=== PATIENT | female | born 1960 | race Caucasian/White ===

== ENCOUNTER → 2016-03-22 | Day surgery (SDC) | payer OTHER ==
[2016-03-05 12:50] VITALS: Ht 175.3 cm; Wt 94.5 kg
[~2016-03-22] VITALS: Ht 175.3 cm; Wt 94.5 kg
[~2016-03-22] MED LIST: ACET-1256 PO; ACET-749 PO; ACET325T96 PO; ALBU0.5N2 NEB; ATOR-24 PO; CHN/1 PO; CHOL1CAP57 PO; CIPR-255 PO; CITA20TA9 PO; CPR500 PO; CYCL10TA6 PO; DICL75TA2 PO; DIPH-437 PO; DONE1TAB11 PO; FLVHFA110 INH; FLVHFA220 PO; HYDR-4079 PO; HYDR-5688 PO; LIDOCAINE HCL 2% 2 ML VIAL (20MG/ML) ONE; LISI-787 PO; LORA-741 PO; LORA10CA2 PO; MULT-188 PO; NICO14DI9 TOP; NMN10 PO; NMN5 PO; OXYB5TAB74 PO; OXYC1TAB3 PO; PHEN-775 PO; PRLSR20 PO; PROPOFOL IV EMULSION 10 MG/ML 20 ML VIAL IV ONE; PRVIN525 INH; RANI150C4 PO; SERT-234 PO; SPRIN/30 INH; SULF800T23 PO; TIOT1AER2 INH; TIOTCAP INH; VALA1TAB2 PO; VNTHFA/IN INH; ZOLP5TAB6 PO
--- NOTE | 2016-03-22 13:27 | Endo History and Physical ---
History & Physical Date of Service: Mar 22, 2016. Chief Complaint: Screening Referring Physician: Angel History of Present Illness For colonoscopy Past Medical History Arthritis, Fractures, Asthma, Anxiety, Reflux, Gynecological Problems, High Cholesterol, Hypertension, COPD, Kidney Disease Past Surgical History Hx Cardiac Surgery: No Hx Internal Defibrillator: No Hx Pacemaker: No Hx Abdominal Surgery: Yes (APPY, HYSTER, TUBAL LIGATION, BSO, MT, HERNIA REPAIR) Hx of Implantable Prosthesis: No Hx Post-Op Nausea and Vomiting: No Hx Cancer Surgery: No Hx Thoracic Surgery: No Hx Orthopedic: Yes (LT CTR, LT ELBOW SURGERY) Hx Urinary Tract Surgery: No Family History None Social History Smoking Status: Current Every Day Smoker Hx Substance Use: No Hx Alcohol Use: No Allergies Coded Allergies: Penicillins (Verified Allergy, Intermediate, HIVES, 03/05/16) Tetracyclines (Verified Allergy, Intermediate, HIVES, 03/05/16) Current Medications Reported Home Medications Medications Dose Route/Sig Max Daily Dose Days Date Category Nicotine 14 Mg/24 Hr Dis 1 Patch TOP UD 03/05/16 Reported Tylenol W/Codeine #3 (Acetaminophen/Codeine Phosphate) 300 Mg/30 Mg Tab 1 Tab PO BID PRN 03/05/16 Reported Namenda (Memantine) 5 Mg Tab 5 Mg PO HS 08/30/15 Reported Spiriva Handihaler (Tiotropium [place]) 18 Mcg/ Aerp 1 Cap INH QAM 08/30/15 Reported Flovent Hfa (Fluticasone Propionate) 120 Puffs/71518 Mcg Aero 2 Puffs INH BID 30 08/30/15 Reported Zestoretic 20MG/12.5MG (HCTZ/Lisinopril) Tab 1 Tab PO QAM 08/30/15 Reported Ventolin 0.5% Soln (Albuterol Sulfate) Nebu 1 Vial NEB Q4 PRN 08/30/15 Reported Lipitor (Atorvastatin Calcium) 40 Mg Tab 40 Mg PO HS 07/19/15 Reported Ativan (Lorazepam) 0.5 Mg Tab 0.5 Mg PO Q6H PRN 07/19/15 Reported Celexa (Citalopram Hydrobromide) 20 Mg Tab 20 Mg PO QAM 07/19/15 Reported Donepezil Hcl (Donepezil Hydrochloride) 5 Mg Tab 5 Mg PO QAM 07/19/15 Reported Ocuvite (Multiple Vitamins W/ Minerals) 1 Tab Tab 1 Tab PO HS 08/02/14 Reported Ranitidine Hcl 150 Mg Cap 150 Mg PO QAM 12/04/12 Reported Vitamin D3 (Cholecalciferol) 1,000 Unit Cap 1,000 Inter.unit PO QAM 12/04/12 Reported Prilosec (Omeprazole) 20 Mg Capcr 20 Mg PO QAM 12/04/12 Reported Claritin (Loratadine) 10 Mg Cap 10 Mg PO QAM PRN 08/05/11 Reported Vital Signs Weight (Kilograms): 94.55 Height (Feet): 5 Height (Inches): 9 Date Time Temp Pulse Resp B/P Pulse Ox O2 Delivery O2 Flow Rate FiO2 03/22/16 13:06 37.2 80 18 126/72 95 Room Air Physical Exam General Appearance: WD/WN Respiratory/Chest: Respiratory effort: no dyspnea Cardiovascular: Heart Auscultation: RRR Abdomen: Inspection & Palpation: soft (for screening colonoscopy)
--- NOTE | 2016-03-22 13:56 | Discharge Instructions ---
Endoscopy Patient Instructions Date / Procedure(s) Performed Mar 22, 2016. Colonoscopy Allergy Information Coded Allergies: Penicillins (Verified Allergy, Intermediate, HIVES, 03/05/16) Tetracyclines (Verified Allergy, Intermediate, HIVES, 03/05/16) Discharge Date / Findings Mar 22, 2016. Polyps Medication Instructions Restart Stopped Medication(s): resume meds Reported Home Medications Medications Dose Route/Sig Max Daily Dose Days Date Category Nicotine 14 Mg/24 Hr Dis 1 Patch TOP UD 03/05/16 Reported Tylenol W/Codeine #3 (Acetaminophen/Codeine Phosphate) 300 Mg/30 Mg Tab 1 Tab PO BID PRN 03/05/16 Reported Namenda (Memantine) 5 Mg Tab 5 Mg PO HS 08/30/15 Reported Spiriva Handihaler (Tiotropium [place]) 18 Mcg/ Aerp 1 Cap INH QAM 08/30/15 Reported Flovent Hfa (Fluticasone Propionate) 120 Puffs/[id number] Mcg Aero 2 Puffs INH BID 30 08/30/15 Reported Zestoretic 20MG/12.5MG (HCTZ/Lisinopril) Tab 1 Tab PO QAM 08/30/15 Reported Ventolin 0.5% Soln (Albuterol Sulfate) Nebu 1 Vial NEB Q4 PRN 08/30/15 Reported Lipitor (Atorvastatin Calcium) 40 Mg Tab 40 Mg PO HS 07/19/15 Reported Ativan (Lorazepam) 0.5 Mg Tab 0.5 Mg PO Q6H PRN 07/19/15 Reported Celexa (Citalopram Hydrobromide) 20 Mg Tab 20 Mg PO QAM 07/19/15 Reported Donepezil Hcl (Donepezil Hydrochloride) 5 Mg Tab 5 Mg PO QAM 07/19/15 Reported Ocuvite (Multiple Vitamins W/ Minerals) 1 Tab Tab 1 Tab PO HS 08/02/14 Reported Ranitidine Hcl 150 Mg Cap 150 Mg PO QAM 12/04/12 Reported Vitamin D3 (Cholecalciferol) 1,000 Unit Cap 1,000 Inter.unit PO QAM 12/04/12 Reported Prilosec (Omeprazole) 20 Mg Capcr 20 Mg PO QAM 12/04/12 Reported Claritin (Loratadine) 10 Mg Cap 10 Mg PO QAM PRN 08/05/11 Reported Provider Instructions Activity Restrictions - No exercising or heavy lifting for 24 hours. - Do not drink alcohol the day of the procedure. - Do not drive a car or operate machinery until the day after the procedure. - Do not make any important decisions or sign important papers in 24 hours after the procedure. Following Day: - Return to full activity which may include returning to work/school. Diet Start your diet with liquids and light foods (jello, soup, juice, toast). Then eat your usual diet if not nauseated. Treatment For Common After Affects For mild abdominal pain, bloating, or excessive gas: - Rest - Eat lightly - Lie on right side Follow-Up Information Follow-up with Angel as scheduled Anesthesia Information What You Should Know You have had a procedure that required some medicine to reduce anxiety and discomfort. This treatment is called moderate sedation. After receiving the treatment, you may be sleepy, but you will be able to breathe on your own. The effects of the treatment may last for several hours. Follow these instructions along with Activity/Diet recommendations noted above: * Do NOT do anything where dizziness or clumsiness would be dangerous. * Rest quietly at home today, then you can be up and about tomorrow. * Have a responsible person stay with you the rest of today. * You may have had an I.V. today. If so, you may take the dressing off later today. Recommendations Call your doctor if: * Trouble breathing * Continuous vomiting for more than 24 hours * Temperature above 101 degrees * Severe abdominal pain or bloating * Pain not relieved by pain medicine ordered * There is increased drainage or redness from any incision * A large amount of rectal bleeding greater than 2-3 tablespoons. (If you had a polyp/s removed or have hemorrhoids, a small amount of blood - from the rectum is to be expected.) * You have any unanswered questions or concerns. IN THE EVENT OF A SERIOUS EMERGENCY, GO TO THE NEAREST EMERGENCY ROOM Your discharge instructions were prepared by provider Yash Ramírez. Patient Instructions Signature Page Marjorie Graham Patient (or Guardian) Signature/Date: I have read and understand the instructions given to me by my caregivers. Caregiver/RN/Doctor Signature/Date: The above-named patient and/or guardian has received patient instructions on this date. + Original Patient Signature Page (only) stays with chart. Please make copy for patient.
--- NOTE | 2016-03-22 13:58 | GI REPORT ---
Procedure Date: 03/22/2016 1:29 PM Procedure: Colonoscopy Indications: Screening for colorectal malignant neoplasm Medicines: Propofol total dose 280 mg IV, Lidocaine 40 mg IV Complications: No immediate complications. Estimated Blood Loss: Estimated blood loss was minimal. Procedure: Pre-Anesthesia Assessment: - Prior to the procedure, a History and Physical was performed, and patient medications, allergies and sensitivities were reviewed. The patient's tolerance of previous anesthesia was reviewed. - The risks and benefits of the procedure and the sedation options and risks were discussed with the patient. All questions were answered and informed consent was obtained. After I obtained informed consent, the scope was passed under direct vision. Throughout the procedure, the patient's blood pressure, pulse, and oxygen saturations were monitored continuously. The Scope was introduced through the anus and advanced to the cecum, identified by appendiceal orifice and ileocecal valve. The colonoscopy was performed without difficulty. The patient tolerated the procedure well. The quality of the bowel preparation was excellent. Findings: A 3 mm polyp was found in the cecum. The polyp was sessile. The polyp was removed with a cold snare. Resection and retrieval were complete. Estimated blood loss was minimal. A 3 mm polyp was found in the sigmoid colon. The polyp was sessile. The polyp was removed with a cold snare. Resection and retrieval were complete. Estimated blood loss was minimal. Impression: - One 3 mm polyp in the cecum, removed with a cold snare. Resected and retrieved. - One 3 mm polyp in the sigmoid colon, removed with a cold snare. Resected and retrieved. Recommendation: - Discharge patient to home (ambulatory). - Continue present medications. - Await pathology results. - Return to primary care physician PRN. Yash Ramírez M.D. Yash Ramírez MD 03/22/2016 1:58:13 PM This report has been signed electronically. Note Initiated On: 03/22/2016 1:29 PM
[2016-03-22 14:27] VITALS: BP 117/68; PULSE 73; O2SAT 95
--- NOTE | 2016-03-22 14:27 | Anesthesiology Progress Note ---
Anesthesia Post Op Note Date & Time Mar 22, 2016 at 14:26 Vital Signs Pain Intensity: 0 Vital Signs Past 12 Hours Date Time Temp Pulse Resp B/P Pulse Ox O2 Delivery O2 Flow Rate FiO2 03/22/16 14:12 73 18 116/49 96 Room Air 03/22/16 13:57 67 18 102/49 96 Room Air 03/22/16 13:06 37.2 80 18 126/72 95 Room Air Notes Mental Status: alert / awake / arousable, participated in evaluation Pt Amnestic to Procedure: Yes Nausea / Vomiting: adequately controlled Pain: adequately controlled Airway Patency, RR, SpO2: stable & adequate BP & HR: stable & adequate Hydration State: stable & adequate Anesthetic Complications: no major complications apparent
== END | disposition home or self-care (01) ==
LOC: C.GI 12:47
PROVIDERS: ATTEND Internal Medicine Gastroenterology
DX: Z12.11 Encounter for screening for malignant neoplasm of colon (principal); D12.0 Benign neoplasm of cecum; D12.5 Benign neoplasm of sigmoid colon; I10 Essential (primary) hypertension; F17.200 Nicotine dependence, unspecified, uncomplicated; J44.9 Chronic obstructive pulmonary disease, unspecified; E11.9 Type 2 diabetes mellitus without complications; J45.909 Unspecified asthma, uncomplicated; E78.00 Pure hypercholesterolemia, unspecified; F41.9 Anxiety disorder, unspecified; E66.9 Obesity, unspecified; Z68.31 Body mass index [BMI] 31.0-31.9, adult; Z90.89 Acquired absence of other organs; Z90.710 Acquired absence of both cervix and uterus; Z88.1 Allergy status to other antibiotic agents; Z88.0 Allergy status to penicillin; Z98.51 Tubal ligation status; Z90.49 Acquired absence of other specified parts of digestive tract; Z98.890 Other specified postprocedural states

== ENCOUNTER → 2016-04-08 | Outpatient (CLI) | payer OTHER ==
[~2016-04-08] MED LIST changes: -LIDOCAINE HCL 2% 2 ML VIAL (20MG/ML) ONE; -PROPOFOL IV EMULSION 10 MG/ML 20 ML VIAL IV ONE
--- NOTE | 2016-04-08 12:34 | DIAGNOSTIC IMAGING REPORT ---
CHEST 2 VIEWS ROUTINE CLINICAL HISTORY: COPD,COUGH COMPARISON STUDY: 08/30/2015 FINDINGS: The cardiac and mediastinal contours are normal. There is no evidence of focal pulmonary consolidation. There is no evidence of failure. No pleural effusions are visualized.[ There is minimal left basilar atelectasis/scarring. IMPRESSION: No active disease in the chest. Electronically signed by: Jagdish Pedroza M.D. 04/08/2016 12:32 PM Dictated Date/Time: 04/08/2016 12:31 PM
== END | disposition home or self-care (01) ==
LOC: C.RAD1850 12:20
PROVIDERS: ATTEND Family Medicine
DX: J44.1 Chronic obstructive pulmonary disease with (acute) exacerbation (principal)

== ENCOUNTER → 2016-04-23 | Outpatient (CLI) | payer OTHER ==
--- NOTE | 2016-04-23 12:03 | DIAGNOSTIC IMAGING REPORT ---
CT SCAN OF THE TEMPORAL BONES CLINICAL HISTORY: Bilateral otitis media. COMPARISON STUDY: CT of the brain dated 08/29/2014. TECHNIQUE: High-resolution CT scan of the temporal bones is performed. Images reviewed in the axial, sagittal, and coronal planes. IV contrast was not administered for this examination. CT DOSE: 403.53 mGycm FINDINGS: The skeletal structures are osteopenic. There are moderate to large bilateral mastoid effusions. There is fluid identified within the right middle ear cavity. The scutum is sharp bilaterally. There is no evidence of dehiscence of the tegmen tympany. There is no definite soft tissue lesion to suggest cholesteatoma. The ossicles are normal in configuration without evidence of erosion. There is no evidence of otosclerosis. The visualized calvarium appears intact. Frothy secretions are present within the sphenoid sinuses and the left posterior ethmoid sinuses. Air-fluid levels and secretions are present within the maxillary antra. Fluid and secretions are also present within the frontal sinuses. The bony orbits are intact, and orbital contents are within normal limits. The partially imaged brain parenchyma is normal in appearance. IMPRESSION: 1. There are large bilateral mastoid effusions. 2. There is fluid within the right middle ear canal. This would be consistent with the reported clinical history of otitis media. 3. The middle ear structures otherwise normal in appearance. 4. Pansinusitis as above. Dictated: 04/23/2016 11:35 AM Transcribed: 04/23/2016 12:02 PM Fritz Electronically signed by: Britton Lynn M.D. 04/23/2016 1:08 PM Dictated Date/Time: 04/23/2016 11:35 AM
== END | disposition home or self-care (01) ==
LOC: C.CTS 11:13
PROVIDERS: ATTEND Family Medicine
DX: H66.90 Otitis media, unspecified, unspecified ear (principal)

== ENCOUNTER → 2016-05-10 | Outpatient (CLI) | payer OTHER ==
--- NOTE | 2016-05-10 09:55 | DIAGNOSTIC IMAGING REPORT ---
FUSION CT SINUSES W/O HISTORY: Chronic sinusitis. TECHNIQUE: Multiaxial CT images of the sinuses were performed without the use of intravenous contrast reformatted in the coronal plane. Fusion CT protocol was also obtained. COMPARISON STUDY: Temporal bone CT 04/23/2016. FINDINGS: Small amount of bubbly secretions seen within the left frontal sinus and mild mucosal thickening seen within the right frontal sinus. Opacification of the right frontoethmoidal recess due to the mucosal thickening. There is partial opacification of the bilateral ethmoid air cells which is slightly progressed. Small fluid levels within the sphenoid sinuses with bubbly secretions. This has also progressed. Small fluid levels within the bilateral maxillary sinuses persist. Small retention cyst within the right maxillary sinus anteriorly measuring 1 cm. Mild right nasal septal deviation with a small right-sided nasal spur. Near complete opacification of the bilateral mastoid air cells is again noted. No evidence for carotid canal dehiscence. The anterior clinoids are not pneumatized. The cribriform plates and ethmoid roofs are symmetric. The lamina papyracea and orbital floors are intact. Partial opacification of the bilateral ostiomeatal units. Focal soft tissue thickening at the right ostiomeatal unit may represent a polyp. This measures 7 mm. Rounded appearance to the uncinate processes which may be congenital or due to partial erosion. The visualized brain parenchyma and orbits are unremarkable. The pterygopalatine fossa are well-maintained. IMPRESSION: 1. Acute on chronic paranasal sinusitis as described above which has progressed. 2. Similar bilateral mastoid effusions. 3. Opacification of the bilateral ostiomeatal units, right greater than left. There may be a 7 mm polyp at the right ostiomeatal unit. 4. Mild right nasal septal deviation with a small right-sided nasal spur. Electronically signed by: Amado López M.D. 05/10/2016 9:54 AM Dictated Date/Time: 05/10/2016 9:45 AM
== END | disposition home or self-care (01) ==
LOC: C.CTS 09:20
PROVIDERS: ATTEND Surgery
DX: J01.80 Other acute sinusitis (principal); J32.8 Other chronic sinusitis; H74.93 Unspecified disorder of middle ear and mastoid, bilateral

== ENCOUNTER → 2016-06-07 | Day surgery (SDC) | payer OTHER ==
--- NOTE | 2016-05-21 12:04 | DIAGNOSTIC IMAGING REPORT ---
CHEST 2 VIEWS ROUTINE HISTORY: Z01.818 Pre-operative [id number] COMPARISON: Chest 04/08/2016. FINDINGS: The lungs are clear. Cardiac silhouette is normal in size. No pleural effusions. No pneumothorax. IMPRESSION: No acute process. Electronically signed by: Amado López M.D. 05/21/2016 12:02 PM Dictated Date/Time: 05/21/2016 11:59 AM
[2016-05-21 12:11] LABS: HEMATOCRIT 44.7 % (37-47); MEAN CELL VOLUME 90.7 fL (80-100); MEAN CORPUSCULAR HEMOGLOBIN 30.2 pg (25-34); MEAN CORPUSCULAR HGB CONC 33.3 g/dl (32-36); MEAN PLATELET VOLUME 10.1 fL (7.4-10.4); PLATELET COUNT 371 K/uL (130-400); RED BLOOD COUNT 4.93 M/uL (4.2-5.4); WHITE BLOOD COUNT 15.35 K/uL (4.8-10.8)
[2016-05-21 12:20] LABS: INR 0.9 (0.9-1.1); PROTHROMBIN TIME (PATIENT) 9.6 SECONDS (9.0-12.0)
[2016-05-21 12:34] LABS: COMPLETE YES; EOSINOPHIL % 0.9 %; LYMPH ABS # 3.73 K/uL (1.2-3.4); LYMPHOCYTE % 24.3 %; MYELOCYTE % 0.9 %; NEUTROPHILS % 69.6 %
[2016-05-23 09:16] VITALS: Ht 175.3 cm; Wt 93.6 kg
--- NOTE | 2016-06-06 12:22 | PAT Medication Instructions ---
Service Date Jun 06, 2016. Current Home Medication List Albuterol 0.5% Soln (Ventolin 0.5% Soln), 1 VIAL NEB Q4 PRN for SOB/Wheezing Albuterol Hfa (Ventolin Hfa), 2-4 PUFFS INH Q6H PRN for SOB/Wheezing Atorvastatin (Lipitor), 40 MG PO HS Cholecalciferol (Vitamin D3), 1,000 INTER.UNIT PO QAM Citalopram Hydrobromide (Celexa), 20 MG PO QAM Donepezil Hydrochloride (Donepezil Hcl), 5 MG PO QAM Fluticasone Propionate (Flovent Hfa), 2 PUFFS INH BID Lisinopril/Hctz (Zestoretic 20MG/12.5MG), 1 TAB PO QAM Loratadine (Claritin), 10 MG PO QAM PRN for SEASONAL Lorazepam (Ativan), 0.5 MG PO Q6H PRN for Anxiety Memantine (Namenda), 5 MG PO HS Multiple Vitamins W/ Minerals (Ocuvite), 1 TAB PO HS Nicotine (Nicotine), 1 PATCH TOP UD Omeprazole (Prilosec), 20 MG PO QAM Ranitidine Hcl (Ranitidine Hcl), 150 MG PO QAM Tiotropium [place] (Spiriva Handihaler), 2 PUFFS INH QAM Medication Instructions For Your Scheduled Surgery - Hold the following medications the morning of surgery: Nicotine (Nicotine), 1 PATCH TOP UD Loratadine (Claritin), 10 MG PO QAM PRN for SEASONAL Lisinopril/Hctz (Zestoretic 20MG/12.5MG), 1 TAB PO QAM Cholecalciferol (Vitamin D3), 1,000 INTER.UNIT PO QAM - Take the following medications the morning of surgery with a sip of water: Omeprazole (Prilosec), 20 MG PO QAM Ranitidine Hcl (Ranitidine Hcl), 150 MG PO QAM Tiotropium [place] (Spiriva Handihaler), 2 PUFFS INH QAM Lorazepam (Ativan), 0.5 MG PO Q6H PRN for Anxiety Fluticasone Propionate (Flovent Hfa), 2 PUFFS INH BID Citalopram Hydrobromide (Celexa), 20 MG PO QAM Donepezil Hydrochloride (Donepezil Hcl), 5 MG PO QAM Albuterol 0.5% Soln (Ventolin 0.5% Soln), 1 VIAL NEB Q4 PRN for SOB/Wheezing Albuterol Hfa (Ventolin Hfa), 2-4 PUFFS INH Q6H PRN for SOB/Wheezing (bring with you to surgery center on day of surgery) - Take the following medications as scheduled the night before surgery: Memantine (Namenda), 5 MG PO HS Multiple Vitamins W/ Minerals (Ocuvite), 1 TAB PO HS Lorazepam (Ativan), 0.5 MG PO Q6H PRN for Anxiety Fluticasone Propionate (Flovent Hfa), 2 PUFFS INH BID Atorvastatin (Lipitor), 40 MG PO HS Albuterol 0.5% Soln (Ventolin 0.5% Soln), 1 VIAL NEB Q4 PRN for SOB/Wheezing Albuterol Hfa (Ventolin Hfa), 2-4 PUFFS INH Q6H PRN for SOB/Wheezing If you have any questions please call us at [phone] or [phone] ( Adrienne) or [phone]
[2016-06-06 12:37] LABS: HEMATOCRIT 43.4 % (37-47); MEAN CELL VOLUME 89.1 fL (80-100); MEAN CORPUSCULAR HEMOGLOBIN 30.2 pg (25-34); MEAN CORPUSCULAR HGB CONC 33.9 g/dl (32-36); PLATELET COUNT 293 K/uL (130-400); RED BLOOD COUNT 4.87 M/uL (4.2-5.4); WHITE BLOOD COUNT 11.56 K/uL (4.8-10.8)
[2016-06-06 13:05] LABS: BUN/CREATININE RATIO 16.3 (10-20); CALCIUM 9.5 mg/dl (8.5-10.1); CREATININE 0.86 mg/dl (0.60-1.20); POTASSIUM 3.8 mmol/L (3.5-5.1)
[~2016-06-07] VITALS: Ht 175.3 cm; Wt 93.6 kg
[~2016-06-07] MED LIST changes: -ACET-749 PO; +ALBUT/IPRATROP 3MG/0.5MG NEB 3 ML VIAL INH ONE; +ALBUT/IPRATROP 3MG/0.5MG NEB 3 ML VIAL ONE; +ALBUTEROL HFA INHALER 8.5 GM INH ONE; +ATROPINE SULFATE 0.1 MG/ML 5ML SYR IV PRN; +CLINDAMYCIN PHOS 150 MG/ML 2 ML VIAL IV SCH; +DEXAMETHASONE SOD INJ 4 MG/ML VIAL ONE; +DTR/5 PO; +EpHEDrine SULFATE INJ 50 MG/ML AMP IV PRN; +EpHEDrine SULFATE INJ 50 MG/ML AMP ONE; +EpINEphrine INJ 1MG/ML AMP 1 MG/ML AMP ONE; +FENTANYL CITRATE INJ 50 MCG/1 ML 2 ML VIAL IV PRN; +FENTANYL CITRATE INJ 50 MCG/1 ML 2 ML VIAL ONE; +FLUMAZENIL 0.1 MG/1 ML 10 ML VIAL IV PRN; +HYDROCODONE/ACETAMOPHEN 5/325MG TAB PO PRN; +HYDROmorphone INJ 2 MG/ML SYR/VIAL IV PRN; +LABETALOL HCL IV 5 MG/ML 20ML IV PRN; +LACTATED RINGER'S 1000ML 1,000 ML IV SCH; +LIDOCAINE HCL 2% 2 ML VIAL (20MG/ML) ONE; +LIDOCAINE/EPINEPHRINE 1% INJ 50 ML VIAL ONE; +MEPERIDINE HCL 25 MG/ML CARP IV PRN; +MIDAZOLAM HCL 1 MG/ML 2ML VIAL ONE; +NALOXONE HCL 0.4 MG/1 ML VIAL/CARP IV PRN; +OFLOXACIN 0.3% OP SOLN 5 ML BTL ONE; +ONDA4TAB10 SL; +ONDANSETRON INJ 2 MG/ML 2 ML VIAL IV PRN; +ONDANSETRON INJ 2 MG/ML 2 ML VIAL ONE; -OXYB5TAB74 PO; +OXYMETAZOLINE HCL 0.05% NA SPR 15 ML BTL PRN; +OXYMETAZOLINE HCL 0.05% NA SPR 15 ML BTL SCH; +PHEN95TA14 PO; +PHENYLEPHRINE 100MCG/ML 5ML SYR IV PRN; +PROPOFOL IV EMULSION 10 MG/ML 20 ML VIAL IV ONE; -PRVIN525 INH; +PRVIN525 NEB; +SODIUM CHLORIDE 0.9% INJ 10 ML VIAL ONE; +SUCCINYLCHOLINE CHLORIDE 20 MG/ML 10 ML VIAL IV ONE; +ZOLP10TA6 PO
--- NOTE | 2016-06-07 09:14 | History & Physical Bridge - [place] ---
H&P Re-Evaluation Bridge Note: I have examined the patient, reviewed the History & Physical and in the interval since the performance of the History & Physical I have noted the following changes of clinical significance: No changes noted
[2016-06-07] MEDS: LIDOCAINE 4% MPF SOAK 5 ML = 1 DOSE TOP ONE ×2 (10:05→10:30)
--- NOTE | 2016-06-07 10:43 | [facility] Operative Report ---
Operative Report Operative Date Jun 07, 2016. Pre-Operative Diagnosis Chronic Sinusitis, Septal Deviation, Turbinate Hypertrophy, Chronic Otitis Media, Bilateral Mixed Hearing Loss Post-Operative Diagnosis Same Procedure(s) Performed Image Guided Bilateral Sinus Surgery With Septoplasty, Inferior Turbinate Reduction And Herminia Bullosa Resection, Bilateral Myringotomy With Pressure Equalizing Tubes Surgeon Dr [employer] Surgeon(s) None Estimated Blood Loss 100ML Findings 1. BILATERAL SEROUS MIDDLE EAR EFFUSIONS 2. R DNS 3. L>R ITH 4. B CB 5. POLYPOID MUCOSA THICKENING AND POLYPS IN B FRONTAL/MAXILLARY/ETHMOID/ SPHENOID SINUSES 6. PUS IN L MAXILLARY SINUS Specimens None I attest to the content of the Intraoperative Record and any orders documented therein. Any exceptions are noted below.
--- NOTE | 2016-06-07 10:45 | Discharge Instructions ---
Discharge Instructions Date of Service Jun 07, 2016. Admission Reason for Admission: Chronic Sinusitis, Nasal Septal Deviation, C.o.m.e Discharge Discharge Diagnosis / Problem: SAME Discharge Goals Goal(s): Improve function Activity Recommendations Activity Limitations: as noted below 1. DRY EAR PRECAUTIONS WHILE TUBES IN PLACE 2. NO DRIVING WHILE ON [place] 3. NO NOSE BLOWING FOR 2WEEKS . Current Hospital Diet Patient's current hospital diet: Discharge Diet Recommended Diet: Regular Diet Procedures Procedures Performed: Image Guided Bilateral Sinus Surgery With Septoplasty, Inferior Turbinate Reduction And Herminia Bullosa Resection, Bilateral Myringotomy With Pressure Equalizing Tubes Pending Studies Studies pending at discharge: no Medical Emergencies . Who to Call and When: Medical Emergencies: If at any time you feel your situation is an emergency, please call 911 immediately. . Non-Emergent Contact Non-Emergency issues call your: Surgeon . . "Provider Documentation" section prepared by Subhash West. VTE Core Measure Inpt VTE Proph given/why not?: SCD's
[2016-06-07 11:45] VITALS: TEMP 36.9
--- NOTE | 2016-06-07 11:51 | Anesthesia Progress Nt - [facility] ---
Anesthesia Post Op Note Date & Time Jun 07, 2016 at 11:51 Vital Signs Pain Intensity: 3 Vital Signs Past 12 Hours Date Time Temp Pulse Resp B/P Pulse Ox O2 Delivery O2 Flow Rate FiO2 06/07/16 11:45 36.9 100 18 100/63 94 Room Air 06/07/16 11:32 36.9 95 12 06/07/16 11:32 94 12 95 06/07/16 11:30 103/57 06/07/16 11:27 97 12 06/07/16 11:27 96 12 100 06/07/16 11:25 92/46 06/07/16 11:22 95 7 06/07/16 11:22 93 7 100 06/07/16 11:21 91/60 06/07/16 11:17 89 10 94 06/07/16 11:17 91 10 06/07/16 11:15 112/58 06/07/16 11:12 93 11 06/07/16 11:12 89 11 94 06/07/16 11:10 104/62 06/07/16 11:07 102 14 93 06/07/16 11:07 104 14 06/07/16 11:05 117/66 06/07/16 11:02 100 8 06/07/16 11:02 98 8 93 06/07/16 11:00 118/65 06/07/16 10:57 97 17 06/07/16 10:57 95 17 96 06/07/16 10:55 105/62 06/07/16 10:52 94 15 96 06/07/16 10:52 94 15 06/07/16 10:50 119/63 06/07/16 10:48 37.2 104 20 113/65 95 Humidified Oxygen 6 Mask 06/07/16 10:47 101 19 113/65 96 06/07/16 10:47 101 19 06/07/16 09:11 36.8 92 16 126/72 93 Room Air Notes Mental Status: alert / awake / arousable, participated in evaluation Pt Amnestic to Procedure: Yes Nausea / Vomiting: adequately controlled Pain: adequately controlled Airway Patency, RR, SpO2: stable & adequate, see Notes BP & HR: stable & adequate Hydration State: stable & adequate Anesthetic Complications: no major complications apparent The patient did well. She was given a Duoneb in the PACU which improved her breathing.
[2016-06-07 12:10] VITALS: BP 99/63; PULSE 101; O2SAT 94
--- NOTE | 2016-06-07 13:24 | OPERATIVE REPORT ---
DATE OF OPERATION: 06/07/2016 PREOPERATIVE DIAGNOSES: 1. Bilateral chronic otitis media with effusion. 2. Bilateral Eustachian tube dysfunction. 3. Bilateral mixed hearing loss. 4. Chronic rhinosinusitis. 5. Right septal deviation. 6. Left greater than right inferior turbinate hypertrophy. 7. Bilateral hannah bullosa. POSTOPERATIVE DIAGNOSES: 1. Bilateral chronic otitis media with effusion. 2. Bilateral Eustachian tube dysfunction. 3. Bilateral mixed hearing loss. 4. Chronic rhinosinusitis. 5. Right septal deviation. 6. Left greater than right inferior turbinate hypertrophy. 7. Bilateral hannah bullosa. PROCEDURES: 1. Bilateral myringotomy and tube placement. 2. Image-guided bilateral endoscopic sinus surgery consisting of: a. Bilateral endoscopic hannah bullosa resections. b. Bilateral maxillary antrostomies. c. Bilateral complete ethmoidectomies. d. Bilateral balloon sinuplasty assisted frontal sinusotomies. e. Bilateral sphenoidotomies. f. Septoplasty. g. Bilateral inferior turbinate outfracture and turbinoplasty. SURGEON: Dr. West. ANESTHESIA: General endotracheal. ESTIMATED BLOOD LOSS: 100 mL FINDINGS: 1. Bilateral serous middle ear effusions. 2. Bilateral thickened retracted tympanic membranes, especially on the left hand side. 3. Right septal deviation posteriorly. 4. Polypoid mucosal thickening involving all of the bilateral paranasal sinuses. 5. Mucopurulence within the left maxillary sinus. 6. Left greater than right inferior turbinate hypertrophy. SPECIMENS: None. COMPLICATIONS: None. INDICATIONS FOR THE PROCEDURE: The patient is a 56-year-old female with the above-mentioned history, who presents for the above-mentioned procedure on an outpatient elective basis. DETAILS OF PROCEDURE: After informed consent had been obtained from the patient, the patient was wheeled to the operating room and placed on the operating room table in supine position. Monitors were placed after induction of general endotracheal anesthesia, the patient's head was gently turned to the left and a speculum was inserted into the right external auditory canal. The operating microscope was wheeled in and used to perform the procedure. A myringotomy knife was used to make a radial incision in the anterior inferior quadrant of the tympanic membrane and the middle ear space was suctioned free of a serous middle ear effusion. Of note, the tympanic membrane was thickened and retracted. A silicone Freeman tympanostomy tube was then placed. Floxin drops were instilled into the middle ear space and a cotton ball was placed into the conchal bowl. The left side was then addressed in a similar fashion with similar intraoperative findings except on this side there was more significant attic retraction. Then, the image-guided sinus surgery portion of the procedure was performed. The Ioxus headset was placed, calibrated, verified and registered and used to perform the procedure, especially the frontal and sphenoid sinus portions of the procedure. Lidocaine and epinephrine pledgets were placed in bilateral nasal cavities and pressure applied. The left-sided pledgets were first removed. A Gorham elevator was used to medialize the left middle turbinate. The left middle turbinate and lateral nasal wall were injected with 1% lidocaine with 1:100,000 epinephrine. A lidocaine and epinephrine pledget was then placed in the left middle meatus. The right side was addressed in a similar fashion. The left-sided pledget was removed and a sickle knife was used to incise the left middle turbinate and the lateral half of the middle turbinate was removed using straight Eb-Cut forceps and powered instrumentation to perform an endoscopic hannah bullosa resection. The uncinate process was then removed using a Gorham elevator, straight Eb-Cut forceps, and powered instrumentation. The natural ostium of the left maxillary sinus was identified. This was enlarged anteriorly, inferiorly, and posteriorly using backbiting forceps and powered instrumentation. A complete ethmoidectomy was then performed using powered instrumentation. The left sphenoid sinus was then entered and the natural ostium was enlarged medially and inferiorly using powered instrumentation. Using a #7 frontal sinus balloon and image guidance, the left frontal sinus was cannulated and inflated to 12 atmospheres of pressure in 2 different locations to perform a balloon assisted frontal sinusotomy. Polypoid tissue was then removed using powered instrumentation. Of note, there was polypoid mucosal thickening involving all of the paranasal sinuses and purulence within the left maxillary sinus which was completely evacuated using curved maxillary sinus suction. Most significant polyposis was within the left ethmoid sinus. The right side was then addressed in a similar fashion with similar intraoperative findings except on this side there was more significant polypoid mucosal thickening involving the right frontal ethmoid recess and there was no mucopurulence within any of the sinuses. The patient's septum was inspected. There was a posterior septal spur inferiorly and posteriorly which was the only obstruction. The septum was then injected with 1% lidocaine with 1:100,000 epinephrine. A caudal elevator was used to elevate a mucoperiosteal flap off the septal bone. Osteotome, mallet, and Gail forceps were used to remove the bony septal spur which was impinging on the airway posteriorly to the right hand side. The mucoperiosteal flap was then redraped. The incision was not sutured. A Ahn elevator was then used to infracture and subsequently outfracture the inferior turbinates bilaterally. Inferior turbinates were injected with 1% lidocaine with 1:100,000 epinephrine. A 2.0 mm turbinate blade using powered instrumentation was then used to perform bilateral inferior turbinoplasties in a submucosal fashion. The sinonasal cavities and nasopharynx were then suctioned. MeroGel was then placed in bilateral ethmoid sinuses and along the right endoscopic septoplasty incision site. An orogastric tube was placed and the stomach was suctioned free of air and stomach contents. This marked the end of the case. The patient tolerated the procedure well. There were no apparent complications. The patient was extubated and transferred to the recovery room in stable condition. I attest to the content of the Intraoperative Record and any orders documented therein. Any exceptio ns are noted below.
== END | disposition home or self-care (01) ==
LOC: X.SURG 08:54
DX: H65.493 Other chronic nonsuppurative otitis media, bilateral (principal); H69.83 Other specified disorders of Eustachian tube, bilateral; H90.6 Mixed conductive and sensorineural hearing loss, bilateral; J32.9 Chronic sinusitis, unspecified; J34.2 Deviated nasal septum; J34.3 Hypertrophy of nasal turbinates; F17.200 Nicotine dependence, unspecified, uncomplicated; J45.909 Unspecified asthma, uncomplicated; J44.9 Chronic obstructive pulmonary disease, unspecified; I10 Essential (primary) hypertension; E78.00 Pure hypercholesterolemia, unspecified; F41.9 Anxiety disorder, unspecified; Z68.30 Body mass index [BMI] 30.0-30.9, adult; Z88.0 Allergy status to penicillin; Z88.1 Allergy status to other antibiotic agents; Z98.890 Other specified postprocedural states; Z90.710 Acquired absence of both cervix and uterus; Z79.899 Other long term (current) drug therapy; Z83.3 Family history of diabetes mellitus; Z82.49 Family history of ischemic heart disease and other diseases of the circulatory system; Z84.89 Family history of other specified conditions; Z80.6 Family history of leukemia

== ENCOUNTER 2016-08-19 10:52 | Emergency (ER) | payer OTHER ==
[~2016-08-19] VITALS: Ht 175.3 cm; Wt 96.8 kg
[~2016-08-19 10:52] MED LIST changes: -ACET-1256 PO; -ACET325T96 PO; -ALBUT/IPRATROP 3MG/0.5MG NEB 3 ML VIAL INH ONE; -ALBUT/IPRATROP 3MG/0.5MG NEB 3 ML VIAL ONE; -ALBUTEROL HFA INHALER 8.5 GM INH ONE; -ATOR-24 PO; -ATROPINE SULFATE 0.1 MG/ML 5ML SYR IV PRN; -CHN/1 PO; -CHOL1CAP57 PO; -CIPR-255 PO; -CITA20TA9 PO; -CLINDAMYCIN PHOS 150 MG/ML 2 ML VIAL IV SCH; -CPR500 PO; -CYCL10TA6 PO; -DEXAMETHASONE SOD INJ 4 MG/ML VIAL ONE; -DICL75TA2 PO; -DIPH-437 PO; -DONE1TAB11 PO; -DTR/5 PO; -EpHEDrine SULFATE INJ 50 MG/ML AMP IV PRN; -EpHEDrine SULFATE INJ 50 MG/ML AMP ONE; -EpINEphrine INJ 1MG/ML AMP 1 MG/ML AMP ONE; -FENTANYL CITRATE INJ 50 MCG/1 ML 2 ML VIAL IV PRN; -FENTANYL CITRATE INJ 50 MCG/1 ML 2 ML VIAL ONE; -FLUMAZENIL 0.1 MG/1 ML 10 ML VIAL IV PRN; -FLVHFA110 INH; -FLVHFA220 PO; -HYDR-4079 PO; -HYDR-5688 PO; -HYDROCODONE/ACETAMOPHEN 5/325MG TAB PO PRN; -HYDROmorphone INJ 2 MG/ML SYR/VIAL IV PRN; -LABETALOL HCL IV 5 MG/ML 20ML IV PRN; -LACTATED RINGER'S 1000ML 1,000 ML IV SCH; -LIDOCAINE HCL 2% 2 ML VIAL (20MG/ML) ONE; -LIDOCAINE/EPINEPHRINE 1% INJ 50 ML VIAL ONE; -LISI-787 PO; -LORA-741 PO; -LORA10CA2 PO; -MEPERIDINE HCL 25 MG/ML CARP IV PRN; -MIDAZOLAM HCL 1 MG/ML 2ML VIAL ONE; -MULT-188 PO; -NALOXONE HCL 0.4 MG/1 ML VIAL/CARP IV PRN; -NMN10 PO; -OFLOXACIN 0.3% OP SOLN 5 ML BTL ONE; -ONDA4TAB10 SL; -ONDANSETRON INJ 2 MG/ML 2 ML VIAL IV PRN; -ONDANSETRON INJ 2 MG/ML 2 ML VIAL ONE; -OXYC1TAB3 PO; -OXYMETAZOLINE HCL 0.05% NA SPR 15 ML BTL PRN; -OXYMETAZOLINE HCL 0.05% NA SPR 15 ML BTL SCH; -PHEN-775 PO; -PHEN95TA14 PO; -PHENYLEPHRINE 100MCG/ML 5ML SYR IV PRN; -PRLSR20 PO; -PROPOFOL IV EMULSION 10 MG/ML 20 ML VIAL IV ONE; -PRVIN525 NEB; -RANI150C4 PO; -SERT-234 PO; -SODIUM CHLORIDE 0.9% INJ 10 ML VIAL ONE; -SPRIN/30 INH; -SUCCINYLCHOLINE CHLORIDE 20 MG/ML 10 ML VIAL IV ONE; -SULF800T23 PO; -TIOT1AER2 INH; -VALA1TAB2 PO; -VNTHFA/IN INH; -ZOLP10TA6 PO; -ZOLP5TAB6 PO
[2016-08-19 11:01] VITALS: TEMP 37.3; Ht 175.3 cm; Wt 96.8 kg
[2016-08-19] MEDS ORDERED: SPRIN/30 INH (11:29)
[2016-08-19] MEDS ORDERED: FLVHFA220 PO (11:29)
[2016-08-19] MEDS ORDERED: CEFTRIAXONE SOD INJ 1 GM ADDVIAL IV STA (11:44)
[2016-08-19] MEDS ORDERED: SODIUM CHLORIDE 0.9% 1000ML 1,000 ML IV STA (11:44)
--- NOTE | 2016-08-19 12:11 | EMERGENCY ROOM VISIT NOTE ---
History Report prepared by Agnes: Scarlett Dickens Under the Supervision of: Dr. Prakash Calle M.D. First contact with patient: 11:32 Chief Complaint: HEMATURIA Stated Complaint: BLOODY LOOKING URINE History of Present Illness The patient is a 56 year old female who presents to the Emergency Room with complaints of intermittent hematuria since yesterday. The patient noticed bright red blood in her urine yesterday. She is having some left sided back pain that she rates as a 6/10 in severity. She also notes nausea. The patient denies any other urinary symptoms. She denies any burning or itching with urination. She does not take any blood thinners. Source of History: patient Onset: yesterday Position: other (bladder) Symptom Intensity: 6/10 Quality: other (hematuria) Timing: intermittent Modifying Factors (Worsening): urination Associated Symptoms: + nausea, + back pain, No urinary symptoms (denies burning or itching) Review of Systems See HPI for pertinent positives & negatives. A total of 10 systems reviewed and were otherwise negative. Past Medical & Surgical Medical Problems: (1) COPD (chronic obstructive pulmonary disease) (2) Incisional hernia (3) Kidney stones Surgical Problems: (1) S/P appendectomy (2) S/P hysterectomy (3) S/P oophorectomy Family History Cancer Diabetes mellitus FH: gallbladder disease FH: lung disease Hypertension Kidney disease Kidney stones Social History Smoking Status: Current Every Day Smoker Alcohol Use: occasionally, other Marital Status: Housing Status: lives with significant other Occupation Status: unemployed Current/Historical Medications Scheduled Atorvastatin (Lipitor), 40 MG PO HS Cholecalciferol (Vitamin D3), 1,000 INTER.UNIT PO QAM Citalopram Hydrobromide (Celexa), 20 MG PO QAM Donepezil Hydrochloride (Donepezil Hcl), 5 MG PO QAM Lisinopril/Hctz (Zestoretic 20MG/12.5MG), 1 TAB PO QAM Memantine (Namenda), 5 MG PO HS Multiple Vitamins W/ Minerals (Ocuvite), 1 TAB PO HS Omeprazole (Prilosec), 20 MG PO QAM Ranitidine Hcl (Ranitidine Hcl), 150 MG PO QAM Sulfa/Trimethoprim (Bactrim Ds 800MG/160MG), 1 TAB PO BID Tiotropium Simms (Spiriva Handihaler), 1 CAP INH DAILY Scheduled PRN Albuterol Hfa (Ventolin Hfa), 2-4 PUFFS INH Q6H PRN for SOB/Wheezing Loratadine (Claritin), 10 MG PO QAM PRN for SEASONAL Lorazepam (Ativan), 0.5 MG PO Q6H PRN for Anxiety Miscellaneous Medications Albuterol Sulf (Albuterol Sulfate) Fluticasone Propionate (Flovent Hfa) Allergies Coded Allergies: Penicillins (Verified Allergy, Intermediate, HIVES, 08/19/16) Tetracyclines (Verified Allergy, Intermediate, HIVES, 08/19/16) Physical Exam Vital Signs Date Time Temp Pulse Resp B/P (MAP) Pulse Ox O2 Delivery O2 Flow Rate FiO2 08/19/16 15:41 88 18 124/69 97 Room Air 08/19/16 13:46 80 18 121/76 92 Room Air 08/19/16 12:27 88 08/19/16 11:01 37.3 93 20 125/86 93 Room Air Physical Exam GENERAL: Patient is a healthy-appearing well-nourished 56 year old female. HEAD: Normocephalic atraumatic EYES: Ocular movements intact pupils equal and react to light OROPHARYNX mucous membranes are moist no exudates present no erythema or edema present NECK: Supple no nuchal rigidity CHEST: Good equal expansion LUNGS: Clear and equal to auscultation CARDIAC: Normal S1 and S2 ABDOMEN: Soft nontender no guarding BACK: No CVA tenderness EXTREMITIES: No pain upon palpation normal muscle strength in all groups no clubbing cyanosis or edema NEURO: Patient is following commands is answering questions appropriately. Alert and oriented x3 Cranial Nerves 2-12 grossly intact Medical Decision & Procedures ER Provider Diagnostic Interpretation: Radiology results as stated below per my review and radiologist interpretation: RENAL ULTRASOUND CLINICAL HISTORY: Hematuria. COMPARISON STUDY: CT of the abdomen and pelvis July 19, 2015. TECHNIQUE: Sonography of the kidneys and the urinary bladder was performed. FINDINGS: There is no hydronephrosis. The right kidney measures 10.7 x 4.5 x 6 cm and the left measures 12.4 x 6.5 x 5.7 cm. A 1.1 cm calculus within the midpole of the right kidney is noted with several left renal calculi that measure up to 7 mm. Both ureteral jets were identified. There is mild renal cortical thinning as well as scarring within the upper pole of the left kidney. The ureteral jets were visualized. IMPRESSION: Bilateral nephrolithiasis. No hydronephrosis. Electronically signed by: Chauncey Petersen M.D. 08/19/2016 3:31 PM Dictated Date/Time: 08/19/2016 3:29 PM Laboratory Results 08/19/16 12:10 Red Blood Count 4.64, Mean Corpuscular Volume 92.5, Mean Corpuscular Hemoglobin 30.8, Mean Corpuscular Hemoglobin Concent 33.3, Mean Platelet Volume 11.0, Neutrophils (%) (Auto) 75.9, Lymphocytes (%) (Auto) 17.4, Monocytes (%) (Auto) 4.6, Eosinophils (%) (Auto) 1.5, Basophils (%) (Auto) 0.3, Neutrophils # (Auto) 12.05, Lymphocytes # (Auto) 2.76, Monocytes # (Auto) 0.73, Eosinophils # (Auto) 0.23, Basophils # (Auto) 0.05 08/19/16 12:10 Test 08/19/16 11:35 08/19/16 12:10 Urine Color ORANGE Urine Appearance CLEAR (CLEAR) Urine pH 7.0 (4.5-7.5) Urine Specific [place] 1.007 (1.000-1.030) Urine Protein NEG (NEG) Urine Glucose (UA) NEG (NEG) Urine Ketones NEG (NEG) Urine Occult Blood 3+ (NEG) Urine Nitrite NEG (NEG) Urine Bilirubin NEG (NEG) Urine Urobilinogen NEG (NEG) Urine Leukocyte Esterase SMALL (NEG) Urine WBC (Auto) 1-5 /hpf (0-5) Urine RBC (Auto) >30 /hpf (0-4) Urine Hyaline Casts (Auto) 1-5 /lpf (0-5) Urine Epithelial Cells (Auto) 20-30 /lpf (0-5) Urine Bacteria (Auto) NEG (NEG) White Blood Count 15.86 K/uL (4.8-10.8) Red Blood Count 4.64 M/uL (4.2-5.4) Hemoglobin 14.3 g/dL (12.0-16.0) Hematocrit 42.9 % (37-47) Mean Corpuscular Volume 92.5 fL (80-100) Mean Corpuscular Hemoglobin 30.8 pg (25-34) Mean Corpuscular Hemoglobin Concent 33.3 g/dl (32-36) Platelet Count 345 K/uL (130-400) Mean Platelet Volume 11.0 fL (7.4-10.4) Neutrophils (%) (Auto) 75.9 % Lymphocytes (%) (Auto) 17.4 % Monocytes (%) (Auto) 4.6 % Eosinophils (%) (Auto) 1.5 % Basophils (%) (Auto) 0.3 % Neutrophils # (Auto) 12.05 K/uL (1.4-6.5) Lymphocytes # (Auto) 2.76 K/uL (1.2-3.4) Monocytes # (Auto) 0.73 K/uL (0.11-0.59) Eosinophils # (Auto) 0.23 K/uL (0-0.5) Basophils # (Auto) 0.05 K/uL (0-0.2) RDW Standard Deviation 45.8 fL (36.4-46.3) RDW Coefficient of Variation 13.6 % (11.5-14.5) Immature Granulocyte % (Auto) 0.3 % Immature Granulocyte # (Auto) 0.04 K/uL (0.00-0.02) Anion Gap 8.0 mmol/L (3-11) Est Creatinine Clear Calc Drug Dose 94.9 ml/min Estimated GFR () 94.2 Estimated GFR (Non- 81.3 BUN/Creatinine Ratio 15.4 (10-20) Calcium Level 9.4 mg/dl (8.5-10.1) Total Bilirubin 0.3 mg/dl (0.2-1) Direct Bilirubin < 0.1 mg/dl (0-0.2) Aspartate Amino Transf (AST/SGOT) 14 U/L (15-37) Alanine Aminotransferase (ALT/SGPT) 24 U/L (12-78) Alkaline Phosphatase 125 U/L (45-117) Total Protein 7.3 gm/dl (6.4-8.2) Albumin 3.7 gm/dl (3.4-5.0) Lipase 140 U/L (73-393) Labs reviewed by ED physician. Medications Administered Medications (Trade) Dose Ordered Sig/Eda Route Start Time Stop Time Status Last Admin Dose Admin Sodium Chloride 1,000 ml @ 999 mls/hr Q1H1M STAT IV 08/19/16 11:44 08/19/16 12:44 DC 08/19/16 12:24 999 MLS/HR Ceftriaxone Sodium (Rocephin Inj) 1 gm NOW STAT IV 08/19/16 11:44 08/19/16 11:45 DC 08/19/16 12:24 1 GM ED Course 1132: Past medical records reviewed. The patient was evaluated in room C6. A complete history and physical examination was performed. 1144: Rocephin 1 gm IV, NSS 1000 ml @ 999 mls/hr IV 1541: I reassessed the patient at this time. She is feeling better and resting comfortably. I discussed the results and treatment plan with the patient. I answered all pertaining questions that she had. She expressed understanding and verbalized agreement. The patient will be discharged home. Medical Decision Etiologies such as appendicitis, diverticulitis, PUD, biliary pathology, UTI, pancreatitis, obstruction, mesenteric ischemia, aortic pathology, infections, inflammatory bowel disease, renal colic, as well as others were entertained. Medication Reconciliation: I attest that I have personally reviewed the patient' s current medication list. Blood Pressure Screening: Patient was found to have an elevated blood pressure and was referred to their primary care doctor for recheck and further treatment. This is a 56-year-old female who presents emergency department complaining of hematuria. Based on the patient's complaints an IV was established, the patient has a normal CBC normal renal profile normal liver profile normal lipase. In addition the patient's ultrasound does not show any evidence of mass or cyst. I believe based on these findings at the patient can be treated conservatively with antibiotic's however stressed the need for follow-up with urology if the patient is continuing to have bleeding. Patient was in agreement with the treatment plan. Impression Primary Impression: Hematuria Scribe Attestation The scribe's documentation has been prepared under my direction and personally reviewed by me in its entirety. I confirm that the note above accurately reflects all work, treatment, procedures, and medical decision making performed by me. Departure Information Dispostion Home / Self-Care Prescriptions Sulfa/Trimethoprim (Bactrim Ds 800MG/160MG) Tab 1 TAB PO BID for 10 Days, #20 TAB Prov: Prakash Calle MD 08/19/16 Referrals No Doctor, Assigned (PCP) Bladimir Ortiz MD Forms HOME CARE DOCUMENTATION FORM, IMPORTANT VISIT INFORMATION, WORK / SCHOOL INSTRUCTIONS Patient Instructions ED Hematuria, Hematuria Poss Causes, My [facility] Additional Instructions You were found to have an elevated blood pressure today (>120 sytolic or >90 diastolic). Per medicare guidelines, you need to follow up with this blood pressure screening with your Primary Care Physician (PCP). For a new PCP call [phone]. Follow up with DR Stearns's office Culture results are usually available in approx 48 hours You have been examined and treated today on an emergency basis only. This is not a substitute for, or an effort to provide, complete comprehensive medical care. It is impossible to recognize and treat all injuries or illnesses in a single emergency department visit. It is therefore important that you follow up closely with Dr Ortiz. Call as soon as possible for an appointment. Thank you for your time and consideration. I look forward to speaking with you again soon. Please don't hesitate to call us if you have any questions.
[2016-08-19 12:23] LABS: URINE APPEARANCE CLEAR (CLEAR); URINE BILIRUBIN NEG (NEG); URINE COLOR ORANGE; URINE EPITHELIAL CELL AUTO 20-30 /lpf (0-5); URINE NITRITE NEG (NEG); URINE SPECIFIC GRAVITY 1.007 (1.000-1.030); UROBILINOGEN NEG (NEG)
[2016-08-19 12:41] LABS: MANUAL MICROSCOPIC REQUIRED? NO; REVIEW REQ? NO
[2016-08-19 12:44] LABS: ALT/SGPT 24 U/L (12-78); AST/SGOT 14 U/L (15-37); BLOOD UREA NITROGEN 12 mg/dl (7-18); BUN/CREATININE RATIO 15.4 (10-20); CALCIUM 9.4 mg/dl (8.5-10.1); CARBON DIOXIDE 27 mmol/L (21-32); CHLORIDE 107 mmol/L (98-107); GLUCOSE 99 mg/dl (70-99); POTASSIUM 3.9 mmol/L (3.5-5.1); SODIUM 142 mmol/L (136-145)
[2016-08-19 12:47] LABS: ALKALINE PHOSPHATASE 125 U/L (45-117)
[2016-08-19 13:51] LABS: BASO % 0.3 %; BASO ABS # 0.05 K/uL (0-0.2); COMPLETE YES; EOS % 1.5 %; HEMATOCRIT 42.9 % (37-47); IG% 0.3 %; LYMPH % 17.4 %; LYMPH ABS # 2.76 K/uL (1.2-3.4); MEAN CELL VOLUME 92.5 fL (80-100); MEAN CORPUSCULAR HEMOGLOBIN 30.8 pg (25-34); MEAN CORPUSCULAR HGB CONC 33.3 g/dl (32-36); MONO % 4.6 %; NEUT % 75.9 %; PLATELET COUNT 345 K/uL (130-400); RED BLOOD COUNT 4.64 M/uL (4.2-5.4); WHITE BLOOD COUNT 15.86 K/uL (4.8-10.8)
--- NOTE | 2016-08-19 15:32 | DIAGNOSTIC IMAGING REPORT ---
RENAL ULTRASOUND CLINICAL HISTORY: Hematuria. COMPARISON STUDY: CT of the abdomen and pelvis July 19, 2015. TECHNIQUE: Sonography of the kidneys and the urinary bladder was performed. FINDINGS: There is no hydronephrosis. The right kidney measures 10.7 x 4.5 x 6 cm and the left measures 12.4 x 6.5 x 5.7 cm. A 1.1 cm calculus within the midpole of the right kidney is noted with several left renal calculi that measure up to 7 mm. Both ureteral jets were identified. There is mild renal cortical thinning as well as scarring within the upper pole of the left kidney. The ureteral jets were visualized. IMPRESSION: Bilateral nephrolithiasis. No hydronephrosis. Electronically signed by: Chauncey Petersen M.D. 08/19/2016 3:31 PM Dictated Date/Time: 08/19/2016 3:29 PM
[2016-08-19 15:41] VITALS: BP 124/69; PULSE 88; O2SAT 97
[2016-08-19] MEDS ORDERED: SULF800T23 PO (15:45)
[2016-08-23] MEDS ORDERED: ACET325T96 PO (14:36)
[2016-08-28] MEDS ORDERED: ACET-1256 PO (10:14)
[2016-08-28] MEDS ORDERED: CIPR-255 PO (10:17)
[2016-08-28] MEDS ORDERED: DICL75TA2 PO (10:22)
[2016-08-29] MEDS ORDERED: CIPR-255 PO (11:40)
[2016-08-29] MEDS ORDERED: HYDR-5688 PO (11:40)
[2016-11-12] MEDS ORDERED: HYDR-4079 PO (11:20)
[2016-12-24] MEDS ORDERED: PHEN95TA14 PO (12:54)
[2016-12-24] MEDS ORDERED: CIPR-255 PO (12:54)
[2016-12-24] MEDS ORDERED: HYDR-5688 PO (12:54)
[2016-12-27] MEDS ORDERED: LORA10CA2 PO (03:19)
[2016-12-27] MEDS ORDERED: SERT-234 PO (03:40)
[2016-12-27] MEDS ORDERED: VNTHFA/IN INH (09:16)
[2016-12-27] MEDS ORDERED: CHN/1 PO (09:25)
[2016-12-27] MEDS ORDERED: PRVIN525 NEB (11:29)
[2016-12-27] MEDS ORDERED: LISI-787 PO (13:27)
[2016-12-27] MEDS ORDERED: CITA20TA9 PO (16:35)
[2016-12-27] MEDS ORDERED: DONE1TAB11 PO (16:35)
[2016-12-27] MEDS ORDERED: ATOR-24 PO (16:35)
[2016-12-27] MEDS ORDERED: LORA-741 PO (16:35)
== END 2016-08-19 16:01 | disposition home or self-care (01) ==
LOC: C.EDB 10:53 → C.EDC 16:01
DX: R31.9 Hematuria, unspecified (principal); J44.9 Chronic obstructive pulmonary disease, unspecified; F17.200 Nicotine dependence, unspecified, uncomplicated; Z87.442 Personal history of urinary calculi; Z90.710 Acquired absence of both cervix and uterus; Z98.890 Other specified postprocedural states; Z79.899 Other long term (current) drug therapy; Z88.0 Allergy status to penicillin; Z88.8 Allergy status to other drugs, medicaments and biological substances; Z80.9 Family history of malignant neoplasm, unspecified; Z83.3 Family history of diabetes mellitus; Z83.79 Family history of other diseases of the digestive system; Z82.49 Family history of ischemic heart disease and other diseases of the circulatory system; Z84.1 Family history of disorders of kidney and ureter

== ENCOUNTER 2016-08-23 00:23 | Inpatient (IN) | payer OTHER ==
[2016-08-23] VITALS (7 sets, daily range): BP systolic 120–145; BP diastolic 68–87; PULSE 59–69; TEMP 36.5–37; O2SAT 92–96; Ht 175.3 cm; Wt 96.3 kg
[~2016-08-23] VITALS: Ht 175.3 cm; Wt 96.3 kg
[~2016-08-23 00:23] MED LIST changes: -ALBU0.5N2 NEB; +FLVHFA220 PO; -NICO14DI9 TOP; +SPRIN/30 INH; +SULF800T23 PO; -TIOTCAP INH
[2016-08-23] MEDS ORDERED: SODIUM CHLORIDE 0.9% 1000ML 1,000 ML IV STA (00:57)
[2016-08-23] MEDS ORDERED: MoRPHine SULFATE 4 MG/ML 1 ML CARP\\VIAL IV STA ×2 (00:57→03:12)
[2016-08-23] MEDS ORDERED: METOCLOPRAMIDE HCL INJ 5 MG/ML 2 ML VIAL IV STA (00:57)
[2016-08-23] MEDS ORDERED: SODIUM CHLORIDE 0.9% 500ML 500 ML IV STA (00:57)
[2016-08-23] MEDS ORDERED: DiphenhydrAMINE HCL 50 MG/ML VIAL IV STA (00:57)
[2016-08-23 01:30] LABS: BASO % 0.6 %; BASO ABS # 0.08 K/uL (0-0.2); COMPLETE YES; HEMATOCRIT 41.2 % (37-47); IG% 0.2 %; LYMPH % 23.3 %; LYMPH ABS # 3.14 K/uL (1.2-3.4); MEAN CELL VOLUME 90.5 fL (80-100); MEAN CORPUSCULAR HEMOGLOBIN 30.8 pg (25-34); MEAN PLATELET VOLUME 9.8 fL (7.4-10.4); NEUT % 68.9 %; PLATELET COUNT 318 K/uL (130-400); RED BLOOD COUNT 4.55 M/uL (4.2-5.4); WHITE BLOOD COUNT 13.49 K/uL (4.8-10.8)
[2016-08-23 01:48] LABS: ALT/SGPT 24 U/L (12-78); AST/SGOT 11 U/L (15-37); BLOOD UREA NITROGEN 11 mg/dl (7-18); BUN/CREATININE RATIO 9.9 (10-20); CALCIUM 9.2 mg/dl (8.5-10.1); CARBON DIOXIDE 25 mmol/L (21-32); CHLORIDE 107 mmol/L (98-107); GLUCOSE 108 mg/dl (70-99); POTASSIUM 3.2 mmol/L (3.5-5.1); SODIUM 140 mmol/L (136-145)
[2016-08-23 01:52] LABS: URINE APPEARANCE CLEAR (CLEAR); URINE BILIRUBIN NEG (NEG); URINE COLOR RED; URINE EPITHELIAL CELL AUTO >30 /lpf (0-5); URINE NITRITE NEG (NEG); URINE SPECIFIC GRAVITY 1.015 (1.000-1.030); UROBILINOGEN NEG (NEG); ZZUR CULT IF INDIC CLEAN CATCH YES
[2016-08-23 01:54] LABS: ALKALINE PHOSPHATASE 121 U/L (45-117)
[2016-08-23 01:54] LABS: MANUAL MICROSCOPIC REQUIRED? NO; REVIEW REQ? YES
[2016-08-23 01:59] LABS: URINE PATH CASTS 0-3 GRANULAR CASTS /lpf (0)
[2016-08-23] MEDS ORDERED: KETOROLAC TROMETHAMINE 30 MG/ML VIAL IV STA (02:16)
[2016-08-23] MEDS ORDERED: CEFTRIAXONE SOD INJ 1 GM ADDVIAL IV STA (03:14)
[2016-08-23] MEDS ORDERED: POLYETHYLENE (MIRALAX) 17 GM PACK PO PRN (03:30)
[2016-08-23] MEDS ORDERED: ALBUTEROL HFA 8 GM INHALER INH PRN (03:30)
[2016-08-23] MEDS ORDERED: ALUMINUM/MAGNESIUM/SIMETH (MAALOX MAX) 30 ML UDC PO PRN (03:30)
[2016-08-23] MEDS ORDERED: ACETAMINOPHEN 325 MG TAB PO PRN (03:30)
[2016-08-23] MEDS ORDERED: HYDROmorphone INJ 1 MG/ML SYR IV PRN (03:30)
[2016-08-23] MEDS ORDERED: MAGNESIUM HYDROXIDE SUSP 30 ML UDC PO PRN (03:30)
[2016-08-23] MEDS ORDERED: LORAZEPAM 0.5 MG TAB PO PRN (03:30)
[2016-08-23] MEDS ORDERED: LORATADINE 10 MG TAB PO PRN (03:30)
[2016-08-23] MEDS ORDERED: ONDANSETRON INJ 2 MG/ML 2 ML VIAL IV PRN ×2 (03:30→12:15)
--- NOTE | 2016-08-23 03:35 | History and Physical ---
History & Physical Date & Time of Service: Aug 23, 2016 at 03:28 Chief Complaint: Blood In Urine And Very Sick To Stomach Primary Care Physician: Bladimir Ortiz MD History of Present Illness Source: patient, other 56 y/o F Hx HTN, HPL, COPD, early dementia, renal calculi. Pt presents with progressive L flanks pain and hematuria. She denies fevers/rigors, N/V. A CT was obtained in the ER revealing a 13 x 6 obstructiing stone at the L UPJ. Past Medical/Surgical History Medical Problems: (1) COPD (chronic obstructive pulmonary disease) Status: Chronic (2) Kidney stones Pt has had several renal calculi but has passed them spontaneously 3) HTN 4) HPL 5) Early dementia 6) GERD Surgical Problems: (1) S/P appendectomy Status: Resolved (2) S/P hysterectomy Status: Resolved (3) S/P oophorectomy Status: Resolved 4) Cholecystectomy Family History Cancer Diabetes mellitus FH: gallbladder disease FH: lung disease Hypertension Kidney disease Kidney stones Father owing to COPD Mother is alive - HTN, DM Social History Smokes 1 pack Qdaily Smoking Status: Current Every Day Smoker Marital Status: Housing status: lives with family Occupational Status: unemployed Allergies Coded Allergies: Penicillins (Verified Allergy, Intermediate, HIVES, 08/19/16) Tetracyclines (Verified Allergy, Intermediate, HIVES, 08/19/16) Home Medications Scheduled Atorvastatin (Lipitor), 40 MG PO HS Cholecalciferol (Vitamin D3), 1,000 INTER.UNIT PO QAM Citalopram Hydrobromide (Celexa), 20 MG PO QAM Donepezil Hydrochloride (Donepezil Hcl), 5 MG PO QAM Fluticasone Propionate (Flovent Hfa), 2 PUFFS PO AMPM Lisinopril/Hctz (Zestoretic 20MG/12.5MG), 1 TAB PO QAM Loratadine (Claritin), 10 MG PO QAM Memantine (Namenda), 5 MG PO HS Multiple Vitamins W/ Minerals (Ocuvite), 1 TAB PO HS Omeprazole (Prilosec), 20 MG PO QAM Ranitidine Hcl (Ranitidine Hcl), 150 MG PO BID Sertraline (Zoloft), 100 MG PO DAILY Sulfa/Trimethoprim (Bactrim Ds 800MG/160MG), 1 TAB PO BID Tiotropium [place] (Spiriva Handihaler), 1 CAP INH DAILY Zolpidem Tartrate (Zolpidem Tartrate), 1 TAB PO HS Scheduled PRN Acetaminophen/Diphenhydramine (Tylenol Pm), 2 TAB PO HS PRN for Insomnia Albuterol Hfa (Ventolin Hfa), 2-4 PUFFS INH Q6H PRN for SOB/Wheezing Lorazepam (Ativan), 0.5 MG PO Q6H PRN for Anxiety Miscellaneous Medications Albuterol Sulf (Albuterol Sulfate) Review of Systems Constitutional: No fever, No chills, No sweats Eyes: No worsening of vision ENT: No hearing loss, No unusual epistaxis, No nasal symptoms Respiratory: No cough, No sputum, No wheezing Cardiovascular: No chest pain, No orthopnea, No PND Abdomen: No pain, No nausea, No vomiting Musculoskeletal: + problem reported (L flank pain), No joint pain Genitourinary - Female: + hematuria, + problem reported (L flank pain), No dysuria, No urinary frequency, No urinary urgency, No urinary incontinence, No urinary retention Neurologic: No memory loss, No paralysis, No weakness Psychiatric: No depression symptoms Endocrine: No fatigue Hematologic / Lymphatic: No abnormal bleeding/bruising Integumentary: No rash Allergic / Immunologic: No environmental allergies Physical Exam Vital Signs Date Time Temp Pulse Resp B/P (MAP) Pulse Ox O2 Delivery O2 Flow Rate FiO2 08/23/16 02:43 89 18 130/76 95 Room Air 08/23/16 01:20 Room Air 08/23/16 00:37 37.1 95 20 122/82 92 Room Air General Appearance: WD/WN, no apparent distress Head: normocephalic Eyes: normal inspection, PERRL, EOMI ENT: normal ENT inspection, hearing grossly normal, TMs normal, pharynx normal Neck: supple, no adenopathy, thyroid normal, no JVD Respiratory/Chest: chest non-tender, lungs clear, normal breath sounds, no respiratory distress, no accessory muscle use Cardiovascular: regular rate, rhythm, no edema, no gallop, no JVD, no murmur, normal peripheral pulses Abdomen/GI: normal bowel sounds, soft, + tenderness (L lat abdomen) Back: + left CVA tenderness Extremities/Musculoskelatal: normal inspection, no calf tenderness, normal capillary refill, no pedal edema, normal range of motion Neurologic/Psych: 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 II-XII nml as tested, no motor/sensory deficits, alert, normal mood/affect, normal reflexes, oriented x 3 Skin: normal color, warm/dry, no rash Diagnostics Laboratory Results Results Past 24 Hours Test 08/23/16 00:46 08/23/16 01:22 Range/Units Urine Color RED Urine Appearance CLEAR CLEAR Urine pH 7.0 4.5-7.5 Urine Specific [place] 1.015 1.000-1.030 Urine Protein 2+ NEG Urine Glucose (UA) NEG NEG Urine Ketones NEG NEG Urine Occult Blood 3+ NEG Urine Nitrite NEG NEG Urine Bilirubin NEG NEG Urine Urobilinogen NEG NEG Urine Leukocyte Esterase SMALL NEG Urine WBC (Auto) 10-30 0-5 /hpf Urine RBC (Auto) >30 0-4 /hpf Urine Hyaline Casts (Auto) 1-5 0-5 /lpf Urine Epithelial Cells (Auto) >30 0-5 /lpf Urine Bacteria (Auto) NEG NEG Urine Pathogenic Casts 0-3 GRANULAR CASTS 0 /lpf Urine Yeast (Auto) NONE PRSENT White Blood Count 13.49 4.8-10.8 K/uL Red Blood Count 4.55 4.2-5.4 M/uL Hemoglobin 14.0 12.0-16.0 g/dL Hematocrit 41.2 37-47 % Mean Corpuscular Volume 90.5 80-100 fL Mean Corpuscular Hemoglobin 30.8 25-34 pg Mean Corpuscular Hemoglobin Concent 34.0 32-36 g/dl Platelet Count 318 130-400 K/uL Mean Platelet Volume 9.8 7.4-10.4 fL Neutrophils (%) (Auto) 68.9 % Lymphocytes (%) (Auto) 23.3 % Monocytes (%) (Auto) 5.0 % Eosinophils (%) (Auto) 2.0 % Basophils (%) (Auto) 0.6 % Neutrophils # (Auto) 9.30 1.4-6.5 K/uL Lymphocytes # (Auto) 3.14 1.2-3.4 K/uL Monocytes # (Auto) 0.67 0.11-0.59 K/uL Eosinophils # (Auto) 0.27 0-0.5 K/uL Basophils # (Auto) 0.08 0-0.2 K/uL RDW Standard Deviation 44.5 36.4-46.3 fL RDW Coefficient of Variation 13.6 11.5-14.5 % Immature Granulocyte % (Auto) 0.2 % Immature Granulocyte # (Auto) 0.03 0.00-0.02 K/uL Sodium Level 140 136-145 mmol/L Potassium Level 3.2 3.5-5.1 mmol/L Chloride Level 107 98-107 mmol/L Carbon Dioxide Level 25 21-32 mmol/L Anion Gap 8.0 3-11 mmol/L Blood Urea Nitrogen 11 7-18 mg/dl Creatinine 1.10 0.60-1.20 mg/dl Est Creatinine Clear Calc Drug Dose 68.9 ml/min Estimated GFR () 64.1 Estimated GFR (Non- 55.3 BUN/Creatinine Ratio 9.9 10-20 Random Glucose 108 70-99 mg/dl Calcium Level 9.2 8.5-10.1 mg/dl Total Bilirubin 0.4 0.2-1 mg/dl Direct Bilirubin < 0.1 0-0.2 mg/dl Aspartate Amino Transf (AST/SGOT) 11 15-37 U/L Alanine Aminotransferase (ALT/SGPT) 24 12-78 U/L Alkaline Phosphatase 121 45-117 U/L Troponin I < 0.015 0-0.045 ng/ml Total Protein 7.5 6.4-8.2 gm/dl Albumin 3.6 3.4-5.0 gm/dl Lipase 154 73-393 U/L Microbiology Results 08/23/16 Urine Culture, Received Pending Diagnostic Radiology 13 x 6 obstructiing stone and adjacent 5mm stone at L UPJ. Mild hydro. B/L nephrolithiasis. Impression Assessment and Plan 56 y/o F Hx HTN, HPL, COPD, early dementia, renal calculi. Pt presents with progressive L flanks pain and hematuria. She denies fevers/rigors, N/V. A CT was obtained in the ER revealing a 13 x 6 obstructing stone at the L UPJ. 1) Renal calculus with obstruction - Urology consulted as she is likely to require intervention. Pt will be NPO - narcotics provided for pain control 2) UA is marginally positive - will provide antibiotics considering obstruction 3) COPD - no active exacerbation 4) HypoK - replaced 5) HTN - Lisinopril/HCTZ held pending urology eval 6) HPL - Cont Atorvastatin 7) Early dementia - Cont Aricept, Namenda 8) Provided advice regarding smoking cessation Full code - SCDs Total time for this admit including review of labs, meds, EKG - discussion with pt and ER attending - 36 min Level of Care Med/Surg Resuscitation Status FULL RESUSCITATION VTE Prophylaxis VTE Risk Assessment Done? Y/N: Yes Risk Level: Moderate Given or contraindicated: SCD's
[2016-08-23] MEDS ORDERED: ZOLP5TAB6 PO (03:40)
[2016-08-23] MEDS ORDERED: DIPH-437 PO (03:40)
--- NOTE | 2016-08-23 03:58 | EMERGENCY ROOM VISIT NOTE ---
History First contact with patient: 00:32 Chief Complaint: HEMATURIA Stated Complaint: BLOOD IN URINE AND VERY SICK TO STOMACH Nursing Triage Summary: hematuria and lower back pain. History of Present Illness The patient is a 56 year old female who presents to the Emergency Room with complaints of left flank pain with hematuria for the past few days. Patient was seen here the other day and started on antibiotics for possible UTI. Patient states the symptoms are worse. She has a history kidney stones. Pain currently 8 out of 10. Nothing makes it better or worse. Patient does smoke. Patient denies chest pain, dyspnea, fever, chills, vomiting, diarrhea, vaginal itching or discharge. No family history of bladder carcinoma. Review of Systems See HPI for pertinent positives & negatives. A total of 10 systems reviewed and were otherwise negative. Past Medical/Surgical History Medical Problems: (1) COPD (chronic obstructive pulmonary disease) (2) Hydronephrosis with obstructing calculus (3) Incisional hernia (4) Kidney stones Surgical Problems: (1) S/P appendectomy (2) S/P hysterectomy (3) S/P oophorectomy Family History Cancer Diabetes mellitus FH: gallbladder disease FH: lung disease Hypertension Kidney disease Kidney stones Social History Smoking Status: Current Every Day Smoker Alcohol Use: occasionally, other Drug Use: none Marital Status: Housing Status: lives with significant other Occupation Status: unemployed Current/Historical Medications Scheduled Atorvastatin (Lipitor), 40 MG PO HS Cholecalciferol (Vitamin D3), 1,000 INTER.UNIT PO QAM Citalopram Hydrobromide (Celexa), 20 MG PO QAM Donepezil Hydrochloride (Donepezil Hcl), 5 MG PO QAM Fluticasone Propionate (Flovent Hfa), 2 PUFFS PO AMPM Lisinopril/Hctz (Zestoretic 20MG/12.5MG), 1 TAB PO QAM Loratadine (Claritin), 10 MG PO QAM Memantine (Namenda), 5 MG PO HS Multiple Vitamins W/ Minerals (Ocuvite), 1 TAB PO HS Omeprazole (Prilosec), 20 MG PO QAM Ranitidine Hcl (Ranitidine Hcl), 150 MG PO BID Sertraline (Zoloft), 100 MG PO DAILY Sulfa/Trimethoprim (Bactrim Ds 800MG/160MG), 1 TAB PO BID Tiotropium [place] (Spiriva Handihaler), 1 CAP INH DAILY Zolpidem Tartrate (Zolpidem Tartrate), 1 TAB PO HS Scheduled PRN Acetaminophen/Diphenhydramine (Tylenol Pm), 2 TAB PO HS PRN for Insomnia Albuterol Hfa (Ventolin Hfa), 2-4 PUFFS INH Q6H PRN for SOB/Wheezing Lorazepam (Ativan), 0.5 MG PO Q6H PRN for Anxiety Miscellaneous Medications Albuterol Sulf (Albuterol Sulfate) Allergies Coded Allergies: Penicillins (Verified Allergy, Intermediate, HIVES, 08/23/16) Tetracyclines (Verified Allergy, Intermediate, HIVES, 08/23/16) Physical Exam Vital Signs Date Time Temp Pulse Resp B/P (MAP) Pulse Ox O2 Delivery O2 Flow Rate FiO2 08/23/16 02:43 89 18 130/76 95 Room Air 08/23/16 01:20 Room Air 08/23/16 00:37 37.1 95 20 122/82 92 Room Air Physical Exam VITALS: Vitals are noted on the nurse's note and reviewed by myself. Vital signs stable. GENERAL: Pleasant female tobacco odor, in no acute distress, nondiaphoretic, well-developed well-nourished. SKIN: The skin was without rashes, erythema, edema, or bruising. There is no tenting of the skin. Capillary reflex less than 2 seconds. HEAD: Normocephalic atraumatic. EARS: External auditory canals clear, tympanic membranes pearly neely without erythema or effusion bilaterally. EYES: Pupils equal round and reactive to light and accommodation. Conjunctivae without injection, sclerae without icterus. Extraocular movements intact. NOSE: Patent, turbinates without inflammation or discharge. MOUTH: Mucous membranes moist. Pharynx without erythema or exudate. Uvula midline. Airway patent. Tongue does not deviate. NECK: Supple without nuchal rigidity. No lymphadenopathy. No thyromegaly. Cervical spine is nontender. No JVD. HEART: Regular rate and rhythm without murmurs gallops or rubs. LUNGS: Clear to auscultation bilaterally without wheezes, rales or rhonchi. No dullness to percussion. No retractions or accessory muscle use. ABDOMEN: Positive bowel sounds x 4. Normal tympanic percussion. Soft, nontender, without masses or organomegaly. Iverson sign negative. No guarding or rebound tenderness. Left CVA tenderness MUSCULOSKELETAL: No muscle atrophy, erythema, or edema noted. NEURO: Patient was alert and oriented to person place and time. Normal sensation to light and sharp touch. No focal neurological deficits. Medical Decision & Procedures Laboratory Results 08/23/16 01:22 Red Blood Count 4.55, Mean Corpuscular Volume 90.5, Mean Corpuscular Hemoglobin 30.8, Mean Corpuscular Hemoglobin Concent 34.0, Mean Platelet Volume 9.8, Neutrophils (%) (Auto) 68.9, Lymphocytes (%) (Auto) 23.3, Monocytes (%) (Auto) 5.0, Eosinophils (%) (Auto) 2.0, Basophils (%) (Auto) 0.6, Neutrophils # (Auto) 9.30, Lymphocytes # (Auto) 3.14, Monocytes # (Auto) 0.67, Eosinophils # (Auto) 0.27, Basophils # (Auto) 0.08 08/23/16 01:22 Test 08/23/16 00:46 08/23/16 01:22 Urine Color RED Urine Appearance CLEAR (CLEAR) Urine pH 7.0 (4.5-7.5) Urine Specific [place] 1.015 (1.000-1.030) Urine Protein 2+ (NEG) Urine Glucose (UA) NEG (NEG) Urine Ketones NEG (NEG) Urine Occult Blood 3+ (NEG) Urine Nitrite NEG (NEG) Urine Bilirubin NEG (NEG) Urine Urobilinogen NEG (NEG) Urine Leukocyte Esterase SMALL (NEG) Urine WBC (Auto) 10-30 /hpf (0-5) Urine RBC (Auto) >30 /hpf (0-4) Urine Hyaline Casts (Auto) 1-5 /lpf (0-5) Urine Epithelial Cells (Auto) >30 /lpf (0-5) Urine Bacteria (Auto) NEG (NEG) Urine Pathogenic Casts 0-3 GRANULAR CASTS /lpf (0) Urine Yeast (Auto) (NONE PRSENT) White Blood Count 13.49 K/uL (4.8-10.8) Red Blood Count 4.55 M/uL (4.2-5.4) Hemoglobin 14.0 g/dL (12.0-16.0) Hematocrit 41.2 % (37-47) Mean Corpuscular Volume 90.5 fL (80-100) Mean Corpuscular Hemoglobin 30.8 pg (25-34) Mean Corpuscular Hemoglobin Concent 34.0 g/dl (32-36) Platelet Count 318 K/uL (130-400) Mean Platelet Volume 9.8 fL (7.4-10.4) Neutrophils (%) (Auto) 68.9 % Lymphocytes (%) (Auto) 23.3 % Monocytes (%) (Auto) 5.0 % Eosinophils (%) (Auto) 2.0 % Basophils (%) (Auto) 0.6 % Neutrophils # (Auto) 9.30 K/uL (1.4-6.5) Lymphocytes # (Auto) 3.14 K/uL (1.2-3.4) Monocytes # (Auto) 0.67 K/uL (0.11-0.59) Eosinophils # (Auto) 0.27 K/uL (0-0.5) Basophils # (Auto) 0.08 K/uL (0-0.2) RDW Standard Deviation 44.5 fL (36.4-46.3) RDW Coefficient of Variation 13.6 % (11.5-14.5) Immature Granulocyte % (Auto) 0.2 % Immature Granulocyte # (Auto) 0.03 K/uL (0.00-0.02) Anion Gap 8.0 mmol/L (3-11) Est Creatinine Clear Calc Drug Dose 68.9 ml/min Estimated GFR () 64.1 Estimated GFR (Non- 55.3 BUN/Creatinine Ratio 9.9 (10-20) Calcium Level 9.2 mg/dl (8.5-10.1) Total Bilirubin 0.4 mg/dl (0.2-1) Direct Bilirubin < 0.1 mg/dl (0-0.2) Aspartate Amino Transf (AST/SGOT) 11 U/L (15-37) Alanine Aminotransferase (ALT/SGPT) 24 U/L (12-78) Alkaline Phosphatase 121 U/L (45-117) Troponin I < 0.015 ng/ml (0-0.045) Total Protein 7.5 gm/dl (6.4-8.2) Albumin 3.6 gm/dl (3.4-5.0) Lipase 154 U/L (73-393) Medications Administered Medications (Trade) Dose Ordered Sig/Eda Route Start Time Stop Time Status Last Admin Dose Admin Sodium Chloride 500 ml @ 999 mls/hr Q31M STAT IV 08/23/16 00:57 08/23/16 01:27 DC 08/23/16 01:27 999 MLS/HR Sodium Chloride 1,000 ml @ 125 mls/hr Q8H STAT IV 08/23/16 00:57 08/23/16 03:37 DC 08/23/16 01:27 125 MLS/HR Metoclopramide HCl (Reglan Inj) 10 mg NOW STAT IV 08/23/16 00:57 08/23/16 01:00 DC 08/23/16 01:27 10 MG Diphenhydramine HCl (Benadryl Inj) 25 mg NOW STAT IV 08/23/16 00:57 08/23/16 01:00 DC 08/23/16 01:26 25 MG Morphine Sulfate (MoRPHine SULFATE INJ) 4 mg NOW STAT IV 08/23/16 00:57 08/23/16 01:00 DC 08/23/16 01:27 4 MG Ketorolac Tromethamine (Toradol Inj) 30 mg NOW STAT IV 08/23/16 02:16 08/23/16 02:17 DC 08/23/16 02:42 30 MG Ceftriaxone Sodium (Rocephin Inj) 1 gm NOW STAT IV 08/23/16 03:14 08/23/16 03:15 DC 08/23/16 03:31 1 GM ED Course Prior records/ancillary studies reviewed. Triage Nursing notes reviewed. Additional history obtained from the family. The patient's history was concerning for left flank pain and hematuria. Differential diagnosis: Etiologies such as renal colic, appendicitis, diverticulitis, mesenteric ischemia, aortic pathology, infections, inflammatory bowel disease, PUD, biliary pathology, UTI, as well as others were entertained. Physical examination findings: As above. ER treatment provided: Morphine, Toradol, IV fluids On reassessment the patient felt better. Diagnostic interpretation by me: The labs revealed cytosis, hypokalemia. Urinalysis revealed hematuria. Imaging studies: CT of the abdomen and pelvis was reviewed and read by radiology Consultation: A consultation was placed with Dr Mata, hospitalist. The case was discussed and diagnostics were reviewed. The patient was evaluated in the ER for further treatment. It appears that the patient has isolated renal colic from a left sided stone. Patient is still severe abdominal pain. This stone was quite large. This probably will not pass. She will be evaluated by medicine for possible admission. She is given antibiotics for possible UTI. By the evaluation outlined above emergent etiologies such as appendicitis, diverticulitis, mesenteric ischemia, aortic pathology, inflammatory bowel disease, PUD, biliary pathology, as well as others were deemed relatively unlikely. The pt informed about the findings as listed above. All questions were answered and pleased with the treatment. Case reviewed with my attending. Medical Decision As above Impression Primary Impression: Renal colic on left side Additional Impression: Intractable back pain Departure Information Dispostion Being Evaluated By Hospitalist Condition FAIR Referrals Bladimir Ortiz MD (PCP) Patient Instructions My [facility] Problem Qualifiers
[2016-08-23] MEDS ORDERED: MAGNESIUM SULFATE 1GM / D5W 1 GM in PREMIXED IN D5W 100 ML IV SCH (04:30)
[2016-08-23] MEDS: POTASSIUM CHLR 10 MEQ / WTR 10 MEQ in PREMIXED WATER 100 ML IV SCH ×2 (04:44→05:54)
[2016-08-23] MEDS: D5NSS + 20MEQ KCL 1,000 ML IV SCH ×2 (04:45→14:30)
--- NOTE | 2016-08-23 07:29 | DIAGNOSTIC IMAGING REPORT ---
CT OF THE ABDOMEN AND PELVIS WITHOUT CONTRAST, STONE PROTOCOL CLINICAL HISTORY: Left flank pain. Hematuria. COMPARISON STUDY: CT of the abdomen and pelvis July 19, 2015 and renal ultrasound August 19, 2016. TECHNIQUE: Helical axial images of the abdomen and pelvis were obtained without IV or oral contrast according to renal stone protocol. FINDINGS: A 1.6 x 0.9 cm left ureteropelvic junction calculus results in mild dilatation of the left renal pelvis. There is mild urothelial thickening and minimal adjacent infiltration. There is a smaller adjacent left ureteropelvic junction calculus. There are numerous bilateral renal calculi, including a 1.2 cm calculus within the midpole of the right kidney. No additional ureteral calculi are identified. A suspected 7 mm left hepatic lobe cyst is unchanged. Unenhanced images of the spleen, adrenal glands and pancreas are normal. The gallbladder surgically absent. There are findings consistent with a ventral hernia repair with mesh. There is no pneumatosis, free air or portal venous gas. No suspicious skeletal lesions are identified. Mild loss of height of several lumbar vertebral bodies is chronic. Scarring within the upper pole of the left kidney is noted. IMPRESSION: 1. 1.6 x 0.9 cm left ureteropelvic junction calculus with adjacent smaller calculus that results in mild dilatation of the left renal pelvis. Mild urothelial thickening and minimal adjacent infiltration. 2. Extensive bilateral nephrolithiasis. Electronically signed by: Chauncey Petersen M.D. 08/23/2016 7:27 AM Dictated Date/Time: 08/23/2016 7:19 AM
[2016-08-23] MEDS ORDERED: RANITIDINE HCL 150 MG TAB PO SCH (09:00)
[2016-08-23] MEDS ORDERED: CITALOPRAM 20 MG TAB PO SCH (09:00)
[2016-08-23] MEDS ORDERED: FLUTICASONE HFA 220 MCG INHALER INH SCH (09:00)
[2016-08-23] MEDS ORDERED: PANTOprazole SOD 40 MG TAB PO SCH (09:00)
[2016-08-23] MEDS ORDERED: TIOTROPIUM BROMIDE 5 PUFF/90 MCG INH INH SCH (09:00)
[2016-08-23] MEDS ORDERED: DONEPEZIL HCL 5 MG TAB PO SCH (09:00)
--- NOTE | 2016-08-23 10:20 | Urology Consultation ---
History General Date of Service: Aug 23, 2016. Primary Care Physician: Bladimir Ortiz MD Pt seen a urologist before?: No History of Present Illness 56 year old female admitted with left sided flank pain. She has passed stones in the past but has never seen urology. Reports has been able to pass on her own. She has been having left sided flank pain and hematuria for a few days but progressively worsened bringing her to the ER. CT scan shows a large 16x9mm left UPJ stone causing hydronephrosis. Also note other larger bilateral nonobstructing stones. White count 13.49 Creatinine normal .87 Urine culture pending. Afebrile vitals stable. Currently she is pain free. Slight nausea. Remains NPO. Imaging Imaging: CT Laboratory Last 24 Hours Test 08/23/16 00:46 08/23/16 01:22 Urine Color RED Urine Appearance CLEAR Urine pH 7.0 Urine Specific [place] 1.015 Urine Protein 2+ Urine Glucose (UA) NEG Urine Ketones NEG Urine Occult Blood 3+ Urine Nitrite NEG Urine Bilirubin NEG Urine Urobilinogen NEG Urine Leukocyte Esterase SMALL Urine WBC (Auto) 10-30 /hpf Urine RBC (Auto) >30 /hpf Urine Hyaline Casts (Auto) 1-5 /lpf Urine Epithelial Cells (Auto) >30 /lpf Urine Bacteria (Auto) NEG Urine Pathogenic Casts 0-3 GRANULAR CASTS /lpf Urine Yeast (Auto) White Blood Count 13.49 K/uL Red Blood Count 4.55 M/uL Hemoglobin 14.0 g/dL Hematocrit 41.2 % Mean Corpuscular Volume 90.5 fL Mean Corpuscular Hemoglobin 30.8 pg Mean Corpuscular Hemoglobin Concent 34.0 g/dl Platelet Count 318 K/uL Mean Platelet Volume 9.8 fL Neutrophils (%) (Auto) 68.9 % Lymphocytes (%) (Auto) 23.3 % Monocytes (%) (Auto) 5.0 % Eosinophils (%) (Auto) 2.0 % Basophils (%) (Auto) 0.6 % Neutrophils # (Auto) 9.30 K/uL Lymphocytes # (Auto) 3.14 K/uL Monocytes # (Auto) 0.67 K/uL Eosinophils # (Auto) 0.27 K/uL Basophils # (Auto) 0.08 K/uL RDW Standard Deviation 44.5 fL RDW Coefficient of Variation 13.6 % Immature Granulocyte % (Auto) 0.2 % Immature Granulocyte # (Auto) 0.03 K/uL Sodium Level 140 mmol/L Potassium Level 3.2 mmol/L Chloride Level 107 mmol/L Carbon Dioxide Level 25 mmol/L Anion Gap 8.0 mmol/L Blood Urea Nitrogen 11 mg/dl Creatinine 1.10 mg/dl Est Creatinine Clear Calc Drug Dose 68.9 ml/min Estimated GFR () 64.1 Estimated GFR (Non- 55.3 BUN/Creatinine Ratio 9.9 Random Glucose 108 mg/dl Calcium Level 9.2 mg/dl Total Bilirubin 0.4 mg/dl Direct Bilirubin < 0.1 mg/dl Aspartate Amino Transf (AST/SGOT) 11 U/L Alanine Aminotransferase (ALT/SGPT) 24 U/L Alkaline Phosphatase 121 U/L Troponin I < 0.015 ng/ml Total Protein 7.5 gm/dl Albumin 3.6 gm/dl Lipase 154 U/L Current Inpatient Medications Medications (Trade) Dose Ordered Sig/Eda Route Start Time Stop Time Status Last Admin Dose Admin Albuterol (Ventolin Hfa Inhaler) 2 puffs Q6H PRN INH 08/23/16 03:30 09/22/16 03:29 Atorvastatin Calcium (Lipitor Tab) 40 mg HS PO 08/23/16 21:00 09/22/16 20:59 Citalopram Hydrobromide (celeXA TAB) 20 mg QAM PO 08/23/16 09:00 09/22/16 08:59 08/23/16 08:28 20 MG Donepezil HCl (Aricept Tab) 5 mg QAM PO 08/23/16 09:00 09/22/16 08:59 08/23/16 08:28 5 MG Fluticasone Propionate (Flovent Hfa 220MCG Inhaler) 1 puffs BID INH 08/23/16 09:00 09/22/16 08:59 08/23/16 08:27 1 PUFFS Loratadine (Claritin Tab) 10 mg QAM PRN PO 08/23/16 03:30 09/22/16 03:29 Lorazepam (Ativan Tab) 0.5 mg Q6H PRN PO 08/23/16 03:30 09/22/16 03:29 Memantine (Namenda Tab) 5 mg HS PO 08/23/16 21:00 09/22/16 20:59 Tiotropium [place] (Spiriva Handihaler Inhaler) 1 puff DAILY INH 08/23/16 09:00 09/22/16 08:59 08/23/16 08:27 1 PUFF Pantoprazole Sodium (Protonix Tab) 40 mg QAM PO 08/23/16 09:00 09/22/16 08:59 08/23/16 08:27 40 MG Ranitidine HCl (zANTac TAB) 150 mg DAILY PO 08/23/16 09:00 09/22/16 08:59 08/23/16 08:28 150 MG Acetaminophen (Tylenol Tab) 650 mg Q4H PRN PO 08/23/16 03:30 09/22/16 03:29 Al Hydrox/Mg Hydrox/Simethicone (Maalox Max Susp) 15 ml Q4H PRN PO 08/23/16 03:30 09/22/16 03:29 Magnesium Hydroxide (Milk Of Magnesia Susp) 30 ml Q6H PRN PO 08/23/16 03:30 09/22/16 03:29 Polyethylene (Miralax Powder Packet) 17 gm DAILY PRN PO 08/23/16 03:30 09/22/16 03:29 Ondansetron HCl (Zofran Inj) 4 mg Q6H PRN IV 08/23/16 03:30 09/22/16 03:29 Potassium Chloride/Dextrose/ Sod Cl 1,000 ml @ 100 mls/hr Q10H IV 08/23/16 04:30 09/22/16 04:29 08/23/16 04:45 100 MLS/HR Hydromorphone HCl (Dilaudid Inj) 1 mg Q3H PRN IV 08/23/16 03:30 09/06/16 03:29 Ceftriaxone Sodium 1 gm/ Dextrose 50 ml @ 100 mls/hr Q24H IV 08/24/16 06:00 09/03/16 05:59 Labs were reviewed and are within normal limits unless listed below. Labs are available in the chart and at [facility] Problem List Medical Problems: (1) Hematuria Status: Acute (2) Intractable back pain Status: Acute (3) Renal colic on left side Status: Acute (4) Ventral hernia Status: Acute Past History COPD, high cholesterol, hypertension, kidney stones Past Surgical History: appendectomy, cholecystectomy, hysterectomy, oophorectomy Family History Cancer Diabetes mellitus FH: gallbladder disease FH: lung disease Hypertension Kidney disease Kidney stones Social History Hx Tobacco Use In Past Year?: Yes Marital status: Housing status: lives with family Occupation status: unemployed Allergies Coded Allergies: Penicillins (Verified Allergy, Intermediate, HIVES, 08/23/16) Tetracyclines (Verified Allergy, Intermediate, HIVES, 08/23/16) Medications Home Medications: Home Meds and Scripts Medications Dose Route/Sig Max Daily Dose Days Date Category Tylenol Pm (Acetaminophen/Diphenhydramine HCl) 500 Mg/25 Mg Tab 2 Tab PO HS PRN 08/23/16 Reported Zoloft (Sertraline HCl) 100 Mg Tab 100 Mg PO DAILY 08/23/16 Reported Zolpidem Tartrate 5 Mg Tab 1 Tab PO HS 30 08/23/16 Reported Bactrim Ds 800MG/160MG (Trimethoprim/Sulfamethoxazole) Tab 1 Tab PO BID 10 08/19/16 Rx Flovent Hfa (Fluticasone Propionate) 120 Puffs/56622 Mcg Aero 2 Puffs PO AMPM 08/19/16 Reported Spiriva Handihaler (Tiotropium [place]) 30 Puff/540 Mcg Aerp 1 Cap INH DAILY 08/19/16 Reported Albuterol Sulfate (Albuterol Sulf) 2.5 Mg/0.5 Ml Nebu 08/19/16 Reported Ventolin Hfa (Albuterol) 200 Puffs/44304 Mcg Aers 2-4 Puffs INH Q6H PRN 05/23/16 Reported Namenda (Memantine) 5 Mg Tab 5 Mg PO HS 08/30/15 Reported Zestoretic 20MG/12.5MG (HCTZ/Lisinopril) Tab 1 Tab PO QAM 08/30/15 Reported Lipitor (Atorvastatin Calcium) 40 Mg Tab 40 Mg PO HS 07/19/15 Reported Ativan (Lorazepam) 0.5 Mg Tab 0.5 Mg PO Q6H PRN 07/19/15 Reported Celexa (Citalopram Hydrobromide) 20 Mg Tab 20 Mg PO QAM 07/19/15 Reported Donepezil Hcl (Donepezil Hydrochloride) 5 Mg Tab 5 Mg PO QAM 07/19/15 Reported Ocuvite (Multiple Vitamins W/ Minerals) 1 Tab Tab 1 Tab PO HS 08/02/14 Reported Ranitidine Hcl 150 Mg Cap 150 Mg PO BID 12/04/12 Reported Vitamin D3 (Cholecalciferol) 1,000 Unit Cap 1,000 Inter.unit PO QAM 12/04/12 Reported Prilosec (Omeprazole) 20 Mg Capcr 20 Mg PO QAM 12/04/12 Reported Claritin (Loratadine) 10 Mg Cap 10 Mg PO QAM 08/05/11 Reported Inpatient Medications: Current Inpatient Medications Medications (Trade) Dose Ordered Sig/Eda Route Start Time Stop Time Status Last Admin Dose Admin Albuterol (Ventolin Hfa Inhaler) 2 puffs Q6H PRN INH 08/23/16 03:30 09/22/16 03:29 Atorvastatin Calcium (Lipitor Tab) 40 mg HS PO 08/23/16 21:00 09/22/16 20:59 Citalopram Hydrobromide (celeXA TAB) 20 mg QAM PO 08/23/16 09:00 09/22/16 08:59 08/23/16 08:28 20 MG Donepezil HCl (Aricept Tab) 5 mg QAM PO 08/23/16 09:00 09/22/16 08:59 08/23/16 08:28 5 MG Fluticasone Propionate (Flovent Hfa 220MCG Inhaler) 1 puffs BID INH 08/23/16 09:00 09/22/16 08:59 08/23/16 08:27 1 PUFFS Loratadine (Claritin Tab) 10 mg QAM PRN PO 08/23/16 03:30 09/22/16 03:29 Lorazepam (Ativan Tab) 0.5 mg Q6H PRN PO 08/23/16 03:30 09/22/16 03:29 Memantine (Namenda Tab) 5 mg HS PO 08/23/16 21:00 09/22/16 20:59 Tiotropium [place] (Spiriva Handihaler Inhaler) 1 puff DAILY INH 08/23/16 09:00 09/22/16 08:59 08/23/16 08:27 1 PUFF Pantoprazole Sodium (Protonix Tab) 40 mg QAM PO 08/23/16 09:00 09/22/16 08:59 08/23/16 08:27 40 MG Ranitidine HCl (zANTac TAB) 150 mg DAILY PO 08/23/16 09:00 09/22/16 08:59 08/23/16 08:28 150 MG Acetaminophen (Tylenol Tab) 650 mg Q4H PRN PO 08/23/16 03:30 09/22/16 03:29 Al Hydrox/Mg Hydrox/Simethicone (Maalox Max Susp) 15 ml Q4H PRN PO 08/23/16 03:30 09/22/16 03:29 Magnesium Hydroxide (Milk Of Magnesia Susp) 30 ml Q6H PRN PO 08/23/16 03:30 09/22/16 03:29 Polyethylene (Miralax Powder Packet) 17 gm DAILY PRN PO 08/23/16 03:30 09/22/16 03:29 Ondansetron HCl (Zofran Inj) 4 mg Q6H PRN IV 08/23/16 03:30 09/22/16 03:29 Potassium Chloride/Dextrose/ Sod Cl 1,000 ml @ 100 mls/hr Q10H IV 08/23/16 04:30 09/22/16 04:29 08/23/16 04:45 100 MLS/HR Hydromorphone HCl (Dilaudid Inj) 1 mg Q3H PRN IV 08/23/16 03:30 09/06/16 03:29 Ceftriaxone Sodium 1 gm/ Dextrose 50 ml @ 100 mls/hr Q24H IV 08/24/16 06:00 09/03/16 05:59 Review of Systems Review of Systems Constitutional: No fever, No chills Eyes: No blurred vision Neurological: No dizzy Endocrine: No excessive thirst Gastrointestinal: + see HPI, + abdominal pain Cardiovascular: No chest pain Respiratory: + wheezing (at times-hx of COPD), No shortness of breath Skin: No rash Blood / Lymphatic: No bleed easily Ears / Nose / Throat: No hearing loss Psychologic / Mental: No nervous Female : + blood in urine, + kidney stones Physical Exam Vital Signs: Vital Signs Past 12 Hours Date Time Temp Pulse Resp B/P (MAP) Pulse Ox O2 Delivery O2 Flow Rate FiO2 08/23/16 07:48 36.8 68 18 120/76 (91) 96 Nasal Cannula 2.0 08/23/16 04:20 36.8 69 16 143/87 (105) 93 Room Air 08/23/16 04:20 36.8 69 16 143/87 Nasal Cannula 2.0 08/23/16 04:01 81 20 127/81 94 08/23/16 02:43 89 18 130/76 95 Room Air 08/23/16 01:20 Room Air 08/23/16 00:37 37.1 95 20 122/82 92 Room Air Physical Exam: General Appearance: WD/WN, no apparent distress ENT: hearing grossly normal Neck: no JVD Respiratory/Chest: no respiratory distress, no accessory muscle use, + wheezing (expiratory wheezing in bilateral lower lobes otherwise clear) Cardiovascular: regular rate, rhythm, no edema, no gallop, no JVD, no murmur Extremities: normal range of motion, normal inspection, no pedal edema, no calf tenderness Neurologic/Psychiatric: alert, normal mood/affect, oriented x 3 Skin: normal color, warm/dry Assessment & Plan Assessment & Plan Imaging: CT Large left ureteral stone Given the size of her stone she is unlikely to pass and pain will most likely return. Discussed observation vs inserting left ureteral stent. She would like to proceed with cystoscopy left ureteral stent placement. Discussed case with Dr. Weaver and added case on. OR aware and consents on chart. EKG-completed in ER. CXR done in May 2016 - no acute process. Received IV ceftriaxone. We will follow up in office to discuss treatment options. Our office will contact her. Thank you for allowing us to participate in the care of this patient. Case and xray reviewed and given pyuria size and location of stone appears stent is conservative play at this time
--- NOTE | 2016-08-23 10:39 | DIAGNOSTIC IMAGING REPORT ---
KUB CLINICAL HISTORY: Left ureteral stone. COMPARISON STUDY: CT of the abdomen and pelvis August 23, 2016. FINDINGS: A 1.9 x 0.7 cm proximal left ureteral calculus is unchanged in position since prior CT. This is either at the ureteropelvic junction or within the proximal left ureter. Multiple bilateral renal calculi are again noted. No additional ureteral calculi are identified. IMPRESSION: 1. No change in position of the 1.9 x 0.9 cm left ureteropelvic junction/proximal left ureteral calculus. 2. Bilateral nephrolithiasis. Electronically signed by: Chauncey Petersen M.D. 08/23/2016 10:37 AM Dictated Date/Time: 08/23/2016 10:34 AM
--- NOTE | 2016-08-23 11:24 | Hospitalist Progress Note ---
Hospitalist Progress Note Date of Service Aug 23, 2016. (Shena Monge ., SHEILAC) Subjective Pt evaluation today including: conversation w/ patient, physical exam, chart review, lab review, review of studies, review of inpatient medication list Patient states she is currently feeling well. Her L flank pain is minimal at this time. She has been experiencing hematuria since 08/18. She was at [facility] ED on 08/19- patient was discharged from ER w/ Bactrim x10 days and instructed to follow -up with PCP. She did not follow-up with PCP. She presented to ED on 08/23 because of continued hematuria w/ associated L flank pain. Patient admits to an extensive history of kidney stones. +family history of kidney stones. She has never been evaluated for the stones. She normally is able to pass them on her own. Stone type has never been evaluated. Patient denies any fever, chills, sweats, lightheadedness, dizziness, vision changes, CP, palpitations, edema, SOB , wheezing, cough, abdominal pain, nausea, vomiting, diarrhea, urinary symptoms , melena, numbness/tingling, weakness, muscle/joint pain, anxiety/depression, active bleeding, or new skin discoloration/changes. (Shena Monge ., SHEILAC) Medications Current Inpatient Medications Medications (Trade) Dose Ordered Sig/Eda Route Start Time Stop Time Status Last Admin Dose Admin Albuterol (Ventolin Hfa Inhaler) 2 puffs Q6H PRN INH 08/23/16 03:30 09/22/16 03:29 Atorvastatin Calcium (Lipitor Tab) 40 mg HS PO 08/23/16 21:00 09/22/16 20:59 Citalopram Hydrobromide (celeXA TAB) 20 mg QAM PO 08/23/16 09:00 09/22/16 08:59 08/23/16 08:28 20 MG Donepezil HCl (Aricept Tab) 5 mg QAM PO 08/23/16 09:00 09/22/16 08:59 08/23/16 08:28 5 MG Fluticasone Propionate (Flovent Hfa 220MCG Inhaler) 1 puffs BID INH 08/23/16 09:00 09/22/16 08:59 08/23/16 08:27 1 PUFFS Loratadine (Claritin Tab) 10 mg QAM PRN PO 08/23/16 03:30 09/22/16 03:29 Lorazepam (Ativan Tab) 0.5 mg Q6H PRN PO 08/23/16 03:30 09/22/16 03:29 Memantine (Namenda Tab) 5 mg HS PO 08/23/16 21:00 09/22/16 20:59 Tiotropium [place] (Spiriva Handihaler Inhaler) 1 puff DAILY INH 08/23/16 09:00 09/22/16 08:59 08/23/16 08:27 1 PUFF Pantoprazole Sodium (Protonix Tab) 40 mg QAM PO 08/23/16 09:00 09/22/16 08:59 08/23/16 08:27 40 MG Ranitidine HCl (zANTac TAB) 150 mg DAILY PO 08/23/16 09:00 09/22/16 08:59 08/23/16 08:28 150 MG Acetaminophen (Tylenol Tab) 650 mg Q4H PRN PO 08/23/16 03:30 09/22/16 03:29 Al Hydrox/Mg Hydrox/Simethicone (Maalox Max Susp) 15 ml Q4H PRN PO 08/23/16 03:30 09/22/16 03:29 Magnesium Hydroxide (Milk Of Magnesia Susp) 30 ml Q6H PRN PO 08/23/16 03:30 09/22/16 03:29 Polyethylene (Miralax Powder Packet) 17 gm DAILY PRN PO 08/23/16 03:30 09/22/16 03:29 Ondansetron HCl (Zofran Inj) 4 mg Q6H PRN IV 08/23/16 03:30 09/22/16 03:29 Potassium Chloride/Dextrose/ Sod Cl 1,000 ml @ 100 mls/hr Q10H IV 08/23/16 04:30 09/22/16 04:29 08/23/16 04:45 100 MLS/HR Hydromorphone HCl (Dilaudid Inj) 1 mg Q3H PRN IV 08/23/16 03:30 09/06/16 03:29 Ceftriaxone Sodium 1 gm/ Dextrose 50 ml @ 100 mls/hr Q24H IV 08/24/16 06:00 09/03/16 05:59 (Shena Monge, PA-C) Objective Vital Signs Date Time Temp Pulse Resp B/P (MAP) Pulse Ox O2 Delivery O2 Flow Rate FiO2 08/23/16 08:00 Room Air 08/23/16 07:48 36.8 68 18 120/76 (91) 96 Nasal Cannula 2.0 08/23/16 04:20 36.8 69 16 143/87 (105) 93 Room Air 08/23/16 04:20 36.8 69 16 143/87 Nasal Cannula 2.0 08/23/16 04:01 81 20 127/81 94 08/23/16 02:43 89 18 130/76 95 Room Air 08/23/16 01:20 Room Air 08/23/16 00:37 37.1 95 20 122/82 92 Room Air (Shena Monge, PA-C) Physical Exam General Appearance: no apparent distress, + obese, + pertinent finding (smells of cigarette smoke ) Eyes: normal inspection, PERRL ENT: hearing grossly normal Neck: supple Respiratory/Chest: lungs clear, no respiratory distress, no accessory muscle use Cardiovascular: regular rate, rhythm, + systolic murmur Abdomen: normal bowel sounds, non tender, soft Extremities: no pedal edema, no calf tenderness Neurologic/Psychiatric: alert, normal mood/affect, oriented x 3 Skin: normal color, warm/dry, no rash (Shena Monge ., PA-C) Laboratory Results Last 24 Hours Test 08/23/16 00:46 08/23/16 01:22 Urine Color RED Urine Appearance CLEAR Urine pH 7.0 Urine Specific [place] 1.015 Urine Protein 2+ Urine Glucose (UA) NEG Urine Ketones NEG Urine Occult Blood 3+ Urine Nitrite NEG Urine Bilirubin NEG Urine Urobilinogen NEG Urine Leukocyte Esterase SMALL Urine WBC (Auto) 10-30 /hpf Urine RBC (Auto) >30 /hpf Urine Hyaline Casts (Auto) 1-5 /lpf Urine Epithelial Cells (Auto) >30 /lpf Urine Bacteria (Auto) NEG Urine Pathogenic Casts 0-3 GRANULAR CASTS /lpf Urine Yeast (Auto) White Blood Count 13.49 K/uL Red Blood Count 4.55 M/uL Hemoglobin 14.0 g/dL Hematocrit 41.2 % Mean Corpuscular Volume 90.5 fL Mean Corpuscular Hemoglobin 30.8 pg Mean Corpuscular Hemoglobin Concent 34.0 g/dl Platelet Count 318 K/uL Mean Platelet Volume 9.8 fL Neutrophils (%) (Auto) 68.9 % Lymphocytes (%) (Auto) 23.3 % Monocytes (%) (Auto) 5.0 % Eosinophils (%) (Auto) 2.0 % Basophils (%) (Auto) 0.6 % Neutrophils # (Auto) 9.30 K/uL Lymphocytes # (Auto) 3.14 K/uL Monocytes # (Auto) 0.67 K/uL Eosinophils # (Auto) 0.27 K/uL Basophils # (Auto) 0.08 K/uL RDW Standard Deviation 44.5 fL RDW Coefficient of Variation 13.6 % Immature Granulocyte % (Auto) 0.2 % Immature Granulocyte # (Auto) 0.03 K/uL Sodium Level 140 mmol/L Potassium Level 3.2 mmol/L Chloride Level 107 mmol/L Carbon Dioxide Level 25 mmol/L Anion Gap 8.0 mmol/L Blood Urea Nitrogen 11 mg/dl Creatinine 1.10 mg/dl Est Creatinine Clear Calc Drug Dose 68.9 ml/min Estimated GFR () 64.1 Estimated GFR (Non- 55.3 BUN/Creatinine Ratio 9.9 Random Glucose 108 mg/dl Calcium Level 9.2 mg/dl Total Bilirubin 0.4 mg/dl Direct Bilirubin < 0.1 mg/dl Aspartate Amino Transf (AST/SGOT) 11 U/L Alanine Aminotransferase (ALT/SGPT) 24 U/L Alkaline Phosphatase 121 U/L Troponin I < 0.015 ng/ml Total Protein 7.5 gm/dl Albumin 3.6 gm/dl Lipase 154 U/L (Shena Monge, PA-C) Assessment and Plan 56 y/o female, PMHx of HTN, HPL, COPD, early dementia, renal calculi, anxiety/ depression, and GERD who presented to the ED on 08/23 with progressive L flanks pain and hematuria. Renal calculus with obstruction- large 16x9mm left UPJ stone: - Admit to med/surg - IVF + 20 mEq KCL @ 100 ml/hr - IV Dilaudid 1 mg q3hrs and Tylenol 650 mg q4hrs PRN for pain management - UA dirty, UCx pending- started on IV Rocephin at admission (started 08/23) -- Patient was seen in ED on 08/19 for hematuria- she was discharged from ER on Bactrim x10 days (course was to be completed 08/29) - Abdominal CT 08/23: 1.6 x 0.9 cm left ureteropelvic junction calculus with adjacent smaller calculus that results in mild dilatation of the left renal pelvis. Mild urothelial thickening and minimal adjacent infiltration. Extensive bilateral nephrolithiasis. - KUB 08/23- No change in position of the 1.9 x 0.9 cm left ureteropelvic junction /proximal left ureteral calculus. Bilateral nephrolithiasis. - Urology consulted, appreciate recommendations -- Planning for cystoscopy left ureteral stent placement w/ Dr. Weaver on 08/23 Mild hypokalemia of 3.2 at admission: - Treated w/ IV KCL 10 mEq x2 bags and IVF + 20 mEq KCL - Follow PRP and replace PRN Mild Leukocytosis on 13.49 at admission: - IV antibiotics as above - Follow CBC HTN- STABLE: - Lisinopril/HCTZ 20/12.5 mg 1 tab QAM held at admission pending urology consultation -- Will continue to hold preop- resume postop pending PRP and BPs COPD w/ NO exacerbation/nocturnal hypoemia: - Continue home inhalers - Wears 2L O2 supplement HS- denies JUNG diagnosis- follows w/ Dr. Singh Hyperlipidemia: Atorvastatin 40 mg HS Early dementia: Aricept 5 mg QAM, Namenda 5 mg HS Anxiety/depression: - Zoloft 100 mg daily, Celexa 20 mg QAM, Ativan 0.5 mg q6 hrs PRN - Follows w/ Dr. Majano Tobacco Abuse- smokes 1 pack per day: - Smoking cessation counselling- completed at bedside - Declines nicotine patch GERD: Continue Zantac, Prilosec changed for Protonix- intra-formulary change GI Prophylaxis: Protonix, Maalox PRN, IV Zofran PRN, Colace and/or Milk of Mag PRN DVT Prophylaxis: TEDs/SCDs, chemical means contraindicated due to upcoming urologic procedure/hematuria Code Status: LEVEL I, FULL Dispo: Discharge uncertain at this time; from home- no discharge needs anticipated (Shena Monge, SHEILAC) See discharge summary same day (Mireya Cesar MD)
[2016-08-23] MEDS ORDERED: PROPOFOL IV EMULSION 10 MG/ML 20 ML VIAL IV ONE (11:57)
[2016-08-23] MEDS ORDERED: LIDOCAINE HCL 2% 2 ML VIAL (20MG/ML) ONE (11:57)
[2016-08-23] MEDS ORDERED: FENTANYL CITRATE INJ 50 MCG/1 ML 2 ML VIAL ONE (11:57)
[2016-08-23] MEDS ORDERED: MIDAZOLAM HCL 1 MG/ML 2ML VIAL ONE (11:57)
[2016-08-23] MEDS ORDERED: LACTATED RINGER'S 1000ML 1,000 ML IV PRN (12:12)
[2016-08-23] MEDS ORDERED: NURSING VERBAL MED ORDER ONE (12:15)
[2016-08-23] MEDS ORDERED: FENTANYL CITRATE INJ 50 MCG/1 ML 2 ML VIAL IV PRN (12:15)
[2016-08-23] MEDS ORDERED: CIPROFLOXACIN 400MG / 200ML D5W ONE (12:17)
--- NOTE | 2016-08-23 13:08 | [facility] Post Operative Brief Note ---
Immediate Operative Summary Operative Date Aug 23, 2016. Pre-Operative Diagnosis Hydronephrosis with Left Obstructive Calculus Post-Operative Diagnosis Hydronephrosis with Left Obstructive Calculus Procedure(s) Performed Cystoscopy, Left Retrograde Ureteral Stent Insertion Surgeon Dr. Weaver Stock Order Lister Surgeon(s) none Estimated Blood Loss 0 cc Findings proximal obstruction Specimens none per surgeon Disposition Recovery Room / PACU
--- NOTE | 2016-08-23 13:08 | DIAGNOSTIC IMAGING REPORT ---
FLUOROSCOPIC IMAGES FROM LEFT RETROGRADE EXAM CLINICAL HISTORY: Left cystoscopy with stent placement. COMPARISON STUDY: KUB and CT of the abdomen and pelvis from earlier today. Fluoroscopy time: 21 seconds. FINDINGS: 5 fluoroscopic images demonstrate cannulation of the left ureter with left retrograde exam. These images demonstrate a filling defect which may reflect the left ureteropelvic junction calculus shown on CT. Subsequent images demonstrate placement of a left ureteral stent with proximal aspect within the left renal pelvis. A right renal calculus is incidentally noted. IMPRESSION: Fluoroscopic images from left retrograde exam demonstrating left ureteral stent insertion. Electronically signed by: Chauncey Petersen M.D. 08/23/2016 1:06 PM Dictated Date/Time: 08/23/2016 1:05 PM
--- NOTE | 2016-08-23 13:10 | Anesthesiology Progress Note ---
Anesthesia Post Op Note Date & Time Aug 23, 2016 at 13:10 Vital Signs Pain Intensity: 0 Vital Signs Past 12 Hours Date Time Temp Pulse Resp B/P (MAP) Pulse Ox O2 Delivery O2 Flow Rate FiO2 08/23/16 13:00 67 16 109/62 94 Room Air 08/23/16 12:52 36.3 70 16 94/61 95 Room Air 08/23/16 12:04 37.0 65 18 119/69 (86) 93 Room Air 08/23/16 08:00 Room Air 08/23/16 07:48 36.8 68 18 120/76 (91) 96 Nasal Cannula 2.0 08/23/16 04:20 36.8 69 16 143/87 (105) 93 Room Air 08/23/16 04:20 36.8 69 16 143/87 Nasal Cannula 2.0 08/23/16 04:01 81 20 127/81 94 08/23/16 02:43 89 18 130/76 95 Room Air 08/23/16 01:20 Room Air Notes Mental Status: alert / awake / arousable, participated in evaluation Pt Amnestic to Procedure: Yes Nausea / Vomiting: adequately controlled Pain: adequately controlled Airway Patency, RR, SpO2: stable & adequate BP & HR: stable & adequate Hydration State: stable & adequate Anesthetic Complications: no major complications apparent Pt doing well.
--- NOTE | 2016-08-23 13:22 | OPERATIVE REPORT ---
DATE OF OPERATION: 08/23/2016 PREOPERATIVE DIAGNOSIS: Right proximal ureteral stone with pyuria. POSTOPERATIVE DIAGNOSIS: Same. PROCEDURE PERFORMED: Cystoscopy and stent placement. SURGEON: Dr. Weaver. ANESTHESIA: Sedation. INDICATIONS: The patient is a 56-year-old female that presented with left flank pain, proximal 1 cm ureteral obstructing calculus and another renal calculus. She had pyuria. We discussed options and elected to place a stent. Given the size of the stone it seemed unlikely that it would pass spontaneously and given the pyuria, it was perhaps somewhat risky to not pace the stent. DESCRIPTION OF THE PROCEDURE: The patient was taken to the cysto suite. She was given Cipro preoperatively. She had Venodyne stockings placed. The patient was prepped and draped in usual sterile fashion with Venodyne stockings. The scope was placed, left retrograde was done. Appeared that there was some proximal obstruction. A wire was placed. There was some increased flow after this with some slight discolored urine. Next a 5 x 26 stent was passed over the wire and the position of the curl was left in the renal pelvis, was confirmed and there was a good curl in the bladder after the wire was removed. The patient was transferred to recovery room in stable condition with an empty bladder. I attest to the content of the Intraoperative Record and any orders documented therein. Any exception s are noted below.
[2016-08-23] MEDS ORDERED: CPR500 PO (13:56)
--- NOTE | 2016-08-23 13:59 | Discharge Instructions ---
Discharge Instructions Date of Service Aug 23, 2016. Admission Reason for Admission: Hydronephrosis W/ Obstructing Calculus Discharge Discharge Diagnosis / Problem: Hydronephrosis w/ obstructing calculus Discharge Goals Goal(s): Decrease discomfort, Diagnostic testing, Therapeutic intervention, Prevent Disease Progression Activity Recommendations Activity Limitations: resume your previous activity . Instructions / Follow-Up Instructions / Follow-Up Please take Ciprofloxacin 500 mg by mouth twice per day until prescription is complete- this medication is an antibiotic You may take Tylenol 650 mg by mouth every 4 hours as needed for pain- do NOT exceed more than 4g (4000mg) of Tylenol in a 24 hour period Oxybutynin 5 mg by mouth every 8 hours as needed for bladder pain/spasms Pyridium 200 mg by mouth every 8 hours as needed for dysuria (pain with urination) Resume all other regular home medications as prescribed Please follow-up with your PCP within 5-7 days Please follow-up with Urology as instructed by Dr. Weaver Please follow-up/keep all of your subspecialty appointments Current Hospital Diet Patient's current hospital diet: Regular Diet Discharge Diet Recommended Diet: Regular Diet Procedures Procedures Performed: Cystoscopy, Left Retrograde Ureteral Stent Insertion Abdominal CT KUB x-ray Pending Studies Studies pending at discharge: yes List of pending studies: Urine culture Laboratory Results Last 24 Hours Test 08/23/16 00:46 08/23/16 01:22 Urine Color RED Urine Appearance CLEAR Urine pH 7.0 Urine Specific [place] 1.015 Urine Protein 2+ Urine Glucose (UA) NEG Urine Ketones NEG Urine Occult Blood 3+ Urine Nitrite NEG Urine Bilirubin NEG Urine Urobilinogen NEG Urine Leukocyte Esterase SMALL Urine WBC (Auto) 10-30 /hpf Urine RBC (Auto) >30 /hpf Urine Hyaline Casts (Auto) 1-5 /lpf Urine Epithelial Cells (Auto) >30 /lpf Urine Bacteria (Auto) NEG Urine Pathogenic Casts 0-3 GRANULAR CASTS /lpf Urine Yeast (Auto) White Blood Count 13.49 K/uL Red Blood Count 4.55 M/uL Hemoglobin 14.0 g/dL Hematocrit 41.2 % Mean Corpuscular Volume 90.5 fL Mean Corpuscular Hemoglobin 30.8 pg Mean Corpuscular Hemoglobin Concent 34.0 g/dl Platelet Count 318 K/uL Mean Platelet Volume 9.8 fL Neutrophils (%) (Auto) 68.9 % Lymphocytes (%) (Auto) 23.3 % Monocytes (%) (Auto) 5.0 % Eosinophils (%) (Auto) 2.0 % Basophils (%) (Auto) 0.6 % Neutrophils # (Auto) 9.30 K/uL Lymphocytes # (Auto) 3.14 K/uL Monocytes # (Auto) 0.67 K/uL Eosinophils # (Auto) 0.27 K/uL Basophils # (Auto) 0.08 K/uL RDW Standard Deviation 44.5 fL RDW Coefficient of Variation 13.6 % Immature Granulocyte % (Auto) 0.2 % Immature Granulocyte # (Auto) 0.03 K/uL Sodium Level 140 mmol/L Potassium Level 3.2 mmol/L Chloride Level 107 mmol/L Carbon Dioxide Level 25 mmol/L Anion Gap 8.0 mmol/L Blood Urea Nitrogen 11 mg/dl Creatinine 1.10 mg/dl Est Creatinine Clear Calc Drug Dose 68.9 ml/min Estimated GFR () 64.1 Estimated GFR (Non- 55.3 BUN/Creatinine Ratio 9.9 Random Glucose 108 mg/dl Calcium Level 9.2 mg/dl Total Bilirubin 0.4 mg/dl Direct Bilirubin < 0.1 mg/dl Aspartate Amino Transf (AST/SGOT) 11 U/L Alanine Aminotransferase (ALT/SGPT) 24 U/L Alkaline Phosphatase 121 U/L Troponin I < 0.015 ng/ml Total Protein 7.5 gm/dl Albumin 3.6 gm/dl Lipase 154 U/L Medical Emergencies . Who to Call and When: Medical Emergencies: If at any time you feel your situation is an emergency, please call 911 immediately. . Non-Emergent Contact Non-Emergency issues call your: Primary Care Provider . . "Provider Documentation" section prepared by Shena Monge. . VTE Core Measure Inpt VTE Proph given/why not?: SCD's
--- NOTE | 2016-08-23 14:09 | Discharge Summary ---
Discharge Summary Date of Service Aug 23, 2016. (Shena Monge PA-C) Discharge Summary Admission Date: Aug 23, 2016 at 03:24 Discharge Date: Aug 23, 2016 Discharge Disposition: Home Principal Diagnosis: Renal calculus with obstruction Problems/Secondary Diagnoses: Renal calculus with obstruction- large 16x9mm left UPJ stone Mild hypokalemia Mild Leukocytosis HTN COPD Nocturnal hypoemia Hyperlipidemia Early dementia Anxiety/depression Tobacco Abuse GERD Procedures: CT OF THE ABDOMEN AND PELVIS WITHOUT CONTRAST, STONE PROTOCOL CLINICAL HISTORY: Left flank pain. Hematuria. COMPARISON STUDY: CT of the abdomen and pelvis July 19, 2015 and renal ultrasound August 19, 2016. TECHNIQUE: Helical axial images of the abdomen and pelvis were obtained without IV or oral contrast according to renal stone protocol. FINDINGS: A 1.6 x 0.9 cm left ureteropelvic junction calculus results in mild dilatation of the left renal pelvis. There is mild urothelial thickening and minimal adjacent infiltration. There is a smaller adjacent left ureteropelvic junction calculus. There are numerous bilateral renal calculi, including a 1.2 cm calculus within the midpole of the right kidney. No additional ureteral calculi are identified. A suspected 7 mm left hepatic lobe cyst is unchanged. Unenhanced images of the spleen, adrenal glands and pancreas are normal. The gallbladder surgically absent. There are findings consistent with a ventral hernia repair with mesh. There is no pneumatosis, free air or portal venous gas. No suspicious skeletal lesions are identified. Mild loss of height of several lumbar vertebral bodies is chronic. Scarring within the upper pole of the left kidney is noted. IMPRESSION: 1. 1.6 x 0.9 cm left ureteropelvic junction calculus with adjacent smaller calculus that results in mild dilatation of the left renal pelvis. Mild urothelial thickening and minimal adjacent infiltration. 2. Extensive bilateral nephrolithiasis. Electronically signed by: Chauncey Petersen M.D. 08/23/2016 7:27 AM Dictated Date/Time: 08/23/2016 7:19 AM The status of this report is Signed. Draft = Not yet reviewed or approved by Radiologist. Signed = Reviewed and approved by Radiologist. FLUOROSCOPIC IMAGES FROM LEFT RETROGRADE EXAM CLINICAL HISTORY: Left cystoscopy with stent placement. COMPARISON STUDY: KUB and CT of the abdomen and pelvis from earlier today. Fluoroscopy time: 21 seconds. FINDINGS: 5 fluoroscopic images demonstrate cannulation of the left ureter with left retrograde exam. These images demonstrate a filling defect which may reflect the left ureteropelvic junction calculus shown on CT. Subsequent images demonstrate placement of a left ureteral stent with proximal aspect within the left renal pelvis. A right renal calculus is incidentally noted. IMPRESSION: Fluoroscopic images from left retrograde exam demonstrating left ureteral stent insertion. Electronically signed by: Chauncey Petersen M.D. 08/23/2016 1:06 PM Dictated Date/Time: 08/23/2016 1:05 PM The status of this report is Signed. Draft = Not yet reviewed or approved by Radiologist. Signed = Reviewed and approved by Radiologist. DICTATED BY: Jose Luis Weaver M.D. DATE OF OPERATION: 08/23/2016 PREOPERATIVE DIAGNOSIS: Right proximal ureteral stone with pyuria. POSTOPERATIVE DIAGNOSIS: Same. PROCEDURE PERFORMED: Cystoscopy and stent placement. SURGEON: Dr. Weaver. ANESTHESIA: Sedation. INDICATIONS: The patient is a 56-year-old female that presented with left flank pain, proximal 1 cm ureteral obstructing calculus and another renal calculus. She had pyuria. We discussed options and elected to place a stent. Given the size of the stone it seemed unlikely that it would pass spontaneously and given the pyuria, it was perhaps somewhat risky to not pace the stent. DESCRIPTION OF THE PROCEDURE: The patient was taken to the cysto suite. She was given Cipro preoperatively. She had Venodyne stockings placed. The patient was prepped and draped in usual sterile fashion with Venodyne stockings. The scope was placed, left retrograde was done. Appeared that there was some proximal obstruction. A wire was placed. There was some increased flow after this with some slight discolored urine. Next a 5 x 26 stent was passed over the wire and the position of the curl was left in the renal pelvis, was confirmed and there was a good curl in the bladder after the wire was removed. The patient was transferred to recovery room in stable condition with an empty bladder. I attest to the content of the Intraoperative Record and any orders documented therein. Any exceptions are noted below. Dictated: 08/23/16 1312 Transcribed: 08/23/16 1322 Signed: ES Jose Luis Weavre M.D. The status of this report is Draft. Draft = Not yet reviewed or approved by Medical Physician. Signed = Reviewed and approved by Medical Physician. KUB CLINICAL HISTORY: Left ureteral stone. COMPARISON STUDY: CT of the abdomen and pelvis August 23, 2016. FINDINGS: A 1.9 x 0.7 cm proximal left ureteral calculus is unchanged in position since prior CT. This is either at the ureteropelvic junction or within the proximal left ureter. Multiple bilateral renal calculi are again noted. No additional ureteral calculi are identified. IMPRESSION: 1. No change in position of the 1.9 x 0.9 cm left ureteropelvic junction/proximal left ureteral calculus. 2. Bilateral nephrolithiasis. Electronically signed by: Chauncey Petersen M.D. 08/23/2016 10:37 AM Dictated Date/Time: 08/23/2016 10:34 AM The status of this report is Signed. Draft = Not yet reviewed or approved by Radiologist. Signed = Reviewed and approved by Radiologist. Consultations: Urology- Dr. Weaver (Shena Monge, PA-C) Medication Reconciliation New Medications: Ciprofloxacin (Ciprofloxacin HCl) 500 Mg Tab 500 MG PO BID for 7 Days, #14 TAB Oxybutynin Chloride (Ditropan) 5 Mg Tab 5 MG PO TID PRN for Bladder pain for 3 Days, #9 TAB Phenazopyridine Hcl (Pyridium) 200 Mg Tab 1 TAB PO TID PRN for Bladder pain for 3 Days, #9 TAB Acetaminophen Tab (Tylenol) 325 Mg Tab 650 MG PO Q4H PRN for Pain or Fever for 30 Days, TAB Continued Medications: Acetaminophen/Diphenhydramine (Tylenol Pm) 500 Mg/25 Mg Tab 2 TAB PO HS PRN for Insomnia, TAB Albuterol Hfa (Ventolin Hfa) 200 Puffs/36085 Mcg Aers 2-4 PUFFS INH Q6H PRN for SOB/Wheezing Albuterol Sulf (Albuterol Sulfate) 2.5 Mg/0.5 Ml Nebu Atorvastatin (Lipitor) 40 Mg Tab 40 MG PO HS, TAB Cholecalciferol (Vitamin D3) 1,000 Unit Cap 1000 INTER.UNIT PO QAM Citalopram Hydrobromide (Celexa) 20 Mg Tab 20 MG PO QAM, TAB Donepezil Hydrochloride (Donepezil Hcl) 5 Mg Tab 5 MG PO QAM, TAB Fluticasone Propionate (Flovent Hfa) 120 Puffs/44125 Mcg Aero 2 PUFFS PO AMPM Lisinopril/Hctz (Zestoretic 20MG/12.5MG) Tab 1 TAB PO QAM, TAB Loratadine (Claritin) 10 Mg Cap 10 MG PO QAM Lorazepam (Ativan) 0.5 Mg Tab 0.5 MG PO Q6H PRN for Anxiety, TAB Memantine (Namenda) 5 Mg Tab 5 MG PO HS Multiple Vitamins W/ Minerals (Ocuvite) 1 Tab Tab 1 TAB PO HS Omeprazole (Prilosec) 20 Mg Capcr 20 MG PO QAM Ranitidine Hcl (Ranitidine Hcl) 150 Mg Cap 150 MG PO BID Sertraline (Zoloft) 100 Mg Tab 100 MG PO DAILY, TAB Tiotropium [place] (Spiriva Handihaler) 30 Puff/540 Mcg Aerp 1 CAP INH DAILY, INHALER Zolpidem Tartrate (Zolpidem Tartrate) 5 Mg Tab 1 TAB PO HS for 30 Days, #30 TAB Discontinued Medications: Sulfa/Trimethoprim (Bactrim Ds 800MG/160MG) Tab 1 TAB PO BID for 10 Days, #20 TAB Discharge Exam Review of Systems: Constitutional: No fever, No chills, No sweats, No weakness, No fatigue Respiratory: No cough, No shortness of breath, No hemoptysis Cardiovascular: No chest pain, No edema, No palpitations Abdomen: + problem reported (Mild L flank pain ), No pain, No nausea, No vomiting, No diarrhea, No constipation, No GI bleeding Musculoskeletal: No joint pain, No muscle pain, No swelling, No calf pain Genitourinary - Female: + hematuria, No dysuria Neurologic: No weakness, No numbness/tingling Psychiatric: No depression symptoms, No anxiety Hematologic / Lymphatic: No abnormal bleeding/bruising Integumentary: No rash, No itch, No new/changing skin lesions Physical Exam: General Appearance: no apparent distress, + obese ENT: hearing grossly normal Neck: supple Respiratory/Chest: lungs clear, no respiratory distress, no accessory muscle use Cardiovascular: regular rate, rhythm, + systolic murmur Abdomen / GI: normal bowel sounds, non tender, soft Extremities: no calf tenderness, no pedal edema Neurologic/Psychiatric: alert, normal mood/affect, oriented x 3 Skin: normal color, warm/dry, no rash (Shena Monge, PARodneyC) Hospital Course 56 y/o female, PMHx of HTN, HPL, COPD, early dementia, renal calculi, anxiety/ depression, and GERD who presented to the ED on 08/23 with progressive L flanks pain and hematuria. Renal calculus with obstruction- large 16x9mm left UPJ stone: - Admit to med/surg - IVF + 20 mEq KCL @ 100 ml/hr - IV Dilaudid 1 mg q3hrs and Tylenol 650 mg q4hrs PRN for pain management - UA dirty, UCx pending- started on IV Rocephin at admission (started 08/23) -- Patient was seen in ED on 08/19 for hematuria- she was discharged from ER on Bactrim x10 days (course was to be completed 08/29) -- Discharge w/ Ciprofloxacin 500 mg BID x7 days - Abdominal CT 08/23: 1.6 x 0.9 cm left ureteropelvic junction calculus with adjacent smaller calculus that results in mild dilatation of the left renal pelvis. Mild urothelial thickening and minimal adjacent infiltration. Extensive bilateral nephrolithiasis. - KUB 08/23- No change in position of the 1.9 x 0.9 cm left ureteropelvic junction /proximal left ureteral calculus. Bilateral nephrolithiasis. - Urology consulted, appreciate recommendations -- Cystoscopy left ureteral stent placement w/ Dr. Weaver on 08/23 Mild hypokalemia of 3.2 at admission: Treated w/ IV KCL 10 mEq x2 bags and IVF + 20 mEq KCL Mild Leukocytosis on 13.49 at admission- improved from 08/19 CBC: Antibiotics as above HTN- STABLE: Lisinopril/HCTZ 20/12.5 mg 1 tab QAM held at admission pending urology consultation- resume at discharge COPD w/ NO exacerbation/nocturnal hypoemia: - Continue home inhalers - Wears 2L O2 supplement HS- denies JUNG diagnosis- follows w/ Dr. Singh Hyperlipidemia: Atorvastatin 40 mg HS Early dementia: Aricept 5 mg QAM, Namenda 5 mg HS Anxiety/depression: - Zoloft 100 mg daily, Celexa 20 mg QAM, Ativan 0.5 mg q6 hrs PRN - Follows w/ Dr. Majano Tobacco Abuse- smokes 1 pack per day: - Smoking cessation counselling- completed at bedside - Declines nicotine patch GERD: Continue Zantac, Prilosec changed for Protonix- intra-formulary change GI Prophylaxis: Protonix, Maalox PRN, IV Zofran PRN, Colace and/or Milk of Mag PRN DVT Prophylaxis: TEDs/SCDs and Ambulation, chemical means contraindicated due to urologic procedure/hematuria Code Status: LEVEL I, FULL Dispo: Discharge to home - Nurse navigator to setup follow-up appointment w/ PCP in 1 week - Follow-up with Urology per their recommendations Total Time Spent: Greater than 30 minutes This includes examination of the patient, discharge planning, medication reconciliation, and communication with other providers. (Shena Monge, JACQUELINE) Discharge Instructions Please refer to the electronic Patient Visit Report (Discharge Instructions) for additional information. (Shena Monge PA-C) Follow-Up Please follow-up with your PCP within 5-7 days Please follow-up with Urology, as instructed by Dr. Weaver Please follow-up/keep all of your subspecialty appointments (Shena Monge PA-C) Additional Copies To Bladimir Ortiz MD Reviewed: Pt Seen/Exam by Me (Mireya Cesar MD) History Physician Supervisor [employer] Supervision Note: I interviewed and examined the patient. Discussed with LILIANA Monge and agree with findings and plan as documented in the note. Any exceptions or clarifications are listed here: Pt had stent placed and feeling well except some spasms in left lower back. Afebrile. Vitals reviewed NAD, AAOx3 RRR no mgr Lungs with occasional wheeze, no crackles or rhonchi Abd +BS soft NT ND obese Ext no edema or calf tenderness 56 yo female with left ureterolithiasis and multiple other medical issues S/p stent placement, doing well, questionable UTI but no sepsis or BRUNILDA. -Stable for dc to home with Urol and PCP follow up Stay on Cipro, PCP can follow Urine culture after discharge -Counseled extensively on smoking cessation Documented By: Mireya Cesar (Mireya Cesar MD) Assessment/Plan See discharge summary same day (Mireya Cesar MD)
[2016-08-23] MEDS ORDERED: ACET325T96 PO (14:36)
[2016-08-23] MEDS ORDERED: PHEN-775 PO (14:42)
[2016-08-23] MEDS ORDERED: DTR/5 PO (14:42)
[2016-08-23] MEDS ORDERED: MEMANTINE 5 MG TAB PO SCH (21:00)
[2016-08-23] MEDS ORDERED: ATORVASTATIN 40 MG TAB PO SCH (21:00)
[2016-08-24] MEDS ORDERED: CEFTRIAXONE SOD INJ 1 GM in DEXTROSE 5% ADD-VANTAGE 50ML 50 ML IV SCH (06:00)
[2016-08-24] MEDS ORDERED: SERTRALINE HCL 100 MG TAB PO SCH (09:00)
[2016-08-28] MEDS ORDERED: ACET-1256 PO (10:14)
[2016-08-28] MEDS ORDERED: CIPR-255 PO (10:17)
[2016-08-28] MEDS ORDERED: DICL75TA2 PO (10:22)
[2016-08-29] MEDS ORDERED: HYDR-5688 PO (11:40)
[2016-08-29] MEDS ORDERED: CIPR-255 PO (11:40)
[2016-11-12] MEDS ORDERED: HYDR-4079 PO (11:20)
[2016-12-24] MEDS ORDERED: PHEN95TA14 PO (12:54)
[2016-12-24] MEDS ORDERED: CIPR-255 PO (12:54)
[2016-12-24] MEDS ORDERED: HYDR-5688 PO (12:54)
[2016-12-27] MEDS ORDERED: LORA10CA2 PO (03:19)
[2016-12-27] MEDS ORDERED: SERT-234 PO (03:40)
[2016-12-27] MEDS ORDERED: VNTHFA/IN INH (09:16)
[2016-12-27] MEDS ORDERED: CHN/1 PO (09:25)
[2016-12-27] MEDS ORDERED: PRVIN525 NEB (11:29)
[2016-12-27] MEDS ORDERED: LISI-787 PO (13:27)
[2016-12-27] MEDS ORDERED: ATOR-24 PO (16:35)
[2016-12-27] MEDS ORDERED: DONE1TAB11 PO (16:35)
[2016-12-27] MEDS ORDERED: LORA-741 PO (16:35)
[2016-12-27] MEDS ORDERED: CITA20TA9 PO (16:35)
== END 2016-08-23 16:18 | disposition home or self-care (01) | DRG 690 ==
LOC: C.EDB 00:25 → C.MSW 03:24 → ENRESERV 03:47
PROVIDERS: ADMIT Internal Medicine; ATTEND Family Medicine
PROC: 0T778DZ Dilation of Left Ureter with Intraluminal Device, Via Natural or Artificial Opening Endoscopic (ICD-10-PCS; principal; 2016-08-23 12:30)
PROC: BT14ZZZ Fluoroscopy of Kidneys, Ureters and Bladder (ICD-10-PCS; 2016-08-23 12:30)
DX: N13.6 Pyonephrosis (principal); N39.0 Urinary tract infection, site not specified; E87.6 Hypokalemia; F03.90 Unspecified dementia, unspecified severity, without behavioral disturbance, psychotic disturbance, mood disturbance, and anxiety; J44.9 Chronic obstructive pulmonary disease, unspecified; I10 Essential (primary) hypertension; F41.9 Anxiety disorder, unspecified; F32.9 Major depressive disorder, single episode, unspecified; K21.9 Gastro-esophageal reflux disease without esophagitis; E78.5 Hyperlipidemia, unspecified; E66.9 Obesity, unspecified; F17.200 Nicotine dependence, unspecified, uncomplicated; Z79.899 Other long term (current) drug therapy; Z87.442 Personal history of urinary calculi; Z68.31 Body mass index [BMI] 31.0-31.9, adult; Z83.3 Family history of diabetes mellitus; Z82.49 Family history of ischemic heart disease and other diseases of the circulatory system; Z84.1 Family history of disorders of kidney and ureter; Z82.5 Family history of asthma and other chronic lower respiratory diseases

== ENCOUNTER 2016-08-29 08:32 | Day surgery (SDC) | payer OTHER ==
[2016-08-28 10:22] VITALS: BMI 31.0
[~2016-08-29] VITALS: Ht 175.3 cm; Wt 95.5 kg
[~2016-08-29 08:32] MED LIST changes: +CIPR-255 PO; +CIPROFLOXACIN / D5W 400 MG IV SCH; +DICL75TA2 PO; +DIPH-437 PO; +LACTATED RINGER'S 1000ML 1,000 ML IV SCH; -SULF800T23 PO; +ZOLP5TAB6 PO
[2016-08-29 08:55] VITALS: BP 122/77; PULSE 97; TEMP 37.2; O2SAT 91; Ht 175.3 cm; Wt 95.5 kg
[2016-08-29] MEDS ORDERED: DEXAMETHASONE SOD INJ 4 MG/ML VIAL ONE (09:20)
[2016-08-29] MEDS ORDERED: LIDOCAINE HCL 2% 2 ML VIAL (20MG/ML) ONE (09:20)
[2016-08-29] MEDS ORDERED: MIDAZOLAM HCL 1 MG/ML 2ML VIAL ONE (09:20)
[2016-08-29] MEDS ORDERED: ONDANSETRON INJ 2 MG/ML 2 ML VIAL ONE (09:20)
[2016-08-29] MEDS ORDERED: PROPOFOL IV EMULSION 10 MG/ML 20 ML VIAL IV ONE (09:20)
[2016-08-29] MEDS ORDERED: FENTANYL CITRATE INJ 50 MCG/1 ML 2 ML VIAL ONE ×3 (09:20→11:52)
[2016-08-29 09:40] LABS: BUN/CREATININE RATIO 10.8 (10-20); CALCIUM 9.3 mg/dl (8.5-10.1); CREATININE 0.93 mg/dl (0.60-1.20); POTASSIUM 3.5 mmol/L (3.5-5.1)
[2016-08-29] MEDS ORDERED: CONRAY 30% 150ML BOTTLE ONE (10:00)
--- NOTE | 2016-08-29 11:39 | [facility] Post Operative Brief Note ---
Immediate Operative Summary Operative Date Aug 29, 2016. Pre-Operative Diagnosis Nephrolithiasis Post-Operative Diagnosis Nephrolithiasis Procedure(s) Performed Cystoscopy, Left Ureteroscopy, Laser Lithotripsy, Stent Exchange ([id number]) Surgeon Dr. Jay Guerrero Rail [employer] Supervisor Surgeon(s) none Estimated Blood Loss 3 cc Findings Several large L renal stones. All fragmented to dust. No large fragments identified on final renoscopy and exit ureteroscopy. Specimens none per surgeon Drains [id number] Anesthesia Gen Complication(s) None Disposition Recovery Room / PACU (stable)
[2016-08-29] MEDS ORDERED: CIPR-255 PO (11:40)
[2016-08-29] MEDS ORDERED: HYDR-5688 PO (11:40)
[2016-08-29] MEDS ORDERED: SODIUM CHLORIDE 0.9% 1000ML 1,000 ML IV SCH (11:41)
--- NOTE | 2016-08-29 11:41 | Discharge Instructions ---
Discharge Instructions Date of Service Aug 29, 2016. Admission Reason for Admission: Kidney Stones Discharge Discharge Diagnosis / Problem: Kidney stones Discharge Goals Goal(s): Decrease discomfort, Improve function, Increase independence, Improve disease control, Prevent Disease Progression Activity Recommendations Activity Limitations: resume your previous activity Lifting Limitations: none Exercise/Sports Limitations: none May Resume Sexual Activity: when tolerated Shower/Bathe: no limitations Driving or Machine Use: resume 1 day after discharge . Instructions / Follow-Up Instructions / Follow-Up Please keep your previously scheduled follow up appointment with Dr. Guerrero for stent removal. Discharge Diet Recommended Diet: Regular Diet Procedures Procedures Performed: Cystoscopy, Left Ureteroscopy, Laser Lithotripsy, Stent Exchange ([id number]) Pending Studies Studies pending at discharge: no Medical Emergencies . Who to Call and When: Medical Emergencies: If at any time you feel your situation is an emergency, please call 911 immediately. . Non-Emergent Contact Non-Emergency issues call your: Urologist Call Non-Emergent contact if: you have a fever, temperature is above 101.5, your pain is not controlled, your pain is worsening . . "Provider Documentation" section prepared by Teddy Montero. . VTE Core Measure Inpt VTE Proph given/why not?: Treatment not indicated
[2016-08-29] MEDS ORDERED: HYDROCODONE/ACETAMOPHEN 5/325MG TAB PO PRN ×2 (11:45)
[2016-08-29] MEDS ORDERED: ATROPINE SULFATE 0.1 MG/ML 5ML SYR IV PRN (11:45)
[2016-08-29] MEDS ORDERED: FLUMAZENIL 0.1 MG/1 ML 10 ML VIAL IV PRN (11:45)
[2016-08-29] MEDS ORDERED: NALOXONE HCL 0.4 MG/1 ML VIAL/CARP IV PRN (11:45)
[2016-08-29] MEDS ORDERED: PROMETHAZINE HCL INJ 12.5 MG in SODIUM CHLORIDE 0.9% 50ML 50 ML IV PRN (11:45)
[2016-08-29] MEDS ORDERED: EpHEDrine SULFATE INJ 50 MG/ML AMP IV PRN (11:45)
[2016-08-29] MEDS ORDERED: ONDANSETRON INJ 2 MG/ML 2 ML VIAL IV PRN (11:45)
[2016-08-29] MEDS ORDERED: FENTANYL CITRATE INJ 50 MCG/1 ML 2 ML VIAL IV PRN (11:45)
[2016-08-29] MEDS ORDERED: LABETALOL HCL IV 5 MG/ML 20ML IV PRN (11:45)
[2016-08-29] MEDS ORDERED: ACETAMINOPHEN 325 MG TAB PO PRN (11:45)
--- NOTE | 2016-08-29 12:19 | Anesthesiology Progress Note ---
Anesthesia Post Op Note Date & Time Aug 29, 2016 at 12:19 Vital Signs Pain Intensity: 6.0 Vital Signs Past 12 Hours Date Time Temp Pulse Resp B/P (MAP) Pulse Ox O2 Delivery O2 Flow Rate FiO2 08/29/16 12:11 121/73 08/29/16 12:10 85 24 92 08/29/16 12:10 83 24 08/29/16 12:06 112/76 08/29/16 12:05 74 12 08/29/16 12:05 73 12 93 08/29/16 12:01 129/71 08/29/16 12:00 85 21 96 08/29/16 12:00 85 21 08/29/16 11:56 125/82 08/29/16 11:55 90 21 08/29/16 11:55 90 21 92 08/29/16 11:51 117/89 08/29/16 11:50 86 12 96 08/29/16 11:50 86 12 08/29/16 11:46 120/74 08/29/16 11:45 80 12 08/29/16 11:45 79 12 99 08/29/16 11:41 119/76 08/29/16 11:40 81 12 99 08/29/16 11:40 81 12 08/29/16 11:36 123/77 08/29/16 11:35 82 16 08/29/16 11:35 81 16 99 08/29/16 11:31 129/80 08/29/16 11:30 89 13 08/29/16 11:30 89 13 99 08/29/16 11:30 37.2 88 12 129/80 99 Mask 10 08/29/16 08:55 37.2 97 20 122/77 (92) 91 Room Air Notes Mental Status: alert / awake / arousable, participated in evaluation Pt Amnestic to Procedure: Yes Nausea / Vomiting: adequately controlled Pain: adequately controlled Airway Patency, RR, SpO2: stable & adequate BP & HR: stable & adequate Hydration State: stable & adequate Anesthetic Complications: no major complications apparent
[2016-08-29 12:35] VITALS: BP 119/61; PULSE 66; TEMP 36.9; O2SAT 92
--- NOTE | 2016-08-29 12:47 | OPERATIVE REPORT ---
DATE OF OPERATION: 08/29/2016 PREOPERATIVE DIAGNOSIS: Left renal calculi. POSTOPERATIVE DIAGNOSIS: Left renal calculi. PROCEDURES PERFORMED: Cystoscopy, left ureteroscopy, left laser lithotripsy, left ureteral stent exchange 6 [place] x 24 cm. SURGEON: Dr. Guerrero. ANESTHESIA: General. ESTIMATED BLOOD LOSS: 3 mL. URINE OUTPUT: Not recorded. SPECIMENS: None. COMPLICATIONS: None. OPERATION AND FINDINGS: DESCRIPTION OF THE PROCEDURE: Marjorie Graham was identified in the preoperative holding area. Appropriate informed consents were reviewed and completed and the patient was transported to the operating suite. Upon arrival, she received appropriate preoperative antibiotics in the form of ciprofloxacin. Adequate general anesthesia was achieved and the patient was placed in dorsal lithotomy position where she was sterilely prepped and draped in standard fashion. I began the case by passing a cystoscope per urethra. Inspection of the bladder revealed significant hematuria likely from her prior left ureteral stent placement. I was able to drain the bladder and irrigate it and confirm that there were no tumors or other abnormalities within the bladder. The left ureteral stent was easily seen. Distal aspect of the stent was grasped and withdrawn to the urethral meatus under fluoroscopic guidance. I intubated the stent and guided the wire into the kidney. Stent was removed entirely without incrustation. I then used a 10-[place] double lumen catheter inserted over the existing wire and advanced to the mid ureter. I performed a retrograde pyelogram. There was an opacity seen at the UPJ as well as a nondilated left collecting system. I placed a second wire through the second element of the double 10 [place] double lumen and withdrew it. I used 1 safety wire and excluded it and used the other as a working wire to advance the flexible ureteroscope to the kidney. Full renoscopy was carried out at that time. There was a stone at the UPJ as well as a stone in the upper pole. These were both relatively large stones. There was a Fracisco's plaque in the subcalix off the upper pole and a small stone in the mid to lower pole. I was able to manipulate the stone from the renal pelvis into the upper pole and pass a 400 micron laser fiber. I began in the lower pole by fragmenting this stone. I then treated the Fracisco's plaque in the subcalix off the upper pole before treating this stone that had previously been in the right renal pelvis and moved up to the upper pole. I then finished my laser lithotripsy by fragmenting the stone that was in the true upper pole. I performed a very careful exit repeat renoscopy and saw no large retained fragments on my renoscopy. I performed a careful exit ureteroscopy and did not appreciate any stones along the ureter. I reopacified the collecting system and placed a 6-[place] x 24 cm double-J stent seeing a good curl in the renal pelvis as well as in the bladder. I concluded the case by emptying the bladder and reversing the patient from anesthesia. There were no complications. I attest to the content of the Intraoperative Record and any orders documented therein. Any exception s are noted below.
[2016-08-29 13:00] VITALS: BP 117/76; PULSE 72; TEMP 36.8; O2SAT 96
[2016-08-29] MEDS ORDERED: HYDROCODONE/ACETAMOPHEN 5/325MG TAB ONE (13:27)
[2016-08-29 13:30] VITALS: BP 135/76; PULSE 89; TEMP 37.1; O2SAT 92
[2016-08-29 14:00] VITALS: BP 140/65; PULSE 65; TEMP 37; O2SAT 95
[2016-08-29] MEDS ORDERED: TAMSULOSIN HCL 0.4 MG CAP PO SCH (21:00)
[2016-11-12] MEDS ORDERED: HYDR-4079 PO (11:20)
[2016-12-24] MEDS ORDERED: HYDR-5688 PO (12:54)
[2016-12-24] MEDS ORDERED: CIPR-255 PO (12:54)
[2016-12-24] MEDS ORDERED: PHEN95TA14 PO (12:54)
[2016-12-27] MEDS ORDERED: LORA10CA2 PO (03:19)
[2016-12-27] MEDS ORDERED: SERT-234 PO (03:40)
[2016-12-27] MEDS ORDERED: VNTHFA/IN INH (09:16)
[2016-12-27] MEDS ORDERED: CHN/1 PO (09:25)
[2016-12-27] MEDS ORDERED: PRVIN525 NEB (11:29)
[2016-12-27] MEDS ORDERED: LISI-787 PO (13:27)
[2016-12-27] MEDS ORDERED: ATOR-24 PO (16:35)
[2016-12-27] MEDS ORDERED: DONE1TAB11 PO (16:35)
[2016-12-27] MEDS ORDERED: LORA-741 PO (16:35)
[2016-12-27] MEDS ORDERED: CITA20TA9 PO (16:35)
== END 2016-08-29 14:17 | disposition home or self-care (01) ==
LOC: C.ACU 08:32
PROVIDERS: ATTEND Urology
DX: N20.0 Calculus of kidney (principal); I10 Essential (primary) hypertension; J45.909 Unspecified asthma, uncomplicated; E78.00 Pure hypercholesterolemia, unspecified; F32.9 Major depressive disorder, single episode, unspecified; F41.9 Anxiety disorder, unspecified; Z98.890 Other specified postprocedural states; Z79.899 Other long term (current) drug therapy; F17.200 Nicotine dependence, unspecified, uncomplicated; E66.9 Obesity, unspecified; Z68.31 Body mass index [BMI] 31.0-31.9, adult; Z90.710 Acquired absence of both cervix and uterus; Z88.1 Allergy status to other antibiotic agents; Z88.0 Allergy status to penicillin; Z83.3 Family history of diabetes mellitus; Z82.49 Family history of ischemic heart disease and other diseases of the circulatory system; Z80.6 Family history of leukemia

== ENCOUNTER → 2016-09-12 | Outpatient (CLI) | payer OTHER ==
[~2016-09-12] MED LIST changes: +ATOR-24 PO; +CHN/1 PO; +CHOL1CAP57 PO; -CIPROFLOXACIN / D5W 400 MG IV SCH; +CITA20TA9 PO; +CYCL10TA6 PO; +DONE1TAB11 PO; +HYDR-4079 PO; +HYDR-5688 PO; -LACTATED RINGER'S 1000ML 1,000 ML IV SCH; +LISI-787 PO; +LORA-741 PO; +LORA10CA2 PO; +MULT-188 PO; +NMN10 PO; +OXYC1TAB3 PO; +PHEN95TA14 PO; +PRLSR20 PO; +PRVIN525 INH; +RANI150C4 PO; +SERT-234 PO; +TIOT1AER2 INH; +VALA1TAB2 PO; +VNTHFA/IN INH
--- NOTE | 2016-09-12 11:43 | DIAGNOSTIC IMAGING REPORT ---
KUB CLINICAL HISTORY: Nephrolithiasis. FINDINGS: 2 AP supine abdominal radiographs are compared to study dated 08/23/2016 and correlated with abdominal CT dated 08/23/2016. There is a nonobstructed abdominal bowel gas pattern. Cholecystectomy clips are noted. There are at least 4 nonobstructing calculi projecting over the right kidney. The largest measures up to 1.4 cm. A left ureteral stent is new from previous. There are no calcifications seen along the course of the stent. There are least 2 tiny calcifications projecting over the left kidney measuring up to 3 mm. The large proximal ureteral stone seen on 08/23/2016 has resolved. Surgical clips and phleboliths are identified in the pelvis. The bony structures appear intact. IMPRESSION: 1. A left ureteral stent is new from previous. No calcifications are seen along the course of the stent. 2. The large proximal left ureteral calculus seen on 08/23/2016 is no longer present. 3. There are least 2 tiny nonobstructing calculi project over the left kidney measuring up to 3 mm. 4. Nonobstructing right renal calculi are unchanged. Electronically signed by: Britton Lynn M.D. 09/12/2016 11:42 AM Dictated Date/Time: 09/12/2016 11:39 AM
== END | disposition home or self-care (01) ==
LOC: C.RAD 10:00
PROVIDERS: ATTEND Nurse Practitioner Family
DX: J32.8 Other chronic sinusitis (principal); N20.2 Calculus of kidney with calculus of ureter

== ENCOUNTER 2016-09-15 19:34 | Emergency (ER) | payer OTHER ==
[~2016-09-15] VITALS: Ht 175.3 cm; Wt 94.6 kg
[~2016-09-15 19:34] MED LIST changes: -CHN/1 PO; -CYCL10TA6 PO; -HYDR-4079 PO; -NMN10 PO; -OXYC1TAB3 PO; -PHEN95TA14 PO; -TIOT1AER2 INH; -VALA1TAB2 PO
[2016-09-15 19:43] VITALS: Ht 175.3 cm; Wt 94.6 kg
[2016-09-15] MEDS ORDERED: CYCLOBENZAPRINE HCL 10 MG TAB PO STA (20:01)
[2016-09-15] MEDS ORDERED: OXYCODONE HCL IR 5 MG TAB (IMMEDIATE RELEASE) PO STA ×2 (20:01→21:16)
[2016-09-15] MEDS ORDERED: NMN10 PO (20:47)
[2016-09-15] MEDS ORDERED: TIOT1AER2 INH (20:50)
--- NOTE | 2016-09-15 20:58 | DIAGNOSTIC IMAGING REPORT ---
LUMBAR SPINE 5 VIEWS CLINICAL HISTORY: Low back pain. FINDINGS: 5 views of the lumbar spine are compared to study dated 02/20/2014 and correlated with abdominal CT dated 08/23/2016. The skeletal structures are osteopenic. There is a mild superior endplate and ration deformity of T12. This is new from 08/23/2016 and likely acute. Compression deformity of L1 and L4 are unchanged. Vertebral body height is otherwise maintained throughout the lumbar spine. Minimal retrolisthesis is noted at L2-L3. Alignment is otherwise preserved. The transverse and spinous processes are intact. There is no evidence of spondylolysis. There is mild degenerative disc space narrowing is noted in the lumbar spine. Small anterior osteophytes are seen in the upper lumbar region. Mild facet arthropathy is noted in the lower lumbar spine.. The visualized bony pelvis appears intact. Sclerotic change is noted in the sacral iliac joints. There is a nonobstructed abdominal bowel gas pattern. Cholecystectomy clips are noted in the right upper quadrant. A 12 mm nonobstructing right renal calculus is observed. Surgical clips are also present in the pelvis. Hepatomegaly is observed. Mild atherosclerotic calcification is seen in the abdominal aorta. IMPRESSION: 1. There is a mild acute compression fracture of T12, new from 08/23/2016. 2. No acute bony abnormality is seen involving the lumbosacral spine. Chronic compression deformities of L1 and L4 are unchanged. 2. Osteopenia and mild spondylotic change as above. 3. Nonobstructing right renal calculus. Electronically signed by: Britton Lynn M.D. 09/15/2016 8:57 PM Dictated Date/Time: 09/15/2016 8:52 PM
[2016-09-15] MEDS ORDERED: CYCL10TA6 PO (21:15)
[2016-09-15] MEDS ORDERED: FLEXERIL HOME PACK 10 MG VIAL PO ONE (21:15)
[2016-09-15] MEDS ORDERED: OXYC1TAB3 PO (21:15)
[2016-09-15] MEDS ORDERED: OXYCODONE IR HOME PACK PO ONE (21:15)
[2016-09-15 21:41] VITALS: BP 118/73; PULSE 92; TEMP 37.5; O2SAT 93
--- NOTE | 2016-09-15 22:40 | EMERGENCY ROOM VISIT NOTE ---
History First contact with patient: 19:53 Chief Complaint: BACK PAIN Stated Complaint: PULLED SOMETHING IN BACK History of Present Illness The patient is a 56 year old female who presents to the Emergency Room with complaints of lower back pain. The patient reports that she was lifting a picnic table this morning around 11:30 AM when she felt something pop in her back. She reports a history of lumbar vertebrae fractures in history of osteoporosis. She is currently under the management of the [facility], and was scheduled for SI joint injections later this month. The patient currently denies any pain extending into the buttocks or down the legs. She denies bladder or bowel incontinence, saddle anesthesias or abdominal pain. Deep breathing worsens her discomfort. She rates her discomfort a 9 out of 10 on my exam. Review of Systems 10 system review was performed and was negative except for pertinent positives and negatives as indicated in history of present illness Past Medical/Surgical History Medical Problems: (1) COPD (chronic obstructive pulmonary disease) (2) Hydronephrosis with obstructing calculus (3) Incisional hernia (4) Kidney stones Surgical Problems: (1) S/P appendectomy (2) S/P hysterectomy (3) S/P oophorectomy Family History Cancer Diabetes mellitus FH: gallbladder disease FH: lung disease Hypertension Kidney disease Kidney stones Social History Smoking Status: Current Every Day Smoker Alcohol Use: occasionally, other Drug Use: none Marital Status: Housing Status: lives with significant other Occupation Status: unemployed Current/Historical Medications Scheduled Albuterol Hfa (Ventolin Hfa), 2-4 PUFFS INH QID Albuterol Sulf (Albuterol Sulfate), 1 DOSE INH PRN Atorvastatin (Lipitor), 40 MG PO HS Cholecalciferol (Vitamin D3), 1,000 INTER.UNIT PO QAM Citalopram Hydrobromide (Celexa), 20 MG PO QAM Cyclobenzaprine Hcl (Flexeril), 10 MG PO TID Donepezil Hydrochloride (Donepezil Hcl), 5 MG PO QAM Fluticasone Propionate (Flovent Hfa), 2 PUFFS PO AMPM Lisinopril/Hctz (Zestoretic 20MG/12.5MG), 1 TAB PO QAM Loratadine (Claritin), 10 MG PO QAM Memantine (Namenda), 10 MG PO HS Multiple Vitamins W/ Minerals (Ocuvite), 1 TAB PO HS Omeprazole (Prilosec), 20 MG PO QAM Ranitidine Hcl (Ranitidine Hcl), 150 MG PO BID Sertraline (Zoloft), 100 MG PO QAM Tiotropium [place] (Spiriva Respimat), 2 PUFF INH QAM Zolpidem Tartrate (Zolpidem Tartrate), 1 TAB PO HS Scheduled PRN Lorazepam (Ativan), 0.5 MG PO Q6H PRN for Anxiety Oxycodone Ir (Roxicodone Ir), 1-2 TAB PO Q4H PRN for Pain Allergies Coded Allergies: Penicillins (Verified Allergy, Intermediate, HIVES, 09/15/16) Tetracyclines (Verified Allergy, Intermediate, HIVES, 09/15/16) Physical Exam Vital Signs Date Time Temp Pulse Resp B/P (MAP) Pulse Ox O2 Delivery O2 Flow Rate FiO2 09/15/16 21:41 37.5 92 18 118/73 93 09/15/16 19:43 37.5 115 18 118/73 94 Room Air Physical Exam CONSTITUTIONAL: Healthy and well nourished. Alert and oriented X 3 with positive affect. Patient appears in moderate discomfort from pain. HEENT: Normocephalic, atraumatic. Pupils equal, round and reactive. NECK: Full active range of motion without discomfort. RESPIRATORY: Clear to auscultation bilaterally with no wheezing, crackles, rhonchi or stridor. CARDIOVASCULAR: Regular rate and rhythm with no murmurs, rubs or gallops. GASTROINTESTINAL: Bowel sounds present in all quadrants. Abdomen is soft and nontender to palpation. MUSCULOSKELETAL: Examination shows diffuse tenderness to palpation through the lumbar spine, including the central spine, paraspinous muscles and SI joints bilaterally. No palpable muscle spasms noted. Negative logroll. Negative sitting straight leg raise. Ankle plantar/dorsiflexion strength is 4 out of 5 and symmetric bilaterally. Pedal pulses are intact. INTEGUMENTARY: No rash or other significant dermatologic conditions noted. NEUROLOGIC: No focal neurologic deficits noted. Lower extremity deep tendon reflexes are 2+ and symmetric bilaterally. Medical Decision & Procedures ER Provider Diagnostic Interpretation: My interpretation of lumbar spine x-ray shows what appears to be a no compression fracture of T12, and chronic changes of L1 and L4. Radiologist report is as follows: LUMBAR SPINE 5 VIEWS CLINICAL HISTORY: Low back pain. FINDINGS: 5 views of the lumbar spine are compared to study dated 02/20/2014 and correlated with abdominal CT dated 08/23/2016. The skeletal structures are osteopenic. There is a mild superior endplate and ration deformity of T12. This is new from 08/23/2016 and likely acute. Compression deformity of L1 and L4 are unchanged. Vertebral body height is otherwise maintained throughout the lumbar spine. Minimal retrolisthesis is noted at L2-L3. Alignment is otherwise preserved. The transverse and spinous processes are intact. There is no evidence of spondylolysis. There is mild degenerative disc space narrowing is noted in the lumbar spine. Small anterior osteophytes are seen in the upper lumbar region. Mild facet arthropathy is noted in the lower lumbar spine.. The visualized bony pelvis appears intact. Sclerotic change is noted in the sacral iliac joints. There is a nonobstructed abdominal bowel gas pattern. Cholecystectomy clips are noted in the right upper quadrant. A 12 mm nonobstructing right renal calculus is observed. Surgical clips are also present in the pelvis. Hepatomegaly is observed. Mild atherosclerotic calcification is seen in the abdominal aorta. IMPRESSION: 1. There is a mild acute compression fracture of T12, new from 08/23/2016. 2. No acute bony abnormality is seen involving the lumbosacral spine. Chronic compression deformities of L1 and L4 are unchanged. 2. Osteopenia and mild spondylotic change as above. 3. Nonobstructing right renal calculus. Medications Administered Medications (Trade) Dose Ordered Sig/Eda Route Start Time Stop Time Status Last Admin Dose Admin Oxycodone HCl (Roxicodone Immediate Rel Tab) 5 mg NOW STAT PO 09/15/16 20:01 09/15/16 20:03 DC 09/15/16 20:01 5 MG Cyclobenzaprine HCl (Flexeril Tab) 10 mg NOW STAT PO 09/15/16 20:01 09/15/16 20:03 DC 09/15/16 20:01 10 MG Oxycodone HCl (Roxicodone Immediate Rel 5MG Home Pack) 1 homepack UD ONCE PO 09/15/16 21:15 09/15/16 21:16 DC 09/15/16 21:15 1 HOMEPACK Cyclobenzaprine HCl (FLEXERIL 10MG Home Pack) 1 homepack UD ONCE PO 09/15/16 21:15 09/15/16 21:16 DC 09/15/16 21:15 1 HOMEPACK Oxycodone HCl (Roxicodone Immediate Rel Tab) 5 mg NOW STAT PO 09/15/16 21:16 09/15/16 21:17 DC 09/15/16 21:16 5 MG ED Course Patient history and physical exam were performed. Nurse's notes were reviewed. Vital signs were reviewed and normal. I did review a portion of prior medical records, including her office notes from the pain clinic. I also reviewed the [place] Prescription Drug Monitoring Program, showing no concerning patterns. The patient was administered OxyIR 5 mg and Flexeril 10 mg orally. X-rays of the lumbar spine shows a new superior endplate T12 compression fracture. The patient was advised of her x-ray finding, and instructed to follow-up with Dr. Oliva for further management. She was given additional instructions for back pain care and management. She was provided a home pack and prescription for OxyIR 5 mg and Flexeril. She was instructed to return to the emergency department for any emergent neurologic findings such as incontinence, saddle anesthesias, pronounced lower extremity weakness or foot drop. The patient was happy with plan of care, voiced understanding of all discharge instructions, and rated her pain a 7 out of 10 at the conclusion of my exam. She was given an additional OxyIR 5 mg prior to discharge. Medical Decision Impression Primary Impression: T12 compression fracture Departure Information Prescriptions Oxycodone Ir (Roxicodone Ir) 5 Mg Tab 1-2 TAB PO Q4H Y for Pain, #24 TAB For Initial Treatment Prov: Keshav Vega PA 09/15/16 Cyclobenzaprine Hcl (FLEXERIL) 10 Mg Tab 10 MG PO TID for spasm, #15 TAB Prov: Keshav Vega PA 09/15/16 Referrals Bladimir Ortiz MD (PCP) Patient Instructions My [facility] Problem Qualifiers Primary Impression: T12 compression fracture Encounter type: initial encounter Fracture type: closed Qualified Codes: S22.080A - Wedge compression fracture of t11-T12 vertebra, initial encounter for closed fracture
[2016-10-24] MEDS ORDERED: CHN/1 PO (09:25)
[2016-11-12] MEDS ORDERED: HYDR-4079 PO (11:20)
[2016-12-24] MEDS ORDERED: HYDR-5688 PO (12:54)
[2016-12-24] MEDS ORDERED: CIPR-255 PO (12:54)
[2016-12-24] MEDS ORDERED: PHEN95TA14 PO (12:54)
== END 2016-09-15 21:42 | disposition home or self-care (01) ==
LOC: C.EDB 19:35 → C.EDD 21:42
DX: S22.080A Wedge compression fracture of T11-T12 vertebra, initial encounter for closed fracture (principal); X50.0XXA Overexertion from strenuous movement or load, initial encounter; J44.9 Chronic obstructive pulmonary disease, unspecified; N13.2 Hydronephrosis with renal and ureteral calculous obstruction; Z83.3 Family history of diabetes mellitus; Z82.49 Family history of ischemic heart disease and other diseases of the circulatory system; F17.200 Nicotine dependence, unspecified, uncomplicated

== ENCOUNTER → 2016-09-26 | Outpatient (CLI) | payer OTHER ==
[~2016-09-26] MED LIST changes: -CIPR-255 PO; +CYCL10TA6 PO; -DICL75TA2 PO; -DIPH-437 PO; -HYDR-5688 PO; +NMN10 PO; -NMN5 PO; +OXYC1TAB3 PO; -SPRIN/30 INH; +TIOT1AER2 INH
--- NOTE | 2016-09-26 15:21 | MAMMOGRAPHY REPORT ---
BILATERAL DIGITAL SCREENING MAMMOGRAM TOMOSYNTHESIS WITH CAD: 09/26/2016 CLINICAL HISTORY: Routine screening. Patient has no complaints. TECHNIQUE: Breast tomosynthesis in addition to standard 2D mammography was performed. Current study was also evaluated with a Computer Aided Detection (CAD) system. COMPARISON: Comparison is made to exams dated: 07/21/2015 mammogram, 11/19/2011 ultrasound, 11/19/2011 smiley mogram, 05/15/2011 mammogram, 05/15/2011 ultrasound, and 05/07/2011 mammogram - [facility] nter. BREAST COMPOSITION: There are scattered areas of fibroglandular density in both breasts. FINDINGS: No suspicious masses, calcifications, or areas of architectural distortion are noted in ei ther breast. There has been no significant interval change compared to prior exams. IMPRESSION: ACR BI-RADS CATEGORY 1: NEGATIVE There is no mammographic evidence of malignancy. A 1 year screening mammogram is recommended. The pa tient will receive written notification of the results. Approximately 10% of breast cancers are not detected with mammography. A negative mammographic report should not delay biopsy if a clinically suggestive mass is present. Rani Alex M.D. /:09/26/2016 15:12:26 Turnaround Engineer: Bassem Busch M, [facility] letter sent: Normal 1/2 BI-RADS Code: ACR BI-RADS Category 1: Negative
== END | disposition home or self-care (01) ==
LOC: C.MAMM 11:53
PROVIDERS: ATTEND Nurse Practitioner Family
DX: Z12.31 Encounter for screening mammogram for malignant neoplasm of breast (principal)

== ENCOUNTER → 2016-11-06 | Outpatient (CLI) | payer OTHER ==
[~2016-11-06] MED LIST changes: +CHN/1 PO; +CIPR-255 PO; -CYCL10TA6 PO; +FLVHFA110 INH; +HYDR-4079 PO; +HYDR-5688 PO; +ONDA4TAB10 SL; -OXYC1TAB3 PO; +PHEN95TA14 PO; -PRVIN525 INH; +PRVIN525 NEB; +VALA1TAB2 PO; +ZOLP10TA6 PO
--- NOTE | 2016-11-06 16:35 | DIAGNOSTIC IMAGING REPORT ---
MRI OF THE LUMBAR SPINE WITHOUT CONTRAST CLINICAL HISTORY: Lumbar radiculitis. Chronic low back pain radiating into both lower extremities. COMPARISON STUDY: Lumbar spine MRI February 26, 2014 and lumbar spine radiographs September 15, 2016. TECHNIQUE: Utilizing a 1.5 Gauri magnet and dedicated coil, multiplanar, multiecho imaging of the lumbar spine was performed without IV contrast. FINDINGS: For purposes of numbering on this exam, the L5-S1 disc space is assigned to axial image 23 of 25. Alignment of the lumbar spine is anatomic. Note is made of a moderate compression fracture of the superior endplate of T12 with 40% loss of vertebral body height centrally. There is no retropulsion. There is mild marrow edema on the STIR sequence. This was shown on lumbar spine radiographs of September 15, 2016 but is new since MRI of February 26, 2014. Vertebral body height loss has slightly increased since prior radiographs. L1 and L4 compression fractures are present. T1 and T2 hyperintense lesions within the L1-2 and L3 vertebral bodies are consistent with hemangiomas. There is no intracanalicular mass or fluid collection. Conus terminates at the L1 level. L1-2: The central canal and neural foramen are patent. There is a small central annular tear. L2-3: There is minimal disc bulge. The central canal and neural foramen are patent. L3-4: The central canal and neural foramen are patent. L4-5: There is mild facet arthrosis. The central canal and neural foramen are patent. L5-S1: There is a central annular tear with tiny central disc protrusion. There is facet arthrosis. Central canal and neural foramen are patent. IMPRESSION: 1. Moderate T12 compression fracture which is likely subacute. No retropulsion. 40% loss of vertebral body height centrally. 2. Old L1 and L4 compression fractures. 3. Mild multilevel degenerative disc disease and facet arthrosis. No central canal and neural foraminal stenosis. Electronically signed by: Chauncey Petersen M.D. 11/06/2016 4:33 PM Dictated Date/Time: 11/06/2016 4:27 PM
== END | disposition home or self-care (01) ==
LOC: C.MRIBC 15:26
PROVIDERS: ATTEND Physician Assistant Medical
DX: M54.16 Radiculopathy, lumbar region (principal)

== ENCOUNTER 2016-11-30 22:25 | Emergency (ER) | payer OTHER ==
[~2016-11-30] VITALS: Ht 175.3 cm; Wt 89.1 kg
[~2016-11-30 22:25] MED LIST changes: -ATOR-24 PO; -CHN/1 PO; -CHOL1CAP57 PO; -CIPR-255 PO; -CITA20TA9 PO; -DONE1TAB11 PO; -FLVHFA110 INH; -HYDR-5688 PO; -LISI-787 PO; -LORA-741 PO; -LORA10CA2 PO; -MULT-188 PO; -NMN10 PO; -ONDA4TAB10 SL; -PHEN95TA14 PO; -PRLSR20 PO; -PRVIN525 NEB; -RANI150C4 PO; -SERT-234 PO; -TIOT1AER2 INH; -VALA1TAB2 PO; -VNTHFA/IN INH; -ZOLP10TA6 PO
[2016-11-30 22:32] VITALS: BP 128/79; TEMP 37.2; Ht 175.3 cm; Wt 89.1 kg
[2016-11-30] MEDS ORDERED: OXYCODONE IR HOME PACK PO ONE (23:15)
[2016-11-30] MEDS ORDERED: VALA1TAB2 PO (23:17)
[2016-11-30 23:19] VITALS: PULSE 94; O2SAT 99
--- NOTE | 2016-12-01 06:04 | EMERGENCY ROOM VISIT NOTE ---
History First contact with patient: 23:05 Chief Complaint: RASH Stated Complaint: RT LEG RASH W/BUBBLES ON,POSSIBLE SHINGLES History of Present Illness The patient is a 56 year old female who presents to the Emergency Room with complaints of painful rash to right posterior thigh for the past day who had pain prior to the rash. Patient states the rash is red and vesicular. Patient denies fevers, chest pain, dyspnea, back pain, urinary symptoms, injury to the area. No new foods soaps or detergents. Review of Systems See HPI for pertinent positives & negatives. A total of 10 systems reviewed and were otherwise negative. Past Medical/Surgical History Medical Problems: (1) Asthma (2) COPD (chronic obstructive pulmonary disease) (3) Hydronephrosis with obstructing calculus (4) Hypertension (5) Incisional hernia (6) Kidney stones Surgical Problems: (1) History of cholecystectomy (2) S/P appendectomy (3) S/P hysterectomy (4) S/P oophorectomy Family History Cancer Diabetes mellitus FH: gallbladder disease FH: lung disease Hypertension Kidney disease Kidney stones Social History Smoking Status: Current Every Day Smoker Alcohol Use: occasionally, other Drug Use: none Marital Status: Housing Status: lives with significant other Occupation Status: unemployed Current/Historical Medications Scheduled Albuterol Hfa (Ventolin Hfa), 2-4 PUFFS INH QID Albuterol Sulf (Albuterol Sulfate), 1 DOSE INH PRN Atorvastatin (Lipitor), 40 MG PO HS Cholecalciferol (Vitamin D3), 1,000 INTER.UNIT PO QAM Citalopram Hydrobromide (Celexa), 20 MG PO QAM Donepezil Hydrochloride (Donepezil Hcl), 5 MG PO QAM Fluticasone Propionate (Flovent Hfa), 2 PUFFS PO AMPM Lisinopril/Hctz (Zestoretic 20MG/12.5MG), 1 TAB PO QAM Loratadine (Claritin), 10 MG PO QAM Memantine (Namenda), 10 MG PO HS Multiple Vitamins W/ Minerals (Ocuvite), 1 TAB PO HS Omeprazole (Prilosec), 20 MG PO QAM Ranitidine Hcl (Ranitidine Hcl), 150 MG PO BID Sertraline (Zoloft), 100 MG PO QAM Tiotropium [place] (Spiriva Respimat), 2 PUFF INH QAM Valacyclovir Hcl (Valtrex), 1,000 MG PO TID Varenicline (Chantix), 1 MG PO DIRECTED Zolpidem Tartrate (Zolpidem Tartrate), 1 TAB PO HS Scheduled PRN Hydrocodone/Acetaminophen 10MG/325MG ([place] 10MG/325MG), 1 TAB PO TID PRN for Pain Lorazepam (Ativan), 0.5 MG PO Q6H PRN for Anxiety Physical Exam Vital Signs Date Time Temp Pulse Resp B/P (MAP) Pulse Ox O2 Delivery O2 Flow Rate FiO2 11/30/16 23:19 94 20 99 Room Air 11/30/16 22:32 37.2 109 18 128/79 93 Room Air Pain Rating (0-10): 5.0 Physical Exam VITALS: Vitals are noted on the nurse's note and reviewed by myself. Vital signs stable. GENERAL: Pleasant female, in no acute distress, nondiaphoretic, well-developed well-nourished. SKIN: Capillary reflex less than 2 seconds. Right posterior thigh with erythematous base vesicular dermatitis most consistent with shingles that is exquisitely tender to palpation, no palpable abscess, no lymphangitis HEENT: Normocephalic. PERRLA. EOMI. Nares patent. Mucous membranes moist. Neck is supple without nuchal rigidity. HEART: Regular rate and rhythm without murmurs gallops or rubs. LUNGS: Clear to auscultation bilaterally without wheezes, rales or rhonchi. No retractions or accessory muscle use. ABDOMEN: Positive bowel sounds x 4. Normal tympanic percussion. Soft, nontender, without masses or organomegaly. Iverson sign negative. No guarding or rebound tenderness. MUSCULOSKELETAL: No gross musculoskeletal defects. NEURO: Patient was alert and oriented to person place and time. Normal sensation to light and sharp touch. No focal neurological deficits. Medical Decision & Procedures Medications Administered Medications (Trade) Dose Ordered Sig/Eda Route Start Time Stop Time Status Last Admin Dose Admin Valacyclovir HCl (Valtrex Tab) 1,000 mg NOW ONCE PO 11/30/16 23:15 11/30/16 23:16 DC 11/30/16 23:16 1,000 MG Oxycodone HCl (Roxicodone Immediate Rel 5MG Home Pack) 1 homepack UD ONCE PO 11/30/16 23:15 11/30/16 23:16 DC 11/30/16 23:16 1 HOMEPACK ED Course Prior records/ancillary studies reviewed. Triage Nursing notes reviewed. The patient's history was concerning for a rash. Differential diagnosis: Etiologies such as contact dermatitis, viral exanthem, urticaria, allergic reaction, Morocho-Ck syndrome, toxic epidermal necrolysis, erythema multiforme, cellulitis, scabies, HSV, varicella, zoster, eczema, staph scalded skin syndrome, fungal infection, as well as others were entertained. Physical examination: As above ER treatment provided: Valtrex On reassessment the patient felt better. Diagnostic interpretation by me: Deferred The etiology for the patient's rash appears to be consistent with shingles. Patient no signs of abscess or lymphangitis or secondary bacterial infection. She was well-appearing. She was counseled on diagnosis and verbalized understanding this. She is advised follow-up family care in a few days or here in the ER sooner for severe pain, fevers, worsening signs or symptoms or as needed. By the evaluation outlined above emergent etiologies such as [place]o-Ck syndrome, toxic epidermal necrolysis, erythema multiforme, cellulitis, scabies, HSV, varicella, staph scalded skin syndrome, urticaria, allergic reaction, as well as others were deemed relatively unlikely. The pt informed about the findings as listed above. All questions were answered and pleased with the treatment. Return instructions were outlined and the patient was discharged in stable condition. Outpatient prescription management: Valtrex Referral: The patient was referred back to their primary care physician for follow-up in 2 -3 days for a recheck of the current condition. Medical Decision As above Medication Reconcilliation Current Medication List: was personally reviewed by me Blood Pressure Screening Patient's blood pressure: Normal blood pressure Impression Primary Impression: Shingles Departure Information Dispostion Home / Self-Care Condition GOOD Prescriptions Valacyclovir Hcl (VALTREX) 1 Gm Tab 1000 MG PO TID for 7 Days, #21 TAB Prov: Karrie Stover PA-C 11/30/16 Forms WORK / SCHOOL INSTRUCTIONS, HOME CARE DOCUMENTATION FORM, IMPORTANT VISIT INFORMATION Patient Instructions Shingles Herpes Zoster, My [facility] Additional Instructions Valtrex 1 g 3 times a day for one week.. Any medication can cause an allergic reaction, stop the pills immediately and return to the ER for rash, hives, breathing difficulties, or swelling. Acetaminophen(Tylenol) may be used for fever or pain. Use 1000mg every six hours as needed. Avoid using more than 4000mg in a 24 hour period. (AND/OR) Ibuprofen(Motrin, Advil) may be used for fever or pain. Use 600mg every six hours as needed. Take with food. Avoid using more than 2400mg in a 24 hour period. Do not use 2400mg per day for more than three consecutive days without physician direction. Prolonged inappropriate use can lead to stomach upset or ulcers. Oxycodone (OxyIR) 5mg: Take 1-2 pills every four hours for breakthrough pain. Avoid alcohol, operating machinery or dangerous equipment, working on ladders or roofs, DRIVING, or situations where being under the influence may be dangerous. It is recommended to use an [id number] stool softener such as Colace, 100mg twice daily while taking this medication to avoid constipation. Rest and drink plenty of fluids. Continue current medications. Do not scratch rash. It might spread more before it gets better. It may last a few weeks. Follow-up family care in 2-3 days. Return to ER sooner for fevers, severe pain, abdominal pain, chest pain, worsening signs or symptoms or as needed. Problem Qualifiers Primary Impression: Shingles Herpes zoster complications: without complications Qualified Codes: B02.9 - Zoster without complications
[2016-12-24] MEDS ORDERED: CIPR-255 PO (12:54)
[2016-12-24] MEDS ORDERED: HYDR-5688 PO (12:54)
[2016-12-24] MEDS ORDERED: PHEN95TA14 PO (12:54)
[2016-12-27] MEDS ORDERED: LORA10CA2 PO (03:19)
[2016-12-27] MEDS ORDERED: SERT-234 PO (03:40)
[2016-12-27] MEDS ORDERED: VNTHFA/IN INH (09:16)
[2016-12-27] MEDS ORDERED: CHN/1 PO (09:25)
[2016-12-27] MEDS ORDERED: PRVIN525 NEB (11:29)
[2016-12-27] MEDS ORDERED: LISI-787 PO (13:27)
[2016-12-27] MEDS ORDERED: LORA-741 PO (16:35)
[2016-12-27] MEDS ORDERED: DONE1TAB11 PO (16:35)
[2016-12-27] MEDS ORDERED: CITA20TA9 PO (16:35)
[2016-12-27] MEDS ORDERED: ATOR-24 PO (16:35)
== END 2016-11-30 23:31 | disposition home or self-care (01) ==
LOC: C.EDB 22:26 → C.EDD 23:31
DX: B02.9 Zoster without complications (principal); J45.909 Unspecified asthma, uncomplicated; J44.9 Chronic obstructive pulmonary disease, unspecified; I10 Essential (primary) hypertension; Z83.3 Family history of diabetes mellitus; Z82.49 Family history of ischemic heart disease and other diseases of the circulatory system; F17.200 Nicotine dependence, unspecified, uncomplicated

== ENCOUNTER → 2016-12-11 | Outpatient (CLI) | payer OTHER ==
[~2016-12-11] MED LIST changes: +ATOR-24 PO; +CHN/1 PO; +CHOL1CAP57 PO; +CIPR-255 PO; +CITA20TA9 PO; +DONE1TAB11 PO; +FLVHFA110 INH; +HYDR-5688 PO; +LISI-787 PO; +LORA-741 PO; +LORA10CA2 PO; +MULT-188 PO; +NMN10 PO; +ONDA4TAB10 SL; +PHEN95TA14 PO; +PRLSR20 PO; +PRVIN525 NEB; +RANI150C4 PO; +SERT-234 PO; +TIOT1AER2 INH; +VNTHFA/IN INH; +ZOLP10TA6 PO
[2016-12-11 12:34] LABS: BASO % 0.3 %; BASO ABS # 0.04 K/uL (0-0.2); COMPLETE YES; EOS % 1.7 %; HEMATOCRIT 43.7 % (37-47); IG% 0.4 %; LYMPH % 18.3 %; LYMPH ABS # 2.74 K/uL (1.2-3.4); MEAN CELL VOLUME 88.8 fL (80-100); MEAN CORPUSCULAR HEMOGLOBIN 29.9 pg (25-34); MEAN CORPUSCULAR HGB CONC 33.6 g/dl (32-36); MEAN PLATELET VOLUME 10.5 fL (7.4-10.4); MONO % 4.7 %; NEUT % 74.6 %; PLATELET COUNT 367 K/uL (130-400); RED BLOOD COUNT 4.92 M/uL (4.2-5.4)
[2016-12-11 12:50] LABS: BLOOD UREA NITROGEN 17 mg/dl (7-18); CREATININE 0.97 mg/dl (0.60-1.20); GLUCOSE 98 mg/dl (70-99)
[2016-12-11 12:51] LABS: BUN/CREATININE RATIO 17.1 (10-20); CALCIUM 9.8 mg/dl (8.5-10.1); CARBON DIOXIDE 30 mmol/L (21-32); CHLORIDE 106 mmol/L (98-107); POTASSIUM 3.8 mmol/L (3.5-5.1); SODIUM 141 mmol/L (136-145)
== END | disposition home or self-care (01) ==
LOC: C.LAB 10:48
PROVIDERS: ATTEND Urology
DX: N20.0 Calculus of kidney (principal)

== ENCOUNTER → 2016-12-11 | Outpatient (CLI) | payer OTHER | END | disposition home or self-care (01) | LOC: C.LABSPEC 17:39 | PROVIDERS: ATTEND Urology | DX: N20.0 Calculus of kidney (principal) ==

== ENCOUNTER → 2016-12-24 | Day surgery (SDC) | payer OTHER ==
[2016-12-19 15:00] VITALS: BMI 31.0
[~2016-12-24] VITALS: Ht 175.3 cm; Wt 84.8 kg
[~2016-12-24] MED LIST changes: +ACETAMINOPHEN 325 MG TAB PO PRN; +ATROPINE SULFATE 0.1 MG/ML 5ML SYR IV PRN; +CIPROFLOXACIN / D5W 400 MG IV SCH; +CONRAY 30% 150ML BOTTLE ONE; +DEXAMETHASONE SOD INJ 4 MG/ML VIAL ONE; +EpHEDrine SULFATE INJ 50 MG/ML AMP IV PRN; +FENTANYL CITRATE INJ 50 MCG/1 ML 2 ML VIAL IV PRN; +FENTANYL CITRATE INJ 50 MCG/1 ML 2 ML VIAL ONE; -FLVHFA110 INH; -HYDR-4079 PO; +KETOROLAC TROMETHAMINE 30 MG/ML VIAL IV. ONE; +LACTATED RINGER'S 1000ML 1,000 ML IV SCH; +LIDOCAINE HCL 2% 2 ML VIAL (20MG/ML) ONE; +MIDAZOLAM HCL 1 MG/ML 2ML VIAL ONE; -ONDA4TAB10 SL; +ONDANSETRON INJ 2 MG/ML 2 ML VIAL IV PRN; +ONDANSETRON INJ 2 MG/ML 2 ML VIAL ONE; +OXYCODONE/ACETAMINOPHEN 5-325 TAB PO PRN; +PHENYLEPHRINE 100MCG/ML 5ML SYR ONE; +PROPOFOL IV EMULSION 10 MG/ML 20 ML VIAL IV ONE; +PRVIN525 INH; -PRVIN525 NEB; +SODIUM CHLORIDE 0.9% 1000ML 1,000 ML IV SCH; -ZOLP10TA6 PO
[2016-12-24 10:09] VITALS: BP 120/68; PULSE 100; TEMP 37; O2SAT 93; Ht 175.3 cm; Wt 84.8 kg
--- NOTE | 2016-12-24 12:57 | Discharge Instructions ---
Discharge Instructions Date of Service Dec 24, 2016. Admission Reason for Admission: Stones Discharge Discharge Diagnosis / Problem: stones Discharge Goals Goal(s): Decrease discomfort, Improve function, Increase independence, Improve disease control, Prevent Disease Progression Activity Recommendations Activity Limitations: resume your previous activity Lifting Limitations: none Exercise/Sports Limitations: none May Resume Sexual Activity: when tolerated Shower/Bathe: no limitations Driving or Machine Use: resume 1 day after discharge . Instructions / Follow-Up Instructions / Follow-Up Please keep your previously scheduled follow up appointment with Dr. Guerrero Discharge Diet Recommended Diet: Regular Diet Procedures Procedures Performed: Right Cystoscopy, Ureteroscopy, Laser Lithotripsy; Stent Insertion Right Ureter Pending Studies Studies pending at discharge: no Medical Emergencies . Who to Call and When: Medical Emergencies: If at any time you feel your situation is an emergency, please call 911 immediately. . Non-Emergent Contact Non-Emergency issues call your: Urologist Call Non-Emergent contact if: you have a fever, temperature is above 101.5, your pain is not controlled, your pain is worsening . . "Provider Documentation" section prepared by Teddy Montero. . VTE Core Measure Inpt VTE Proph given/why not?: Treatment not indicated [place] Drug Monitoring Program Search Results: patient reviewed within database (numerous narcotic prescriptions written - limited course of norco provided secondary to her surgery today)
--- NOTE | 2016-12-24 13:03 | [facility] Operative Report ---
Operative Report Operative Date Dec 24, 2016. Pre-Operative Diagnosis Right Nephrolithasis Post-Operative Diagnosis Same as preoperative Procedure(s) Performed Right Cystoscopy, Ureteroscopy, Laser Lithotripsy; Stent Insertion Right Ureter ([id number]) Surgeon Digital Traffic Coordinator Surgeon(s) None Estimated Blood Loss 0ml Findings 3 large stones within the right kidney Specimens none per surgeon Drains [id number] stent Anesthesia gen Complication(s) None Disposition Recovery Room / PACU (stable) Indications Right nephrolithiasis Description of Procedure The patient was identified in the preoperative holding area, appropriate informed consents were reviewed and completed, and the patient was transported to the operating suite. Upon arrival she received appropriate preoperative antibiotics in the form of ciprofloxacin. Adequate general anesthesia was achieved, and the patient was placed in dorsal lithotomy position where she was sterilely prepped and draped in standard fashion. I began the case by passing a 22 Marshallese cystoscope with 30 lens. Full inspection of the bladder was carried out identifying no abnormalities. The right ureteral orifice was then cannulated with a sensor wire and a 10 Marshallese double-lumen catheter. The wire advanced the kidney without difficulty. There were several opacities visualized within the presumed area of the kidney consistent with the stones seen on preoperative imaging. I advanced a second wire to the kidney. I left the 10 Marshallese double-lumen catheter to dilate the distal aspect of the ureter for 2 minutes. I then withdrew the 10 Marshallese double -lumen catheter in the cystoscope. I placed a ureteral access sheath over one of the wires all reserving the other as a safety wire. Sheath advanced to the UPJ without difficulty. I then passed a flexible ureteroscope per the ureteral access sheath. Full renoscopy was carried out. She has a long infundibulum leading to the extreme upper pole. Within the upper pole she had a large calculus. She has a complex calyceal system in the midpole; and after exploring each opening, I was able to identify a very large calculus in the midpole and a slightly smaller calculus floating between the renal pelvis and the lower pole. I passed a 400 laser fiber and began by treating the stone in the upper pole. After this was entirely fragmented, I moved the largest stone in the midpole. I then completed my laser lithotripsy by treating the lower pole stone. I performed two repeat renoscopies confirming no evidence of large retained calculi. I then performed a careful exit ureteroscopy while simultaneously withdrawing the ureteral access sheath. There were no stones within the ureter, and no trauma from the sheath. I proceeded to place a 6 Marshallese by 24 cm double-J ureteral stent. Unfortunately , I felt that the curl was likely in the proximal ureter and I elected to remove the 6 Marshallese by 24 cm double-J stent and subsequently placed a 6 Marshallese by 26 cm stent. This showed a good curl within the kidney as well as the bladder. Bladder was decompressed, and the case concluded. Patient was transported to the PACU in stable condition. I attest to the content of the Intraoperative Record and any orders documented therein. Any exceptions are noted below.
[2016-12-24 13:43] VITALS: BP 101/58; PULSE 74; TEMP 37.5; O2SAT 94
[2016-12-24 14:15] VITALS: BP 107/63; PULSE 78; TEMP 37.2; O2SAT 94
--- NOTE | 2016-12-24 14:34 | Anesthesiology Progress Note ---
Anesthesia Post Op Note Date & Time Dec 24, 2016 at 14:34 Vital Signs Pain Intensity: 4 Vital Signs Past 12 Hours Date Time Temp Pulse Resp B/P (MAP) Pulse Ox O2 Delivery O2 Flow Rate FiO2 12/24/16 14:15 37.2 78 18 107/63 94 Nasal Cannula 1 12/24/16 13:43 37.5 74 16 101/58 94 Nasal Cannula 1 12/24/16 13:35 36.4 74 20 101/64 95 Nasal Cannula 1 12/24/16 13:25 80 17 98/60 93 Nasal Cannula 1 12/24/16 13:15 82 14 103/65 99 Oxymask 10 12/24/16 13:05 77 12 109/70 99 Oxymask 10 12/24/16 12:58 36.6 82 12 98/69 99 Oxymask 10 12/24/16 10:09 37.0 100 20 120/68 (85) 93 Room Air Notes Mental Status: alert / awake / arousable, participated in evaluation Pt Amnestic to Procedure: Yes Nausea / Vomiting: adequately controlled Pain: adequately controlled Airway Patency, RR, SpO2: stable & adequate BP & HR: stable & adequate Hydration State: stable & adequate Anesthetic Complications: no major complications apparent
[2016-12-24 14:50] VITALS: BP 109/63; PULSE 72; TEMP 37.2; O2SAT 93
== END | disposition home or self-care (01) ==
LOC: C.ACU 09:25
PROVIDERS: ATTEND Urology
DX: N20.0 Calculus of kidney (principal); I10 Essential (primary) hypertension; J45.909 Unspecified asthma, uncomplicated; H90.6 Mixed conductive and sensorineural hearing loss, bilateral; E66.9 Obesity, unspecified; Z88.0 Allergy status to penicillin; Z88.1 Allergy status to other antibiotic agents; Z98.890 Other specified postprocedural states; Z79.899 Other long term (current) drug therapy; M19.90 Unspecified osteoarthritis, unspecified site; F17.200 Nicotine dependence, unspecified, uncomplicated; Z90.710 Acquired absence of both cervix and uterus; Z83.3 Family history of diabetes mellitus; Z82.49 Family history of ischemic heart disease and other diseases of the circulatory system; Z84.89 Family history of other specified conditions; Z80.6 Family history of leukemia

== ENCOUNTER 2016-12-27 18:02 | Emergency (ER) | payer OTHER ==
[~2016-12-27] VITALS: Ht 175.3 cm; Wt 87.1 kg
[~2016-12-27 18:02] MED LIST changes: -ACETAMINOPHEN 325 MG TAB PO PRN; -ATROPINE SULFATE 0.1 MG/ML 5ML SYR IV PRN; -CHOL1CAP57 PO; -CIPROFLOXACIN / D5W 400 MG IV SCH; -CONRAY 30% 150ML BOTTLE ONE; -DEXAMETHASONE SOD INJ 4 MG/ML VIAL ONE; -EpHEDrine SULFATE INJ 50 MG/ML AMP IV PRN; -FENTANYL CITRATE INJ 50 MCG/1 ML 2 ML VIAL IV PRN; -FENTANYL CITRATE INJ 50 MCG/1 ML 2 ML VIAL ONE; -KETOROLAC TROMETHAMINE 30 MG/ML VIAL IV. ONE; -LACTATED RINGER'S 1000ML 1,000 ML IV SCH; -LIDOCAINE HCL 2% 2 ML VIAL (20MG/ML) ONE; -MIDAZOLAM HCL 1 MG/ML 2ML VIAL ONE; -MULT-188 PO; -NMN10 PO; -ONDANSETRON INJ 2 MG/ML 2 ML VIAL IV PRN; -ONDANSETRON INJ 2 MG/ML 2 ML VIAL ONE; -OXYCODONE/ACETAMINOPHEN 5-325 TAB PO PRN; -PHENYLEPHRINE 100MCG/ML 5ML SYR ONE; -PRLSR20 PO; -PROPOFOL IV EMULSION 10 MG/ML 20 ML VIAL IV ONE; -PRVIN525 INH; +PRVIN525 NEB; -RANI150C4 PO; -SODIUM CHLORIDE 0.9% 1000ML 1,000 ML IV SCH; -TIOT1AER2 INH
[2016-12-27 18:05] VITALS: TEMP 37.2; Ht 175.3 cm; Wt 87.1 kg
[2016-12-27] MEDS ORDERED: ONDANSETRON INJ 2 MG/ML 2 ML VIAL IV STA (18:18)
[2016-12-27] MEDS ORDERED: SODIUM CHLORIDE 0.9% 1000ML 1,000 ML IV STA (18:18)
[2016-12-27] MEDS ORDERED: SODIUM CHLORIDE 0.9% 1000ML 1,000 ML IV ONE (18:18)
[2016-12-27] MEDS ORDERED: KETOROLAC TROMETHAMINE 30 MG/ML VIAL IV STA (18:18)
[2016-12-27 18:36] LABS: BASO % 0.2 %; BASO ABS # 0.03 K/uL (0-0.2); COMPLETE YES; EOS % 0.4 %; HEMATOCRIT 44.9 % (37-47); IG% 0.6 %; LYMPH % 9.5 %; LYMPH ABS # 1.72 K/uL (1.2-3.4); MEAN CELL VOLUME 87.9 fL (80-100); MEAN CORPUSCULAR HEMOGLOBIN 29.7 pg (25-34); MEAN CORPUSCULAR HGB CONC 33.9 g/dl (32-36); MEAN PLATELET VOLUME 9.8 fL (7.4-10.4); MONO % 6.1 %; NEUT % 83.2 %; PLATELET COUNT 321 K/uL (130-400); RED BLOOD COUNT 5.11 M/uL (4.2-5.4); WHITE BLOOD COUNT 18.15 K/uL (4.8-10.8)
[2016-12-27] MEDS ORDERED: FLVHFA110 INH (18:44)
--- NOTE | 2016-12-27 18:59 | DIAGNOSTIC IMAGING REPORT ---
KUB CLINICAL HISTORY: Nephrolithiasis. FINDINGS: 2 AP supine abdominal radiographs are compared to study dated 09/12/2016 and correlated with abdominal CT dated 08/23/2016. There is a nonobstructed abdominal bowel gas pattern. Cholecystectomy clips are noted. A left ureteral stent seen on 09/12/2016 has been removed. A right ureteral stent is new from previous. No calcifications are seen along the course of the stent. The large right renal calculus seen on 09/12/2016 is no longer identified. No calcifications project over the kidneys on today's examination. Surgical clips and phleboliths are identified in the pelvis. The skeletal structures are osteopenic. The bony structures appear intact. IMPRESSION: 1. A left ureteral stent has been removed from 09/12/2016. 2. A right ureteral stent is new from previous and the large right renal calculus seen on 09/12/2016 is no longer present. 3. No renal calculi are identified on today's examination. Electronically signed by: Britton Lynn M.D. 12/27/2016 6:58 PM Dictated Date/Time: 12/27/2016 6:55 PM
[2016-12-27] MEDS ORDERED: ZOLP10TA6 PO (19:04)
[2016-12-27 19:05] LABS: MANUAL MICROSCOPIC REQUIRED? YES; URINE APPEARANCE TURBID (CLEAR); URINE COLOR BROWN; URINE NITRITE POS (NEG); URINE SPECIFIC GRAVITY >= 1.030 (1.000-1.030); UROBILINOGEN NEG (NEG)
[2016-12-27] MEDS ORDERED: PHEN95TA14 PO (19:06)
[2016-12-27 19:08] LABS: BUN/CREATININE RATIO 24.3 (10-20); CALCIUM 9.7 mg/dl (8.5-10.1); POTASSIUM 3.2 mmol/L (3.5-5.1)
[2016-12-27 19:09] LABS: REVIEW REQ? NO; URINE BILIRUBIN NEG (NEG)
[2016-12-27 19:10] LABS: URINE BACTERIA 1+ (NEG); URINE RBC >30 /hpf (0-4); URINE WBC >30 /hpf (0-5)
[2016-12-27] MEDS ORDERED: MoRPHine SULFATE 4 MG/ML 1 ML CARP\\VIAL IV STA (19:14)
[2016-12-27] MEDS ORDERED: NMN10 PO (20:47)
[2016-12-27] MEDS ORDERED: TIOT1AER2 INH (20:50)
[2016-12-27] MEDS ORDERED: CIPROFLOXACIN 500 MG TAB PO STA (21:23)
[2016-12-27] MEDS ORDERED: ONDA4TAB10 SL (21:26)
[2016-12-27] MEDS ORDERED: CIPR-255 PO (21:26)
[2016-12-27] MEDS ORDERED: ONDANSETRON HOME PACK 4MG OD TAB PO ONE (21:30)
[2016-12-27 21:37] VITALS: BP 124/85; PULSE 68; O2SAT 96
[2016-12-27] MEDS ORDERED: RANI150C4 PO (21:49)
[2016-12-27] MEDS ORDERED: PRLSR20 PO (21:49)
[2016-12-27] MEDS ORDERED: CHOL1CAP57 PO (21:49)
[2016-12-27] MEDS ORDERED: MULT-188 PO (22:47)
--- NOTE | 2016-12-28 01:45 | EMERGENCY ROOM VISIT NOTE ---
History Report prepared by Agnes: Lauryn Wick Under the Supervision of: Dr. Micah Meraz M.D. First contact with patient: 18:10 Chief Complaint: BACK PAIN Stated Complaint: LOWER BACK PAIN,VOMITING,DIARRHEA History of Present Illness The patient is a 56 year old female who presents to the Emergency Room with complaints of constant right sided flank pain beginning 3 days ago. The patient states that she had her kidney stones blasted 3 days ago and since the procedure the pain has worsened. She reports that she has been feeling nauseous and has had 4 episodes of vomiting. She complains of hematuria and diarrhea. The patient states that she has not been able to keep anything down and is passing sand but not stones. She notes that she still has a stent in. The patient denies any fever, dysuria, chest pain, shortness of breath. She notes that she has had a lithotripsy before and did not have these symptoms. Source of History: patient Onset: 3 days ago Position: other (right flank pain) Timing: constant Associated Symptoms: + nausea, + vomiting, + diarrhea, + urinary symptoms, No fevers, No chest pain, No SOB Review of Systems See HPI for pertinent positives & negatives. A total of 10 systems reviewed and were otherwise negative. Past Medical & Surgical Medical Problems: (1) Asthma (2) COPD (chronic obstructive pulmonary disease) (3) Hydronephrosis with obstructing calculus (4) Hypertension (5) Incisional hernia (6) Kidney stones Surgical Problems: (1) History of cholecystectomy (2) S/P appendectomy (3) S/P hysterectomy (4) S/P oophorectomy Old medical records were reviewed. Nurse's notes were reviewed and I agree with. Family History Cancer Diabetes mellitus FH: gallbladder disease FH: lung disease Hypertension Kidney disease Kidney stones Social History Smoking Status: Current Every Day Smoker Alcohol Use: occasionally, other Drug Use: none Marital Status: Housing Status: lives with significant other Occupation Status: unemployed Current/Historical Medications Scheduled Albuterol Hfa (Ventolin Hfa), 2-4 PUFFS INH QID Atorvastatin (Lipitor), 40 MG PO HS Cholecalciferol (Vitamin D3), 1,000 INTER.UNIT PO QAM Ciprofloxacin Hcl (Cipro), 500 MG PO BID Citalopram Hydrobromide (Celexa), 20 MG PO QAM Donepezil Hydrochloride (Donepezil Hcl), 5 MG PO HS Fluticasone Propionate (Flovent Hfa), 2 PUFFS INH BID Lisinopril/Hctz (Zestoretic 20MG/12.5MG), 1 TAB PO QAM Loratadine (Claritin), 10 MG PO QAM Memantine (Namenda), 10 MG PO HS Multiple Vitamins W/ Minerals (Ocuvite), 1 TAB PO HS Omeprazole (Prilosec), 20 MG PO QAM Ondasetron Odt (Zofran Odt), 4 MG SL Q6H Ranitidine Hcl (Ranitidine Hcl), 150 MG PO BID Sertraline (Zoloft), 100 MG PO QAM Tiotropium Jay (Spiriva Respimat), 2 PUFFS INH QAM Varenicline (Chantix), 1 MG PO UD Zolpidem Tartrate (Zolpidem Tartrate), 10 MG PO HS Scheduled PRN Albuterol Sulf (Albuterol Sulfate), 2.5 MG NEB UD PRN for SOB/Wheezing Lorazepam (Ativan), 0.5 MG PO Q6H PRN for Anxiety Phenazopyridine Hcl (Azo Tabs), 190 MG PO Q8 PRN for Burning With Urination Allergies Coded Allergies: Penicillins (Verified Allergy, Intermediate, HIVES, 12/19/16) Tetracyclines (Verified Allergy, Intermediate, HIVES, 12/19/16) Physical Exam Vital Signs Date Time Temp Pulse Resp B/P (MAP) Pulse Ox O2 Delivery O2 Flow Rate FiO2 12/27/16 21:37 68 18 124/85 96 Room Air 12/27/16 20:43 81 18 129/64 97 Nasal Cannula 2.0 12/27/16 19:33 71 18 156/86 92 Room Air 12/27/16 18:05 37.2 99 18 136/90 94 Room Air Physical Exam General: Uncomfortable appearing middle aged female in no acute distress. Complaining of right flank pain. HEENT: Normal cephalic atraumatic. Pupils are equal round and reactive to light. Extraocular movements are intact. Oropharynx is pink with moist mucous membranes. No swelling of the mouth lips or tongue. Neck: Supple with a midline trachea. No meningeal signs or stiffness, no JVD or bruits. No Stridor. Chest: Clear to auscultation bilaterally. No wheezes or rhonchi. No increased work of breathing. Heart: regular rate and rhythm. Abdomen: Soft, mildly tender in the suprapubic area, nondistended without rebound guarding or rigidity. Extremities: No cyanosis clubbing or edema. No calf tenderness or assymetry Spine/Back. Non tender to palpation. Right flank is mildly tender. Skin: Good turgor without rashes. Neurologic exam: Cranial nerves two through 12 are intact. Motor and sensation are intact and symmetrical throughout. Medical Decision & Procedures ER Provider Diagnostic Interpretation: Radiology results as stated below per my review and radiologist interpretation. KUB FINDINGS: 2 AP supine abdominal radiographs are compared to study dated 09/12/2016 and correlated with abdominal CT dated 08/23/2016. There is a nonobstructed abdominal bowel gas pattern. Cholecystectomy clips are noted. A left ureteral stent seen on 09/12/2016 has been removed. A right ureteral stent is new from previous. No calcifications are seen along the course of the stent. The large right renal calculus seen on 09/12/2016 is no longer identified. No calcifications project over the kidneys on today's examination. Surgical clips and phleboliths are identified in the pelvis. The skeletal structures are osteopenic. The bony structures appear intact. IMPRESSION: 1. A left ureteral stent has been removed from 09/12/2016. 2. A right ureteral stent is new from previous and the large right renal calculus seen on 09/12/2016 is no longer present. 3. No renal calculi are identified on today's examination. Electronically signed by: Britton Lynn M.D. 12/27/2016 6:58 PM Dictated Date/Time: 12/27/2016 6:55 PM Laboratory Results 12/27/16 18:25 Red Blood Count 5.11, Mean Corpuscular Volume 87.9, Mean Corpuscular Hemoglobin 29.7, Mean Corpuscular Hemoglobin Concent 33.9, Mean Platelet Volume 9.8, Neutrophils (%) (Auto) 83.2, Lymphocytes (%) (Auto) 9.5, Monocytes (%) (Auto) 6.1, Eosinophils (%) (Auto) 0.4, Basophils (%) (Auto) 0.2, Neutrophils # (Auto) 15.11, Lymphocytes # (Auto) 1.72, Monocytes # (Auto) 1.11, Eosinophils # (Auto) 0.07, Basophils # (Auto) 0.03 12/27/16 18:25 Test 12/27/16 18:25 12/27/16 18:35 White Blood Count 18.15 K/uL (4.8-10.8) Red Blood Count 5.11 M/uL (4.2-5.4) Hemoglobin 15.2 g/dL (12.0-16.0) Hematocrit 44.9 % (37-47) Mean Corpuscular Volume 87.9 fL (80-100) Mean Corpuscular Hemoglobin 29.7 pg (25-34) Mean Corpuscular Hemoglobin Concent 33.9 g/dl (32-36) Platelet Count 321 K/uL (130-400) Mean Platelet Volume 9.8 fL (7.4-10.4) Neutrophils (%) (Auto) 83.2 % Lymphocytes (%) (Auto) 9.5 % Monocytes (%) (Auto) 6.1 % Eosinophils (%) (Auto) 0.4 % Basophils (%) (Auto) 0.2 % Neutrophils # (Auto) 15.11 K/uL (1.4-6.5) Lymphocytes # (Auto) 1.72 K/uL (1.2-3.4) Monocytes # (Auto) 1.11 K/uL (0.11-0.59) Eosinophils # (Auto) 0.07 K/uL (0-0.5) Basophils # (Auto) 0.03 K/uL (0-0.2) RDW Standard Deviation 48.3 fL (36.4-46.3) RDW Coefficient of Variation 15.0 % (11.5-14.5) Immature Granulocyte % (Auto) 0.6 % Immature Granulocyte # (Auto) 0.11 K/uL (0.00-0.02) Anion Gap 9.0 mmol/L (3-11) Est Creatinine Clear Calc Drug Dose 72.2 ml/min Estimated GFR () 71.9 Estimated GFR (Non- 62.1 BUN/Creatinine Ratio 24.3 (10-20) Calcium Level 9.7 mg/dl (8.5-10.1) Urine Color BROWN Urine Appearance TURBID (CLEAR) Urine pH 6.0 (4.5-7.5) Urine Specific [place] >= 1.030 (1.000-1.030) Urine Protein 2+ (NEG) Urine Glucose (UA) NEG (NEG) Urine Ketones TRACE (NEG) Urine Occult Blood 3+ (NEG) Urine Nitrite POS (NEG) Urine Bilirubin NEG (NEG) Urine Urobilinogen NEG (NEG) Urine Leukocyte Esterase TRACE (NEG) Urine RBC >30 /hpf (0-4) Urine WBC >30 /hpf (0-5) Urine Epithelial Cells >30 /lpf (0-5) Urine Bacteria 1+ (NEG) Urine Hyaline Casts 1-5 /lpf (0-5) Laboratory studies as stated above per my review. Medications Administered Medications (Trade) Dose Ordered Sig/Eda Route Start Time Stop Time Status Last Admin Dose Admin Sodium Chloride 1,000 ml @ 999 mls/hr Q1H1M STAT IV 12/27/16 18:18 12/27/16 19:18 DC 12/27/16 18:26 999 MLS/HR Sodium Chloride 1,000 ml @ 200 mls/hr Q5H ONCE IV 12/27/16 18:18 12/27/16 22:01 DC 12/27/16 18:18 200 MLS/HR Ketorolac Tromethamine (Toradol Inj) 30 mg NOW STAT IV 12/27/16 18:18 12/27/16 18:20 DC 12/27/16 18:26 30 MG Ondansetron HCl (Zofran Inj) 4 mg NOW STAT IV 12/27/16 18:18 12/27/16 18:20 DC 12/27/16 18:25 4 MG Morphine Sulfate (MoRPHine SULFATE INJ) 4 mg NOW STAT IV 12/27/16 19:14 12/27/16 19:15 DC 12/27/16 19:24 4 MG Ciprofloxacin (Cipro Tab) 500 mg NOW STAT PO 12/27/16 21:23 12/27/16 21:25 DC 12/27/16 21:48 500 MG Ondansetron HCl (ZOFRAN ODT 4MG Home Pack) 1 homepack UD ONCE PO 12/27/16 21:30 12/27/16 21:31 DC 12/27/16 21:48 1 HOMEPACK ED Course 181: Past medical records reviewed. The patient was evaluated in room B3, and a complete history and physical examination were performed. 1916: I reevaluated the patient. She is feeling better and needs something else for pain. 1817: Zofran Inj 4mg IV, Toradol Inj 30mg IV, Sodium Chloride 1000 ml @ 200 mls/ hr IV, Sodium Chloride 1000 ml @ 999 mls/hr IV. 1913: Morphine Sulfate 4mg IV. 2012: I reevaluated and updated the patient. 2025: I spoke to Dr. Vallejo of urology and he thinks that she can follow up with him outpatient. 2122: Cipro Tab 500mg PO. 2129: Ondansetron HCl 1 homepack PO. 2135: Upon reevaluation, the patient is doing well. I discussed the results and treatment plan with the patient. She verbalized agreement of the treatment plan. The patient was discharged home. Medical Decision Differentials include, but are not limited to; kidney stone, infection, anemia, electrolyte or metabolic abnormality. This patient comes in as described above she had a stent placed with lithotripsy about 3 days ago she's been having some back pain and some nausea vomiting diarrhea. She's had no fever or chills. No dysuria. She is passing blood in her urine. She was on Cipro but finished yesterday. IV access established was hydrated with normal saline while she was here received IV Zofran and IV Toradol. She also received IV morphine. She seemed to do much better she was able to drink liquids and had no further vomiting. She has a elevated white count 18 but then be related to stress. She has no fever or dysuria or anything else to suggest infection. Her KUB shows the stent is in place and the stone has moved. I did discuss the case with Dr. Vallejo, who felt she could go home. She will rest and drink plenty of fluids. Return if: worsening of symptoms, fever or chills, any new problems or concerns. Medication Reconcilliation Current Medication List: was personally reviewed by me Blood Pressure Screening Patient's blood pressure: Elevated blood pressure Blood pressure disposition: Elevated BP felt to be situational Consults Time Called: 2019 Consulting Physician: Dr. Vallejo - Urology Returned Call: [address] Vallejo of urology and he thinks that she can follow up with him outpatient. Impression Primary Impression: Right flank pain Additional Impressions: Renal colic on right side ureteral stent Scribe Attestation The scribe's documentation has been prepared under my direction and personally reviewed by me in its entirety. I confirm that the note above accurately reflects all work, treatment, procedures, and medical decision making performed by me. Departure Information Dispostion Home / Self-Care Prescriptions Ondasetron Odt (ZOFRAN ODT) 4 Mg Tab 4 MG SL Q6H for Nausea, #10 TAB Prov: Micah Meraz M.D. 12/27/16 Ciprofloxacin Hcl (CIPRO) 500 Mg Tab 500 MG PO BID, #14 TAB Prov: Micah Meraz M.D. 12/27/16 Referrals No Doctor, Assigned (PCP) Forms HOME CARE DOCUMENTATION FORM, IMPORTANT VISIT INFORMATION Patient Instructions My [facility] Additional Instructions Rest. Drink plenty of fluids. Use Cipro 500 mg twice a dayantibiotic Use Zofran 4 mg under the tongue every 6 hours if needed for nausea or vomiting Return if: Fever, chills, burning on urination, worsening symptoms, not tolerating fluids, any new problems or concerns Follow-up with your doctor on Friday for recheck or the ER over the weekend if symptoms worsen Problem Qualifiers
== END 2016-12-27 21:49 | disposition home or self-care (01) ==
LOC: C.EDB 18:04
DX: R10.9 Unspecified abdominal pain (principal); N23 Unspecified renal colic; J45.909 Unspecified asthma, uncomplicated; J44.9 Chronic obstructive pulmonary disease, unspecified; I10 Essential (primary) hypertension; Z83.3 Family history of diabetes mellitus; Z82.49 Family history of ischemic heart disease and other diseases of the circulatory system; F17.200 Nicotine dependence, unspecified, uncomplicated

== ENCOUNTER → 2017-01-07 | Outpatient (CLI) | payer OTHER ==
[~2017-01-07] MED LIST changes: +CHOL1CAP57 PO; +FLVHFA110 INH; -FLVHFA220 PO; -HYDR-5688 PO; +MULT-188 PO; +NMN10 PO; +ONDA4TAB10 SL; +PRLSR20 PO; +RANI150C4 PO; +TIOT1AER2 INH; +ZOLP10TA6 PO; -ZOLP5TAB6 PO
--- NOTE | 2017-01-07 09:36 | DIAGNOSTIC IMAGING REPORT ---
KUB CLINICAL HISTORY: NEPHROLITHIASIS COMPARISON STUDY: 12/27/2016 FINDINGS: There is no pathologic bowel dilatation. There is no change the position of the right-sided double pigtail nephroureteral stent. The proximal pigtail appears to be positioned within the proximal right ureter. There is a 3 mm right renal calcification suspicious for a calculus. IMPRESSION: 1. Right-sided nephrolithiasis 2. No change in the orientation of the right-sided double pigtail nephroureteral stent. Electronically signed by: Jagdish Pedroza M.D. 01/07/2017 9:35 AM Dictated Date/Time: 01/07/2017 9:34 AM
== END | disposition home or self-care (01) ==
LOC: C.RAD 09:08
PROVIDERS: ATTEND Urology
DX: N20.0 Calculus of kidney (principal)

== ENCOUNTER → 2017-02-13 | Outpatient (CLI) | payer OTHER ==
--- NOTE | 2017-02-13 09:36 | DIAGNOSTIC IMAGING REPORT ---
HEAD WITHOUT CONTRAST (CT) CLINICAL HISTORY: 56 years-old Female presenting with NEW ONSET DIZZINESS [id number]. TECHNIQUE: Multidetector CT imaging of the head was performed without the use of intravenous contrast. IV contrast: None. A dose lowering technique was used consistent with the principles of ALARA (as low as reasonably achievable). COMPARISON: 08/29/2014. CT DOSE (mGy.cm): The estimated cumulative dose is 537.48 mGy.cm. 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 Ventricles and sulci normal in size. Brain parenchyma normal in appearance with preserved neely-white differentiation. No mass effect or midline shift. No hemorrhage or acute territorial infarct. No extra-axial fluid collection. Minimal mucosal thickening of ethmoid air cells. Aerated secretions suggested in the left frontal and sphenoid sinuses. Calvarium intact. IMPRESSION: 1. No acute intracranial abnormality. 2. Findings consistent with acute sinusitis involving the left frontal and sphenoid sinuses. Electronically signed by: Kai Prince M.D. 02/13/2017 9:34 AM Dictated Date/Time: 02/13/2017 9:32 AM
== END | disposition home or self-care (01) ==
LOC: C.CTS 09:03
PROVIDERS: ATTEND Family Medicine
DX: R42 Dizziness and giddiness (principal); J01.10 Acute frontal sinusitis, unspecified; J01.30 Acute sphenoidal sinusitis, unspecified

== ENCOUNTER 2017-07-08 17:05 | Emergency (ER) | payer OTHER ==
[~2017-07-08] VITALS: Ht 175.3 cm; Wt 92.0 kg
[~2017-07-08 17:05] MED LIST changes: -CHOL1CAP57 PO; -DONE1TAB11 PO; +DONE5TAB26 PO; -FLVHFA110 INH; -ONDA4TAB10 SL; -TIOT1AER2 INH
[2017-07-08 17:24] VITALS: TEMP 37; Ht 175.3 cm; Wt 92.0 kg
[2017-07-08] MEDS ORDERED: LORAZEPAM 1 MG TAB PO STA (18:41)
[2017-07-08] MEDS ORDERED: FLVHFA110 INH (18:44)
[2017-07-08 18:53] LABS: BASO % 0.5 %; BASO ABS # 0.06 K/uL (0-0.2); EOS % 1.5 %; EOS ABS # 0.19 K/uL (0-0.5); HEMATOCRIT 47.4 % (37-47); HEMOGLOBIN 15.8 g/dL (12.0-16.0); IG# 0.03 K/uL (0.00-0.02); LYMPH % 20.9 %; MEAN CELL VOLUME 88.9 fL (80-100); MEAN CORPUSCULAR HEMOGLOBIN 29.6 pg (25-34); MEAN CORPUSCULAR HGB CONC 33.3 g/dl (32-36); MEAN PLATELET VOLUME 10.1 fL (7.4-10.4); MONO ABS # 0.51 K/uL (0.11-0.59); NEUT % 72.9 %; NEUT ABS # 9.41 K/uL (1.4-6.5); PLATELET COUNT 338 K/uL (130-400); RED CELL DISTRIBUTION WIDTH CV 14.1 % (11.5-14.5); RED CELL DISTRIBUTION WIDTH SD 45.9 fL (36.4-46.3)
[2017-07-08 19:01] LABS: ALBUMIN 4.1 gm/dl (3.4-5.0); CALCIUM 9.6 mg/dl (8.5-10.1); CREATININE 1.15 mg/dl (0.60-1.20); POTASSIUM 3.7 mmol/L (3.5-5.1)
[2017-07-08 19:12] LABS: TOTAL PROTEIN 8.5 gm/dl (6.4-8.2)
[2017-07-08 19:14] VITALS: O2SAT 95
[2017-07-08] MEDS ORDERED: SULF800T23 PO (19:30)
[2017-07-08] MEDS ORDERED: FLUT0.15 NAE (19:30)
[2017-07-08] MEDS ORDERED: ASTN NAE (19:30)
[2017-07-08] MEDS ORDERED: ALBINS NEB (19:30)
[2017-07-08] MEDS ORDERED: RANI150T2 PO (19:30)
[2017-07-08] MEDS ORDERED: CETI10TA10 PO (19:30)
[2017-07-08] MEDS ORDERED: LPT40 PO (19:30)
--- NOTE | 2017-07-08 19:31 | DIAGNOSTIC IMAGING REPORT ---
CHEST 2 VIEWS ROUTINE CLINICAL HISTORY: palpitations COMPARISON STUDY: 05/21/2016 FINDINGS: The cardiac and mediastinal contours remain stable. There is a prominent right cardiophrenic angle fat pad. There are new nonspecific nodular opacities at the left lung base measuring 19 mm in aggregate. While likely representing atelectasis or a focal inflammatory process, neoplasm cannot be excluded. Short-term radiographic follow-up is recommended.[ There is no failure. There are no pleural effusions. IMPRESSION: Interval development of nonspecific nodular opacities at the left lung base. While likely representing a focal inflammatory process or atelectasis, neoplasm cannot be excluded. Short-term radiographic follow-up is recommended Electronically signed by: Jagdish Pedroza M.D. 07/08/2017 7:30 PM Dictated Date/Time: 07/08/2017 7:28 PM
[2017-07-08] MEDS ORDERED: B-COTAB18 PO (19:33)
--- NOTE | 2017-07-08 20:07 | EMERGENCY ROOM VISIT NOTE ---
History Report prepared by Agnes: Shamar Jiang Under the Supervision of: Dr. Leonidas Davis M.D. First contact with patient: 18:25 Chief Complaint: PALPITATIONS Stated Complaint: HEART PALPITATIONS, FEELS LIKE BRICKS ON CHEST Nursing Triage Summary: patients daughter got her upset this am and she has been having palpations all day since. denies chest pain. states some shortness of breath with it. no nausea vomiting. has a history of anxiety doesn't have any medication for anxiety states she ran out of pills History of Present Illness The patient is a 57 year old white female with a past medical history of COPD, asthma, HTN, kidney stone, appendectomy, hysterectomy, oophorectomy, and cholecystectomy who presents to the ED with a cc of intermittent heart palpitations beginning earlier today. Patient states that her symptoms began after her daughter called her today and told her she had "PMDD and PED". She states that her daughter blamed her for this which upset her quite a bit. Patient reports crying a lot today. She states that she has been under a lot of stress lately. Nothing has improved her symptoms. Positive central chest "heaviness", and left hand tingling. Chest pain moves around within the chest. Negative leg swelling, cough, fevers, chills, SOB, nausea, vomiting, or diaphoresis. She has no personal history of heart disease. She has a known history of occasional ectopy. Source of History: patient Onset: Earlier today Quality: other (heart palpitations) Timing: intermittent Modifying Factors (Relieving): other (none) Associated Symptoms: + chest pain ("heaviness") Note: Positive left hand tingling. Negative leg swelling. Review of Systems See HPI for pertinent positives and negatives. A total of ten systems were reviewed and were otherwise negative. Past Medical & Surgical Medical Problems: (1) Asthma (2) COPD (chronic obstructive pulmonary disease) (3) Hydronephrosis with obstructing calculus (4) Hypertension (5) Incisional hernia (6) Kidney stones Surgical Problems: (1) History of cholecystectomy (2) S/P appendectomy (3) S/P hysterectomy (4) S/P oophorectomy Family History Cancer Diabetes mellitus FH: gallbladder disease FH: lung disease Hypertension Kidney disease Kidney stones Social History Smoking Status: Current Every Day Smoker Alcohol Use: occasionally, other Drug Use: none Marital Status: Housing Status: lives with significant other Occupation Status: unemployed Current/Historical Medications Scheduled Atorvastatin (Lipitor), 40 MG PO HS B-Complex Vitamins (Vitamin B Complex), 1 TAB PO DAILY Cetirizine Hcl (Zyrtec), 10 MG PO HS Cholecalciferol (Vitamin D3), 1,000 INTER.UNIT PO QAM Fluticasone Propionate (Flovent Hfa), 2 PUFFS INH BID Fluticasone Propionate (Nasal) (Flonase Allergy Relief), 2 SPRAYS DORENE DAILY Ranitidine HCl (Ranitidine HCl), 150 MG PO BID Sulfa/Trimethoprim (Bactrim Ds 800MG/160MG), 1 TAB PO BID Tiotropium [place] (Spiriva Respimat), 2 PUFFS INH QAM Scheduled PRN Albuterol Hfa (Ventolin Hfa), 2 PUFFS INH Q4H PRN for SOB/Wheezing Albuterol Sulf (Albuterol Sulfate), 1 VIAL NEB Q4-6HRS PRN for Wheezing Azelastine Hcl (Astelin Nasal [place]), 2 SPRAYS DORENE BID PRN for Allergy Symptoms Allergies Coded Allergies: Penicillins (Verified Allergy, Intermediate, HIVES, 12/19/16) Tetracyclines (Verified Allergy, Intermediate, HIVES, 12/19/16) Physical Exam Vital Signs Date Time Temp Pulse Resp B/P (MAP) Pulse Ox O2 Delivery O2 Flow Rate FiO2 07/08/17 19:14 95 Room Air 07/08/17 19:14 87 18 121/94 95 Room Air 07/08/17 18:24 92 16 158/90 95 Room Air 07/08/17 17:27 95 07/08/17 17:24 37.0 101 20 126/66 96 Room Air Physical Exam GENERAL: Awake, alert, well-appearing, NAD. Wearing glasses. HENT: Normocephalic, atraumatic. Edentulous. EYES: Normal conjunctiva. Sclera non-icteric. PERRL. No anisocoria. NECK: Supple. No nuchal rigidity. FROM. RESPIRATORY: CTAB, no rhonchi, wheezing, crackles CARDIAC: RRR, no MRG ABDOMEN: Soft, NTND, BS+ MSK: Mild reproducible chest wall discomfort. No lower extremity swelling. No calf pain. Negative Homans sign. NEURO: GCS 15, CN 2-12 intact, moves all 4s on command SKIN: No rash or jaundice noted. Medical Decision & Procedures ER Provider Diagnostic Interpretation: Radiology results as stated below per my review and radiologist interpretation: CHEST 2 VIEWS ROUTINE FINDINGS: The cardiac and mediastinal contours remain stable. There is a prominent right cardiophrenic angle fat pad. There are new nonspecific nodular opacities at the left lung base measuring 19 mm in aggregate. While likely representing atelectasis or a focal inflammatory process, neoplasm cannot be excluded. Short-term radiographic follow-up is recommended.[ There is no failure. There are no pleural effusions. IMPRESSION: Interval development of nonspecific nodular opacities at the left lung base. While likely representing a focal inflammatory process or atelectasis, neoplasm cannot be excluded. Short-term radiographic follow-up is recommended Electronically signed by: Jagdish Pedroza M.D. 07/08/2017 7:30 PM Laboratory Results 07/08/17 18:30 Red Blood Count 5.33, Mean Corpuscular Volume 88.9, Mean Corpuscular Hemoglobin 29.6, Mean Corpuscular Hemoglobin Concent 33.3, Mean Platelet Volume 10.1, Neutrophils (%) (Auto) 72.9, Lymphocytes (%) (Auto) 20.9, Monocytes (%) (Auto) 4.0, Eosinophils (%) (Auto) 1.5, Basophils (%) (Auto) 0.5, Neutrophils # (Auto) 9.41, Lymphocytes # (Auto) 2.70, Monocytes # (Auto) 0.51, Eosinophils # (Auto) 0.19, Basophils # (Auto) 0.06 07/08/17 18:30 Test 07/08/17 18:30 07/08/17 18:52 White Blood Count 12.90 K/uL (4.8-10.8) Red Blood Count 5.33 M/uL (4.2-5.4) Hemoglobin 15.8 g/dL (12.0-16.0) Hematocrit 47.4 % (37-47) Mean Corpuscular Volume 88.9 fL (80-100) Mean Corpuscular Hemoglobin 29.6 pg (25-34) Mean Corpuscular Hemoglobin Concent 33.3 g/dl (32-36) Platelet Count 338 K/uL (130-400) Mean Platelet Volume 10.1 fL (7.4-10.4) Neutrophils (%) (Auto) 72.9 % Lymphocytes (%) (Auto) 20.9 % Monocytes (%) (Auto) 4.0 % Eosinophils (%) (Auto) 1.5 % Basophils (%) (Auto) 0.5 % Neutrophils # (Auto) 9.41 K/uL (1.4-6.5) Lymphocytes # (Auto) 2.70 K/uL (1.2-3.4) Monocytes # (Auto) 0.51 K/uL (0.11-0.59) Eosinophils # (Auto) 0.19 K/uL (0-0.5) Basophils # (Auto) 0.06 K/uL (0-0.2) RDW Standard Deviation 45.9 fL (36.4-46.3) RDW Coefficient of Variation 14.1 % (11.5-14.5) Immature Granulocyte % (Auto) 0.2 % Immature Granulocyte # (Auto) 0.03 K/uL (0.00-0.02) Anion Gap 7.0 mmol/L (3-11) Est Creatinine Clear Calc Drug Dose 63.6 ml/min Estimated GFR () 60.3 Estimated GFR (Non- 52.0 BUN/Creatinine Ratio 9.7 (10-20) Calcium Level 9.6 mg/dl (8.5-10.1) Magnesium Level 2.3 mg/dl (1.8-2.4) Total Bilirubin 0.5 mg/dl (0.2-1) Direct Bilirubin 0.1 mg/dl (0-0.2) Aspartate Amino Transf (AST/SGOT) 17 U/L (15-37) Alanine Aminotransferase (ALT/SGPT) 26 U/L (12-78) Alkaline Phosphatase 128 U/L (45-117) Pro-B-Type Natriuretic Peptide 72 pg/ml (0-900) Total Protein 8.5 gm/dl (6.4-8.2) Albumin 4.1 gm/dl (3.4-5.0) Thyroid Stimulating Hormone (TSH) 1.080 uIu/ml (0.300-4.500) Bedside Troponin I < 0.030 ng/ml (0-0.045) Laboratory results reviewed by me Medications Administered Medications (Trade) Dose Ordered Sig/Eda Route Start Time Stop Time Status Last Admin Dose Admin Lorazepam (Ativan Tab) 1 mg NOW STAT PO 07/08/17 18:41 07/08/17 18:43 DC 07/08/17 18:53 1 MG ECG Per My Interpretation Indication: palpitations Rate (beats per minute): 91 Rhythm: normal sinus Findings: T-wave inversion (AVL), other (Normal intervals. Normal axis. No other STS changes or TWI. ) ED Course 1835: The patient was evaluated in room C3B. A complete history and physical exam was performed. 1950: I reevaluated the patient. Discussed results and discharge instructions: she verbalized understanding and agreement. The patient is ready for discharge. Medical Decision Nursing notes reviewed. Ancillary studies and prior records reviewed. The patient is a 57 year old white female with a past medical history of COPD, asthma, HTN, kidney stone, appendectomy, hysterectomy, oophorectomy, and cholecystectomy who presents to the ED with a cc of intermittent heart palpitations beginning earlier today. Differential diagnosis: Etiologies such as anxiety, premature contractions, electrolyte abnormality, cardiac dysrhythmia, thyroid dysfunction, pulmonary embolism, infection, gastrointestinal, as well as others were entertained. Patient was seen and evaluated the bedside. Patient was complaining some help with palpitations and some mild chest discomfort. Patient states that it was central and would move around chest. Patient denies any movement of the pain to the back shoulder arm neck or jaw. Patient denies any diaphoresis, nausea, vomiting. Patient does have a history of smoking. Patient denies any family history and other parents and siblings of cardiac disease/[place] before the age of 65. Of note the patient has been going through a stressful relationship with her daughter and does relate that this is likely the cause of some of her symptoms. Patient is a prior history of anxiety. Patient had blood work completed, EKG, troponin, chest x-ray the patient was given some Ativan. Patient vital signs stable. Patient is PE RC of 1 given the patient's age. Wells of 0 less likely PE. Patient's EKG is nonischemic with a negative troponin. Less likely ACS. Patient's chest x-ray does show some nodular opacities neoplasm cannot be excluded. The patient patient was told she will need a repeat chest x-ray in the future. Patient is a smoker. The I did discuss the patient with the on-call psych pillowcase turner who did evaluate the patient in order to give her some resources. Upon reassessment the patient is feeling improved. I believe that a lot of her chest discomfort is related to her anxiety as well as her recent stress. Given that the patient has a nonischemic EKG with a negative troponin less likely ACS. I discussed with the patient that she does have risk factors. Furthermore less likely ACS as there is no exertional component. The patient does not have any worsening chest pain since here. Patient was deemed suitable for outpatient follow-up treatment at this time. Patient was given strict follow-up, discharge, and return precautions. All questions were answered. Patient was deemed suitable for outpatient follow-up at this time. Patient agreed with the plan of care and was safely discharged home. Medication Reconcilliation Current Medication List: was personally reviewed by me Blood Pressure Screening Patient's blood pressure: Normal blood pressure Blood pressure disposition: Did not require urgent referral Impression Primary Impression: Anxiety Additional Impressions: Chest pain Encounter for smoking cessation counseling Scribe Attestation The scribe's documentation has been prepared under my direction and personally reviewed by me in its entirety. I confirm that the note above accurately reflects all work, treatment, procedures, and medical decision making performed by me. Departure Information Dispostion Home / Self-Care Referrals No Doctor, Assigned (PCP) Patient Instructions Anxiety Body Response, Chest Pain - [facility], ED Smoking Cessation, [facility] Additional Instructions Please return to the emergency department if you have worsening or recurrent symptoms not amenable to at-home treatment. Please call for a follow-up appointment with her primary care physician. Please take your medications as prescribed. If you have other concerns and/or complaints please feel free to also call your primary care physician's office or return the ED for further evaluation, management, and treatment. Please follow-up with the outpatient resources provided by the mental health specialist in order to help with your discomfort. Clinic Please consider smoking cessation. Take your medications as prescribed. You have been examined and treated today on an emergency basis only. This is not a substitute for, or an effort to provide, complete comprehensive medical care. It is impossible to recognize and treat all injuries or illnesses in a single emergency department visit. It is therefore important that you follow up closely with [facility], your PCP, and/or your specialist(s). Call as soon as possible for an appointment. Thank you for your time and consideration. I look forward to speaking with you again soon. Please don't hesitate to call us if you have any questions. Problem Qualifiers Additional Impressions: Chest pain Chest pain type: unspecified Qualified Codes: R07.9 - Chest pain, unspecified
[2017-07-08 20:28] VITALS: BP 142/98; PULSE 94; O2SAT 95
[2017-07-08] MEDS ORDERED: TIOT1AER2 INH (20:50)
[2017-07-08] MEDS ORDERED: CHOL1CAP57 PO (21:49)
== END 2017-07-08 20:24 | disposition home or self-care (01) ==
LOC: C.EDB 17:07 → C.EDC 20:24
DX: F41.9 Anxiety disorder, unspecified (principal); R07.9 Chest pain, unspecified; R00.2 Palpitations

== ENCOUNTER 2017-10-16 09:07 | Inpatient (IN) | payer OTHER ==
[~2017-10-16] VITALS: Ht 175.3 cm; Wt 88.9 kg
[~2017-10-16 09:07] MED LIST changes: +ASTN NAE; -ATOR-24 PO; +B-COTAB18 PO; +CETI10TA10 PO; -CHN/1 PO; +CHOL1CAP57 PO; -CIPR-255 PO; -CITA20TA9 PO; -DONE5TAB26 PO; +FLUT0.15 NAE; +KFL/250 PO; -LISI-787 PO; -LORA-741 PO; -LORA10CA2 PO; +LPT40 PO; -MULT-188 PO; -NMN10 PO; -PHEN95TA14 PO; -PRLSR20 PO; -PRVIN525 NEB; -RANI150C4 PO; +RANI150T2 PO; -SERT-234 PO; -ZOLP10TA6 PO
[2017-10-16] MEDS ORDERED: ALBUT/IPRATROP 3MG/0.5MG NEB 3 ML VIAL INH STA (09:27)
[2017-10-16] MEDS ORDERED: METHYLPREDNISOLONE 125 MG VIAL IV STA (09:27)
[2017-10-16] MEDS ORDERED: CEFTRIAXONE SOD INJ 1 GM ADDVIAL IV STA (09:28)
[2017-10-16] MEDS ORDERED: AZITHROMYCIN IV 500 MG in DEXTROSE 5% 250ML 250 ML IV ONE (09:30)
[2017-10-16 09:48] LABS: BASO % 0.3 %; BASO ABS # 0.04 K/uL (0-0.2); EOS % 3.4 %; HEMATOCRIT 46.3 % (37-47); HEMOGLOBIN 15.8 g/dL (12.0-16.0); IG# 0.04 K/uL (0.00-0.02); LYMPH % 26.5 %; LYMPH ABS # 3.16 K/uL (1.2-3.4); MEAN CELL VOLUME 91.1 fL (80-100); MEAN CORPUSCULAR HEMOGLOBIN 31.1 pg (25-34); MEAN CORPUSCULAR HGB CONC 34.1 g/dl (32-36); MEAN PLATELET VOLUME 10.4 fL (7.4-10.4); MONO % 4.6 %; MONO ABS # 0.55 K/uL (0.11-0.59); NEUT % 64.9 %; NEUT ABS # 7.75 K/uL (1.4-6.5); PLATELET COUNT 314 K/uL (130-400); RED CELL DISTRIBUTION WIDTH CV 13.8 % (11.5-14.5); WHITE BLOOD COUNT 11.94 K/uL (4.8-10.8)
[2017-10-16 10:03] LABS: PTT PATIENT 25.5 SECONDS (21.0-31.0)
[2017-10-16 10:11] LABS: ALBUMIN 3.7 gm/dl (3.4-5.0); ALKALINE PHOSPHATASE 126 U/L (45-117); ALT/SGPT 27 U/L (12-78); AST/SGOT 18 U/L (15-37); BLOOD UREA NITROGEN 15 mg/dl (7-18); CALCIUM 9.3 mg/dl (8.5-10.1); CARBON DIOXIDE 28 mmol/L (21-32); CKMB < 1.0 ng/ml (0.5-3.6); CREATININE 0.91 mg/dl (0.60-1.20); GLUCOSE 100 mg/dl (70-99); POTASSIUM 3.8 mmol/L (3.5-5.1); SODIUM 139 mmol/L (136-145); TOTAL PROTEIN 7.7 gm/dl (6.4-8.2)
--- NOTE | 2017-10-16 10:11 | DIAGNOSTIC IMAGING REPORT ---
CHEST ONE VIEW PORTABLE CLINICAL HISTORY: cough, sob dyspnea COMPARISON STUDY: No previous studies for comparison. FINDINGS: Slight interstitial and peribronchial prominence throughout both hemithoraces. No well-defined focal infiltrate. Chronic elevation left hemidiaphragm. IMPRESSION: Mild bronchitis. The above report was generated using voice recognition software. It may contain grammatical, syntax or spelling errors. Electronically signed by: Shay Iglesias M.D. 10/16/2017 10:09 AM Dictated Date/Time: 10/16/2017 10:09 AM
[2017-10-16] MEDS ORDERED: SPRIN/30 INH (10:26)
[2017-10-16] MEDS ORDERED: MULT-190 PO (10:26)
[2017-10-16] MEDS ORDERED: PRED20TA PO (11:49)
[2017-10-16] MEDS ORDERED: AZITTAB PO (11:49)
--- NOTE | 2017-10-16 11:49 | EMERGENCY ROOM VISIT NOTE ---
History Report prepared by Agnes: Patricia Elliott Under the Supervision of: Dr. Prakash Roberts D.O. First contact with patient: 09:22 Chief Complaint: SHORTNESS OF BREATH Stated Complaint: SOB History of Present Illness The patient is a 57 year old female who presents to the Emergency Room with complaints of persistent difficulty breathing starting a couple days ago. The patient was sent to the ED from the doctor's office. She has a history of COPD, emphysema, and asthma. She is a smoker. She has been coughing up green/yellow sputum, which is normal for her. She has been coughing up sputum more frequently than usual. She is having burning pain in the back of both of her legs. She has not been on oxygen at home for the past year because she cannot afford it. Source of History: patient Onset: couple days ago Position: chest Quality: other (difficulty breathing) Timing: other (persistent) Associated Symptoms: + cough Note: Pt reports leg pain. Review of Systems See HPI for pertinent positives & negatives. A total of 10 systems reviewed and were otherwise negative. Past Medical & Surgical Medical Problems: (1) Asthma (2) COPD (chronic obstructive pulmonary disease) (3) Hydronephrosis with obstructing calculus (4) Hypertension (5) Incisional hernia (6) Kidney stones Surgical Problems: (1) History of cholecystectomy (2) S/P appendectomy (3) S/P hysterectomy (4) S/P oophorectomy Family History Cancer Diabetes mellitus FH: gallbladder disease FH: lung disease Hypertension Kidney disease Kidney stones Social History Smoking Status: Current Every Day Smoker Alcohol Use: occasionally, other Drug Use: none Marital Status: Housing Status: lives with significant other Occupation Status: unemployed Current/Historical Medications Scheduled Atorvastatin (Lipitor), 40 MG PO HS Azithromycin (Zithromax Z-Yoav), 0 PO UD B-Complex Vitamins (Vitamin B Complex), 1 TAB PO QAM Cetirizine Hcl (Zyrtec), 10 MG PO HS Cholecalciferol (Vitamin D3), 1,000 INTER.UNIT PO QAM Fluticasone Propionate (Nasal) (Flonase Allergy Relief), 2 SPRAYS DORENE QAM Ocuvite Preservision (Ocuvite Preservision), 1 TAB PO DAILY Prednisone (Prednisone), 2 TAB PO DAILY Ranitidine HCl (Ranitidine HCl), 150 MG PO BID Tiotropium [place] (Spiriva Handihaler), 1 PUFF INH DIRECTED Scheduled PRN Albuterol Hfa (Ventolin Hfa), 2 PUFFS INH Q4H PRN for SOB/Wheezing Azelastine Hcl (Astelin Nasal [place]), 2 SPRAYS DORENE BID PRN for Allergy Symptoms Allergies Coded Allergies: Penicillins (Verified Allergy, Intermediate, HIVES, 10/16/17) Tetracyclines (Verified Allergy, Intermediate, HIVES, 10/16/17) Physical Exam Vital Signs Date Time Temp Pulse Resp B/P (MAP) Pulse Ox O2 Delivery O2 Flow Rate FiO2 10/16/17 12:43 81 10/16/17 12:42 87 Nasal Cannula 2.0 10/16/17 12:11 91 17 163/93 87 Room Air 10/16/17 11:23 96 22 163/93 92 Room Air 10/16/17 10:23 92 Nasal Cannula 2.0 10/16/17 10:21 86 20 163/93 88 Room Air 10/16/17 09:47 64 18 163/93 93 Nasal Cannula 2.0 10/16/17 09:37 83 10/16/17 09:31 92 Nasal Cannula 2.0 10/16/17 09:31 92 Nasal Cannula 2.0 10/16/17 09:12 36.7 100 18 155/86 89 Room Air Physical Exam CONSTITUTIONAL/VITAL SIGNS: Reviewed / noted above. GENERAL: Non-toxic in appearance. INTEGUMENTARY: Warm, dry, and [place]. HEAD: Normocephalic. EYES: without scleral icterus or trauma. ENT/OROPHARYNX: clear and moist. LYMPHADENOPATHY/NECK: Is supple without lymphadenopathy or meningismus. RESPIRATORY: Expiratory wheezing throughout, mild increased work of breathing. CARDIOVASCULAR: Regular rate and rhythm. GI/ABDOMEN: Soft and nontender. No organomegaly or pulsatile mass. No rebound or guarding. Normal bowel sounds. EXTREMITIES: Warm and well perfused. BACK: No CVA tenderness. NEUROLOGICAL: Intact without focal deficits. PSYCHIATRIC: normal affect. MUSCULOSKELETAL: Normally developed with good muscle tone. Medical Decision & Procedures ER Provider Diagnostic Interpretation: X ray results and stated below per my interpretation and radiology interpretation. CHEST ONE VIEW PORTABLE CLINICAL HISTORY: cough, sob dyspnea COMPARISON STUDY: No previous studies for comparison. FINDINGS: Slight interstitial and peribronchial prominence throughout both hemithoraces. No well-defined focal infiltrate. Chronic elevation left hemidiaphragm. IMPRESSION: Mild bronchitis. The above report was generated using voice recognition software. It may contain grammatical, syntax or spelling errors. Electronically signed by: Shay Iglesias M.D. 10/16/2017 10:09 AM Dictated Date/Time: 10/16/2017 10:09 AM Laboratory Results 10/16/17 09:25 Red Blood Count 5.08, Mean Corpuscular Volume 91.1, Mean Corpuscular Hemoglobin 31.1, Mean Corpuscular Hemoglobin Concent 34.1, Mean Platelet Volume 10.4, Neutrophils (%) (Auto) 64.9, Lymphocytes (%) (Auto) 26.5, Monocytes (%) (Auto) 4.6, Eosinophils (%) (Auto) 3.4, Basophils (%) (Auto) 0.3, Neutrophils # (Auto) 7.75, Lymphocytes # (Auto) 3.16, Monocytes # (Auto) 0.55, Eosinophils # (Auto) 0.40, Basophils # (Auto) 0.04 10/16/17 09:25 Test 10/16/17 09:25 White Blood Count 11.94 K/uL (4.8-10.8) Red Blood Count 5.08 M/uL (4.2-5.4) Hemoglobin 15.8 g/dL (12.0-16.0) Hematocrit 46.3 % (37-47) Mean Corpuscular Volume 91.1 fL (80-100) Mean Corpuscular Hemoglobin 31.1 pg (25-34) Mean Corpuscular Hemoglobin Concent 34.1 g/dl (32-36) Platelet Count 314 K/uL (130-400) Mean Platelet Volume 10.4 fL (7.4-10.4) Neutrophils (%) (Auto) 64.9 % Lymphocytes (%) (Auto) 26.5 % Monocytes (%) (Auto) 4.6 % Eosinophils (%) (Auto) 3.4 % Basophils (%) (Auto) 0.3 % Neutrophils # (Auto) 7.75 K/uL (1.4-6.5) Lymphocytes # (Auto) 3.16 K/uL (1.2-3.4) Monocytes # (Auto) 0.55 K/uL (0.11-0.59) Eosinophils # (Auto) 0.40 K/uL (0-0.5) Basophils # (Auto) 0.04 K/uL (0-0.2) RDW Standard Deviation 46.0 fL (36.4-46.3) RDW Coefficient of Variation 13.8 % (11.5-14.5) Immature Granulocyte % (Auto) 0.3 % Immature Granulocyte # (Auto) 0.04 K/uL (0.00-0.02) Prothrombin Time 10.0 SECONDS (9.0-12.0) Prothromb Time International Ratio 1.0 (0.9-1.1) Activated Partial Thromboplast Time 25.5 SECONDS (21.0-31.0) Partial Thromboplastin Ratio 1.0 Anion Gap 6.0 mmol/L (3-11) Est Creatinine Clear Calc Drug Dose 79.1 ml/min Estimated GFR () 80.0 Estimated GFR (Non- 69.1 BUN/Creatinine Ratio 16.2 (10-20) Calcium Level 9.3 mg/dl (8.5-10.1) Total Bilirubin 0.7 mg/dl (0.2-1) Aspartate Amino Transf (AST/SGOT) 18 U/L (15-37) Alanine Aminotransferase (ALT/SGPT) 27 U/L (12-78) Alkaline Phosphatase 126 U/L (45-117) Total Creatine Kinase 42 U/L (26-192) Creatine Kinase MB < 1.0 ng/ml (0.5-3.6) Creatine Kinase MB Ratio (0-3.0) Troponin I < 0.015 ng/ml (0-0.045) Total Protein 7.7 gm/dl (6.4-8.2) Albumin 3.7 gm/dl (3.4-5.0) Globulin 4.0 gm/dl (2.5-4.0) Albumin/Globulin Ratio 0.9 (0.9-2) Laboratory results as stated above per my review. Medications Administered Medications (Trade) Dose Ordered Sig/Eda Route Start Time Stop Time Status Last Admin Dose Admin Albuterol/ Ipratropium (Duoneb) 3 ml NOW STAT INH 10/16/17 09:27 10/16/17 09:29 DC 10/16/17 09:42 3 ML Methylprednisolone Sodium Succinate (Solu-Medrol IV) 125 mg NOW STAT IV 10/16/17 09:27 10/16/17 09:30 DC 10/16/17 09:42 125 MG Ceftriaxone Sodium (Rocephin Inj) 1 gm NOW STAT IV 10/16/17 09:28 10/16/17 09:30 DC 10/16/17 09:45 1 GM Azithromycin 500 mg/Dextrose 255 ml @ 125 mls/hr ONE ONCE IV 10/16/17 09:30 10/16/17 11:32 DC 10/16/17 10:23 125 MLS/HR ECG Per My Interpretation Indication: SOB/dyspnea Rate (beats per minute): 82 Rhythm: normal sinus Findings: no ectopy, other (no ST elevation) ED Course 09: Previous medical records were reviewed. The patient was evaluated in room B5. A complete history and physical examination was performed. 0927: Solu-Medrol IV 125 mg IV, Duoneb 3 ml INH. 0928: Rocephin Inj 1 gm IV. 0930: Azithromycin 500 mg/Dextrose 255 ml @ 125 mls/hr IV. 1140: On reevaluation, the patient is resting comfortably. I discussed the results and findings with the patient. 1214: Nurse informed me that the patient's oxygen saturation dropped to 87 without oxygen. 1216: On reevaluation, the patient is resting comfortably. I discussed the results and findings with her. She verbalized agreement of the treatment plan. The patient will be evaluated for further management and care. 1220: The patient will be evaluated by Britton Mulligan PA-C [facility] [place] hospitalist for further treatment and disposition. Medical Decision Differentials considered include acute myocardial infarction, acute coronary syndrome, myocarditis, pericarditis, pericardial effusions /tamponade, esophageal perforation, pulmonary embolism, pneumonia, pneumothorax, cardiomyopathy, congestive heart, anemia, and COPD/asthma exacerbation. This is a 57-year-old female who presents to the ED with a chief complaint of shortness of breath. The patient states that she had a hard time breathing over the past couple of days. She is also had an increased cough for a greenish sputum. This is a chronic cough for her. She also states she continues to smoke a pack per day despite her COPD and asthma. She also reports that she has been off Spiriva and Flovent for about a year because she cannot afford it and her insurance does not pay for. She was sent from the office with reported oxygen saturations on room air of 80%. When she arrived here she was 89% on room air. Her physical exam reveals some scattered wheezes. This did improve with a DuoNeb treatment and IV Solu-Medrol. The patient's heart rate was a sinus rhythm at a rate of 82. A chest x-ray reveals mild bronchitis. CBC and complete metabolic panel were unremarkable and a troponin was negative. The patient was told the results of the test. She was given IV Rocephin and Zithromax as well. Her symptoms improved with the breathing treatment and IV Solu-Medrol. The patient was removed from oxygen and she dropped her oxygen saturation to about 87% on room air. Because of this , the patient will be seen by the hospitalist for further inpatient evaluation and care. Medication Reconcilliation Current Medication List: was personally reviewed by me Blood Pressure Screening Patient's blood pressure: Elevated blood pressure Referred to hospitalist Consults Time Called: 1215 Consulting Physician: JACQUELINE Fabian hospitalist Returned Call: 1220 The patient will be evaluated by him for further treatment and disposition. Impression Primary Impression: Acute bronchitis Additional Impressions: COPD with exacerbation Hypoxia Scribe Attestation The scribe's documentation has been prepared under my direction and personally reviewed by me in its entirety. I confirm that the note above accurately reflects all work, treatment, procedures, and medical decision making performed by me. Departure Information Dispostion Being Evaluated By Hospitalist Prescriptions Prednisone (Prednisone) 20 Mg Tab 2 TAB PO DAILY for 4 Days, #8 TAB Prov: Prakash Roberts D.O. 10/16/17 Azithromycin (ZITHROMAX Z-YOAV) 250 Mg Tab 0 PO UD, #1 PKT 2 TABS DAY 1, THEN 1 TAB DAILY FOR 4 DAYS Prov: Prakash Roberts D.O. 10/16/17 Referrals Bladimir Ortiz MD (PCP) Patient Instructions My [facility] Problem Qualifiers
[2017-10-16 12:42] VITALS: O2SAT 87; Ht 175.3 cm; Wt 88.9 kg
[2017-10-16] MEDS ORDERED: ONDANSETRON INJ 2 MG/ML 2 ML VIAL IV PRN (13:45)
[2017-10-16] MEDS ORDERED: MAGNESIUM HYDROXIDE SUSP 30 ML UDC PO PRN (13:45)
[2017-10-16] MEDS ORDERED: ALBUTEROL HFA 8 GM INHALER INH PRN (13:45)
[2017-10-16] MEDS ORDERED: ALUMINUM/MAGNESIUM/SIMETH (MAALOX MAX) 30 ML UDC PO PRN (13:45)
[2017-10-16] MEDS: [UNRECOGNIZED DRUG - REMARK] SCH ×2 (14:46→23:04)
[2017-10-16] MEDS: NICOTINE 21 MG/24 HR TDSY TD SCH (15:00)
[2017-10-16 15:09] VITALS: BP 148/85; PULSE 86; TEMP 36.7; O2SAT 93
[2017-10-16] MEDS: ACETAMINOPHEN 325 MG TAB PO PRN ×2 (15:41→20:01)
[2017-10-16 16:00] VITALS: O2SAT 93
--- NOTE | 2017-10-16 17:01 | History and Physical ---
History & Physical Date & Time of Service: Oct 16, 2017 at 16:47 Chief Complaint: Hypoxia Primary Care Physician: Bladimir Ortiz MD History of Present Illness Attending: Dr. Ratliff There is a 57-year-old female that has a history of tobacco abuse. She reports shortness of breath that was been progressive over the last 2-3 days. She consistently has sputum production but states that is increased since yesterday. She has no chest pain or tightness and further denies fever. She presents for evaluation from her primary care physician's office, Dr. Ortiz , where she was being seen acutely for shortness of breath. On presentation to her PCP she was found to be hypoxic with an SaO2 of 80% on room air. She was sent from there to the emergency department for further evaluation. She was found to be afebrile. A chest x-ray was completed which showed mild bronchitis. She received azithromycin and ceftriaxone in the emergency department as well as a nebulizer treatment. She does state that she should be on oxygen at home but cannot afford it. She has no other acute complaints at this time. The patient denies chest pain and chest tightness. She has no pleuritic pain. She has no hemoptysis. She denies back pain or abdominal pain. She does continue to smoke approximately 1 pack per day. In the emergency department she was placed on a NicoDerm patch. She has no other constitutional complaints. She has no asymmetrical edema of lower extremities. She denies any calf pain or tenderness. She denies nausea, vomiting, diarrhea. Past Medical/Surgical History Medical Problems: Abdominal pain Ankle sprain Anxiety Asthma Back pain Back strain Cholecystitis COPD (chronic obstructive pulmonary disease) Degenerative disc disease Hx Elevated liver enzymes Encounter for smoking cessation counseling Hx Gastroenteritis Hx Hematuria Hx Hydronephrosis with obstructing calculus Hypertension Hx Knee sprain Hx Pancreatitis Hx Paresthesias Renal colic on left side Renal colic on right side Hx Shingles Shingles Hx T12 compression fracture Hx UTI (urinary tract infection) Hx Ventral hernia Surgical Problems: (1) History of cholecystectomy (2) S/P appendectomy (3) S/P hysterectomy (4) S/P laparoscopic cholecystectomy (5) S/P oophorectomy Family History Cancer Diabetes mellitus FH: gallbladder disease FH: lung disease Hypertension Kidney disease Kidney stones Social History Smoking Status: Current Every Day Smoker Smokeless Tobacco Use: No Alcohol Use: none Drug Use: none Marital Status: Housing status: lives with family Occupational Status: unemployed Allergies Coded Allergies: Penicillins (Verified Allergy, Intermediate, HIVES, 10/16/17) Tetracyclines (Verified Allergy, Intermediate, HIVES, 10/16/17) Home Medications Scheduled Atorvastatin (Lipitor), 40 MG PO HS Azithromycin (Zithromax Z-Yoav), 0 PO UD B-Complex Vitamins (Vitamin B Complex), 1 TAB PO QAM Cetirizine Hcl (Zyrtec), 10 MG PO HS Cholecalciferol (Vitamin D3), 1,000 INTER.UNIT PO QAM Fluticasone Propionate (Nasal) (Flonase Allergy Relief), 2 SPRAYS DORENE QAM Ocuvite Preservision (Ocuvite Preservision), 1 TAB PO DAILY Prednisone (Prednisone), 2 TAB PO DAILY Ranitidine HCl (Ranitidine HCl), 150 MG PO BID Tiotropium [place] (Spiriva Handihaler), 1 PUFF INH DIRECTED Scheduled PRN Albuterol Hfa (Ventolin Hfa), 2 PUFFS INH Q4H PRN for SOB/Wheezing Azelastine Hcl (Astelin Nasal [place]), 2 SPRAYS DORENE BID PRN for Allergy Symptoms Review of Systems Constitutional: No fever, No chills, No sweats ENT: No unusual epistaxis, No trouble swallowing Respiratory: + cough, + sputum, + shortness of breath, + dyspnea on exertion, No wheezing, No hemoptysis Cardiovascular: No chest pain, No palpitations Abdomen: No pain, No nausea, No vomiting, No diarrhea, No constipation, No GI bleeding Genitourinary - Female: No hematuria Endocrine: No excessive thirst, No excessive urination Integumentary: + rash (Within bilateral inguinal folds), No itch Allergic / Immunologic: No food allergies Physical Exam Vital Signs Date Time Temp Pulse Resp B/P (MAP) Pulse Ox O2 Delivery O2 Flow Rate FiO2 10/16/17 15:09 36.7 86 17 148/85 (106) 93 Nasal Cannula 2.0 10/16/17 14:02 88 18 121/80 93 Nasal Cannula 2.0 10/16/17 12:43 81 10/16/17 12:42 87 Nasal Cannula 2.0 10/16/17 12:11 91 17 163/93 87 Room Air 10/16/17 11:23 96 22 163/93 92 Room Air 10/16/17 10:23 92 Nasal Cannula 2.0 10/16/17 10:21 86 20 163/93 88 Room Air 10/16/17 09:47 64 18 163/93 93 Nasal Cannula 2.0 10/16/17 09:37 83 10/16/17 09:31 92 Nasal Cannula 2.0 10/16/17 09:31 92 Nasal Cannula 2.0 10/16/17 09:12 36.7 100 18 155/86 89 Room Air GENERAL : No acute distress EYES: No icterus, gaze conjugate NOSE: No evidence of epistaxis MOUTH: No lesions or candidiasis NECK: Supple LUNGS: CTA B/L, no wheezes, rales or rhonchi. Breath sounds equal bilaterally HEART: Regular, rate controlled ABDOMEN: Soft, NT, ND, BS Present EXTREMITIES: No LE edema, pedal pulses intact. No evidence of rash in inguinal folds bilaterally NEURO: [facility] Diagn[facility] Laboratory Results Results Past 24 Hours Test 10/16/17 09:25 Range/Units White Blood Count 11.94 4.8-10.8 K/uL Red Blood Count 5.08 4.2-5.4 M/uL Hemoglobin 15.8 12.0-16.0 g/dL Hematocrit 46.3 37-47 % Mean Corpuscular Volume 91.1 80-100 fL Mean Corpuscular Hemoglobin 31.1 25-34 pg Mean Corpuscular Hemoglobin Concent 34.1 32-36 g/dl Platelet Count 314 130-400 K/uL Mean Platelet Volume 10.4 7.4-10.4 fL Neutrophils (%) (Auto) 64.9 % Lymphocytes (%) (Auto) 26.5 % Monocytes (%) (Auto) 4.6 % Eosinophils (%) (Auto) 3.4 % Basophils (%) (Auto) 0.3 % Neutrophils # (Auto) 7.75 1.4-6.5 K/uL Lymphocytes # (Auto) 3.16 1.2-3.4 K/uL Monocytes # (Auto) 0.55 0.11-0.59 K/uL Eosinophils # (Auto) 0.40 0-0.5 K/uL Basophils # (Auto) 0.04 0-0.2 K/uL RDW Standard Deviation 46.0 36.4-46.3 fL RDW Coefficient of Variation 13.8 11.5-14.5 % Immature Granulocyte % (Auto) 0.3 % Immature Granulocyte # (Auto) 0.04 0.00-0.02 K/uL Prothrombin Time 10.0 9.0-12.0 SECONDS Prothromb Time International Ratio 1.0 0.9-1.1 Activated Partial Thromboplast Time 25.5 21.0-31.0 SECONDS Partial Thromboplastin Ratio 1.0 Sodium Level 139 136-145 mmol/L Potassium Level 3.8 3.5-5.1 mmol/L Chloride Level 106 98-107 mmol/L Carbon Dioxide Level 28 21-32 mmol/L Anion Gap 6.0 3-11 mmol/L Blood Urea Nitrogen 15 7-18 mg/dl Creatinine 0.91 0.60-1.20 mg/dl Est Creatinine Clear Calc Drug Dose 79.1 ml/min Estimated GFR () 80.0 Estimated GFR (Non- 69.1 BUN/Creatinine Ratio 16.2 10-20 Random Glucose 100 70-99 mg/dl Calcium Level 9.3 8.5-10.1 mg/dl Total Bilirubin 0.7 0.2-1 mg/dl Aspartate Amino Transf (AST/SGOT) 18 15-37 U/L Alanine Aminotransferase (ALT/SGPT) 27 12-78 U/L Alkaline Phosphatase 126 45-117 U/L Total Creatine Kinase 42 26-192 U/L Creatine Kinase MB < 1.0 0.5-3.6 ng/ml Creatine Kinase MB Ratio 0-3.0 Troponin I < 0.015 0-0.045 ng/ml Total Protein 7.7 6.4-8.2 gm/dl Albumin 3.7 3.4-5.0 gm/dl Globulin 4.0 2.5-4.0 gm/dl Albumin/Globulin Ratio 0.9 0.9-2 Microbiology Results 10/16/17 Blood Culture, Received Pending 10/16/17 Blood Culture, Received Pending Diagnostic Radiology CHEST ONE VIEW PORTABLE CLINICAL HISTORY: cough, sob dyspnea COMPARISON STUDY: No previous studies for comparison. FINDINGS: Slight interstitial and peribronchial prominence throughout both hemithoraces. No well-defined focal infiltrate. Chronic elevation left hemidiaphragm. IMPRESSION: Mild bronchitis. The above report was generated using voice recognition software. It may contain grammatical, syntax or spelling errors. Electronically signed by: Shay Iglesias M.D. 10/16/2017 10:09 AM EKG EKG 10/16/2017 Vent. rate 82 BPM SD interval 146 ms QRS duration 86 ms QT/QTc 372/434 ms P-R-T axes 37 -5 62 Normal sinus rhythm Normal ECG When compared with ECG of 08-JUL-2017 17:29, No significant change was found Confirmed by Bladimir Woods ([id number]) on 10/16/2017 4:52:58 PM Impression Assessment and Plan This is a 57-year-old female that presented to the emergency department from her primary care physician's office for shortness of breath. She is found to be hypoxic. Chest x-ray showed mild bronchitis. She is being admitted for further evaluation treatment for hypoxia Acute COPD exacerbation secondary to Bronchitis * At this time there is no bronchospasm * Methylprednisolone * Will continue home Spiriva * Bronchodilators as needed * Azithromycin 500 mg p.o. daily for 5 days * Methylprednisolone * Taper as tolerated * Incentive spirometry * Refer to pulmonary for outpatient follow-up Acute on chronic respiratory failure * Patient with a history of COPD per records * Supplemental O2 as required * Patient apparently was referred for home supplemental O2 use but states that she could not afford it * Will do case management consult to see if she can get assistance with payment GERD * Continue ranitidine Tobacco abuse * Chronic every day smoker * Smoking cessation consult placed * Nicotine patch daily; remove at bedtime Hyperlipidemia * Continue atorvastatin DVT prophylaxis * SCDs * Ambulate as tolerated Advanced Directives Existing Living Will: No Existing Power of Forestry Conservation Worker: No Resuscitation Status Level 1 full resuscitation VTE Prophylaxis Will order VTE Prophylaxis: Yes Reviewed: Pt Seen/Exam by Me History 57 y/o F here with shortness of breath. Constitutional: denies: fever Respiratory: positive: cough, short of breath Cardiovascular: denies chest pain Gastrointestinal/Abdominal: negative: abdominal pain General Appearance: mild distress Respiratory: decreased breath sounds, rhonchi, wheezing Cardiovascular: regular rate, rhythm Neurologic/Psychiatric: alert, oriented x 3 Assessment/Plan Supervision Note: I independently interviewed and examined the patient and verified the ordoñez history and physical, reviewed labs and image studies, discussed the case with the Britton Brown and agree with the findings and care plan.
[2017-10-16] MEDS ORDERED: TRAZODONE HCL 50 MG TAB PO ONE (21:00)
[2017-10-16] MEDS: METHYLPREDNISOLONE IV 40 MG in SYRINGE 0 ML IV SCH (21:19)
[2017-10-16] MEDS: CETIRIZINE HCL 10 MG TAB PO SCH (21:20)
[2017-10-16] MEDS: ATORVASTATIN 40 MG TAB PO SCH (21:20)
[2017-10-16] MEDS: RANITIDINE HCL 150 MG TAB PO SCH (21:20)
[2017-10-16 23:48] VITALS: BP 114/73; PULSE 67; TEMP 36.9; O2SAT 93
[2017-10-17 06:17] LABS: BASO % 0.1 %; BASO ABS # 0.01 K/uL (0-0.2); HEMATOCRIT 45.7 % (37-47); HEMOGLOBIN 15.6 g/dL (12.0-16.0); IG# 0.09 K/uL (0.00-0.02); LYMPH % 10.6 %; LYMPH ABS # 1.78 K/uL (1.2-3.4); MEAN CELL VOLUME 90.5 fL (80-100); MEAN CORPUSCULAR HEMOGLOBIN 30.9 pg (25-34); MEAN CORPUSCULAR HGB CONC 34.1 g/dl (32-36); MEAN PLATELET VOLUME 10.3 fL (7.4-10.4); MONO ABS # 0.33 K/uL (0.11-0.59); NEUT % 86.8 %; NEUT ABS # 14.62 K/uL (1.4-6.5); PLATELET COUNT 345 K/uL (130-400); RED CELL DISTRIBUTION WIDTH CV 13.6 % (11.5-14.5); RED CELL DISTRIBUTION WIDTH SD 44.7 fL (36.4-46.3); WHITE BLOOD COUNT 16.83 K/uL (4.8-10.8)
[2017-10-17 06:49] LABS: CALCIUM 9.8 mg/dl (8.5-10.1); CREATININE 0.91 mg/dl (0.60-1.20); POTASSIUM 4.4 mmol/L (3.5-5.1)
[2017-10-17] MEDS: [UNRECOGNIZED DRUG - REMARK] SCH ×3 (07:26→23:19)
[2017-10-17] MEDS: TIOTROPIUM BROMIDE 5 PUFF/90 MCG INH INH SCH (07:39)
[2017-10-17] MEDS: CHOLECALCIFEROL 1000 INTER.UNIT TAB PO SCH (07:40)
[2017-10-17] MEDS: AZITHROMYCIN 250 MG TAB PO SCH (07:40)
[2017-10-17] MEDS: FLUTICASONE PROPIONATE NA SPR 16 GM BTL NAE SCH (07:41)
[2017-10-17] MEDS: RANITIDINE HCL 150 MG TAB PO SCH ×2 (07:41→20:40)
[2017-10-17] MEDS: CEROVITE ADV FORMULA TAB PO SCH (07:41)
[2017-10-17] MEDS: NICOTINE 21 MG/24 HR TDSY TD SCH (07:44)
--- NOTE | 2017-10-17 08:22 | Clinical Documentation Query ---
Dr. [facility] : CLINICAL DOCUMENTATION QUERY Patient is a 57 year old female admitted for evaluation of hypoxia and shortness of breath. Notably, she was previously referred for home supplemental O2 (but was not using it). Hypoxemic with an SpO2 in the 80's on room air. As appropriate, consider capture of this clinical information as suggested below as this impacts accurate DRG assignment. Thank you. In your clinical opinion is this patient being managed for: (x ) Chronic hypoxic respiratory failure ( ) Not Agree ( ) Other explanation of clinical findings (No explanation is considered a No Response) ( ) Unable to determine ( ) Need to Discuss (Phone CDS or qliq) (No discussion is considered a No Response) The medical record reflects the following clinical findings, treatment, and risk factors. Clinical Indicators: As above Treatment: Supplemental O2 Risk Factors: COPD/smoking Please clarify and document your clinical opinion in the progress notes and discharge summary. Terms such as "probable", "suspected", "likely", "questionable", "possible", or "still to be ruled out" are acceptable. IF IN AGREEMENT, YOU MUST DOCUMENT ABOVE DIAGNOSTIC STATEMENT IN DAILY PROGRESS NOTES AND DISCHARGE SUMMARY. This document is not part of the patient's record. Thank You, Micah Stover, RN [phone]
[2017-10-17] MEDS: METHYLPREDNISOLONE IV 40 MG in SYRINGE 0 ML IV SCH ×2 (08:37→20:39)
[2017-10-17 08:38] VITALS: BP 124/75; PULSE 76; TEMP 37; O2SAT 94
[2017-10-17] MEDS ORDERED: NON-FORMULARY MEDICATION (B-Complex Vitamins (Vitamin B Complex) 1 TAB) PO SCH (09:00)
[2017-10-17 14:32] VITALS: BP 102/59; PULSE 70; TEMP 36.9; O2SAT 96
--- NOTE | 2017-10-17 16:35 | Family Medicine Progress Note ---
Progress Note Date of Service Oct 17, 2017. Subjective still coughing a lot. breathing somewhat better still requiring oxygen Constitutional: No fever Cardiovascular: No chest pain Abdomen: No pain Objective Physical Exam General Appearance: no apparent distress Respiratory/Chest: no respiratory distress, + decreased breath sounds (better air entry), + rhonchi Cardiovascular: regular rate, rhythm Neurologic/Psychiatric: alert, oriented x 3 Skin: warm/dry Laboratory Results Item Value Date Time White Blood Count 16.83 K/uL H 10/17/17608 Hemoglobin 15.6 g/dL 10/17/17608 Platelet Count 345 K/uL 10/17/17608 Creatinine 0.91 mg/dl 10/17/17608 Assessment and Plan This is a 57-year-old female that presented to the emergency department from her primary care physician's office for shortness of breath. She is found to be hypoxic. Chest x-ray showed mild bronchitis. She is being admitted for further evaluation treatment for hypoxia Acute COPD exacerbation secondary to Bronchitis * Slowly improving * Methylprednisolone * Continue home Spiriva * Bronchodilators as needed * Azithromycin 500 mg p.o. daily for 5 days Acute on chronic respiratory failure * Patient with a history of COPD per records * Supplemental O2 as required * Patient apparently was referred for home supplemental O2 use but states that she could not afford it * Will do case management consult to see if she can get assistance with payment GERD * Continue ranitidine Tobacco abuse * Chronic every day smoker * Smoking cessation consult placed * Nicotine patch daily; remove at bedtime Hyperlipidemia * Continue atorvastatin DVT prophylaxis * SCDs * Ambulate as tolerated
[2017-10-17] MEDS: CETIRIZINE HCL 10 MG TAB PO SCH (20:40)
[2017-10-17] MEDS: ATORVASTATIN 40 MG TAB PO SCH (20:40)
[2017-10-17 22:53] VITALS: BP 109/64; PULSE 56; TEMP 36.7; O2SAT 96
[2017-10-18 06:34] LABS: BASO ABS # 0.01 K/uL (0-0.2); HEMATOCRIT 43.4 % (37-47); HEMOGLOBIN 14.2 g/dL (12.0-16.0); LYMPH % 9.4 %; LYMPH ABS # 2.13 K/uL (1.2-3.4); MEAN CELL VOLUME 91.8 fL (80-100); MEAN CORPUSCULAR HGB CONC 32.7 g/dl (32-36); MEAN PLATELET VOLUME 11.1 fL (7.4-10.4); MONO ABS # 0.67 K/uL (0.11-0.59); NEUT % 87.2 %; NEUT ABS # 19.66 K/uL (1.4-6.5); PLATELET COUNT 294 K/uL (130-400); RED CELL DISTRIBUTION WIDTH CV 13.7 % (11.5-14.5); WHITE BLOOD COUNT 22.57 K/uL (4.8-10.8)
[2017-10-18 07:04] LABS: CALCIUM 9.2 mg/dl (8.5-10.1); CREATININE 0.85 mg/dl (0.60-1.20); POTASSIUM 4.7 mmol/L (3.5-5.1)
[2017-10-18 07:17] VITALS: BP 120/75; PULSE 60; TEMP 36.6; O2SAT 96
[2017-10-18] MEDS: [UNRECOGNIZED DRUG - REMARK] SCH (07:40)
[2017-10-18] MEDS: NICOTINE 21 MG/24 HR TDSY TD SCH (07:55)
[2017-10-18] MEDS: RANITIDINE HCL 150 MG TAB PO SCH (07:55)
[2017-10-18] MEDS: CEROVITE ADV FORMULA TAB PO SCH (07:55)
[2017-10-18] MEDS: TIOTROPIUM BROMIDE 5 PUFF/90 MCG INH INH SCH (07:55)
[2017-10-18] MEDS: CHOLECALCIFEROL 1000 INTER.UNIT TAB PO SCH (07:55)
[2017-10-18] MEDS: AZITHROMYCIN 250 MG TAB PO SCH (07:55)
[2017-10-18] MEDS: FLUTICASONE PROPIONATE NA SPR 16 GM BTL NAE SCH (07:56)
[2017-10-18] MEDS: METHYLPREDNISOLONE IV 40 MG in SYRINGE 0 ML IV SCH (09:08)
[2017-10-18] MEDS ORDERED: PRED20TA PO (11:11)
[2017-10-18] MEDS ORDERED: AZITTAB PO (11:11)
--- NOTE | 2017-10-18 11:13 | Discharge Instructions ---
Discharge Instructions Date of Service Oct 18, 2017. Admission Reason for Admission: Hypoxia Discharge Discharge Diagnosis / Problem: COPD exacerbation Discharge Goals Goal(s): Improve function, Improve disease control Activity Recommendations Activity Limitations: resume your previous activity . Instructions / Follow-Up Instructions / Follow-Up Follow up with family physician in one week Current Hospital Diet Patient's current hospital diet: AHA Diet (Heart Healthy) Discharge Diet Recommended Diet: AHA Diet (Heart Healthy) Pending Studies Studies pending at discharge: no Medical Emergencies . Who to Call and When: Medical Emergencies: If at any time you feel your situation is an emergency, please call 911 immediately. . Non-Emergent Contact Non-Emergency issues call your: Primary Care Provider . . "Provider Documentation" section prepared by Shiloh Ratliff. .
--- NOTE | 2017-10-18 11:22 | Discharge Summary ---
Discharge Summary Date of Service Oct 18, 2017. Discharge Summary Admission Date: Oct 16, 2017 at 13:47 Discharge Date: Oct 18, 2017 Discharge Disposition: Home Principal Diagnosis: COPD exacerbation Medication Reconciliation Changed Medications: Azithromycin (Zithromax Z-Yoav) 250 Mg Tab 1 TAB PO UD, #1 PKT (Changed from: 0 ) 2 TABS DAY 1, THEN 1 TAB DAILY FOR 4 DAYS Continued Medications: Albuterol Hfa (Ventolin Hfa) 200 Puffs/45941 Mcg Aers 2 PUFFS INH Q4H PRN for SOB/Wheezing Atorvastatin (Lipitor) 40 Mg Tab 40 MG PO HS Azelastine Hcl (Astelin Nasal Jerome) 200 Sprays/30 Ml Jerome 2 SPRAYS DORENE BID PRN for Allergy Symptoms, BTL B-Complex Vitamins (Vitamin B Complex) 1 Tab Tab 1 TAB PO QAM Cetirizine Hcl (Zyrtec) 10 Mg Tab 10 MG PO HS, TAB Cholecalciferol (Vitamin D3) 1,000 Unit Cap 1000 INTER.UNIT PO QAM Fluticasone Propionate (Nasal) (Flonase Allergy Relief) 50 Mcg/Act Spr 2 SPRAYS DORENE QAM Ocuvite Preservision (Ocuvite Preservision) 1 Tab Tab 1 TAB PO DAILY, TAB Prednisone (Prednisone) 20 Mg Tab 2 TAB PO DAILY for 4 Days, #8 TAB (This prescription has been renewed) Ranitidine HCl (Ranitidine HCl) 150 Mg Tab 150 MG PO BID Tiotropium [place] (Spiriva Handihaler) 30 Puff/540 Mcg Aerp 1 PUFF INH DIRECTED, INHALER Discharge Exam Last Resulted CBC 10/18/17 05:42 Red Blood Count 4.73, Mean Corpuscular Volume 91.8, Mean Corpuscular Hemoglobin 30.0, Mean Corpuscular Hemoglobin Concent 32.7, Mean Platelet Volume 11.1, Neutrophils (%) (Auto) 87.2, Lymphocytes (%) (Auto) 9.4, Monocytes (%) (Auto) 3.0, Eosinophils (%) (Auto) 0.0, Basophils (%) (Auto) 0.0, Neutrophils # (Auto) 19.66, Lymphocytes # (Auto) 2.13, Monocytes # (Auto) 0.67, Eosinophils # (Auto) 0.00, Basophils # (Auto) 0.01 Last Resulted BMP 10/18/17 05:42 Review of Systems: Constitutional: No fever Respiratory: + cough (but much improved since admission), No shortness of breath Cardiovascular: No chest pain Abdomen: No pain Physical Exam: General Appearance: no apparent distress Respiratory/Chest: lungs clear, no respiratory distress Cardiovascular: regular rate, rhythm Abdomen / GI: soft Neurologic/Psychiatric: alert, oriented x 3 Skin: warm/dry Hospital Course This is a 57-year-old female that presented to the emergency department from her primary care physician's office for shortness of breath. She is found to be hypoxic. Chest x-ray showed mild bronchitis. She is being admitted for further evaluation treatment for hypoxia Acute COPD exacerbation secondary to Bronchitis * Continued Spiriva * Bronchodilators as needed * Azithromycin 500 mg p.o. daily for 5 days * Methylprednisolone * Doing much better - Home on zithromax and prednisone. Hypoxia No Chronic respiratory failure - Had 2 step before discharge and Saturating well without oxygen during the day. * Patient with a history of COPD per records * Requrired Supplemental O2 but did well with 2 step. No oxygen need during day. * Only uses oxygen at night. Leukocytosis * Likely due to steroids * should f/u as outpatient. GERD * Continue ranitidine Tobacco abuse * Chronic every day smoker * Smoking cessation Hyperlipidemia * Continue atorvastatin DVT prophylaxis * SCDs Total Time Spent: Greater than 30 minutes This includes examination of the patient, discharge planning, medication reconciliation, and communication with other providers. Discharge Instructions Please refer to the electronic Patient Visit Report (Discharge Instructions) for additional information. Additional Copies To Bladimir Ortiz MD
[2017-10-18 11:32] VITALS: BP 120/75; PULSE 60; TEMP 36.6; O2SAT 96
== END 2017-10-18 12:12 | disposition home or self-care (01) | DRG 190 ==
LOC: C.EDB 09:08 → C.MS2W 13:47 → ENRESERV 14:00
PROVIDERS: ADMIT Family Medicine; ATTEND Family Medicine
DX: J44.0 Chronic obstructive pulmonary disease with (acute) lower respiratory infection (principal); J96.21 Acute and chronic respiratory failure with hypoxia; J20.9 Acute bronchitis, unspecified; I10 Essential (primary) hypertension; Z87.442 Personal history of urinary calculi; Z83.3 Family history of diabetes mellitus; F17.200 Nicotine dependence, unspecified, uncomplicated; Z88.0 Allergy status to penicillin; Z88.1 Allergy status to other antibiotic agents; K21.9 Gastro-esophageal reflux disease without esophagitis; E78.5 Hyperlipidemia, unspecified

== ENCOUNTER 2018-06-05 00:30 | Inpatient (IN) ==
[2018-06-05] MEDS ORDERED: ALBUT/IPRATROP 3MG/0.5MG NEB 3 ML VIAL ONE (00:43)
[2018-06-05] MEDS ORDERED: methylPREDNISolone 125 MG/2 ML VIAL IV STA (00:53)
[2018-06-05] MEDS ORDERED: ALBUT/IPRATROP 3MG/0.5MG NEB 3 ML VIAL NEB STA ×2 (00:53→02:07)
[2018-06-05] MEDS ORDERED: SODIUM CHLORIDE 0.9% 500 ML IV SCH ×2 (01:00)
[2018-06-05 01:06] LABS: Basophils # (auto) 0.06 K/uL (0-0.2); Basophils % (auto) 0.3 %; Eosinophils # (auto) 0.37 K/uL (0-0.5); Eosinophils % (auto) 1.9 %; Hematocrit (blood only) 46.3 % (37-47); Hemoglobin 15.9 g/dL (12.0-16.0); Immature Granulocytes # (auto) 0.06 K/uL (0.00-0.02); Immature Granulocytes % (auto) 0.3 %; Lymphocytes # (auto) 2.91 K/uL (1.2-3.4); Lymphocytes % (auto) 15.1 %; Mean Corpuscular Hgb Conc 34.3 g/dL (32-36); Mean Corpuscular Volume 88.7 fL (80-100); Mean Platelet Volume 10.6 fL (7.4-10.4); Monocytes # (auto) 1.03 K/uL (0.11-0.59); Monocytes % (auto) 5.4 %; Neutrophils # (auto) 14.81 K/uL (1.4-6.5); Platelet Count 309 K/uL (130-400); RDW Coefficient of Variation 13.9 % (11.5-14.5); Red Blood Count 5.22 M/uL (4.2-5.4); White Blood Count 19.24 K/uL (4.8-10.8)
[2018-06-05 01:27] LABS: Alanine Aminotransferase 31 U/L (12-78); Albumin Level 3.8 gm/dl (3.4-5.0); Aspartate Aminotransferase 22 U/L (15-37); Blood Urea Nitrogen 8 mg/dl (7-18); Calcium 9.1 mg/dl (8.5-10.1); Carbon Dioxide 25 mmol/L (21-32); Chloride 109 mmol/L (98-107); Creatinine Clr Calc Pharmacy 96.4 ml/min; Est GFR (African American) 105.5; Glucose 111 mg/dl (70-99); Potassium 3.5 mmol/L (3.5-5.1); Sodium 139 mmol/L (136-145)
[2018-06-05 01:31] LABS: Alkaline Phosphatase 134 U/L (45-117); Bilirubin,Total 0.8 mg/dl (0.2-1); Globulin 3.9 gm/dl (2.5-4.0); Total Protein 7.7 gm/dl (6.4-8.2); Troponin I < 0.015 ng/ml (0-0.045)
[2018-06-05 01:52] LABS: Influenza A virus by PCR Neg for Influ A (Neg); Influenza B virus by PCR Neg for Influ B (Neg)
[2018-06-05] MEDS ORDERED: ACETAMINOPHEN 500 MG TAB PO STA (02:00)
[2018-06-05] MEDS ORDERED: AZITHROMYCIN 500 MG in DEXTROSE 5% 250 ML IV SCH (02:15)
[2018-06-05] MEDS ORDERED: FLUTICASONE PROPIONATE NA SPR 16 GM BTL NAE PRN (03:39)
[2018-06-05] MEDS ORDERED: ACETAMINOPHEN 325 MG TAB PO PRN (03:39)
[2018-06-05] MEDS ORDERED: POLYETHYLENE (MIRALAX) 17 GM PACK PO PRN (03:39)
[2018-06-05] MEDS ORDERED: BUDESONIDE/FORMOTEROL FUMARATE 160/4.5 60 PUFFS/INHALER INH PRN (03:39)
[2018-06-05] MEDS ORDERED: NAPROXEN 250 MG TAB PO PRN (03:39)
[2018-06-05] MEDS ORDERED: ONDANSETRON 4 MG OD TAB PO PRN (03:39)
[2018-06-05] MEDS ORDERED: ALBUT/IPRATROP 3MG/0.5MG NEB 3 ML VIAL NEB PRN (03:39)
[2018-06-05] MEDS ORDERED: ONDANSETRON INJ 2 MG/ML 2 ML VIAL IV PRN (03:39)
[2018-06-05] MEDS ORDERED: ACETAMINOPHEN 1000 MG/100 ML IV IV PRN (03:39)
[2018-06-05] MEDS ORDERED: Nursing to Pharmacy Communication ONE (04:06)
--- NOTE | 2018-06-05 05:21 | History & Physical Report ---
Date of Service June 05, 2018 Assessment & Plan (1) COPD exacerbation: COPD exacerbation/tobacco use disorder/upper respiratory infection with hypoxia-- Solu-Medrol 40 mg IV every 8 hours. Duo nebs 4 times daily and every 2 hours as needed. Pulmicort Respules 0.5 mg inhaled twice daily. Guaifenesin extended release 600 mg p.o. twice daily. Sputum Gram stain and culture. Continue azithromycin 500 mg IV daily begun in the ED. Continue fluticasone nasal spray as needed for nasal symptoms Continue Symbicort and Spiriva. Present on Admission?: Yes (2) Tobacco use disorder: Cessation counseling. NicoDerm patch 14 mg daily Present on Admission?: Yes (3) Hypertension: Hypertension/tachycardia-- Occurred after hour-long nebulizer treatment Would not treat unless becomes persistent. Present on Admission?: Yes (4) Hyperlipidemia: Continue atorvastatin 40 mg p.o. every evening. Present on Admission?: Yes (5) GERD (gastroesophageal reflux disease): Omeprazole 20 mg p.o. every evening, and ranitidine 150 mg p.o. twice daily. Present on Admission?: Yes (6) Allergic rhinitis: Continue fluticasone nasal spray as needed Present on Admission?: Yes (7) Depression: Continue sertraline 100 mg p.o. at bedtime Present on Admission?: Yes History of Present Illness Chief Complaint: The patient presents to the emergency department with worsening shortness of breath and cough productive of greenish colored mucus. Primary Care Provider: Teddy Ortiz MD The patient is a 58-year-old female with past medical history including COPD, tobacco use, hyperlipidemia, allergic rhinitis, arthritis, GERD and depression, who presents to the emergency department with worsening shortness of breath, wheezing, change in her baseline mucus to more thick and greenish colored. She reports that her wheezing is so loud that her has had to move to the other room and has to sleep. She does use Proventil HFA on a daily basis, and has albuterol nebulizer solution and separate Atrovent nebulizer solution that she uses as needed, that have not provided significant relief. She reports that she is using a nebulizer unit that is very old, and had gotten it from a relative who had been using it for a number years. Allergies Allergy/AdvReac Type Severity Reaction Status Date / Time Penicillins Allergy Intermediate HIVES Verified 06/05/18 01:32 Tetracyclines Allergy Intermediate HIVES Verified 06/05/18 01:32 Home Medications Home Medications Medication Instructions Recorded Confirmed Type Ocuvite Adult 50 Plus 1 cap PO QPM 01/01/18 06/05/18 History albuterol sulfate [Ventolin HFA] 2 puff INHALATION QID PRN 01/01/18 06/05/18 History atorvastatin 40 mg PO QPM 01/01/18 06/05/18 History cetirizine 10 mg PO QPM 01/01/18 06/05/18 History ranitidine HCl 150 mg PO BID 01/01/18 06/05/18 History sertraline 100 mg PO HS 01/01/18 06/05/18 History One Daily Women 50 Plus 1 tab PO QAM 01/03/18 06/05/18 History ipratropium-albuterol 3 ml NEB QID PRN 01/17/18 06/05/18 History omeprazole 20 mg PO QPM 01/17/18 06/05/18 History ondansetron 4 mg PO Q6H PRN #15 tab 03/28/18 06/05/18 Rx oxycodone-acetaminophen [Percocet] 1 tab PO Q6H PRN #14 tab 04/03/18 06/05/18 Rx azelastine 2 spray INTRANASAL BID PRN 06/05/18 06/05/18 History budesonide-formoterol [Symbicort] 2 puff INHALATION BID PRN 06/05/18 06/05/18 History fluticasone propionate 1 spray INTRANASAL DAILY PRN 06/05/18 06/05/18 History mv,Ca,min-iron jqev-CO-hbfeyh 1 tab PO DAILY 06/05/18 06/05/18 History [Hair,Skin and Nails] naproxen sodium 220 mg PO DIRECTED PRN 06/05/18 06/05/18 History tiotropium bromide [Spiriva with 1 cap INHALATION DAILY 06/05/18 06/05/18 History HandiHaler] Past Med/Surg History Medical History Tobacco use disorder (Chronic) Kidney stones (Resolved) COPD (chronic obstructive pulmonary disease) (Chronic) USES NEBULIZER. INHALER 2-3 X PER DAY. Seen in ED for URI/exacerbation 11/2017 [facility]. Patient not taking other inhalers due to cost Compression fx, thoracic spine (Inactive) Leukocytosis (Inactive) Anxiety Chronic back pain Dementia of the Alzheimer's type, with early onset, with depressive mood STATES SHE STOPPED TAKING ANY MEDICATION R/T THIS ISSUE Depression GERD (gastroesophageal reflux disease) Controlled HLD (hyperlipidemia) Hearing deficit LEFT EAR Hypertension CURRENTLY ON NO MEDICATIONS AT THIS TIME Macular degeneration Osteoarthritis Osteoporosis Surgical History History of appendectomy History of cataract surgery BOTH EYES WITH LENS IMPLANT History of cholecystectomy History of colonoscopy History of open reduction and internal fixation (ORIF) procedure LEFT elbow History of tooth extraction ALL TEETH History of total abdominal hysterectomy and bilateral salpingo-oophorectomy Hx of hernia repair Hx of sinus surgery IN ADDITIION TO SINUS SURGERY - INSERTED TUBES IN BOTH EARS; RIGHT EAR TUBE HAS SINCE FALLEN OUT Status post wrist surgery left for tendonitis Family History Mother Family history of diabetes mellitus Grandfather No problems noted. Grandmother No problems noted. Grandfather (Maternal) Family history of diabetes mellitus Grandmother (Maternal) Family history of diabetes mellitus Other No family history of adverse response to anesthesia Social History Preferred Language: Croatian Communication Ability: Effective Shoes Hand Sewer Required: No Beliefs That Will Affect Care: None marital status: Current Living Situation: Spouse Current Living Situation Comment: Lives with and son Other Information That Helps Us Care for You: No Feels Safe at Home: Yes Safety Concerns: Feels Safe At This Time Smoking Status: Current every day smoker Hx Alcohol Use: Yes Hx Substance Use: No Review of Systems The patient denies chest pain, palpitations, lower extremity swelling, mich, chills, sweats, weight change, fatigue, nausea, vomiting, diarrhea , constipation, abdominal pain, pelvic pain, blood in urine or stool, dysuria, urinary frequency or urgency, lightheadedness, dizziness, headache, memory loss, loss of consciousness, rash, abnormal bruising or bleeding, imbalance, focal or generalized weakness, numbness or tingling in arms or legs, generalized arthralgias or myalgias, back or neck pain, or night sweats. The review of systems is otherwise negative other than for that already noted above, and at least 10 systems have been reviewed. Physical Exam Vital Signs (Past 24 Hours): Last Vital Signs Temp 36.7 C 06/05/18 03:54 Pulse 108 H 06/05/18 03:58 Resp 26 H 06/05/18 03:54 BP 149/82 H 06/05/18 03:54 Pulse Ox 90 06/05/18 03:54 Physical Exam: The patient is awake, alert and oriented 3, normocephalic and atraumatic, lying in bed and in mild respiratory distress. HEENT--PERRL, EOMI, mucous membranes and oropharynx dry. Neck--supple. No JVD. No bruits. Thyroid normal, trachea midline, no adenopathy. Heart--normal S1 and S2. No murmurs, rubs or gallops. Lungs--diffuse inspiratory and expiratory wheezes bilaterally, with few coarse breath sounds bilaterally Abdomen--normal bowel sounds and soft. Nontender. Nondistended. Extremities--no cyanosis or clubbing. No edema. There are good distal pulses b/l. Dermatologic--normal skin turgor, normal color, no abnormal lymph nodes, no rash. Neurologic--cranial nerves II through XII grossly intact. Rheumatologic--normal range of motion. Psychiatric--normal affect. Results & Data Laboratory Results Laboratory Results WBC 19.24 K/uL (4.8-10.8) H 06/05/18 00:50 RBC 5.22 M/uL (4.2-5.4) 06/05/18 00:50 Hgb 15.9 g/dL (12.0-16.0) 06/05/18 00:50 Hct 46.3 % (37-47) 06/05/18 00:50 MCV 88.7 fL (80-100) 06/05/18 00:50 MCH 30.5 pg (25-34) 06/05/18 00:50 MCHC 34.3 g/dL (32-36) 06/05/18 00:50 RDW Std Deviation 45.0 fL (36.4-46.3) 06/05/18 00:50 RDW Coeff of Yoshi 13.9 % (11.5-14.5) 06/05/18 00:50 Plt Count 309 K/uL (130-400) 06/05/18 00:50 MPV 10.6 fL (7.4-10.4) H 06/05/18 00:50 Immature Gran % (Auto) 0.3 % 06/05/18 00:50 Neut % (Auto) 77.0 % 06/05/18 00:50 Lymph % (Auto) 15.1 % 06/05/18 00:50 [place] % (Auto) 5.4 % 06/05/18 00:50 Eos % (Auto) 1.9 % 06/05/18 00:50 Baso % (Auto) 0.3 % 06/05/18 00:50 Immature Gran # (Auto) 0.06 K/uL (0.00-0.02) H 06/05/18 00:50 Neut # (Auto) 14.81 K/uL (1.4-6.5) H 06/05/18 00:50 Lymph # (Auto) 2.91 K/uL (1.2-3.4) 06/05/18 00:50 [place] # (Auto) 1.03 K/uL (0.11-0.59) H 06/05/18 00:50 Eos # (Auto) 0.37 K/uL (0-0.5) 06/05/18 00:50 Baso # (Auto) 0.06 K/uL (0-0.2) 06/05/18 00:50 Sodium 139 mmol/L (136-145) 06/05/18 00:50 Potassium 3.5 mmol/L (3.5-5.1) 06/05/18 00:50 Chloride 109 mmol/L (98-107) H 06/05/18 00:50 Carbon Dioxide 25 mmol/L (21-32) 06/05/18 00:50 Anion Gap 5.0 (3-11) 06/05/18 00:50 BUN 8 mg/dl (7-18) 06/05/18 00:50 Creatinine 0.72 mg/dl (0.6-1.2) 06/05/18 00:50 Est Cr Clr Drug Dosing 96.4 ml/min 06/05/18 00:50 Est GFR ( Amer) 105.5 06/05/18 00:50 Est GFR (Non-Af Amer) 91.0 06/05/18 00:50 BUN/Creatinine Ratio 11.0 (10-20) 06/05/18 00:50 Glucose 111 mg/dl (70-99) H 06/05/18 00:50 POC Lactic Acid Demian 0.68 mmol/L (0.90-1.70) L 06/05/18 00:56 Calcium 9.1 mg/dl (8.5-10.1) 06/05/18 00:50 Total Bilirubin 0.8 mg/dl (0.2-1) 06/05/18 00:50 AST 22 U/L (15-37) 06/05/18 00:50 ALT 31 U/L (12-78) 06/05/18 00:50 Alkaline Phosphatase 134 U/L (45-117) H 06/05/18 00:50 Troponin I < 0.015 ng/ml (0-0.045) 06/05/18 00:50 Total Protein 7.7 gm/dl (6.4-8.2) 06/05/18 00:50 Albumin 3.8 gm/dl (3.4-5.0) 06/05/18 00:50 Globulin 3.9 gm/dl (2.5-4.0) 06/05/18 00:50 Albumin/Globulin Ratio 1.0 (0.9-2) 06/05/18 00:50 Influenza Type A (PCR) Neg for Influ A (Neg) 06/05/18 00:50 Influenza Type B (PCR) Neg for Influ B (Neg) 06/05/18 00:50 Code Status & VTE Plan Code Status Full code VTE Prophylaxis Plan VTE Prophylaxis will be ordered: Yes
--- NOTE | 2018-06-05 06:38 | XRay Report ---
XR chest 1V portable HISTORY: 58 years-old Female dyspnea, fever acute shortness of breath with fever COMPARISON: Chest radiograph 01/16/2018 TECHNIQUE: Portable AP view of the chest FINDINGS: Cardiomediastinal and hilar silhouettes are unchanged. Mild left hemidiaphragmatic elevation. No pneu mothorax, pleural effusion or overt pulmonary edema. Minimal subsegmental right basilar opacities. De generative changes of the shoulders and spine. IMPRESSION: 1. Mild cardiomegaly without overt pulmonary edema. 2. Chronic left hemidiaphragmatic elevation. 3. Subsegmental right basilar opacities favor atelectasis. The above report was generated using voice recognition software. It may contain grammatical, syntax o r spelling errors. Electronically signed by: Imer Allred M.D. 06/05/2018 6:37 AM
[2018-06-05 06:48] LABS: Prothrombin Time 10.4 Seconds (9.0-12.0)
[2018-06-05] MEDS: ALBUT/IPRATROP 3MG/0.5MG NEB 3 ML VIAL NEB SCH ×4 (07:33→20:27)
[2018-06-05] MEDS: BUDESONIDE 0.5 MG/2 ML VIAL (PULMICORT) NEB SCH ×2 (07:33→20:27)
--- NOTE | 2018-06-05 07:34 | Emergency Department Note ---
Entered by Iliana Vásquez acting as a scribe for History of Present Illness General Chief complaint: Shortness of Breath/Dyspnea Stated complaint: SOB, BODY ACHES Source: patient History of Present Illness Onset (ago): day(s) (yesterday) Location: chest Pain Consistency: + other (worsening) Maximum Pain Intensity: 8 Quality: + other (shortness of breath) Relieved By: not by medication (nebulizer) Associated symptoms: + denies other symptoms (abdominal pain), + cough, + fever/chills (fever) and + other (body aches) The patient is a 58 year old female who presents to the Emergency Room with complaints of worsening shortness of breath starting yesterday. The patient states that yesterday he started getting sick. She states that she started coughing up phlegm, having body aches, and low grade fevers of 100.4. She states that she noticed she has also been more short of breath so she has been taking more nebulizer treatments. She reports that prior to coming in this evening she took 6, 2 at a time. The patient notes that she does smoke a pack a day. The patient denies abdominal pain and getting the flu shot this year. Home Medications Home Medications Medication Instructions Recorded Confirmed Type Ocuvite Adult 50 Plus 1 cap PO QPM 01/01/18 06/05/18 History albuterol sulfate [Ventolin HFA] 2 puff INHALATION QID PRN 01/01/18 06/05/18 History atorvastatin 40 mg PO QPM 01/01/18 06/05/18 History cetirizine 10 mg PO QPM 01/01/18 06/05/18 History ranitidine HCl 150 mg PO BID 01/01/18 06/05/18 History sertraline 100 mg PO HS 01/01/18 06/05/18 History One Daily Women 50 Plus 1 tab PO QAM 01/03/18 06/05/18 History ipratropium-albuterol 3 ml NEB QID PRN 01/17/18 06/05/18 History omeprazole 20 mg PO QPM 01/17/18 06/05/18 History ondansetron 4 mg PO Q6H PRN #15 tab 03/28/18 06/05/18 Rx oxycodone-acetaminophen [Percocet] 1 tab PO Q6H PRN #14 tab 04/03/18 06/05/18 Rx azelastine 2 spray INTRANASAL BID PRN 06/05/18 06/05/18 History budesonide-formoterol [Symbicort] 2 puff INHALATION BID PRN 06/05/18 06/05/18 History fluticasone propionate 1 spray INTRANASAL DAILY PRN 06/05/18 06/05/18 History mv,Ca,min-iron kuuc-SE-xffhib 1 tab PO DAILY 06/05/18 06/05/18 History [Hair,Skin and Nails] naproxen sodium 220 mg PO DIRECTED PRN 06/05/18 06/05/18 History tiotropium bromide [Spiriva with 1 cap INHALATION DAILY 06/05/18 06/05/18 History HandiHaler] Allergies Allergy/AdvReac Type Severity Reaction Status Date / Time Penicillins Allergy Intermediate HIVES Verified 06/05/18 01:32 Tetracyclines Allergy Intermediate HIVES Verified 06/05/18 01:32 Past Med/Surg History Medical History Tobacco use disorder (Chronic) Kidney stones (Resolved) COPD (chronic obstructive pulmonary disease) (Chronic) USES NEBULIZER. INHALER 2-3 X PER DAY. Seen in ED for URI/exacerbation 11/2017 [facility]. Patient not taking other inhalers due to cost Compression fx, thoracic spine (Inactive) Leukocytosis (Inactive) Anxiety Chronic back pain Dementia of the Alzheimer's type, with early onset, with depressive mood STATES SHE STOPPED TAKING ANY MEDICATION R/T THIS ISSUE Depression GERD (gastroesophageal reflux disease) Controlled HLD (hyperlipidemia) Hearing deficit LEFT EAR Hypertension CURRENTLY ON NO MEDICATIONS AT THIS TIME Macular degeneration Osteoarthritis Osteoporosis Surgical History History of appendectomy History of cataract surgery BOTH EYES WITH LENS IMPLANT History of cholecystectomy History of colonoscopy History of open reduction and internal fixation (ORIF) procedure LEFT elbow History of tooth extraction ALL TEETH History of total abdominal hysterectomy and bilateral salpingo-oophorectomy Hx of hernia repair Hx of sinus surgery IN ADDITIION TO SINUS SURGERY - INSERTED TUBES IN BOTH EARS; RIGHT EAR TUBE HAS SINCE FALLEN OUT Status post wrist surgery left for tendonitis Family History Mother Family history of diabetes mellitus Grandfather No problems noted. Grandmother No problems noted. Grandfather (Maternal) Family history of diabetes mellitus Grandmother (Maternal) Family history of diabetes mellitus Other No family history of adverse response to anesthesia Social History Communication Ability: Effective Beliefs That Will Affect Care: None marital status: Current Living Situation: Spouse Current Living Situation Comment: Lives with and son Other Information That Helps Us Care for You: No Feels Safe at Home: Yes Safety Concerns: Feels Safe At This Time Smoking Status: Current every day smoker Hx Alcohol Use: Yes Hx Substance Use: No Review of Systems See HPI for pertinent positives & negatives. and A total of 10 systems reviewed and were otherwise negative Physical Exam Vital Signs Vital Signs - 24 hr 06/06/18 11:32 06/06/18 11:54 06/06/18 14:56 Temperature 36.9 C Temperature Source Oral Pulse Rate 99 H Pulse Rate [Finger] 76 72 Respiratory Rate 18 18 Respiratory Effort / Characteristics Non-Labored Spontaneous Respiratory Depth Blood Pressure [Left Arm] 110/69 Blood Pressure [Right Arm] Blood Pressure Mean [Left Arm] 82 Blood Pressure Mean [Right Arm] Blood Pressure Position [Left Arm] Blood Pressure Position [Right Arm] Pulse Oximetry 96 93 Oxygen Delivery Method Nasal Cannula Room Air Oxygen Flow Rate 2 06/06/18 15:10 06/06/18 15:22 06/06/18 15:28 Temperature 37.2 C Temperature Source Oral Pulse Rate Pulse Rate [Finger] 89 85 Respiratory Rate 18 16 Respiratory Effort / Characteristics Non-Labored Spontaneous Respiratory Depth Blood Pressure [Left Arm] Blood Pressure [Right Arm] 131/70 Blood Pressure Mean [Left Arm] Blood Pressure Mean [Right Arm] 90 Blood Pressure Position [Left Arm] Blood Pressure Position [Right Arm] Pulse Oximetry 92 94 Oxygen Delivery Method Room Air Room Air Room Air Oxygen Flow Rate 06/06/18 19:11 06/06/18 19:25 06/06/18 19:42 Temperature 36.6 C Temperature Source Oral Pulse Rate Pulse Rate [Finger] 83 83 Respiratory Rate 18 20 Respiratory Effort / Characteristics Non-Labored Non-Labored Respiratory Depth Normal Blood Pressure [Left Arm] Blood Pressure [Right Arm] 114/63 Blood Pressure Mean [Left Arm] Blood Pressure Mean [Right Arm] 80 Blood Pressure Position [Left Arm] Blood Pressure Position [Right Arm] Lying Pulse Oximetry 95 95 Oxygen Delivery Method Room Air Room Air Room Air Oxygen Flow Rate 06/06/18 22:32 06/07/18 03:44 06/07/18 05:17 Temperature 36.9 C 36.9 C Temperature Source Oral Oral Pulse Rate 86 Pulse Rate [Finger] 84 70 Respiratory Rate 20 18 Respiratory Effort / Characteristics Respiratory Depth Blood Pressure [Left Arm] 124/67 123/68 Blood Pressure [Right Arm] Blood Pressure Mean [Left Arm] 86 86 Blood Pressure Mean [Right Arm] Blood Pressure Position [Left Arm] Lying Lying Blood Pressure Position [Right Arm] Pulse Oximetry 93 93 Oxygen Delivery Method Room Air Room Air Oxygen Flow Rate 06/07/18 07:13 06/07/18 07:33 06/07/18 08:04 Temperature 36.5 C Temperature Source Oral Pulse Rate Pulse Rate [Finger] 77 65 Respiratory Rate 16 16 Respiratory Effort / Characteristics Non-Labored Spontaneous Non-Labored SOB on Exertion Respiratory Depth Normal Blood Pressure [Left Arm] 155/92 H Blood Pressure [Right Arm] Blood Pressure Mean [Left Arm] 113 Blood Pressure Mean [Right Arm] Blood Pressure Position [Left Arm] Blood Pressure Position [Right Arm] Pulse Oximetry 95 94 Oxygen Delivery Method Room Air Room Air Room Air Oxygen Flow Rate Vital signs reviewed. General: Well-appearing, smells of tobacco, on nasal cannula oxygen, in no significant distress. HEENT: No scleral icterus, PERRLA, neck supple. Atraumatic. Cardiovascular: Regular rate and rhythm, no extra sounds. Pulmonary: Diffuse wheezing, increased work of breathing. Abdomen: Soft, nontender, nondistended, positive bowel sounds. Musculoskeletal: Atraumatic, no peripheral edema. Neurologic: Patient awake alert and oriented x 3 Skin: Warm, dry, no rash Course 0049: Past medical records reviewed. The patient was evaluated in room C11B, and a complete history and physical examination were performed. 0207: I reevaluated the patient and updated her on her test results. I discussed the treatment plan with her. She verbally agrees and understands. 0220: I reviewed the patient's case with [facility] He will evaluate the patient for further management. Consultations Consultation #1: I reviewed the patient's case with [facility]. He will evaluate the patient for further management. Time: 02:20 Administered Medications Albuterol (Duoneb) 3 ml NEB QIDR [facility] Stop: 07/05/18 07:59 Last Admin: 06/07/18 07:33 Dose: 3 ml Documented by: [id number] Admin: 06/06/18 19:23 Dose: 3 ml Documented by: [id number] Admin: 06/06/18 15:28 Dose: 3 ml Documented by: [id number] Admin: 06/06/18 11:30 Dose: 3 ml Documented by: [id number] Admin: 06/06/18 07:20 Dose: 3 ml Documented by: [id number] Admin: 06/05/18 20:27 Dose: 3 ml Documented by: [id number] Admin: 06/05/18 16:08 Dose: 3 ml Documented by: [id number] Admin: 06/05/18 11:11 Dose: 3 ml Documented by: [id number] Admin: 06/05/18 07:33 Dose: 3 ml Documented by: [id number] Aspirin (Ecotrin Ectab) 81 mg PO QAM [facility] Stop: 07/05/18 08:59 Last Admin: 06/06/18 08:29 Dose: 81 mg Documented by: [id number] Admin: 06/05/18 08:34 Dose: 81 mg Documented by: [id number] Atorvastatin Calcium (Lipitor) 40 mg PO QPM [facility] Stop: 07/05/18 20:59 Last Admin: 06/06/18 20:20 Dose: 40 mg Documented by: [id number] Admin: 06/05/18 20:24 Dose: 40 mg Documented by: [id number] Budesonide (Pulmicort Respules) 0.5 mg NEB BIDR [facility] Stop: 07/05/18 07:59 Last Admin: 06/07/18 07:33 Dose: 0.5 mg Documented by: [id number] Admin: 06/06/18 19:23 Dose: 0.5 mg Documented by: [id number] Admin: 06/06/18 07:20 Dose: 0.5 mg Documented by: [id number] Admin: 06/05/18 20:27 Dose: 0.5 mg Documented by: [id number] Admin: 06/05/18 07:33 Dose: 0.5 mg Documented by: [id number] Cetirizine HCl (Zyrtec) 10 mg PO QPM [facility] Stop: 07/05/18 20:59 Last Admin: 06/06/18 20:20 Dose: 10 mg Documented by: [id number] Admin: 06/05/18 20:26 Dose: 10 mg Documented by: [id number] Enoxaparin Sodium (Lovenox) 30 mg SQ Q24H [facility] Stop: 07/05/18 08:59 Last Admin: 06/06/18 08:29 Dose: Not Given Documented by: [id number] Admin: 06/05/18 08:35 Dose: Not Given Documented by: [id number] Guaifenesin (Mucinex) 600 mg PO Q12 [facility] Stop: 07/05/18 08:59 Last Admin: 06/06/18 20:20 Dose: 600 mg Documented by: [id number] Admin: 06/06/18 10:20 Dose: 600 mg Documented by: [id number] Admin: 06/05/18 20:24 Dose: 600 mg Documented by: [id number] Admin: 06/05/18 08:34 Dose: 600 mg Documented by: [id number] Azithromycin 500 mg/ Dextrose 255 mls @ 127.5 mls/hr IV Q24H [facility] Stop: 06/11/18 03:59 Last Infusion: 06/07/18 03:36 Dose: 0 mls/hr Documented by: [id number] Admin: 06/07/18 01:20 Dose: 127.5 mls/hr Documented by: [id number] Infusion: 06/06/18 04:55 Dose: 0 mls/hr Documented by: [id number] Admin: 06/06/18 01:27 Dose: 127.5 mls/hr Documented by: [id number] Miscellaneous (Order Awaiting Action) 1 ea N/A QS [facility] Stop: 07/05/18 07:59 Last Admin: 06/06/18 23:46 Dose: 1 ea Documented by: [id number] Admin: 06/06/18 16:51 Dose: Not Given Documented by: [id number] Admin: 06/06/18 08:28 Dose: Not Given Documented by: [id number] Admin: 06/06/18 00:45 Dose: Not Given Documented by: [id number] Admin: 06/05/18 17:13 Dose: Not Given Documented by: [id number] Admin: 06/05/18 08:35 Dose: Not Given Documented by: [id number] Miscellaneous (Remove Nicoderm Patch) 1 ea N/A HS [facility] Stop: 07/05/18 20:59 Last Admin: 06/06/18 20:20 Dose: Not Given Documented by: [id number] Admin: 06/05/18 20:26 Dose: Not Given Documented by: [id number] Multivitamins/Minerals (Multivitamin W/ Minerals Tab) 1 tab PO QAM [facility] Stop: 07/05/18 08:59 Last Admin: 06/06/18 08:29 Dose: 1 tab Documented by: [id number] Admin: 06/05/18 08:34 Dose: 1 tab Documented by: [id number] Nicotine (Nicoderm Cq) 14 mg TD QAM [facility] Stop: 07/05/18 08:59 Last Admin: 06/06/18 08:28 Dose: 14 mg Documented by: [id number] Admin: 06/05/18 08:34 Dose: 14 mg Documented by: [id number] Oxycodone/Acetaminophen (Percocet 5mg/325mg) 1 tab PO Q6H PRN PRN Reason: pain Stop: 06/19/18 03:38 Last Admin: 06/07/18 01:20 Dose: 1 tab Documented by: [id number] Admin: 06/06/18 15:07 Dose: 1 tab Documented by: [id number] Admin: 06/05/18 19:45 Dose: 1 tab Documented by: [id number] Pantoprazole Sodium (Protonix) 40 mg PO QPM [facility] Stop: 07/05/18 20:59 Last Admin: 06/06/18 20:20 Dose: 40 mg Documented by: [id number] Admin: 06/05/18 20:25 Dose: 40 mg Documented by: [id number] Prednisone (Prednisone) 50 mg PO DAILY [facility] Stop: 07/06/18 08:59 Last Admin: 06/06/18 08:29 Dose: 50 mg Documented by: [id number] Ranitidine HCl (Zantac) 150 mg PO BID [facility] Stop: 07/05/18 08:59 Last Admin: 06/06/18 20:19 Dose: 150 mg Documented by: [id number] Admin: 06/06/18 08:29 Dose: 150 mg Documented by: [id number] Admin: 06/05/18 20:25 Dose: 150 mg Documented by: [id number] Admin: 06/05/18 08:34 Dose: 150 mg Documented by: [id number] Sertraline HCl (Zoloft) 100 mg PO HS [facility] Stop: 07/05/18 20:59 Last Admin: 06/06/18 20:20 Dose: 100 mg Documented by: [id number] Admin: 06/05/18 20:26 Dose: 100 mg Documented by: [id number] Tiotropium Reading (Spiriva) 1 puffs INH DAILY [facility] Stop: 07/05/18 08:59 Last Admin: 06/06/18 08:29 Dose: 1 puffs Documented by: [id number] Admin: 06/05/18 08:35 Dose: 1 puffs Documented by: [id number] Discontinued Medications Acetaminophen (Tylenol) 1,000 mg PO NOW STA Stop: 06/05/18 02:01 Last Admin: 06/05/18 02:16 Dose: 1,000 mg Documented by: [id number] Albuterol (Duoneb) Confirm Administered Dose 3 ml .ROUTE .STK-MED ONE Stop: 06/05/18 00:44 Last Admin: 06/05/18 00:57 Dose: 3 ml Documented by: [id number] Albuterol (Duoneb) 3 ml NEB NOW STA Stop: 06/05/18 00:54 Last Admin: 06/05/18 00:57 Dose: Not Given Documented by: [id number] Albuterol (Duoneb) 3 ml NEB NOW STA Stop: 06/05/18 02:08 Last Admin: 06/05/18 02:16 Dose: 3 ml Documented by: [id number] Sodium Chloride (Nss) 500 mls @ 125 mls/hr IV .Q4H [facility] Stop: 07/05/18 00:59 Last Infusion: 06/05/18 04:04 Dose: 0 mls/hr Documented by: [id number] Admin: 06/05/18 01:53 Dose: 125 mls/hr Documented by: [id number] Sodium Chloride (Nss) 500 mls @ 999 mls/hr IV .Q31M [facility] Stop: 06/05/18 01:30 Last Infusion: 06/05/18 01:52 Dose: 0 mls/hr Documented by: [id number] Admin: 06/05/18 00:59 Dose: 999 mls/hr Documented by: [id number] Azithromycin 500 mg/ Dextrose 255 mls @ 127.5 mls/hr IV UD [facility] Stop: 06/12/18 02:14 Last Infusion: 06/05/18 04:45 Dose: 0 mls/hr Documented by: [id number] Admin: 06/05/18 02:44 Dose: 127.5 mls/hr Documented by: [id number] Methylprednisolone 40 mg/ (Syringe) 0.64 mls @ 1.5 mls/min IV Q8H [facility] Stop: 07/05/18 08:59 Last Admin: 06/06/18 00:45 Dose: 1.5 mls/min Documented by: [id number] Admin: 06/05/18 17:17 Dose: 1.5 mls/min Documented by: [id number] Admin: 06/05/18 08:33 Dose: 1.5 mls/min Documented by: [id number] Methylprednisolone (Solumedrol) 125 mg IV NOW STA Stop: 06/05/18 00:54 Last Admin: 06/05/18 01:05 Dose: 125 mg Documented by: [id number] Pneumococcal Polyvalent Vaccine (Pneumovax-23) 25 mcg IM .ONCE ONE Stop: 06/05/18 08:16 Last Admin: 06/05/18 11:43 Dose: 25 mcg Documented by: [id number] Sodium Chloride ([place] Nasal) Confirm Administered Dose 225 sprays .ROUTE .STK- MED ONE Stop: 06/06/18 01:33 Last Admin: 06/06/18 01:54 Dose: 225 sprays Documented by: [id number] Medical Decision Making Differential Diagnosis Differential diagnosis: Etiologies such as infections, reactive airway disease, COPD, pneumonia, pleural effusion, pulmonary edema, ARDS, pneumothorax, CHF, cardiac ischemia, cardiac tamponade, dysrhythmia, anemia, pulmonary embolism, musculoskeletal, gastrointestinal process, as well as others were entertained. Medical Records Attestation: I reviewed the patient's medical records. Home Medications Current Medication List: was personally reviewed by me Laboratory Data Attestation: I reviewed the patient's lab results. Result diagrams: 06/05/18 00:50 06/05/18 00:50 Lab Results 06/05/18 06/05/18 06/05/18 Range/Units 00:50 00:50 00:50 WBC 19.24 H (4.8-10.8) K/uL RBC 5.22 (4.2-5.4) M/uL Hgb 15.9 (12.0-16.0) g/dL Hct 46.3 (37-47) % MCV 88.7 (80-100) fL MCH 30.5 (25-34) pg MCHC 34.3 (32-36) g/dL RDW Std Deviation 45.0 (36.4-46.3) fL RDW Coeff of Yoshi 13.9 (11.5-14.5) % Plt Count 309 (130-400) K/uL MPV 10.6 H (7.4-10.4) fL Immature Gran % (Auto) 0.3 % Neut % (Auto) 77.0 % Lymph % (Auto) 15.1 % [place] % (Auto) 5.4 % Eos % (Auto) 1.9 % Baso % (Auto) 0.3 % Immature Gran # (Auto) 0.06 H (0.00-0.02) K/uL Neut # (Auto) 14.81 H (1.4-6.5) K/uL Lymph # (Auto) 2.91 (1.2-3.4) K/uL [place] # (Auto) 1.03 H (0.11-0.59) K/uL Eos # (Auto) 0.37 (0-0.5) K/uL Baso # (Auto) 0.06 (0-0.2) K/uL PT (9.0-12.0) Seconds INR (0.9-1.1) Sodium 139 (136-145) mmol/L Potassium 3.5 (3.5-5.1) mmol/L Chloride 109 H (98-107) mmol/L Carbon Dioxide 25 (21-32) mmol/L Anion Gap 5.0 (3-11) BUN 8 (7-18) mg/dl Creatinine 0.72 (0.6-1.2) mg/dl Est Cr Clr Drug Dosing 96.4 ml/min Est GFR ( Amer) 105.5 Est GFR (Non-Af Amer) 91.0 BUN/Creatinine Ratio 11.0 (10-20) Glucose 111 H (70-99) mg/dl POC Lactic Acid Demian (0.90-1.70) mmol/L Calcium 9.1 (8.5-10.1) mg/dl Total Bilirubin 0.8 (0.2-1) mg/dl AST 22 (15-37) U/L ALT 31 (12-78) U/L Alkaline Phosphatase 134 H (45-117) U/L Troponin I < 0.015 (0-0.045) ng/ml Total Protein 7.7 (6.4-8.2) gm/dl Albumin 3.8 (3.4-5.0) gm/dl Globulin 3.9 (2.5-4.0) gm/dl Albumin/Globulin Ratio 1.0 (0.9-2) Hepatitis C Ab Screen (Neg) Influenza Type A (PCR) Neg for Influ A (Neg) Influenza Type B (PCR) Neg for Influ B (Neg) 06/05/18 06/05/18 06/05/18 Range/Units 00:56 05:35 05:35 WBC (4.8-10.8) K/uL RBC (4.2-5.4) M/uL Hgb (12.0-16.0) g/dL Hct (37-47) % MCV (80-100) fL MCH (25-34) pg MCHC (32-36) g/dL RDW Std Deviation (36.4-46.3) fL RDW Coeff of Yoshi (11.5-14.5) % Plt Count (130-400) K/uL MPV (7.4-10.4) fL Immature Gran % (Auto) % Neut % (Auto) % Lymph % (Auto) % [place] % (Auto) % Eos % (Auto) % Baso % (Auto) % Immature Gran # (Auto) (0.00-0.02) K/uL Neut # (Auto) (1.4-6.5) K/uL Lymph # (Auto) (1.2-3.4) K/uL [place] # (Auto) (0.11-0.59) K/uL Eos # (Auto) (0-0.5) K/uL Baso # (Auto) (0-0.2) K/uL PT 10.4 (9.0-12.0) Seconds INR 1.0 (0.9-1.1) Sodium (136-145) mmol/L Potassium (3.5-5.1) mmol/L Chloride (98-107) mmol/L Carbon Dioxide (21-32) mmol/L Anion Gap (3-11) BUN (7-18) mg/dl Creatinine (0.6-1.2) mg/dl Est Cr Clr Drug Dosing ml/min Est GFR ( Amer) Est GFR (Non-Af Amer) BUN/Creatinine Ratio (10-20) Glucose (70-99) mg/dl POC Lactic Acid Demian 0.68 L (0.90-1.70) mmol/L Calcium (8.5-10.1) mg/dl Total Bilirubin (0.2-1) mg/dl AST (15-37) U/L ALT (12-78) U/L Alkaline Phosphatase (45-117) U/L Troponin I (0-0.045) ng/ml Total Protein (6.4-8.2) gm/dl Albumin (3.4-5.0) gm/dl Globulin (2.5-4.0) gm/dl Albumin/Globulin Ratio (0.9-2) Hepatitis C Ab Screen Neg (Neg) Influenza Type A (PCR) (Neg) Influenza Type B (PCR) (Neg) Imaging Data Attestation: I personally reviewed and interpreted this imaging study as follows: My Impression: CHEST X-RAY: The results were interpreted by me. Slightly elevated left hemidiaphragm. Some emphysematous changes. No focal lung consolidation. No failure. ECG Data Attestation: I personally reviewed and interpreted this ECG as follows: Indication: SOB/dyspnea Rate (beats per minute): 130 Rhythm: sinus tachycardia Findings: + other (QT-c 465) and + nonspecific-ST abn; no PAC, no PVC and no ectopy Blood Pressure Blood Pressure Findings: Elevated blood pressure Blood Pressure Disposition: further management by hospitalist MDM Narrative This pt was evaluated and appeared to be in no distress, but saturating mid-low 90s on nasal cannula. Pt was given a duoneb tx x 2. CXR reveals no focal lung consildation or failure. IV solumedral was administered. PO tylenol was administered. Pt remeained stable on n/c O2, but desaturated with RA. FLu swab is negative, BC pending. EKG reveals ST with non-specific ST abnl, trop is negative. Case was d/w the hospitalist service for further management. Pt is aware of the plan and agrees. Impression & Plan COPD exacerbation, Fever, Tachycardia Discharge Plan Visit Data *Final* Discharge Date/Time: 06/05/18 03:18 Chief Complaint: Shortness of Breath/Dyspnea Stated Complaint: SOB, BODY ACHES ED Provider: Caitlyn Gonzalez Discharge Problem: COPD exacerbation, Fever, Tachycardia Patient Disposition: Admitted As Inpatient Discharge Instructions Interventions: ED Discharge Assessment Last Done: 06/05/18 03:18 Discharge Problem: Fever Qualifiers: Fever type: unspecified Qualified Code(s): R50.9 - Fever, unspecified The scribe's documentation has been prepared under my direction and personally reviewed by me in its entirety. I confirm that the note above accurately reflects all work, treatment, procedures, and medical decision making performed by me.
[2018-06-05] MEDS ORDERED: PNEUMOCOCCAL ADMINISTRATION CHARGE ONE (08:15)
[2018-06-05] MEDS ORDERED: PNEUMOCOCCAL POLYSACCHARIDES 25 MCG/0.5 ML VIAL/SYR IM ONE (08:15)
[2018-06-05] MEDS: methylPREDNISolone 40 MG in SYRINGE 0 ML IV SCH ×2 (08:33→17:17)
[2018-06-05] MEDS: ASPIRIN 81 MG ECTAB PO SCH (08:34)
[2018-06-05] MEDS: guaiFENesin 600 MG TABCR PO SCH ×2 (08:34→20:24)
[2018-06-05] MEDS: CEROVITE ADV FORMULA TAB PO SCH (08:34)
[2018-06-05] MEDS: NICOTINE 14 MG/24 HR PATCH TD SCH (08:34)
[2018-06-05] MEDS: AZELASTINE~ORDER AWAITING ACTION SCH ×2 (08:35→17:13)
[2018-06-05] MEDS: TIOTROPIUM BROMIDE 5 PUFF/90 MCG INH INH SCH (08:35)
[2018-06-05] MEDS: ENOXAPARIN INJ 30 MG/0.3 ML SYR SQ SCH (08:35)
[2018-06-05] MEDS ORDERED: NICOTINE 14 MG/24 HR PATCH TD SCH (09:00)
[2018-06-05] MEDS ORDERED: NON-FORMULARY MEDICATION (Mv,Ca,Min-Iron Gluc-Fa-Biotin [Hair,Skin And Nails] 1 TAB) PO SCH (09:00)
--- NOTE | 2018-06-05 09:17 | Hospitalist Progress Note ---
Date of Service June 05, 2018 Assessment & Plan (1) COPD exacerbation: COPD exacerbation/tobacco use disorder/upper respiratory infection with hypoxia-- Solu-Medrol 40 mg IV every 8 hours. Duo nebs 4 times daily and every 2 hours as needed. Pulmicort Respules 0.5 mg inhaled twice daily. Guaifenesin extended release 600 mg p.o. twice daily. Sputum Gram stain and culture. azithromycin 500 mg IV daily fluticasone nasal spray as needed for nasal symptoms Symbicort and Spiriva. (2) Tobacco use disorder: Cessation counseling. NicoDerm patch 14 mg daily (3) Hypertension: Hypertension/tachycardia-- Occurred after hour-long nebulizer treatment (4) Hyperlipidemia: Continue atorvastatin 40 mg p.o. every evening. (5) GERD (gastroesophageal reflux disease): Omeprazole 20 mg p.o. every evening, and ranitidine 150 mg p.o. twice daily. (6) Allergic rhinitis: Continue fluticasone nasal spray as needed (7) Depression: Continue sertraline 100 mg p.o. at bedtime Subjective Patient feels somewhat better she is that she is committed to stopping smoking. She still markedly short of breath even with short distance ambulation in her room she is a cough which is productive of green yellow sputum Review of Systems ROS: She is chronically out of breath No double vision blurry vision No problems with speech or swallowing No palpitations, chest pain or pressure Dyspnea productive cough or wheezing with exertion No abdominal pain nausea vomiting diarrhea changes in appetite or weight No burning urine urine frequency or changes in color No focal joint pain or muscle pain No skin rashes or oral lesions No unusual bruising or bleeding No focused back pain or numbness or loss of strength No changes in memory or confusion Physical Exam Vital Signs (Past 24 Hours): Last Vital Signs Temp 36.6 C 06/05/18 07:24 Pulse 63 06/05/18 07:37 Resp 18 06/05/18 07:37 BP 112/69 06/05/18 07:24 Pulse Ox 94 06/05/18 07:37 The patient appeared chronically ill she is edentulous she is dyspneic even with conversation Vital signs as documented. Head exam is unremarkable. normocephalic, atraumatic Neck is without jugular venous distension, thyromegaly, or lymphademopathy Lungs are coarse breath sounds bilaterally with some air movement at the apex Cardiac exam reveals Rhythm is regular. Systolic ejection murmur first and second heart sounds normal. Abdominal exam reveals normal bowel sounds, no masses, no organomegaly Extremities are nonedematous and both pedal pulses are present Neurologic exam is A&Ox3, no focal deficits, strength is equal bilateral Psychologically seems depressed Skin is warm Dry without bruises or lesions
[2018-06-05] MEDS: OXYCODONE/ACETAMINOPHEN 5mg/325mg TAB PO PRN (19:45)
[2018-06-05] MEDS: ATORVASTATIN 40 MG TAB PO SCH (20:24)
[2018-06-05] MEDS: PANTOprazole 40 MG TAB PO SCH (20:25)
[2018-06-05] MEDS: CETIRIZINE HCL 10 MG TABLET PO SCH (20:26)
[2018-06-05] MEDS: SERTRALINE HCL 100 MG TABLET PO SCH (20:26)
[2018-06-05] MEDS ORDERED: NON-FORMULARY MEDICATION (C,E,Zinc,Copper 11-Omega3s-Lut [Ocuvite Adult 50 Plus] 1 CAP) PO SCH (21:00)
[2018-06-06] MEDS: methylPREDNISolone 40 MG in SYRINGE 0 ML IV SCH (00:45)
[2018-06-06] MEDS: AZELASTINE~ORDER AWAITING ACTION SCH ×4 (00:45→23:46)
[2018-06-06] MEDS: AZITHROMYCIN 500 MG in DEXTROSE 5% 250 ML IV SCH (01:27)
[2018-06-06] MEDS ORDERED: SODIUM CHLORIDE 0.65% NA SOLN 45 ML (OCEAN) ONE (01:32)
[2018-06-06] MEDS: BUDESONIDE 0.5 MG/2 ML VIAL (PULMICORT) NEB SCH ×2 (07:20→19:23)
[2018-06-06] MEDS: ALBUT/IPRATROP 3MG/0.5MG NEB 3 ML VIAL NEB SCH ×4 (07:20→19:23)
[2018-06-06] MEDS: NICOTINE 14 MG/24 HR PATCH TD SCH (08:28)
[2018-06-06] MEDS: predniSONE 50 MG TAB PO SCH (08:29)
[2018-06-06] MEDS: ASPIRIN 81 MG ECTAB PO SCH (08:29)
[2018-06-06] MEDS: CEROVITE ADV FORMULA TAB PO SCH (08:29)
[2018-06-06] MEDS: ENOXAPARIN INJ 30 MG/0.3 ML SYR SQ SCH (08:29)
[2018-06-06] MEDS: TIOTROPIUM BROMIDE 5 PUFF/90 MCG INH INH SCH (08:29)
[2018-06-06] MEDS: guaiFENesin 600 MG TABCR PO SCH ×2 (10:20→20:20)
--- NOTE | 2018-06-06 12:40 | Hospitalist Progress Note ---
Date of Service June 06, 2018 Assessment & Plan (1) COPD exacerbation: COPD exacerbation/tobacco use disorder/upper respiratory infection with hypoxia-- Solu-Medrol will begin tapering the dose on 06/06 continuing on with Duo nebs azithromycin 500 mg IV daily for bronchitis associated with COPD fluticasone nasal spray as needed for nasal symptoms Symbicort and Spiriva. (2) Tobacco use disorder: Cessation counseling cannot afford Chantix is considering Wellbutrin we are using. NicoDerm patch 14 mg daily, cost is also an issue with this as an outpatient (3) Hypertension: Hypertension/tachycardia-- Occurred after hour-long nebulizer treatment has had good control vital signs since that time (4) Hyperlipidemia: Maintained on atorvastatin 40 mg p.o. every evening. (5) GERD (gastroesophageal reflux disease): Has been without symptoms on omeprazole 20 mg p.o. every evening, and ranitidine 150 mg p.o. twice daily. (6) Allergic rhinitis: fluticasone nasal spray when needed (7) Depression: Seems controlled with sertraline 100 mg p.o. at bedtime if transitioning to Wellbutrin will need to discuss appropriate transition over to this med Subjective Patient feels much better today she still having some dyspnea with exertion she is a nonproductive cough feels about 60% back to her baseline we talked at length about smoking cessation in the past she did use Chantix however she cannot afford at this time we talked a little bit about using bupropion and also with nicotine replacement therapy. Review of Systems ROS: well nourished well developed. No double vision blurry vision No problems with speech or swallowing No palpitations, chest pain or pressure Dyspnea and nonproductive cough general feeling of shortness of breath No abdominal pain nausea vomiting diarrhea changes in appetite or weight No burning urine urine frequency or changes in color No focal joint pain or muscle pain No skin rashes or oral lesions No unusual bruising or bleeding No focused back pain or numbness or loss of strength No changes in memory or confusion Physical Exam Vital Signs (Past 24 Hours): Last Vital Signs Temp 36.9 C 06/06/18 11:54 Pulse 72 06/06/18 11:54 Resp 18 06/06/18 11:54 BP 110/69 06/06/18 11:54 Pulse Ox 93 06/06/18 11:54 The patient appeared well nourished and normally developed. Vital signs as documented. Head exam is unremarkable. normocephalic, atraumatic she is edentulous Neck is without jugular venous distension, thyromegaly, or lymphademopathy Lungs are decreased breath sounds overall with scant wheezing bilaterally of both lower lobes Cardiac exam reveals Rhythm is regular. First and second heart sounds normal. Abdominal exam reveals normal bowel sounds, no masses, no organomegaly Extremities are nonedematous and both pedal pulses are present Neurologic exam is A&Ox3, no focal deficits, strength is equal bilateral Psychologically seems neither anxious or depressed Skin is warm Dry without bruises or lesions
[2018-06-06] MEDS: OXYCODONE/ACETAMINOPHEN 5mg/325mg TAB PO PRN (15:07)
[2018-06-06] MEDS: SERTRALINE HCL 100 MG TABLET PO SCH (20:20)
[2018-06-06] MEDS: ATORVASTATIN 40 MG TAB PO SCH (20:20)
[2018-06-06] MEDS: CETIRIZINE HCL 10 MG TABLET PO SCH (20:20)
[2018-06-06] MEDS: PANTOprazole 40 MG TAB PO SCH (20:20)
[2018-06-07] MEDS: OXYCODONE/ACETAMINOPHEN 5mg/325mg TAB PO PRN (01:20)
[2018-06-07] MEDS: AZITHROMYCIN 500 MG in DEXTROSE 5% 250 ML IV SCH (01:20)
[2018-06-07] MEDS: BUDESONIDE 0.5 MG/2 ML VIAL (PULMICORT) NEB SCH (07:33)
[2018-06-07] MEDS: ALBUT/IPRATROP 3MG/0.5MG NEB 3 ML VIAL NEB SCH ×2 (07:33→11:13)
[2018-06-07] MEDS: AZELASTINE~ORDER AWAITING ACTION SCH (08:13)
[2018-06-07] MEDS: ENOXAPARIN INJ 30 MG/0.3 ML SYR SQ SCH (08:47)
[2018-06-07] MEDS: NICOTINE 14 MG/24 HR PATCH TD SCH (08:47)
[2018-06-07] MEDS: TIOTROPIUM BROMIDE 5 PUFF/90 MCG INH INH SCH (08:47)
[2018-06-07] MEDS: ASPIRIN 81 MG ECTAB PO SCH (08:47)
[2018-06-07] MEDS: guaiFENesin 600 MG TABCR PO SCH (08:47)
[2018-06-07] MEDS: CEROVITE ADV FORMULA TAB PO SCH (08:47)
[2018-06-07] MEDS: predniSONE 50 MG TAB PO SCH (08:47)
[2018-06-07] MEDS ORDERED: METOPROLOL TARTRATE 25 MG TAB PO SCH (09:45)
[2018-06-07 11:42] VITALS: TEMP 98.1; O2SAT 99
[2018-06-07 13:27] VITALS: BP 155/92; PULSE 72
--- NOTE | 2018-06-07 14:01 | Discharge Summary ---
Date of Service June 07, 2018 Admission HPI Per Admitting Provider The patient is a 58-year-old female with past medical history including COPD, tobacco use, hyperlipidemia, allergic rhinitis, arthritis, GERD and depression, who presents to the emergency department with worsening shortness of breath, wheezing, change in her baseline mucus to more thick and greenish colored. She reports that her wheezing is so loud that her has had to move to the other room and has to sleep. She does use Proventil HFA on a daily basis, and has albuterol nebulizer solution and separate Atrovent nebulizer solution that she uses as needed, that have not provided significant relief. She reports that she is using a nebulizer unit that is very old, and had gotten it from a relative who had been using it for a number years. Principal Diagnosis copd exacerbation bronchitis tachycardia tobacco abuse disorder Discharge Exam Constitutional well developed and average body habitus Eyes no conjunctival abnormality and no scleral abnormality Neck normal visual inspection and trachea midline Respiratory normal respiratory effort; no respiratory distress Auscultation: lungs clear to auscultation bilaterally Cardiovascular RRR, no murmur, no edema Gastrointestinal (Abdomen) normal bowel sounds, soft, nontender, no hepatosplenomegaly Musculoskeletal no cyanosis or clubbing, extremities motor strength 5/5 Discharge Data Allergies Allergy/AdvReac Type Severity Reaction Status Date / Time Penicillins Allergy Intermediate HIVES Verified 06/05/18 01:32 Tetracyclines Allergy Intermediate HIVES Verified 06/05/18 01:32 Consultations 06/05/18 02:20 ED Decision to Admit Stat 06/05/18 03:39 Consult Case Management - Discharge Planning Routine Hospital Course (1) COPD exacerbation: COPD exacerbation/tobacco use disorder/upper respiratory infection with hypoxia-- Tolerate tapering of her steroids will be on an oral prednisone taper as an outpatient continuing with Moses nebs azithromycin will complete a few days of outpatient azithromycin to complete her course for treatment of bronchitis Symbicort and Spiriva. (2) Tobacco use disorder: Cessation counseling cannot afford Chantix patient is agreeable to Wellbutrin (3) Hypertension: Hypertension/tachycardia-- Occurred after hour-long nebulizer treatment she said some persistent tachycardia during hospital stay she tolerated institution of metoprolol tartrate which will be continued as an outpatient (4) Hyperlipidemia: Maintained on atorvastatin 40 mg p.o. every evening. (5) GERD (gastroesophageal reflux disease): Has been without symptoms on omeprazole 20 mg p.o. every evening, and ranitidine 150 mg p.o. twice daily. (6) Allergic rhinitis: fluticasone nasal spray when needed (7) Depression: Seems controlled with sertraline 100 mg p.o. at bedtime if transitioning to Wellbutrin will need to discuss appropriate transition over to this med Total Time Total Time Spent Total Time Spent (In Minutes): greater than 30 minutes were required to prepare discharge Discharge Plan Discharge Items Patient Disposition: Home - Self-Care Reason For Visit: COPD EXACERBATION,ACUTE ON CHRONC RESP FAILURE Discharge Diagnosis: copd flare up, bronchitis Discharge Goals: Decrease discomfort, Diagnostic testing and Improve disease control Activity: Resume your previous activity Non-emergency contact: Primary Care Provider Call non-emergency contact if: you have any medication questions Follow-up/Referrals: Teddy Ortiz MD [Primary Care Provider] - Diet: Regular Addtl Provider Instructions: please stop smoking Prescriptions: New prednisone 10 mg tablet 10 mg PO UD Qty: 40 RF: 0 azithromycin 250 mg tablet 250 mg PO DAILY 6 Days Qty: 3 RF: 0 metoprolol tartrate 25 mg Tablet 25 mg PO BID Qty: 60 RF: 3 Continued One Daily Women 50 Plus 400-120 mcg-mg Tablet 1 tab PO QAM RF: 0 omeprazole 20 mg capsule,delayed release(DR/EC) 20 mg PO QPM RF: 0 atorvastatin 40 mg Tablet 40 mg PO QPM RF: 0 cetirizine 10 mg Tablet 10 mg PO QPM RF: 0 sertraline 100 mg Tablet 100 mg PO HS RF: 0 ranitidine HCl 150 mg Capsule 150 mg PO BID RF: 0 albuterol sulfate [Ventolin HFA] 90 mcg/actuation Hfa Aerosol Inhaler 2 puff INHALATION QID PRN (Reason: Shortness Of Breath Or Wheezing) RF: 0 Ocuvite Adult 50 Plus 250-5-1 mg Capsule 1 cap PO QPM RF: 0 ondansetron 4 mg tablet,disintegrating 4 mg PO Q6H PRN (Reason: nausea and vomiting) Qty: 15 RF: 0 oxycodone-acetaminophen [Percocet] 5-325 mg tablet 1 tab PO Q6H PRN (Reason: pain) Qty: 14 RF: 0 fluticasone propionate 50 mcg/actuation [place],Suspension 1 spray INTRANASAL DAILY PRN (Reason: Nasal Congestion) RF: 0 azelastine 137 mcg (0.1 %) Aerosol,[place] 2 spray INTRANASAL BID PRN (Reason: Nasal Congestion) RF: 0 naproxen sodium 220 mg Capsule 220 mg PO DIRECTED PRN (Reason: Pain) RF: 0 Spiriva with HandiHaler 18 mcg Capsule, W/Inhalation Device 1 cap INHALATION DAILY RF: 0 Symbicort 160-4.5 mcg/actuation Hfa Aerosol Inhaler 2 puff INHALATION BID PRN (Reason: sob) RF: 0 Hair,Skin and Nails 1 mg iron-66.7 mcg-1,000 mcg Tablet 1 tab PO DAILY RF: 0 ipratropium-albuterol 0.5 mg-3 mg(2.5 mg base)/3 mL solution for nebulization 3 ml NEB QID PRN (Reason: Shortness Of Breath Or Wheezing) Qty: 180 RF: 4 Stand-Alone Forms: [facility] Discharge Orders: Discharge Order (Routine); Ordered 06/07/18 Ordered By: Antonino Hickey Admission Data Admit Date/Time: 06/05/18 02:38 Attending Provider: Antonino Hickey Admit Provider: Juan Manuel Gross Primary Care Provider: Teddy Ortiz Other Providers: Juan Manuel Gross Service: Telemetry Medical Other Interventions: Discharge Summary Assessment (RN) Last Done: 06/07/18 13:24
== END 2018-06-07 14:21 | disposition home or self-care (01) | DRG 190 ==
LOC: ED 00:30 → 2N 02:38 → SUATTDRO 02:38 → 2N 03:18

== ENCOUNTER 2018-11-12 10:45 | Inpatient (IN) ==
[2018-11-12] MEDS ORDERED: methylPREDNISolone 125 MG/2 ML VIAL IV STA (11:03)
[2018-11-12] MEDS ORDERED: ALBUT/IPRATROP 3MG/0.5MG NEB 3 ML VIAL NEB STA (11:03)
[2018-11-12 11:32] LABS: Basophils # (auto) 0.07 K/uL (0-0.2); Basophils % (auto) 0.5 %; Eosinophils # (auto) 0.29 K/uL (0-0.5); Eosinophils % (auto) 2.2 %; Hematocrit (blood only) 43.6 % (37-47); Hemoglobin 15.1 g/dL (12.0-16.0); Immature Granulocytes # (auto) 0.04 K/uL (0.00-0.02); Immature Granulocytes % (auto) 0.3 %; Lymphocytes # (auto) 2.73 K/uL (1.2-3.4); Lymphocytes % (auto) 20.5 %; Mean Corpuscular Hemoglobin 30.9 pg (25-34); Mean Corpuscular Hgb Conc 34.6 g/dL (32-36); Mean Corpuscular Volume 89.2 fL (80-100); Mean Platelet Volume 10.7 fL (7.4-10.4); Monocytes # (auto) 0.77 K/uL (0.11-0.59); Monocytes % (auto) 5.8 %; Neutrophils % (auto) 70.7 %; Platelet Count 307 K/uL (130-400); RDW Coefficient of Variation 13.3 % (11.5-14.5); RDW Standard Deviation 43.3 fL (36.4-46.3); Red Blood Count 4.89 M/uL (4.2-5.4)
[2018-11-12 11:48] LABS: Albumin Level 3.3 gm/dl (3.4-5.0); BUN Creatinine Ratio 9.5 (10-20); Calcium 9.9 mg/dl (8.5-10.1); Creatinine Clr Calc Pharmacy 68.7 ml/min; Est GFR (African American) 79.5; Est GFR (Non-African American) 68.6; Potassium 2.7 mmol/L (3.5-5.1)
--- NOTE | 2018-11-12 11:49 | XRay Report ---
XR chest 1V portable HISTORY: 58 years-old Female dyspnea acute shortness of breath COMPARISON: Chest radiograph 06/05/2018, thoracolumbar radiographs 10/21/2018 TECHNIQUE: Portable AP view of the chest FINDINGS: Cardiac silhouette is enlarged, unchanged. Right perihilar opacities are noted with right lung base v olume loss, right lung base opacities with right pleural effusion. Rightward midline shift of the hea rt and mediastinal structures. The patient is slightly rotated towards the right. No pneumothorax. Th e left lung is clear. No overt pulmonary edema. Degenerative changes of the shoulders and spine. IMPRESSION: 1. Right perihilar, right midlung and right lung base opacities are noted with volume loss and rightw rod midline shift with pleural effusion. Findings are concerning for an obstructing endobronchial mas s or mucous plug. These findings are new from 10/21/2018. Findings could be correlated with a follow-up CT of the chest or bronchoscopy. 2. Left lung is clear. The above report was generated using voice recognition software. It may contain grammatical, syntax o r spelling errors. Electronically signed by: Imer Allred M.D. 11/12/2018 11:47 AM
[2018-11-12 11:51] LABS: Albumin Globulin Ratio 0.9 (0.9-2); Bilirubin,Total 0.5 mg/dl (0.2-1); Globulin 3.5 gm/dl (2.5-4.0); Total Protein 6.8 gm/dl (6.4-8.2)
--- NOTE | 2018-11-12 11:51 | Emergency Department Note ---
History of Present Illness General Chief complaint: Shortness of Breath/Dyspnea Stated complaint: SOB Time Seen by Provider: 11/12/18 10:51 History of Present Illness Maximum Pain Intensity: 9 This 58-year-old female presents the ER with chief complaint of shortness of breath. The patient has a history of COPD and is a current every day smoker. The patient is not on oxygen at home. The patient states that she has had increased shortness of breath since she woke up at 7 AM this morning. At 9:00 the shortness of breath worsened which is why she decided to come to the emergency room. The patient denies any associated chest pain, heart palpitations. The patient is currently taking all her inhalers as prescribed. She is not on any steroids at this time. The patient denies any recent cold symptoms. She denies any fever or chills. Home Medications Home Medications Medication Instructions Recorded Confirmed Type Ocuvite Adult 50 Plus 1 cap PO QPM 01/01/18 10/21/18 History albuterol sulfate [Ventolin HFA] 2 puff INHALATION QID PRN 01/01/18 10/21/18 History atorvastatin 40 mg PO QPM 01/01/18 10/21/18 History cetirizine 10 mg PO QPM 01/01/18 10/21/18 History ranitidine HCl 150 mg PO BID 01/01/18 10/21/18 History sertraline 100 mg PO HS 01/01/18 10/21/18 History One Daily Women 50 Plus 1 tab PO QAM 01/03/18 10/21/18 History omeprazole 20 mg PO QPM 01/17/18 10/21/18 History Spiriva with HandiHaler 1 cap INHALATION QAM 06/05/18 10/21/18 History Symbicort 2 puff INHALATION BID PRN 06/05/18 10/21/18 History azelastine 2 spray INTRANASAL BID PRN 06/05/18 10/21/18 History fluticasone propionate 1 spray INTRANASAL DAILY PRN 06/05/18 10/21/18 History naproxen sodium 220 mg PO DIRECTED PRN 06/05/18 10/21/18 History bupropion HCl 75 mg PO BID #60 tab 06/07/18 10/21/18 Rx ipratropium-albuterol 3 ml NEB QID PRN #180 ml 06/07/18 10/21/18 Rx metoprolol tartrate 25 mg PO BID #60 tab 06/07/18 10/21/18 Rx lidocaine 1 patch TOP DAILY #15 ea 08/07/18 10/21/18 Rx citalopram 20 mg tablet PO .TAKE 1 AND 1/2 TABLE tab 10/21/18 10/21/18 History hydrocodone-acetaminophen [[place]] 1 tab PO Q4H PRN #15 tab 10/21/18 Rx lidocaine 1 patch TOP DAILY #15 ea 10/21/18 Rx cyclobenzaprine 10 mg PO TID PRN #10 tab 11/09/18 Rx Allergies Allergy/AdvReac Type Severity Reaction Status Date / Time Penicillins Allergy Intermediate HIVES Verified 11/12/18 13:59 Tetracyclines Allergy Intermediate HIVES Verified 11/12/18 13:59 Past Med/Surg History Medical History COPD (chronic obstructive pulmonary disease) (Chronic) USES NEBULIZER. INHALER 2-3 X PER DAY. Seen in ED for URI/exacerbation 11/2017 [facility]. Patient not taking other inhalers due to cost Hypertension (Chronic) CURRENTLY ON NO MEDICATIONS AT THIS TIME HLD (hyperlipidemia) (Chronic) GERD (gastroesophageal reflux disease) (Chronic) Controlled Dementia of the Alzheimer's type, with early onset, with depressive mood (Chronic) STATES SHE STOPPED TAKING ANY MEDICATION R/T THIS ISSUE Chronic back pain (Chronic) Osteoporosis (Chronic) Osteoarthritis (Chronic) Macular degeneration (Chronic) Anxiety (Chronic) Depression (Chronic) Hearing deficit (Chronic) LEFT EAR Allergic rhinitis (Chronic) Fracture of T12 vertebra (Resolved) Tobacco use disorder (Chronic) Kidney stones (Chronic) Compression fx, thoracic spine (Inactive) Leukocytosis (Inactive) Surgical History History of appendectomy (Resolved) History of cholecystectomy (Resolved) History of cataract surgery (Resolved) BOTH EYES WITH LENS IMPLANT History of colonoscopy (Resolved) Hx of sinus surgery (Resolved) IN ADDITIION TO SINUS SURGERY - INSERTED TUBES IN BOTH EARS; RIGHT EAR TUBE HAS SINCE FALLEN OUT History of tooth extraction (Resolved) ALL TEETH Hx of hernia repair (Resolved) History of open reduction and internal fixation (ORIF) procedure (Resolved) LEFT elbow Status post wrist surgery (Resolved) left for tendonitis History of total abdominal hysterectomy and bilateral salpingo-oophorectomy (Resolved) Family History Mother Family history of diabetes mellitus Hypertension Grandfather (Maternal) Family history of diabetes mellitus Grandmother (Maternal) Family history of diabetes mellitus Sister Hypertension Other No family history of adverse response to anesthesia Social History Preferred Language: Kosovan Communication Ability: Effective Visual Impairment: No Limitations [employer] Administrator Required: No Beliefs That Will Affect Care: None marital status: Current Living Situation: Spouse Current Living Situation Comment: Lives with and son Feels Safe at Home: Yes Smoking Status: Current every day smoker Tobacco Type: cigarettes ; Cigarettes Per Day: 20 ; Second Hand Exposure: No ; Hx Alcohol Use: Yes Alcohol type: beer Hx Substance Use: No Review of Systems A total of 10 systems reviewed and were otherwise negative Physical Exam Vital Signs Vital Signs - 24 hr 11/12/18 10:48 11/12/18 11:01 11/12/18 11:17 Temperature 36.7 C Temperature Source Oral Sepsis Recent Fever Within 48 Hours No Sepsis New/Unexplained Change in Mental Status No Sepsis Action Taken by Nursing No Action Required Oxygen Flow Rate - Titration Pulse Oximetry Post Tiitration Pulse Rate 126 H 96 H 101 H Pulse Rate [Apical] Pulse Rate from SpO2 Sensor 92 H 103 H Respiratory Rate 26 H 27 H 25 H Respiratory Effort / Characteristics Spontaneous Non-Labored Spontaneous Respiratory Depth Normal Respiratory Pattern Regular Blood Pressure 117/71 106/70 Blood Pressure [Left Arm] Blood Pressure Mean 86 82 Blood Pressure Mean [Left Arm] Pulse Oximetry 83 L 89 L 89 L Oxygen Delivery Method Room Air Oxygen Flow Rate 11/12/18 11:22 11/12/18 11:30 11/12/18 11:46 Temperature Temperature Source Sepsis Recent Fever Within 48 Hours Sepsis New/Unexplained Change in Mental Status Sepsis Action Taken by Nursing Oxygen Flow Rate - Titration 12 Pulse Oximetry Post Tiitration 90 Pulse Rate 96 H Pulse Rate [Apical] 95 H Pulse Rate from SpO2 Sensor 96 H Respiratory Rate 18 25 H Respiratory Effort / Characteristics Spontaneous Short of Breath Respiratory Depth Respiratory Pattern Blood Pressure 115/78 Blood Pressure [Left Arm] Blood Pressure Mean 90 Blood Pressure Mean [Left Arm] Pulse Oximetry 91 91 Oxygen Delivery Method Oxymask Oxymask Oxygen Flow Rate 12 11/12/18 12:00 11/12/18 12:04 11/12/18 12:30 Temperature Temperature Source Sepsis Recent Fever Within 48 Hours Sepsis New/Unexplained Change in Mental Status Sepsis Action Taken by Nursing Oxygen Flow Rate - Titration 7 Pulse Oximetry Post Tiitration 93 Pulse Rate 104 H 110 H Pulse Rate [Apical] Pulse Rate from SpO2 Sensor 104 H 109 H Respiratory Rate 30 H 26 H Respiratory Effort / Characteristics Respiratory Depth Respiratory Pattern Blood Pressure 136/89 117/80 Blood Pressure [Left Arm] Blood Pressure Mean 104 92 Blood Pressure Mean [Left Arm] Pulse Oximetry 93 91 Oxygen Delivery Method Nebulizer Oxygen Flow Rate 11/12/18 12:43 11/12/18 13:18 11/12/18 13:24 Temperature Temperature Source Sepsis Recent Fever Within 48 Hours Sepsis New/Unexplained Change in Mental Status Sepsis Action Taken by Nursing Oxygen Flow Rate - Titration Pulse Oximetry Post Tiitration Pulse Rate 115 H 116 H Pulse Rate [Apical] 113 H Pulse Rate from SpO2 Sensor 117 H Respiratory Rate 24 22 27 H Respiratory Effort / Characteristics Non-Labored Spontaneous Respiratory Depth Normal Respiratory Pattern Regular Blood Pressure 116/72 Blood Pressure [Left Arm] 117/80 Blood Pressure Mean 86 Blood Pressure Mean [Left Arm] 92 Pulse Oximetry 93 93 Oxygen Delivery Method Nebulizer Oxygen Flow Rate 7 11/12/18 13:30 Temperature Temperature Source Sepsis Recent Fever Within 48 Hours Sepsis New/Unexplained Change in Mental Status Sepsis Action Taken by Nursing Oxygen Flow Rate - Titration Pulse Oximetry Post Tiitration Pulse Rate 120 H Pulse Rate [Apical] Pulse Rate from SpO2 Sensor 120 H Respiratory Rate 28 H Respiratory Effort / Characteristics Respiratory Depth Respiratory Pattern Blood Pressure 117/69 Blood Pressure [Left Arm] Blood Pressure Mean 85 Blood Pressure Mean [Left Arm] Pulse Oximetry 89 L Oxygen Delivery Method Oxygen Flow Rate PHYSICAL EXAM: Vital Signs were reviewed: Reviewed Nurse's notes and agree. Oxygen was alert initially 83% on room air. This increased to 91% on 12 L via oxygen mask. GENERAL: 58-year-old female appears in no acute distress. MENTAL STATUS: Alert, oriented, coherent. EARS: Canals clear. TMs good light reflex, no erythema or fluid level noted. NOSE: Nasal mucosa with moderate erythema engorgement. PHARYNX: Moderate erythema, no edema noted. No exudate noted. Airway is adequate. NECK: Supple, non-tender. No lymphadenopathy noted. LUNGS: Clear to auscultation without wheezes rales or rhonchi. Breath sounds are distant bilaterally and completely absent in the right lower lung field CARDIAC: Regular rate and rhythm without murmur. SKIN: No rashes noted. Course Administered Medications Ioversol (Optiray 320 100ml) 95 ml IV ONCE PRN PRN Reason: Interaction Checking Stop: 11/16/18 13:08 Last Admin: 11/12/18 13:10 Dose: 95 ml Documented by: [id number] Discontinued Medications Albuterol (Duoneb) 12 ml NEB ONE STA Stop: 11/12/18 11:04 Last Admin: 11/12/18 11:19 Dose: 12 ml Documented by: [id number] Ketorolac Tromethamine (Toradol) 30 mg IV NOW STA Stop: 11/12/18 12:02 Last Admin: 11/12/18 12:06 Dose: 30 mg Documented by: [id number] Methylprednisolone (Solumedrol) 125 mg IV NOW STA Stop: 11/12/18 11:04 Last Admin: 11/12/18 11:51 Dose: 125 mg Documented by: [id number] Potassium Chloride (Klor-Con M10) 20 meq PO NOW STA Stop: 11/12/18 13:08 Last Admin: 11/12/18 13:23 Dose: 20 meq Documented by: [id number] Medical Decision Making Differential Diagnosis COPD exacerbation, pneumonia, hypoxia Medical Records Attestation: I reviewed the patient's medical records. Home Medications Current Medication List: was personally reviewed by me Laboratory Data Attestation: I reviewed the patient's lab results. Result diagrams: 11/12/18 11:17 11/12/18 11:17 Lab Results 11/12/18 11/12/18 11/12/18 Range/Units 11:17 11:17 11:24 WBC 13.30 H (4.8-10.8) K/uL RBC 4.89 (4.2-5.4) M/uL Hgb 15.1 (12.0-16.0) g/dL Hct 43.6 (37-47) % MCV 89.2 (80-100) fL MCH 30.9 (25-34) pg MCHC 34.6 (32-36) g/dL RDW Std Deviation 43.3 (36.4-46.3) fL RDW Coeff of Yoshi 13.3 (11.5-14.5) % Plt Count 307 (130-400) K/uL MPV 10.7 H (7.4-10.4) fL Immature Gran % (Auto) 0.3 % Neut % (Auto) 70.7 % Lymph % (Auto) 20.5 % Nuckolls % (Auto) 5.8 % Eos % (Auto) 2.2 % Baso % (Auto) 0.5 % Immature Gran # (Auto) 0.04 H (0.00-0.02) K/uL Neut # (Auto) 9.40 H (1.4-6.5) K/uL Lymph # (Auto) 2.73 (1.2-3.4) K/uL [place] # (Auto) 0.77 H (0.11-0.59) K/uL Eos # (Auto) 0.29 (0-0.5) K/uL Baso # (Auto) 0.07 (0-0.2) K/uL POC D-Dimer > 450 H* (0-450) ng/mlFEU Sodium 140 (136-145) mmol/L Potassium 2.7 L (3.5-5.1) mmol/L Chloride 106 (98-107) mmol/L Carbon Dioxide 27 (21-32) mmol/L Anion Gap 7.0 (3-11) BUN 9 (7-18) mg/dl Creatinine 0.91 (0.6-1.2) mg/dl Est Cr Clr Drug Dosing 68.7 ml/min Est GFR ( Amer) 79.5 Est GFR (Non-Af Amer) 68.6 BUN/Creatinine Ratio 9.5 L (10-20) Glucose 111 H (70-99) mg/dl Calcium 9.9 (8.5-10.1) mg/dl Total Bilirubin 0.5 (0.2-1) mg/dl AST 16 (15-37) U/L ALT 26 (12-78) U/L Alkaline Phosphatase 150 H (45-117) U/L Total Protein 6.8 (6.4-8.2) gm/dl Albumin 3.3 L (3.4-5.0) gm/dl Globulin 3.5 (2.5-4.0) gm/dl Albumin/Globulin Ratio 0.9 (0.9-2) Imaging Data Attestation: I personally reviewed and interpreted this imaging study as follows: Radiologist's Impression: R chest 1V portable HISTORY: 58 years-old Female dyspnea acute shortness of breath COMPARISON: Chest radiograph 06/05/2018, thoracolumbar radiographs 10/21/2018 TECHNIQUE: Portable AP view of the chest FINDINGS: Cardiac silhouette is enlarged, unchanged. Right perihilar opacities are noted with right lung base volume loss, right lung base opacities with right pleural effusion. Rightward midline shift of the heart and mediastinal structures. The patient is slightly rotated towards the right. No pneumothorax. The left lung is clear. No overt pulmonary edema. Degenerative changes of the shoulders and spine. IMPRESSION: 1. Right perihilar, right midlung and right lung base opacities are noted with volume loss and rightward midline shift with pleural effusion. Findings are concerning for an obstructing endobronchial mass or mucous plug. These findings are new from 10/21/2018. Findings could be correlated with a follow-up CT of the chest or bronchoscopy. 2. Left lung is clear. The above report was generated using voice recognition software. It may contain grammatical, syntax or spelling errors. Electronically signed by: Imer Allred M.D. 11/12/2018 11:47 AM Dictated: 11/12/18 1145 Transcribed: 11/12/[address] OF THE CHEST WITH IV CONTRAST CLINICAL HISTORY: Abnormal chest x-ray/shortness of breath/CT recommended COMPARISON STUDY: Chest CT March 03, 2018. Chest radiograph November 12, 2018. TECHNIQUE: Following IV administration of 94 mL of Optiray-320, helical axial images of the chest were obtained. Sagittal and coronal reconstructions were viewed as well as maximal intensity projections on an independent 3-D workstation. Automated exposure control was utilized for the study. A dose lowering technique was utilized adhering to the principles of ALARA. CT DOSE: 508.87 mGycm FINDINGS: No enlarged axillary, mediastinal or hilar lymph nodes are present. Moderate cardiomegaly is noted. There is no pericardial effusion. There are a small amount of secretions within the trachea. Extensive secretions within the right middle lobe and lower lobe bronchus are noted with secretions within the right mainstem bronchus. There is subtotal right lower lobe collapse. Segmental right middle lobe atelectasis is noted. Associated right lung volume loss is noted. No central mass is identified. There is mild emphysema. No pneumothorax or pleural effusion is noted. Bony thorax is unremarkable. Lateral renal stones are noted. The gallbladder surgically absent. Subcentimeter lateral segment hepatic lesion favors a cyst. A cyst within the upper pole of the right kidney is noted IMPRESSION: 1. Subtotal right lower lobe collapse. Segmental right middle lobe atelectasis. Superimposed pneumonia cannot be excluded. The findings are due to extensive secretions within the right lower lobe and middle lobe bronchi and could be due to mucous plugging or aspiration. No obstructing mass however a follow-up chest CT in one month to ensure resolution is recommended. Alternatively, bronchoscopy could be considered. 2. Mild emphysema. 3. Bilateral nephrolithiasis. Electronically signed by: Chauncey Petersen M.D. 11/12/2018 1:46 PM Dictated: 11/12/18 1332 Blood Pressure Blood Pressure Findings: Normal blood pressure MDM Narrative The patient was evaluated. The patient's oxygen was titrated up to 12 L via OxiMask to obtain O2 sat of 91%. IV access was obtained CBC and differential, renal profile were ordered. Patient was given an hour-long DuoNeb. The patient was given Solu-Medrol 125 mg IV. The patient was independently evaluated by Dr. Sandoval who agrees with treatment plan. The patient was complaining of some back pain therefore she was given Toradol 30 mg IV for back pain. Patient's white count was elevated at 13.3. D-dimer was elevated at greater than 450. The potassium was also low at 2.7. The patient was given oral potassium 20 mEq p.o. Chest x-ray revealed abnormality and a CT was suggested and ordered with results as above revealing a subtotal right lower lobe collapse slightly due to mucous plugging or aspiration pneumonia. The patient was informed of findings. The patient was discussed with Dr. Sandoval who individually evaluated the patient agrees with treatment plan. Not in any hospitalist was consulted for admission Impression & Plan Hypoxia, Mucus plugging of bronchi, Acute hypokalemia Discharge Plan Visit Data Chief Complaint: Shortness of Breath/Dyspnea Stated Complaint: SOB ED Provider: Thom Sandoval ED Midlevel Provider: Lissy Iglesias Discharge Problem: Hypoxia, Mucus plugging of bronchi, Acute hypokalemia Patient Disposition: Being Evaluated by Hospitalist Condition: Good Forms Stand Alone Forms: [facility] Prescriptions Prescriptions: No Action citalopram 20 mg tablet PO .TAKE 1 AND 1/2 TABLE RF: 0 One Daily Women 50 Plus 400-120 mcg-mg Tablet 1 tab PO QAM RF: 0 omeprazole 20 mg capsule,delayed release(DR/EC) 20 mg PO QPM RF: 0 lidocaine 5 % adhesive patch,medicated 1 patch TOP DAILY Qty: 15 RF: 0 hydrocodone-acetaminophen [[place]] 5-325 mg tablet 1 tab PO Q4H PRN (Reason: pain) Qty: 15 RF: 0 cyclobenzaprine 10 mg tablet 10 mg PO TID PRN (Reason: muscle spasm) Qty: 10 RF: 0 atorvastatin 40 mg Tablet 40 mg PO QPM RF: 0 cetirizine 10 mg Tablet 10 mg PO QPM RF: 0 sertraline 100 mg Tablet 100 mg PO HS RF: 0 ranitidine HCl 150 mg Capsule 150 mg PO BID RF: 0 albuterol sulfate [Ventolin HFA] 90 mcg/actuation Hfa Aerosol Inhaler 2 puff INHALATION QID PRN (Reason: Shortness Of Breath Or Wheezing) RF: 0 Ocuvite Adult 50 Plus 250-5-1 mg Capsule 1 cap PO QPM RF: 0 fluticasone propionate 50 mcg/actuation [place],Suspension 1 spray INTRANASAL DAILY PRN (Reason: Nasal Congestion) RF: 0 azelastine 137 mcg (0.1 %) Aerosol,[place] 2 spray INTRANASAL BID PRN (Reason: Nasal Congestion) RF: 0 naproxen sodium 220 mg Capsule 220 mg PO DIRECTED PRN (Reason: Pain) RF: 0 Spiriva with HandiHaler 18 mcg Capsule, W/Inhalation Device 1 cap INHALATION QAM RF: 0 Symbicort 160-4.5 mcg/actuation Hfa Aerosol Inhaler 2 puff INHALATION BID PRN (Reason: sob) RF: 0 ipratropium-albuterol 0.5 mg-3 mg(2.5 mg base)/3 mL solution for nebulization 3 ml NEB QID PRN (Reason: Shortness Of Breath Or Wheezing) Qty: 180 RF: 4 metoprolol tartrate 25 mg Tablet 25 mg PO BID Qty: 60 RF: 3 bupropion HCl 75 mg tablet 75 mg PO BID Qty: 60 RF: 6 lidocaine 5 % adhesive patch,medicated 1 patch TOP DAILY Qty: 15 RF: 0 Referrals Referrals: Teddy Ortiz MD [Primary Care Provider] -
[2018-11-12] MEDS ORDERED: KETOROLAC 30 MG/ML VIAL IV STA (12:01)
[2018-11-12] MEDS ORDERED: POTASSIUM CHLORIDE 10 MEQ TABCR PO STA (13:07)
[2018-11-12] MEDS ORDERED: IOVERSOL 100ml IV PRN (13:09)
--- NOTE | 2018-11-12 13:48 | CT Scan Report ---
CT OF THE CHEST WITH IV CONTRAST CLINICAL HISTORY: Abnormal chest x-ray/shortness of breath/CT recommended COMPARISON STUDY: Chest CT March 03, 2018. Chest radiograph November 12, 2018. TECHNIQUE: Following IV administration of 94 mL of Optiray-320, helical axial images of the chest we re obtained. Sagittal and coronal reconstructions were viewed as well as maximal intensity projectio ns on an independent 3-D workstation. Automated exposure control was utilized for the study. A dose lowering technique was utilized adhering to the principles of ALARA. CT DOSE: 508.87 mGycm FINDINGS: No enlarged axillary, mediastinal or hilar lymph nodes are present. Moderate cardiomegaly is noted. There is no pericardial effusion. There are a small amount of secretions within the trachea . Extensive secretions within the right middle lobe and lower lobe bronchus are noted with secretions within the right mainstem bronchus. There is subtotal right lower lobe collapse. Segmental right mid dle lobe atelectasis is noted. Associated right lung volume loss is noted. No central mass is identif ied. There is mild emphysema. No pneumothorax or pleural effusion is noted. Bony thorax is unremarkab le. Lateral renal stones are noted. The gallbladder surgically absent. Subcentimeter lateral segment hepatic lesion favors a cyst. A cyst within the upper pole of the right kidney is noted IMPRESSION: 1. Subtotal right lower lobe collapse. Segmental right middle lobe atelectasis. Superimposed pneumoni a cannot be excluded. The findings are due to extensive secretions within the right lower lobe and mi ddle lobe bronchi and could be due to mucous plugging or aspiration. No obstructing mass however a fo llow-up chest CT in one month to ensure resolution is recommended. Alternatively, bronchoscopy could be considered. 2. Mild emphysema. 3. Bilateral nephrolithiasis. Electronically signed by: Chauncey Petersen M.D. 11/12/2018 1:46 PM
--- NOTE | 2018-11-12 14:49 | History & Physical Report ---
Date of Service November 12, 2018 Assessment & Plan (1) Hypoxia: CT chest as noted Likely COPD exacerbation as well No hx of home O2 Possible mucous plugging with R lobe collapse Nebs, solumedrol 60mg TID, mucomyst Vanco started on admission due to PCN allergy CT surg c/s pending, follows with Angie FORD CT also noted for nonobstructing mass with f/u CT in 6 months recs per radiology (2) Acute hypokalemia: Replace and monitor (3) Hypercholesterolemia: continue home meds (4) Hypertension: States she was started on medication for this on last admission but has been out for about 1 month BP stable, will hold for now (5) Dementia of the Alzheimer's type, with early onset, with depressive mood: No current meds for this (6) Chronic back pain: continue home meds (7) Anxiety: continue home meds (8) Depression: continue home meds (9) Tobacco use disorder: 1ppd, nicotine patch (10) DVT prophylaxis: SCDs given likely procedure History of Present Illness Primary Care Provider: Teddy Ortiz MD 58 y/o F c/o SOB and chest tightness. Pt states this was all new this AM. She felt fine yesterday. She started to have SOB and R sided chest tightness so she took her inhalers, but this did not help. She has a home pulse ox and it went from 89% to 84%. She tried her inhalers again, but there was no improvement so she came to the ED. Pt states she has had COPD exacerbations in the past, but has never had R sided chest tightness like this. There is no angelita pain. She states she has been coughing recently, but was trying to suppress it due to worsened LBP. Pt denies fever, abd pain, n/v/c, LE pain or swelling. Tolerating PO without issue. Pt has chronic diarrhea since her cholecystectomy. Pt states her breathing feels much improved s/p O2, nebs, steroids in the ED. There has been no change in the R sided chest pressure. Pt does not wear O2 at baseline. Allergies Allergy/AdvReac Type Severity Reaction Status Date / Time Penicillins Allergy Intermediate HIVES Verified 11/12/18 13:59 Tetracyclines Allergy Intermediate HIVES Verified 11/12/18 13:59 Home Medications Home Medications Medication Instructions Recorded Confirmed Type Ocuvite Adult 50 Plus 1 cap PO HS 01/01/18 11/12/18 History albuterol sulfate [Ventolin HFA] 2 puff INHALATION QID PRN 01/01/18 11/12/18 History atorvastatin 40 mg PO HS 01/01/18 11/12/18 History ranitidine HCl 150 mg PO HS 01/01/18 11/12/18 History One Daily Women 50 Plus 1 tab PO QAM 01/03/18 11/12/18 History omeprazole 20 mg PO QAM 01/17/18 11/12/18 History Spiriva with HandiHaler 1 cap INHALATION QAM 06/05/18 11/12/18 History Symbicort 2 puff INHALATION BID 06/05/18 11/12/18 History fluticasone propionate 1 spray INTRANASAL DAILY PRN 06/05/18 11/12/18 History ipratropium-albuterol 3 ml NEB QID PRN #180 ml 06/07/18 11/12/18 Rx metoprolol tartrate 25 mg PO BID #60 tab 06/07/18 11/12/18 Rx citalopram 20 mg tablet 60 mg PO HS tab 10/21/18 11/12/18 History lidocaine 1 patch TOP DAILY #15 ea 10/21/18 11/12/18 Rx cyclobenzaprine 10 mg PO TID PRN #10 tab 11/09/18 11/12/18 Rx roflumilast [Daliresp] 500 mcg PO DAILY 11/12/18 11/12/18 History umeclidinium [Incruse Ellipta] 1 inh INHALATION DAILY 11/12/18 11/12/18 History Past Med/Surg History Medical History COPD (chronic obstructive pulmonary disease) (Chronic) USES NEBULIZER. INHALER 2-3 X PER DAY. Seen in ED for URI/exacerbation 11/2017 [facility]. Patient not taking other inhalers due to cost Hypertension (Chronic) CURRENTLY ON NO MEDICATIONS AT THIS TIME HLD (hyperlipidemia) (Chronic) GERD (gastroesophageal reflux disease) (Chronic) Controlled Dementia of the Alzheimer's type, with early onset, with depressive mood (Chronic) STATES SHE STOPPED TAKING ANY MEDICATION R/T THIS ISSUE Chronic back pain (Chronic) Osteoporosis (Chronic) Osteoarthritis (Chronic) Macular degeneration (Chronic) Anxiety (Chronic) Depression (Chronic) Hearing deficit (Chronic) LEFT EAR Allergic rhinitis (Chronic) Fracture of T12 vertebra (Resolved) Tobacco use disorder (Chronic) Kidney stones (Chronic) Compression fx, thoracic spine (Inactive) Leukocytosis (Inactive) Surgical History History of appendectomy (Resolved) History of cholecystectomy (Resolved) History of cataract surgery (Resolved) BOTH EYES WITH LENS IMPLANT History of colonoscopy (Resolved) Hx of sinus surgery (Resolved) IN ADDITIION TO SINUS SURGERY - INSERTED TUBES IN BOTH EARS; RIGHT EAR TUBE HAS SINCE FALLEN OUT History of tooth extraction (Resolved) ALL TEETH Hx of hernia repair (Resolved) History of open reduction and internal fixation (ORIF) procedure (Resolved) LEFT elbow Status post wrist surgery (Resolved) left for tendonitis History of total abdominal hysterectomy and bilateral salpingo-oophorectomy (Resolved) Family History Mother Family history of diabetes mellitus Hypertension Grandfather (Maternal) Family history of diabetes mellitus Grandmother (Maternal) Family history of diabetes mellitus Sister Hypertension Other No family history of adverse response to anesthesia Social History Preferred Language: Kinyarwanda Communication Ability: Effective Visual Impairment: No Limitations Supervisor Files Required: No Beliefs That Will Affect Care: None marital status: Current Living Situation: Spouse Current Living Situation Comment: Lives with and son Feels Safe at Home: Yes Smoking Status: Current every day smoker Tobacco Type: cigarettes ; Cigarettes Per Day: 20 ; Second Hand Exposure: No ; Hx Alcohol Use: Yes (2x/year) Alcohol type: beer Hx Substance Use: No Review of Systems Review of Systems: Pertinent positives and negatives reviewed in HPI--all others negative Physical Exam Constitutional: WD/WN, vitals as above Eyes: normal visual steen by confrontation and + anicteric sclerae Neck: normal visual inspection and trachea midline Respiratory: normal respiratory effort; no respiratory distress Auscultation: + breath sounds absent (R lobe) and + wheezes Cardiovascular: Rate/Rhythm: regular rate and regular rhythm Gastrointestinal (Abdomen): Inspection/Auscultation: abdomen not distended Percussion/Palpation: abdomen soft; abdomen nontender Musculoskeletal: Head/Neck/Chest: normocephalic and head atraumatic negative for edema, peripheral pulses intact Skin: no rashes, warm and dry Neurologic: awake; not confused Speech / Cognition: normal speech Psychiatric: A+Ox3, euthymic affect Results & Data Vital Signs (Past 12 Hours) Vital Signs Temp Pulse Pulse Resp BP BP Pulse Ox 11/12/18 14:00 118 H 28 H 106/70 89 L 11/12/18 13:30 120 H 28 H 117/69 89 L 11/12/18 13:24 116 H 27 H 116/72 93 11/12/18 13:18 115 H 22 11/12/18 12:43 113 H 24 117/80 93 11/12/18 12:30 110 H 26 H 117/80 91 11/12/18 12:00 104 H 30 H 136/89 93 11/12/18 11:30 96 H 25 H 115/78 91 11/12/18 11:22 95 H 18 91 11/12/18 11:17 101 H 25 H 89 L 11/12/18 11:01 96 H 27 H 106/70 89 L 11/12/18 10:48 36.7 C 126 H 26 H 117/71 83 L Diagnostic Findings CXR: RML/Rbase opacity, ?? mucous plugging CT chest: RLL collapse, mucous plugging vs asp PNA Nonobstructing mass Code Status & VTE Plan Code Status Full code, although pt states no prolonged mechanical life support, feeding tubes, etc VTE Prophylaxis Plan VTE Prophylaxis will be ordered: Yes PG Care Time/CCT Total # of Minutes Spent Total Time Spent with Patient: Total time spent is greater than 50% in coordination of care (as documented) at patient's floor/unit and/or counseling patient:
[2018-11-12] MEDS ORDERED: VANCOMYCIN CONSULT ACTIVE PRN (17:25)
[2018-11-12] MEDS ORDERED: MAGNESIUM HYDROXIDE SUSP 30 ML UDC PO PRN (17:25)
[2018-11-12] MEDS ORDERED: ALBUTEROL HFA 8 GM INHALER INH PRN (17:25)
[2018-11-12] MEDS ORDERED: ONDANSETRON INJ 2 MG/ML 2 ML VIAL IV PRN (17:25)
[2018-11-12] MEDS ORDERED: FLUTICASONE PROPIONATE NA SPR 16 GM BTL PRN (17:25)
[2018-11-12] MEDS ORDERED: VANCOMYCIN HCL 2,000 MG in SODIUM CHLORIDE 0.9% 500 ML IV ONE (18:00)
[2018-11-12] MEDS: POTASSIUM CHLORIDE / WTR 10 MEQ/100 ML PLCT IV SCH ×3 (18:17→20:42)
[2018-11-12] MEDS: NICOTINE 21 MG/24 HR TDSY TD SCH (18:18)
[2018-11-12] MEDS: ACETYLCYSTEINE 20% INHAL SOLN ***DISPENSED BY RESP. INH SCH (19:33)
[2018-11-12] MEDS: ALBUT/IPRATROP 3MG/0.5MG NEB 3 ML VIAL NEB SCH (19:33)
[2018-11-12] MEDS: methylPREDNISolone 60 MG in SYRINGE 0 ML IV SCH (20:44)
[2018-11-12] MEDS: BUDESONIDE/FORMOTEROL FUMARATE 160/4.5 60 PUFFS/INHALER INH SCH (20:51)
[2018-11-12] MEDS: CITALOPRAM 20 MG TAB PO SCH (20:52)
[2018-11-12] MEDS: ATORVASTATIN 40 MG TAB PO SCH (20:52)
[2018-11-12] MEDS ORDERED: methylPREDNISolone 125 MG/2 ML VIAL IV SCH (21:00)
[2018-11-12] MEDS ORDERED: NON-FORMULARY MEDICATION (C,E,Zinc,Copper 11-Omega3s-Lut [Ocuvite Adult 50 Plus] 1 CAP) PO SCH (21:00)
--- NOTE | 2018-11-12 23:02 | Pharmacy Report ---
Pharmacy Abx Initial Consult - Date of Service November 12, 2018 - Pharmacy Dosing Scope Date of Consult: 11/12/18 Consultation requested by: Dr. Morocho Pharmacy is consulted to initiate Vancomycin IV dosing therapy, order appropriate labs and adjust drug dose/frequency. - Subjective The patient is a 58 year old F admitted on 11/12/18 14:42. - Objective Height: 5 ft 9 in Weight: 78 kg Vital Signs (Past 12hrs): Vital Signs Temp Pulse Pulse Resp BP BP Pulse Ox 11/12/18 19:37 109 H 18 92 11/12/18 19:00 36.6 C 110 H 22 123/62 94 11/12/18 17:52 121 H 11/12/18 17:28 36.4 C L 124 H 22 108/68 91 11/12/18 17:24 36.4 C L 126 H 24 108/68 89 L 11/12/18 17:00 124 H 21 115/64 90 11/12/18 16:30 108 H 24 97/73 L 96 11/12/18 16:00 110 H 27 H 114/67 93 11/12/18 15:30 98 H 21 103/60 94 11/12/18 15:00 115 H 21 120/78 91 11/12/18 14:30 112 H 22 119/67 93 11/12/18 14:00 118 H 28 H 106/70 89 L 11/12/18 13:30 120 H 28 H 117/69 89 L 11/12/18 13:24 116 H 27 H 116/72 93 11/12/18 13:18 115 H 22 11/12/18 12:43 113 H 24 117/80 93 11/12/18 12:30 110 H 26 H 117/80 91 11/12/18 12:00 104 H 30 H 136/89 93 11/12/18 11:30 96 H 25 H 115/78 91 11/12/18 11:22 95 H 18 91 11/12/18 11:17 101 H 25 H 89 L 11/12/18 11:01 96 H 27 H 106/70 89 L 11/12/18 10:48 36.7 C 126 H 26 H 117/71 83 L Lab Results (24hrs): Laboratory Tests (24 Hours) 11/12/18 11/12/18 11:17 11:17 WBC 13.30 H Neut # (Auto) 9.40 H Creatinine 0.91 Est Cr Clr Drug Dosing 68.7 - Assessment & Plan Assessment 58 year old F presenting to the ED with SOB. Has COPD and current smoker. Patient has PCN and Tetracycline allergy Plan Vancomycin for treatment of COPD Exacerbation Vancomycin IV * Estimated PK Parameters: Vd 0.7 L/kg, Curtis 0.061 hr-1, t1/2 11 hr * Loading dose: 2000 mg (25.6 mg/kg) * Maintenance dose: 1000 mg IV (12.8 mg/kg) every 12 hours * Goal trough level for Pulm: 15 to 20 mcg/mL * Trough level ordered for 11/14/18 at 0530 Pharmacy will continue to follow and will adjust dose/frequency as necessary. Thank you.
--- NOTE | 2018-11-12 23:17 | Consultation Report ---
DATE OF CONSULTATION: 11/12/2018 REASON FOR CONSULTATION: Lung atelectasis. HISTORY OF PRESENT ILLNESS: This is a 58-year-old female who says she was in her usual state of health, who presented to the Emergency Department secondary to shortness of breath. I questioned the patient about her shortness of breath and she says for approximately 3 weeks, she has had some progressive worsening shortness of breath with a cough. The patient says that this morning, her shortness of breath became significantly worse, so she presented to the Emergency Department. She told me that she did not seek medical attention prior to today. I questioned the patient on numerous symptoms and she said several days ago she did fall, hurting her back, but does not recall having any head injuries. She denies any visual changes, tinnitus. She did not note any sore throat or neck pain. She does not have any substernal chest pain. She does note shortness of breath with cough as described above. She has not been around any sick contacts. She is a current every day smoker. She has not had any fevers, shakes, rigors or chills. She does note back pain from her recent fall. She denies any nausea, vomiting, abdominal pain, weight loss, or decreased appetite. She denies dysuria. To the best of her knowledge, she has no history of DVT or PE. She does suffer from anxiety and depression. In the Emergency Department, labs were conducted where CBC showed white blood cell count was 13.3. Hemoglobin, hematocrit, and platelet count were all within the normal range. The patient had a D-dimer that was elevated at greater than 450. Chemistry profile showed sodium and potassium were 140 and 2.7, BUN and creatinine were noted to be within the normal range. Imaging studies were conducted including a chest x-ray, this showed opacities in the right lung, greatest in the right lung base and right mid lung zone. This was followed up with a CT scan of patient's chest where patient was noted to have a subtotal collapse of the right lower lobe and also some associated collapse of the right middle lobe with atelectasis. There was felt to be a large amount of mucus secretions noted in her airway. No obstructing masses were noted. Because of these findings, she was admitted by the medical service. She has been given an hour long nebulizer treatment. She has also been given 125 mg of Solu-Medrol. We have now been asked to see the patient due to her CT scan findings. She notes that since her arrival to the Emergency Department, her breathing has improved somewhat. In addition, I discussed with the nurse who says that clinically the patient's respiratory status has remained stable. PAST MEDICAL HISTORY: Includes the following, 1. COPD. 2. Hypertension. 3. Hyperlipidemia. 4. GERD. 5. Early-onset dementia. 6. Chronic back pain. 7. Osteoarthritis. 8. Osteoporosis. 9. Macular degeneration. 10. Anxiety. 11. Depression. 12. History of nephrolithiasis. 13. History of thoracic spine compression fracture. PAST SURGICAL HISTORY: Includes, 1. Appendectomy. 2. Cholecystectomy. 3. Bilateral cataracts. 4. History of colonoscopy. 5. Sinus surgery. 6. Dental extractions. 7. Herniorrhaphy. 8. ORIF of her left elbow. 9. Left wrist surgery. 10. Hysterectomy. SOCIAL HISTORY: The patient is a current everyday smoker. She smokes at least a packet of cigarettes per day and has done so for several years. FAMILY HISTORY: Positive for diabetes. REVIEW OF SYSTEMS: As described above. PHYSICAL EXAMINATION: VITAL SIGNS: The patient is noted to be afebrile. Temperature 36.7. Her blood pressure is 120/78, pulse is 115 and regular, respirations are 21, they are not labored at this time. Pulse ox 91% on 7 liters via facemask. HEENT: Head is atraumatic, normocephalic. Eyes, pupils equal, round, and reactive to light and accommodation. Her extraocular motions are intact. Ears, her auditory acuity is grossly intact. Nose, nasal patency was intact. Sinuses are nontender. MOUTH: Has dry mucous membranes with thick coating on her tongue. NECK: Supple, no adenopathy or tracheal shift was noted. CARDIOVASCULAR: Revealed regular rate and rhythm. LUNGS: Revealed coarse rhonchi noted throughout lung steen which appeared to be greater on the right. There was also some diminished breath sounds at the right base. No wheezing was noted at the time of my exam. She was not using accessory muscles to aid in respiration. ABDOMEN: Soft, nontender, nondistended. EXTREMITIES: Revealed no cyanosis, clubbing, or edema. No calf tenderness was noted. She had palpable radial and DP pulses bilaterally. NEUROLOGIC: Revealed cranial nerves II-XII are grossly intact. She can move all 4 extremities without noted focal deficits. DIAGNOSTIC DATA: As described above. IMPRESSION: A 58-year-old female with right lung atelectasis. PLAN: The patient has been admitted on the medical service. We will continue to provide the patient with nebulizer therapies. I have encouraged her to quit smoking. Pulmonary toilet and strategies will be employed such as incentive spirometer, coughing, and deep breathing. Steroid therapy has been maintained by the medical service, which she will also continue and antibiotics in the form of vancomycin have been initiated. We will make the patient n.p.o. after midnight as she may require a bronchoscopy with bronchoalveolar lavage and I have obtained informed consent from the patient to do a bronchoscopy as well as for conscious sedation. We will repeat a chest x-ray in the morning and then determine how to proceed thereafter.
[2018-11-12] MEDS: CYCLOBENZAPRINE HCL 10 MG TAB PO PRN (23:26)
[2018-11-13] MEDS ORDERED: KETOROLAC 30 MG/ML VIAL IV ONE (03:20)
[2018-11-13] MEDS ORDERED: KETOROLAC 30 MG/ML VIAL ONE (03:51)
[2018-11-13] MEDS: methylPREDNISolone 60 MG in SYRINGE 0 ML IV SCH ×3 (03:53→20:32)
[2018-11-13] MEDS ORDERED: VANCOMYCIN HCL 1,000 MG in SODIUM CHLORIDE 0.9% 250 ML IV SCH (06:00)
[2018-11-13 06:33] LABS: Basophils # (auto) 0.01 K/uL (0-0.2); Basophils % (auto) 0.1 %; Hematocrit (blood only) 41.6 % (37-47); Immature Granulocytes # (auto) 0.04 K/uL (0.00-0.02); Immature Granulocytes % (auto) 0.3 %; Lymphocytes # (auto) 0.86 K/uL (1.2-3.4); Lymphocytes % (auto) 6.1 %; Mean Corpuscular Hemoglobin 29.8 pg (25-34); Mean Corpuscular Hgb Conc 33.7 g/dL (32-36); Mean Corpuscular Volume 88.5 fL (80-100); Mean Platelet Volume 11.4 fL (7.4-10.4); Monocytes # (auto) 0.28 K/uL (0.11-0.59); Neutrophils # (auto) 12.95 K/uL (1.4-6.5); Neutrophils % (auto) 91.5 %; Platelet Count 281 K/uL (130-400); RDW Coefficient of Variation 13.3 % (11.5-14.5); RDW Standard Deviation 43.8 fL (36.4-46.3); White Blood Count 14.14 K/uL (4.8-10.8)
[2018-11-13 07:06] LABS: BUN Creatinine Ratio 13.5 (10-20); Calcium 9.8 mg/dl (8.5-10.1); Creatinine Clr Calc Pharmacy 70.8 ml/min; Est GFR (African American) 74.5; Est GFR (Non-African American) 64.3; Potassium 3.7 mmol/L (3.5-5.1)
[2018-11-13] MEDS: ACETYLCYSTEINE 20% INHAL SOLN ***DISPENSED BY RESP. INH SCH (07:10)
[2018-11-13] MEDS: ALBUT/IPRATROP 3MG/0.5MG NEB 3 ML VIAL NEB SCH ×4 (07:10→19:30)
--- NOTE | 2018-11-13 07:26 | XRay Report ---
XR chest 1V portable CLINICAL HISTORY: atelectasis dyspnea COMPARISON STUDY: 11/12/2018 FINDINGS: Improved aeration right base. The extensive atelectasis previously described has shown near complete resolution. Minimal residual right lung base. Left is considered clear. Left hemidiaphragm is smooth. IMPRESSION: Considerable improvement. Considerable decrease in atelectatic change right perihilar an d right basilar region. Mild residual. The above report was generated using voice recognition software. It may contain grammatical, syntax or spelling errors. Electronically signed by: Shay Iglesias M.D. 11/13/2018 7:24 AM
[2018-11-13] MEDS: PANTOprazole 40 MG TAB PO SCH (07:50)
[2018-11-13] MEDS: LIDOCAINE 5% 1 PATCH TD SCH (07:50)
[2018-11-13] MEDS: CEROVITE ADV FORMULA TAB PO SCH (07:50)
[2018-11-13] MEDS: NICOTINE 21 MG/24 HR TDSY TD SCH (07:50)
[2018-11-13] MEDS: ROFLUMILAST 500 MCG TAB PO SCH (07:50)
[2018-11-13] MEDS: TIOTROPIUM BROMIDE 5 PUFF/90 MCG INH INH SCH (07:51)
[2018-11-13] MEDS: BUDESONIDE/FORMOTEROL FUMARATE 160/4.5 60 PUFFS/INHALER INH SCH ×2 (07:51→20:33)
--- NOTE | 2018-11-13 09:24 | History & Physical Bridge Note ---
Date of Service November 13, 2018 History & Physical Bridge Note I have examined the patient, reviewed the History & Physical and in the interval since the performance of the History & Physical I have noted the following changes of clinical significance: no changes noted
--- NOTE | 2018-11-13 09:25 | Pre Anesthesia Assessment ---
Date of Service November 13, 2018 Pre Sedation Assessment Vital Signs Temp Pulse Pulse Resp BP BP BP 11/13/18 07:12 74 18 11/13/18 06:56 37.0 C 66 20 167/74 H 11/13/18 03:29 37.0 C 81 20 157/80 H 11/13/18 00:00 101 H 11/12/18 22:54 36.6 C 101 H 22 145/75 H 11/12/18 19:37 109 H 18 11/12/18 19:00 36.6 C 110 H 22 123/62 11/12/18 17:52 121 H 11/12/18 17:28 36.4 C L 124 H 22 108/68 11/12/18 17:24 36.4 C L 126 H 24 108/68 11/12/18 17:00 124 H 21 115/64 11/12/18 16:30 108 H 24 97/73 L 11/12/18 16:00 110 H 27 H 114/67 11/12/18 15:30 98 H 21 103/60 11/12/18 15:00 115 H 21 120/78 11/12/18 14:30 112 H 22 119/67 11/12/18 14:00 118 H 28 H 106/70 11/12/18 13:30 120 H 28 H 117/69 11/12/18 13:24 116 H 27 H 116/72 11/12/18 13:18 115 H 22 11/12/18 12:43 113 H 24 117/80 11/12/18 12:30 110 H 26 H 117/80 11/12/18 12:00 104 H 30 H 136/89 11/12/18 11:30 96 H 25 H 115/78 11/12/18 11:22 95 H 18 11/12/18 11:17 101 H 25 H 11/12/18 11:01 96 H 27 H 106/70 11/12/18 10:48 36.7 C 126 H 26 H 117/71 Pulse Ox 11/13/18 07:12 98 11/13/18 06:56 96 11/13/18 03:29 93 11/13/18 00:00 11/12/18 22:54 95 11/12/18 19:37 92 11/12/18 19:00 94 11/12/18 17:52 11/12/18 17:28 91 11/12/18 17:24 89 L 11/12/18 17:00 90 11/12/18 16:30 96 11/12/18 16:00 93 11/12/18 15:30 94 11/12/18 15:00 91 11/12/18 14:30 93 11/12/18 14:00 89 L 11/12/18 13:30 89 L 11/12/18 13:24 93 11/12/18 13:18 11/12/18 12:43 93 11/12/18 12:30 91 11/12/18 12:00 93 11/12/18 11:30 91 11/12/18 11:22 91 11/12/18 11:17 89 L 11/12/18 11:01 89 L 11/12/18 10:48 83 L Cardiovascular RRR, no murmur, no edema + peripheral pulses normal Respiratory + respiratory effort normal + wheezes Pre-Sedation Airway Assessment Smoking Status: Current some day smoker Hx Sleep Apnea: No Short, Thick Neck: No Thyromental Distance: > or= 3.5 Finger Breadths Oral Cavity: + WNL Mallampati Class: III ASA: ASA3 Notes The planned sedation has been discussed with the patient. Informed Consent was obtained. I have identified the patient, determined the appropriateness of sedation and have assessed the patient immediately prior to the procedure. All medicine(s) and interventions are by my order.
[2018-11-13 09:50] LABS: Partial Thromboplastin Ratio 0.8; Prothrombin Time 10.4 Seconds (9.0-12.0)
[2018-11-13] MEDS ORDERED: ACETYLCYSTEINE 20% INHAL SOLN ***DISPENSED BY RESP. INH ONE (10:25)
[2018-11-13] MEDS ORDERED: OXYMETAZOLINE 0.05% 30 ML BTL ONE (10:27)
[2018-11-13] MEDS ORDERED: fentaNYL citrate 100 MCG/2 ML VIAL IV ONE (10:27)
[2018-11-13] MEDS ORDERED: LIDOCAINE 4% INH SOLN 4 ML BTL NAE ONE (10:27)
[2018-11-13] MEDS ORDERED: LIDOCAINE HCL VISCOUS SOLN 2% 15 ML UDC TOP ONE (10:27)
[2018-11-13] MEDS ORDERED: LEVALBUTEROL HCL 1.25 MG/3 ML NEB NEB STA (10:27)
[2018-11-13] MEDS ORDERED: MIDAZOLAM HCL 1 MG/ML 2ML VIAL IV ONE (10:28)
[2018-11-13] MEDS ORDERED: LIDOCAINE HCL 2% (LOCAL) INJ 50 ML VIAL INFIL ONE (10:28)
--- NOTE | 2018-11-13 10:30 | Post Anesthesia Assessment ---
Date of Service November 13, 2018 Post Sedation Assessment Vital Signs Temp Pulse Pulse Resp BP BP BP 11/13/18 10:20 121 H 22 137/98 11/13/18 10:15 104 H 20 156/76 H 11/13/18 10:12 125 H 20 173/97 H 11/13/18 10:10 95 H 20 151/82 H 11/13/18 10:05 88 18 134/75 11/13/18 10:00 83 18 152/80 H 11/13/18 09:55 92 H 18 143/75 H 11/13/18 09:52 86 18 149/79 H 11/13/18 08:00 69 11/13/18 07:12 74 18 11/13/18 06:56 37.0 C 66 20 167/74 H 11/13/18 03:29 37.0 C 81 20 157/80 H 11/13/18 00:00 101 H 11/12/18 22:54 36.6 C 101 H 22 145/75 H 11/12/18 19:37 109 H 18 11/12/18 19:00 36.6 C 110 H 22 123/62 11/12/18 17:52 121 H 11/12/18 17:28 36.4 C L 124 H 22 108/68 11/12/18 17:24 36.4 C L 126 H 24 108/68 11/12/18 17:00 124 H 21 115/64 11/12/18 16:30 108 H 24 97/73 L 11/12/18 16:00 110 H 27 H 114/67 11/12/18 15:30 98 H 21 103/60 11/12/18 15:00 115 H 21 120/78 11/12/18 14:30 112 H 22 119/67 11/12/18 14:00 118 H 28 H 106/70 11/12/18 13:30 120 H 28 H 117/69 11/12/18 13:24 116 H 27 H 116/72 11/12/18 13:18 115 H 22 11/12/18 12:43 113 H 24 117/80 11/12/18 12:30 110 H 26 H 117/80 11/12/18 12:00 104 H 30 H 136/89 11/12/18 11:30 96 H 25 H 115/78 11/12/18 11:22 95 H 18 11/12/18 11:17 101 H 25 H 11/12/18 11:01 96 H 27 H 106/70 11/12/18 10:48 36.7 C 126 H 26 H 117/71 Pulse Ox 11/13/18 10:20 96 11/13/18 10:15 96 11/13/18 10:12 93 11/13/18 10:10 93 11/13/18 10:05 93 11/13/18 10:00 94 11/13/18 09:55 94 11/13/18 09:52 97 11/13/18 08:00 11/13/18 07:12 98 11/13/18 06:56 96 11/13/18 03:29 93 11/13/18 00:00 11/12/18 22:54 95 11/12/18 19:37 92 11/12/18 19:00 94 11/12/18 17:52 11/12/18 17:28 91 11/12/18 17:24 89 L 11/12/18 17:00 90 11/12/18 16:30 96 11/12/18 16:00 93 11/12/18 15:30 94 11/12/18 15:00 91 11/12/18 14:30 93 11/12/18 14:00 89 L 11/12/18 13:30 89 L 11/12/18 13:24 93 11/12/18 13:18 11/12/18 12:43 93 11/12/18 12:30 91 11/12/18 12:00 93 11/12/18 11:30 91 11/12/18 11:22 91 11/12/18 11:17 89 L 11/12/18 11:01 89 L 11/12/18 10:48 83 L Recovery Score Activity: Moves 4 extremities Respiration: Deep Breath/Cough Circulation: +/-20-49% PreAnes Value Consciousness: Arouseable (by name) Oxygen Saturation: O2 needed for >90% Post Anesthesia Score: 7 Discharge Sedation Level of Care: Fast Track Phase II Post Sedation Plan On clinical assessment, the patient appears to have tolerated the sedation without complications. Patient is recovering as anticipated. Patient will continue to be monitored by nursing and may be discharged when sedation discharge criteria are met per below protocol. Upon Completions of procedure and additional 15 minutes continue every 5 minute vital signs and the P.A.R. score; then discharge to a Phase I or Fast Track to Phase II per the following guidelines: * Discharge Patient to appropriate Phase II area if PAR is 8 or greater or return to pre- procedure baseline. The post - procedure orders will be as directed. * If PAR score is less than 8 or not return to pre-procedure baseline then patient will follow Phase I monitoring till PAR is reached for Phase II. The Phase I may be done in procedure room or may call to secure a Phase I area. * If naloxone or flumazenil are used for reversal, hold in Phase I for continued monitoring from when last reversal dose was given for a minimum of 60 minutes or longer pending the nurse and/or physician discretion of patient condition before discharge to Phase II. Please call the Sedation Physician to re-evaluate and complete post-note for discharge to Phase II area. Do NOT discharge from procedure sedation or Phase 1 until post- sedation evaluation note is complete by procedure /sedation MD Sedation Discharge Instructions to be given to the patient at discharge to home.
--- NOTE | 2018-11-13 10:30 | Post Operative Brief Note ---
PG Immediate Post Op with CF Date of Surgery November 13, 2018 Pre & Post Diagnosis Operation Date: 11/13/18 10:00 Pre-Op Diagnosis: COPD EXACERBATION Post-Op Diagnosis: COPD EXACERBATION/RLL atelectasis Procedure Operation Date: 11/13/18 10:00 Actual Procedures p Bronchoscopy Radiology(Bilateral) - Jose Alberto Willams MD Surgeon Jose Alberto Willams MD Etiquette Coach none Estimated Blood Loss 0 Findings Consistent with Post-Op Diagnosis COPD/RLL atelectasis Specimens Specimen Description: Right Lower Lobe wash x 3 Complications none Disposition Accompanied Patient To Recovery: No Overlapping Procedure I was present for: the critical portions of procedure. I was immediately available: during the entire case. Back up surgeon: was not required during procedure.
[2018-11-13] MEDS: SODIUM CHLORIDE 0.9% 500 ML IV SCH (11:17)
--- NOTE | 2018-11-13 12:27 | Consultation Report ---
DATE OF CONSULTATION: 11/13/2018 PULMONARY MEDICINE CONSULTATION REASON FOR CONSULTATION: Right lower lobe collapse, rule out secondary to mucoid impaction and COPD. HISTORY OF PRESENT ILLNESS: A 58-year-old white female who was admitted to the hospital yesterday with progressive symptoms of dyspnea and chest tightness. She has been a longstanding smoker, a pack a day since her teens and continues to smoke. 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 She has complaints of chest tightness and posterior thoracic and lower back pain. The cough has been relatively new and she denies fevers, chills, sweats, abdominal discomfort. She has chronic diarrhea since her previous cholecystectomy. She was seen in the ER and found to be hypoxic between 84% and 89% on room air and was supplemented with oxygen. She has a history of penicillin and tetracycline allergy. She has been diagnosed with COPD, hypertension, dyslipidemia, GERD, perhaps mild dementia, and chronic back pain along with macular degeneration. She has also undergone endoscopic sinus surgery. She lives with her and son. Rest of the review of systems is noncontributory. She denies hemoptysis or current new pleuritic pain. PHYSICAL EXAMINATION: GENERAL: Reveals a well-developed, well-nourished white female in mild respiratory distress at rest. CURRENT VITAL SIGNS: Temperature 36.7, pulse 96-126 and regular, respiratory rate mid 20s, blood pressure 117/71, O2 sat 98% on 6 liters. SKIN: Without lesion. HEENT: Atraumatic, normocephalic, PERRLA, EOMI. Conjunctivae pale. Sclerae nonicteric. Fundi poorly visualized. LUNGS: Decreased breath sounds two-thirds the way posteriorly with scattered rhonchi. CARDIAC: Regular rate and rhythm. I do not appreciate a gallop. ABDOMEN: Soft, scaphoid. No evidence for hepatosplenomegaly. EXTREMITIES: No pedal edema, clubbing, or cyanosis. NEUROLOGIC: Intact. No lateralizing signs. LABORATORY DATA: The patient has a white count of 14,000 with a leftward shift, H and H [address] scan of the chest shows subtotal right lower lobe collapse, segmental right middle lobe atelectasis. Superimposed pneumonia cannot be ruled out. Significant volume loss noted. I do not see any significant enlarged axillary, mediastinal or hilar lymph nodes or obstructing mass. She has emphysema and bilateral nephrolithiasis. Thoracic spine back in early October 2018 suggests that the right lung was patent at that time. PT, PTT pending. OVERALL ASSESSMENT AND PLAN: A 58-year-old with [id number] chronic obstructive pulmonary disease with mucoid impaction, right lower lobe and right middle lobe partial collapse. Do not suspect a bronchogenic neoplasm, but that will need to be ruled out. The patient is n.p.o. and we will schedule her for bronchoscopy this morning with BAL after checking her coagulation profile. Additional recommendations will be forthcoming pending that evaluation. MTDD
--- NOTE | 2018-11-13 13:02 | Operative Report ---
DATE OF OPERATION: 11/13/2018 TIME: 0900. PROCEDURE: Fiberoptic bronchoscopy with bronchoalveolar lavage. INDICATIONS: Right middle lobe and left lower lobe consolidation/atelectasis with volume loss, rule out endobronchial obstruction/mucoid impaction versus neoplasm. ANESTHESIA PREOPERATIVELY: None. ANESTHESIA DURING PROCEDURE: IV Versed 8 mg, IV fentanyl 100 mcg, 20 mL 2% Xylocaine spray above and below the cords, 4% viscous Xylocaine intranasally. Moderate conscious sedation was begun at 09:58 and completed at 10:25. DESCRIPTION OF PROCEDURE: Fiberoptic bronchoscope was inserted into the right naris with minimal difficulty and passed to the level of true vocal cords. The cords appear to approximate normally with phonation without evidence of lesions or paralysis. Scope was then introduced into the trachea and right and left tracheobronchial tree. The jett was sharp. Left main stem bronchus was explored initially and no obvious endobronchial lesions were seen. Left upper lobe, the apical-posterior and anterior segments, lingular subdivision with superior and inferior segments and all basilar segments of left lower lobe were found to be free of endobronchial lesions with a small amount of mucopurulent secretion lavaged from each lobar segment until clear. Bronchial crypts and clefts were seen throughout the left tracheobronchial tree. The scope was withdrawn to the jett and entered into the right mainstem bronchus. A significant amount of copious mucoviscous and mucopurulent secretion was seen involving the right bronchus intermedius and occluding the right lower lobe and partially the right middle lobe. The right upper lobe, the apical and posterior and anterior segments were free of endobronchial lesions. Scope was then advanced to the bronchus intermedius and copious normal saline was used with the aspirate sent for appropriate studies. The right middle lobe was somewhat fish mouthed suggesting volume loss and was lavaged with normal saline with the medial lateral segments fully visualized. The right lower lobe again was copiously lavaged with normosol and 5 mL of 20% Mucomyst was instilled with normal saline and then lavaged once again. The patient did become markedly tachycardic and hypertensive. Scope was withdrawn initially and reinserted when the hemodynamics improved and the Mucomyst/normal saline was instilled. No brushings or biopsies were attempted. The patient once again became tachycardic with a sinus tachycardia at 152, blood pressure 180/120 and was requiring high FIO2 supplementation to maintain saturation. Scope was then withdrawn. The patient was given a nebulizer treatment with Xopenex 1.25 mg and 40 mg of IV Solu-Medrol and then was transferred back to the medical floor, hemodynamically stable with no further signs of respiratory compromise. We will await microbiological and cytologic examination of the bronchial washings. OVERALL ASSESSMENT: 1. Severe chronic obstructive pulmonary disease. 2. Mucoid impaction with chronic inflammatory change/pneumonitis involving the right middle lobe and right lower lobe with significant volume loss and resultant hypoxemia. I attest to the content of the Intraoperative Record and any orders documented therein. Any exception s are noted below.
[2018-11-13] MEDS: CLINDAMYCIN 600 MG in DEXTROSE 5% 50 ML IV SCH ×2 (15:59→22:29)
--- NOTE | 2018-11-13 18:19 | Progress Note ---
DATE: 11/13/2018 Ms. Graham presented with atelectasis of her right lower lobe. She was hypoxic. She was a heavy smoker and has significant lung disease. I took the liberty of asking Dr. Kwesi Willams from Pulmonary to evaluate the patient. He did so and felt she needed a bronchoscopy and performed one. She did have significant amount of mucus plugging which was suctioned out. She feels better now and is on less oxygen. We will continue to follow her clinically and radiographically.
[2018-11-13] MEDS: CITALOPRAM 20 MG TAB PO SCH (20:32)
[2018-11-13] MEDS: ATORVASTATIN 40 MG TAB PO SCH (20:33)
--- NOTE | 2018-11-13 22:28 | Hospitalist Progress Note ---
Date of Service November 13, 2018 Assessment & Plan (1) Hypoxia: CT chest as noted Likely COPD exacerbation as well No hx of home O2 Patient had bronchoscopy with ed. It appears it was due to a mucous plug. Will stop vanco. Nebs, solumedrol 60mg TID, mucomyst CT also noted for nonobstructing mass with f/u CT in 6 months recs per radiology Will followup in AM. (2) Acute hypokalemia: Replace and monitor (3) Hypercholesterolemia: continue home meds (4) Hypertension: States she was started on medication for this on last admission but has been out for about 1 month BP stable, will hold for now (5) Dementia of the Alzheimer's type, with early onset, with depressive mood: No current meds for this (6) Chronic back pain: continue home meds (7) Anxiety: continue home meds (8) Depression: continue home meds (9) Tobacco use disorder: 1ppd, nicotine patch (10) DVT prophylaxis: SCDs given likely procedure Spent 35 minutes in management of patient. Subjective Pleasant 58 yo female reports feeling better in regards to her breathing. Patient denies any fever chills. Patient reports she tolerated her bronch. Review of Systems Review of Systems: All systems reviewed & are unremarkable except as noted in HPI & below Physical Exam Physical Exam: Constitutional: WD/WN, vitals as above Eyes: normal visual steen by confrontation and + anicteric sclerae Neck: normal visual inspection and trachea midline Respiratory: normal respiratory effort; no respiratory distress CTA B/L Cardiovascular: Rate/Rhythm: regular rate and regular rhythm Gastrointestinal (Abdomen): Inspection/Auscultation: abdomen not distended Percussion/Palpation: abdomen soft; abdomen nontender Musculoskeletal: Head/Neck/Chest: normocephalic and head atraumatic negative for edema, peripheral pulses intact Skin: no rashes, warm and dry Neurologic: awake; not confused Speech / Cognition: normal speech Psychiatric: A+Ox3, euthymic affect Results & Data Vital Signs (Past 12 Hours) Vital Signs Temp Pulse Pulse Resp BP Pulse Ox 11/13/18 19:00 37.0 C 82 20 143/89 H 96 11/13/18 16:00 67 11/13/18 15:25 70 18 96 11/13/18 14:59 36.9 C 87 20 160/83 H 96 11/13/18 11:22 36.8 C 95 H 18 145/76 H 94 11/13/18 10:49 111 H 21 92 11/13/18 10:35 105 H 22 131/77 93 11/13/18 10:30 105 H 20 126/72 94 PG Care Time/CCT Total # of Minutes Spent Total Time Spent with Patient: Total time spent is greater than 50% in coordination of care (as documented) at patient's floor/unit and/or counseling patient:
[2018-11-13] MEDS: CYCLOBENZAPRINE HCL 10 MG TAB PO PRN (22:48)
[2018-11-14] MEDS: ACETAMINOPHEN 325 MG TAB PO PRN ×2 (01:07→19:35)
[2018-11-14] MEDS: methylPREDNISolone 60 MG in SYRINGE 0 ML IV SCH ×2 (04:51→12:00)
[2018-11-14] MEDS ORDERED: VANCOMYCIN TROUGH ONE (05:30)
[2018-11-14] MEDS: CLINDAMYCIN 600 MG in DEXTROSE 5% 50 ML IV SCH ×3 (05:59→21:50)
[2018-11-14 06:15] LABS: Creatinine Clr Calc Pharmacy 68.4 ml/min; Est GFR (African American) 70.9; Est GFR (Non-African American) 61.2
[2018-11-14] MEDS: ALBUT/IPRATROP 3MG/0.5MG NEB 3 ML VIAL NEB SCH ×4 (07:15→18:46)
--- NOTE | 2018-11-14 07:56 | Progress Note ---
DATE: 11/14/2018 Ms. Graham looks great today. She is on room air with 96% saturations. Her x-ray after her bronchoscopy looks great. At this point, I will sign off. If there are any questions, please call.
[2018-11-14] MEDS: LIDOCAINE 5% 1 PATCH TD SCH (08:22)
[2018-11-14] MEDS: ROFLUMILAST 500 MCG TAB PO SCH (08:22)
[2018-11-14] MEDS: BUDESONIDE/FORMOTEROL FUMARATE 160/4.5 60 PUFFS/INHALER INH SCH ×2 (08:23→21:48)
[2018-11-14] MEDS: CEROVITE ADV FORMULA TAB PO SCH (08:23)
[2018-11-14] MEDS: PANTOprazole 40 MG TAB PO SCH (08:23)
[2018-11-14] MEDS: NICOTINE 21 MG/24 HR TDSY TD SCH (08:23)
[2018-11-14] MEDS: TIOTROPIUM BROMIDE 5 PUFF/90 MCG INH INH SCH (08:24)
--- NOTE | 2018-11-14 09:31 | Pulmonology Progress Note ---
Date of Service November 14, 2018 58-year-old white female with moderately severe COPD admitted with progressive dyspnea and hypoxemia and a chest x-ray/CT scan of the chest as well as examination compatible with right middle lobe and right lower lobe atelectasis from mucoid impaction. Patient underwent bronchoscopy with BAL yesterday(see bronchoscopy report) and patient was virtually obstructed throughout the right tracheobronchial tree with mucoid impaction requiring copious normal saline instillation and the use of Mucomyst. Chest x-ray shows marked expansion and improvement with aeration of the right middle and lower lobe with minimal residual. Cultures were pending. Vancomycin was discontinued. Await final cultures. Patient feels much better and much less dyspneic and no longer with significant O2 requirement. Assessment & Plan (1) Hypoxia: (2) Mucus plugging of bronchi: 58-year-old with severe COPD markedly improved post bronchoscopy with BAL with significant improvement in aeration of the right lung with minimal residual. Await culture results. Would decrease steroid dosage mobilize and continue vigorous pulmonary toilet. (3) Acute hypokalemia: (4) Bronchitis: (5) History of tobacco use: (6) History of pulmonary emphysema: (7) Atelectasis of right lung: (8) Dementia of the Alzheimer's type, with early onset, with depressive mood: Review of Systems Review of Systems: All systems reviewed & are unremarkable except as noted in HPI & below Physical Exam Respiratory: normal respiratory effort Auscultation: + diminished lung sounds (Better aeration right base with occasional wheeze) Results & Data Vital Signs (Past 12 Hours) Vital Signs Temp Pulse Pulse Resp BP Pulse Ox 11/14/18 07:25 65 11/14/18 07:19 67 18 96 11/14/18 06:00 37.0 C 80 20 160/86 H 92 11/14/18 03:33 36.8 C 70 20 136/67 93 11/14/18 01:13 96 11/13/18 23:18 36.8 C 91 H 21 154/84 H 91 11/13/18 23:03 79 11/13/18 22:50 97 PG Care Time/CCT Total # of Minutes Spent Total Time Spent with Patient: Total time spent is greater than 50% in coordination of care (as documented) at patient's floor/unit and/or counseling patient:
[2018-11-14] MEDS: SODIUM CHLORIDE 0.9% 500 ML IV SCH (09:39)
[2018-11-14] MEDS: CYCLOBENZAPRINE HCL 10 MG TAB PO PRN (17:00)
[2018-11-14] MEDS: SODIUM CHLOR 7% 4 ML NEB INH SCH (18:46)
[2018-11-14] MEDS: predniSONE 20 MG TAB PO SCH (21:48)
[2018-11-14] MEDS: CITALOPRAM 20 MG TAB PO SCH (21:48)
[2018-11-14] MEDS: ATORVASTATIN 40 MG TAB PO SCH (21:48)
--- NOTE | 2018-11-14 23:45 | Hospitalist Progress Note ---
Date of Service November 14, 2018 Assessment & Plan (1) Hypoxia: CT chest as noted Likely COPD exacerbation as well No hx of home O2 S/P bronchoalveolar lavage found mucous plugging with R lobe collapse Stopped antibiotics Patient feeling better. Ambuklated hallway on RA. CONTINUE Nebs, stopped solumedrol 60mg TID, CONTINUE mucomyst Start prednisone taper Vanco started on admission due to PCN allergy CT surg c/s pending, follows with Angie FORD CT also noted for nonobstructing mass with f/u CT in 6 months recs per radiology (2) Acute hypokalemia: Replace and monitor (3) Hypercholesterolemia: continue home meds (4) Hypertension: States she was started on medication for this on last admission but has been out for about 1 month BP stable, will hold for now (5) Dementia of the Alzheimer's type, with early onset, with depressive mood: No current meds for this (6) Chronic back pain: continue home meds (7) Anxiety: continue home meds (8) Depression: continue home meds (9) Tobacco use disorder: 1ppd, nicotine patch (10) Acute respiratory failure with hypoxemia: Acute respiratory failure with tachypnea and hypoxia As noted above. (11) DVT prophylaxis: SCDs given likely procedure Spent 35 minutes in management of patient. Subjective 58 yo female reports feeling close to baseline. She reports no SOB, cough, fever chills, at rest. Review of Systems Review of Systems: All systems reviewed & are unremarkable except as noted in HPI & below Physical Exam Physical Exam: Constitutional: WD/WN, vitals as above Eyes: normal visual steen by confrontation and + anicteric sclerae Neck: normal visual inspection and trachea midline Respiratory: normal respiratory effort; no respiratory distress CTA B/L Cardiovascular: Rate/Rhythm: regular rate and regular rhythm Gastrointestinal (Abdomen): Inspection/Auscultation: abdomen not distended Percussion/Palpation: abdomen soft; abdomen nontender Musculoskeletal: Head/Neck/Chest: normocephalic and head atraumatic negative for edema, peripheral pulses intact Skin: no rashes, warm and dry Neurologic: awake; not confused Speech / Cognition: normal speech Psychiatric: A+Ox3, euthymic affect Results & Data Vital Signs (Past 12 Hours) Vital Signs Temp Pulse Pulse Resp BP BP Pulse Ox 08/31/19 23:26 37.2 C 78 18 150/69 H 93 11/14/18 19:00 36.7 C 100 H 20 148/79 H 93 11/14/18 18:46 84 18 95 11/14/18 16:00 83 11/14/18 14:59 36.9 C 84 18 124/60 91 PG Care Time/CCT Total # of Minutes Spent Total Time Spent with Patient: Total time spent is greater than 50% in coordination of care (as documented) at patient's floor/unit and/or counseling patient:
[2018-11-15] MEDS ORDERED: CLINDAMYCIN HCL 150 MG CAP PO SCH
[2018-11-15] MEDS: KETOROLAC 30 MG/ML VIAL IV PRN ×3 (03:04→23:23)
[2018-11-15] MEDS: CLINDAMYCIN 600 MG in DEXTROSE 5% 50 ML IV SCH (05:45)
[2018-11-15] MEDS: SODIUM CHLOR 7% 4 ML NEB INH SCH ×2 (07:00→18:50)
[2018-11-15] MEDS: ALBUT/IPRATROP 3MG/0.5MG NEB 3 ML VIAL NEB SCH ×4 (07:00→18:50)
[2018-11-15 07:22] LABS: Est GFR (African American) 92.9; Est GFR (Non-African American) 80.1
[2018-11-15] MEDS: TIOTROPIUM BROMIDE 5 PUFF/90 MCG INH INH SCH (08:21)
[2018-11-15] MEDS: NICOTINE 21 MG/24 HR TDSY TD SCH (08:21)
[2018-11-15] MEDS: LIDOCAINE 5% 1 PATCH TD SCH (08:22)
[2018-11-15] MEDS: ROFLUMILAST 500 MCG TAB PO SCH (08:22)
[2018-11-15] MEDS: CEROVITE ADV FORMULA TAB PO SCH (08:22)
[2018-11-15] MEDS: PANTOprazole 40 MG TAB PO SCH (08:22)
[2018-11-15] MEDS: predniSONE 20 MG TAB PO SCH ×2 (08:22→20:17)
[2018-11-15] MEDS: BUDESONIDE/FORMOTEROL FUMARATE 160/4.5 60 PUFFS/INHALER INH SCH ×2 (08:23→20:16)
[2018-11-15] MEDS: SODIUM CHLORIDE 0.9% 500 ML IV SCH (08:23)
--- NOTE | 2018-11-15 09:53 | XRay Report ---
XR chest 2V routine HISTORY: R lung atelectasis COMPARISON: Chest 11/13/2018. FINDINGS: Improved aeration within the right lung base with near complete resolution the right basila r airspace opacity. Right midlung zone the left basilar linear densities are noted in favor subsegmen jadiel atelectasis. No pneumothorax. No pleural effusions. The heart is normal in size. Old compression deformities within the lower thoracic and lumbar spine are noted. IMPRESSION: Improved aeration within the right lung base suggesting resolving atelectasis. Electronically signed by: Amado López M.D. 11/15/2018 9:52 AM
--- NOTE | 2018-11-15 12:07 | Pulmonology Progress Note ---
Date of Service nov Chart reviewed and patient examined Assessment & Plan (1) Atelectasis of right lung: Would continue mobilize patient and decrease steroid therapy to oral dosage as well as antibiotic as well and consider discharge tomorrow. Two step O2 examination to be done during ambulation at time of discharge. (2) Hypoxia: (3) Mucus plugging of bronchi: (4) Chronic sinusitis: (5) COPD (chronic obstructive pulmonary disease): (6) Dementia of the Alzheimer's type, with early onset, with depressive mood: Subjective 58-year-old white female with chronic obstructive pulmonary disease was admitted on 11/12/2018 with severe mucoid impaction with resultant right middle and lower lobe atelectasis. Patient underwent bronchoscopy with BAL with copious lavaged with normal saline and utilization of Mucomyst instillation. Patient has continued to improve with much less dyspnea and better aeration of the right lung with only minimal residual and adequate saturation on room air. No sign of aspiration. There was no sign of an endobronchial lesion or lung mass. Cultures were negative from the BAL but antibiotics have been started prior to the procedure. Patient has a penicillin allergy. Review of Systems Constitutional: no problem reported Eyes: no problem reported Ear, Nose, Mouth, Throat: no problem reported Respiratory: no problem reported Cardiovascular: no problem reported Gastrointestinal: no problem reported Genitourinary: no problem reported Musculoskeletal: no problem reported Integumentary: no problem reported Neurologic: no problem reported Psychiatric: no problem reported Endocrine: no problem reported Hematologic / Lymphatic: no problem reported Allergy / Immunological: no problem reported Physical Exam Constitutional: well developed and well nourished; no acute distress Eyes: PERRL, conjunctivae normal, anicteric sclerae ENMT: external ear and nose normal, oropharynx normal Neck: trachea midline, no thyromegaly Respiratory: normal respiratory effort Auscultation: lungs clear to auscultation bilaterally and + diminished lung sounds (Mild diminishing of breath sounds right base) Cardiovascular: RRR, no murmur, no edema Palpation: normal PMI; no thrill Gastrointestinal (Abdomen): normal bowel sounds, soft, nontender, no hepatosplenomegaly Musculoskeletal: no cyanosis or clubbing, extremities motor strength 5/5 Gait: normal gait Skin: no rashes, warm and dry Neurologic: PERRL, EOMI, accommodation nl, no face palsy, no dysarthria Psychiatric: A+Ox3, euthymic affect Lymphatic: no cervical or axillary lymphadenopathy Results & Data Vital Signs (Past 12 Hours) Vital Signs Temp Pulse Pulse Resp BP Pulse Ox 11/15/18 11:28 82 18 96 11/15/18 11:16 37.1 C 81 17 161/80 H 93 11/15/18 07:39 68 11/15/18 07:24 36.9 C 72 17 160/81 H 98 11/15/18 07:02 74 18 95 11/15/18 03:25 36.8 C 73 18 164/63 H 95 PG Care Time/CCT Total # of Minutes Spent Total Time Spent: 35 Total Time Spent with Patient: Total time spent is greater than 50% in coordination of care (as documented) at patient's floor/unit and/or counseling patient:
[2018-11-15] MEDS: CLINDAMYCIN HCL 150 MG CAP PO SCH ×3 (14:00→20:17)
[2018-11-15 15:51] LABS: Hematocrit (blood only) 40.7 % (37-47); Hemoglobin 13.7 g/dL (12.0-16.0); Mean Corpuscular Hemoglobin 29.8 pg (25-34); Mean Corpuscular Hgb Conc 33.7 g/dL (32-36); Mean Corpuscular Volume 88.7 fL (80-100); Mean Platelet Volume 11.3 fL (7.4-10.4); Platelet Count 282 K/uL (130-400); RDW Coefficient of Variation 13.3 % (11.5-14.5); RDW Standard Deviation 43.2 fL (36.4-46.3); Red Blood Count 4.59 M/uL (4.2-5.4); White Blood Count 17.98 K/uL (4.8-10.8)
[2018-11-15] MEDS: CITALOPRAM 20 MG TAB PO SCH (20:16)
[2018-11-15] MEDS: ATORVASTATIN 40 MG TAB PO SCH (20:17)
--- NOTE | 2018-11-15 23:09 | Hospitalist Progress Note ---
Date of Service November 15, 2018 Assessment & Plan (1) Hypoxia: CT chest as noted Likely COPD exacerbation as well No hx of home O2 S/P bronchoalveolar lavage found mucous plugging with R lobe collapse restarted clindamycin Patient feeling better. Ambulated hallway on RA. CONTINUE Nebs, stopped solumedrol 60mg TID, CONTINUE mucomyst Start prednisone taper Discharge held as patient HR went to 170 on ambulation. Will recheck in AM. CT also noted for nonobstructing mass with f/u CT in 6 months recs per radiology (2) Acute hypokalemia: Replace and monitor (3) Hypercholesterolemia: continue home meds (4) Hypertension: States she was started on medication for this on last admission but has been out for about 1 month BP stable, will hold for now (5) Dementia of the Alzheimer's type, with early onset, with depressive mood: No current meds for this (6) Chronic back pain: continue home meds (7) Anxiety: continue home meds (8) Depression: continue home meds (9) Tobacco use disorder: 1ppd, nicotine patch (10) Acute respiratory failure with hypoxemia: Acute respiratory failure with tachypnea and hypoxia As noted above. (11) DVT prophylaxis: SCDs given likely procedure Spent 35 minutes in management of patient. Subjective Patient reported feeling well And would like to be discharged today. She states she is back to her baseline Review of Systems Review of Systems: All systems reviewed & are unremarkable except as noted in HPI & below Physical Exam Physical Exam: Constitutional: WD/WN, vitals as above Eyes: normal visual steen by confrontation and + anicteric sclerae Neck: normal visual inspection and trachea midline Respiratory: normal respiratory effort; no respiratory distress CTA B/L Cardiovascular: Rate/Rhythm: regular rate and regular rhythm Gastrointestinal (Abdomen): Inspection/Auscultation: abdomen not distended Percussion/Palpation: abdomen soft; abdomen nontender Musculoskeletal: Head/Neck/Chest: normocephalic and head atraumatic negative for edema, peripheral pulses intact Skin: no rashes, warm and dry Neurologic: awake; not confused Speech / Cognition: normal speech Psychiatric: A+Ox3, euthymic affect Results & Data Vital Signs (Past 12 Hours) Vital Signs Temp Pulse Pulse Resp BP Pulse Ox 11/15/18 22:55 37.0 C 85 20 162/92 H 94 11/15/18 20:45 148/74 H 11/15/18 19:29 37.1 C 85 20 173/84 H 92 11/15/18 18:50 97 H 16 95 11/15/18 15:24 77 16 95 11/15/18 15:00 94 H 11/15/18 14:49 37.0 C 80 17 165/81 H 95 11/15/18 11:28 82 18 96 11/15/18 11:16 37.1 C 81 17 161/80 H 93 PG Care Time/CCT Total # of Minutes Spent Total Time Spent with Patient: Total time spent is greater than 50% in coordination of care (as documented) at patient's floor/unit and/or counseling patient:
[2018-11-16] MEDS: ALBUT/IPRATROP 3MG/0.5MG NEB 3 ML VIAL NEB SCH ×4 (07:31→19:16)
[2018-11-16] MEDS: SODIUM CHLOR 7% 4 ML NEB INH SCH (07:31)
[2018-11-16] MEDS: TIOTROPIUM BROMIDE 5 PUFF/90 MCG INH INH SCH (08:47)
[2018-11-16] MEDS: NICOTINE 21 MG/24 HR TDSY TD SCH (08:47)
[2018-11-16] MEDS: LIDOCAINE 5% 1 PATCH TD SCH (08:47)
[2018-11-16] MEDS: CEROVITE ADV FORMULA TAB PO SCH (08:48)
[2018-11-16] MEDS: PANTOprazole 40 MG TAB PO SCH (08:48)
[2018-11-16] MEDS: CLINDAMYCIN HCL 150 MG CAP PO SCH ×2 (08:49→13:10)
[2018-11-16] MEDS: BUDESONIDE/FORMOTEROL FUMARATE 160/4.5 60 PUFFS/INHALER INH SCH (08:49)
[2018-11-16] MEDS: ROFLUMILAST 500 MCG TAB PO SCH (08:49)
[2018-11-16] MEDS: predniSONE 20 MG TAB PO SCH (08:49)
[2018-11-16] MEDS: SODIUM CHLORIDE 0.9% 500 ML IV SCH (08:50)
[2018-11-16] MEDS: KETOROLAC 30 MG/ML VIAL IV PRN (08:57)
--- NOTE | 2018-11-16 10:46 | Hospitalist Progress Note ---
Date of Service November 16, 2018 Assessment & Plan (1) Hypoxia: CT chest as noted Likely COPD exacerbation as well No hx of home O2 S/P bronchoalveolar lavage found mucous plugging with R lobe collapse Continue clindamycin Patient feeling better. Ambulated hallway on RA. CONTINUE Nebs, stopped solumedrol 60mg TID, CONTINUE mucomyst Continue prednisone taper Discharge held as patient HR went to 170 on ambulation. Will recheck in AM. CT also noted for nonobstructing mass with f/u CT in 6 months recs per radiology (2) Acute hypokalemia: Replace and monitor (3) Hypercholesterolemia: continue home meds (4) Hypertension: States she was started on medication for this on last admission but has been out for about 1 month BP stable, will hold for now (5) Dementia of the Alzheimer's type, with early onset, with depressive mood: No current meds for this (6) Chronic back pain: continue home meds (7) Anxiety: continue home meds (8) Depression: continue home meds (9) Tobacco use disorder: 1ppd, nicotine patch (10) Acute respiratory failure with hypoxemia: Acute respiratory failure with tachypnea and hypoxia As noted above. (11) DVT prophylaxis: SCDs given likely procedure Spent 35 minutes in management of patient. Subjective 58-year-old white female with chronic obstructive pulmonary disease was admitted on 11/12/2018 with severe mucoid impaction with resultant right middle and lower lobe atelectasis. Patient underwent bronchoscopy with BAL with copious lavaged with normal saline and utilization of Mucomyst instillation. Patient has continued to improve with much less dyspnea and better aeration of the right lung with only minimal residual and adequate saturation on room air. No sign of aspiration. There was no sign of an endobronchial lesion or lung mass. Cultures were negative from the BAL but antibiotics have been started prior to the procedure. Patient has a penicillin allergy. Patient said her cough significantly improved. She does not have any complaints at this time. Her labs are pending. P.o. intake is improving. Patient is afebrile. Patient denies fever chills chest pain shortness of breath abdominal pain frequency urgency hematuria hematemesis dysuria and melena. Review of Systems Review of Systems: All systems reviewed & are unremarkable except as noted in HPI & below Physical Exam Constitutional: WD/WN, vitals as above well developed Eyes: PERRL, conjunctivae normal, anicteric sclerae ENMT: external ear and nose normal, oropharynx normal Neck: trachea midline, no thyromegaly Respiratory: normal respiratory effort, lungs clear to auscultation Cardiovascular: RRR, no murmur, no edema Gastrointestinal (Abdomen): normal bowel sounds, soft, nontender, no hepatosplenomegaly Musculoskeletal: no cyanosis or clubbing, extremities motor strength 5/5 Skin: no rashes, warm and dry Neurologic: patellar DTR's 2+ bilat, sensation intact Psychiatric: A+Ox3, euthymic affect Lymphatic: no cervical or axillary lymphadenopathy Results & Data Vital Signs (Past 12 Hours) Vital Signs Temp Pulse Pulse Pulse Pulse Pulse Pulse 11/16/18 09:55 84 11/16/18 07:35 126 H 121 H 95 H 11/16/18 07:11 36.8 C 72 11/16/18 02:42 37.0 C 79 11/15/18 23:44 84 11/15/18 22:55 37.0 C 85 Resp Resp Resp Resp BP BP Pulse Ox 11/16/18 09:55 11/16/18 07:35 22 18 16 11/16/18 07:11 16 159/90 H 95 11/16/18 02:42 16 154/74 H 95 11/15/18 23:44 11/15/18 22:55 20 162/92 H 94 Pulse Ox Pulse Ox Pulse Ox 11/16/18 09:55 11/16/18 07:35 96 97 98 11/16/18 07:11 11/16/18 02:42 11/15/18 23:44 11/15/18 22:55 PG Care Time/CCT Total # of Minutes Spent Total Time Spent with Patient: Total time spent is greater than 50% in coordination of care (as documented) at patient's floor/unit and/or counseling patient:
[2018-11-16] MEDS ORDERED: levoFLOXacin 500 MG TAB PO SCH (11:00)
[2018-11-16 13:17] LABS: Basophils # (auto) 0.01 K/uL (0-0.2); Basophils % (auto) 0.1 %; Eosinophils # (auto) 0.01 K/uL (0-0.5); Eosinophils % (auto) 0.1 %; Hematocrit (blood only) 44.8 % (37-47); Hemoglobin 15.4 g/dL (12.0-16.0); Immature Granulocytes # (auto) 0.12 K/uL (0.00-0.02); Immature Granulocytes % (auto) 0.7 %; Lymphocytes % (auto) 8.1 %; Mean Corpuscular Hemoglobin 30.4 pg (25-34); Mean Corpuscular Volume 88.5 fL (80-100); Monocytes # (auto) 0.89 K/uL (0.11-0.59); Monocytes % (auto) 5.5 %; Neutrophils # (auto) 13.81 K/uL (1.4-6.5); Neutrophils % (auto) 85.5 %; Platelet Count 305 K/uL (130-400); RDW Coefficient of Variation 13.3 % (11.5-14.5); RDW Standard Deviation 42.9 fL (36.4-46.3); Red Blood Count 5.06 M/uL (4.2-5.4); White Blood Count 16.14 K/uL (4.8-10.8)
[2018-11-16 13:28] LABS: Mean Corpuscular Hgb Conc 34.4 g/dL (32-36)
[2018-11-16 13:34] LABS: Albumin Level 3.1 gm/dl (3.4-5.0); BUN Creatinine Ratio 12.3 (10-20); Calcium 9.9 mg/dl (8.5-10.1); Creatinine Clr Calc Pharmacy 51.1 ml/min; Est GFR (African American) 50.2; Est GFR (Non-African American) 43.3; Potassium 4.1 mmol/L (3.5-5.1)
[2018-11-16 13:37] LABS: Albumin Globulin Ratio 0.8 (0.9-2); Bilirubin,Total 0.4 mg/dl (0.2-1); Globulin 3.8 gm/dl (2.5-4.0); Total Protein 6.9 gm/dl (6.4-8.2)
--- NOTE | 2018-11-16 14:11 | Discharge Summary ---
Date of Service November 16, 2018 Admission HPI Per Admitting Provider 58 y/o F c/o SOB and chest tightness. Pt states this was all new this AM. She felt fine yesterday. She started to have SOB and R sided chest tightness so she took her inhalers, but this did not help. She has a home pulse ox and it went from 89% to 84%. She tried her inhalers again, but there was no improvement so she came to the ED. Pt states she has had COPD exacerbations in the past, but has never had R sided chest tightness like this. There is no angelita pain. She states she has been coughing recently, but was trying to suppress it due to worsened LBP. Pt denies fever, abd pain, n/v/c, LE pain or swelling. Tolerating PO without issue. Pt has chronic diarrhea since her cholecystectomy. Pt states her breathing feels much improved s/p O2, nebs, steroids in the ED. There has been no change in the R sided chest pressure. Pt does not wear O2 at baseline. Principal Diagnosis none Discharge Exam Constitutional WD/WN, vitals as above well developed Eyes PERRL, conjunctivae normal, anicteric sclerae ENMT external ear and nose normal, oropharynx normal Neck trachea midline, no thyromegaly Respiratory normal respiratory effort, lungs clear to auscultation Cardiovascular RRR, no murmur, no edema Gastrointestinal (Abdomen) normal bowel sounds, soft, nontender, no hepatosplenomegaly Musculoskeletal no cyanosis or clubbing, extremities motor strength 5/5 Skin no rashes, warm and dry Neurologic patellar DTR's 2+ bilat, sensation intact Psychiatric A+Ox3, euthymic affect Lymphatic no cervical or axillary lymphadenopathy Discharge Data Allergies Allergy/AdvReac Type Severity Reaction Status Date / Time Penicillins Allergy Intermediate HIVES Verified 11/12/18 13:59 Tetracyclines Allergy Intermediate HIVES Verified 11/12/18 13:59 Consultations 11/12/18 14:04 ED Decision to Admit Stat 11/12/18 17:25 Consult Case Management - Discharge Planning Routine Consult Pulmonology Routine 11/13/18 08:54 Consult Pulmonology Routine Procedures Performed Operation Date: 11/13/18 10:00 Actual Procedures p Bronchoscopy Radiology(Bilateral) - Jose Alberto Willams MD Ordered Studies 11/12/18 12:09 CT chest w con Stat Hospital Course (1) Hypoxia: CT chest as noted Likely COPD exacerbation as well No hx of home O2 S/P bronchoalveolar lavage found mucous plugging with R lobe collapse Continue clindamycin Patient feeling better. Ambulated hallway on RA. CONTINUE Nebs, stopped solumedrol 60mg TID, CONTINUE mucomyst Pt WBC are still 16.14. Pt was recommended to stay and to trend down WBC which she refused. She is recommended to follow up with PCP in 7 days and to repeat CBC with diff. Continue prednisone taper 20 mg for 10 days. Continue Clindamycin 600 mg Q8hr for 6 days then stop. Eat plenty of yogurt while on clindamycin. Will recheck in AM. CT also noted for nonobstructing mass with f/u CT in 6 months recs per radiology (2) Acute hypokalemia: Replace and monitor (3) Hypercholesterolemia: continue home meds (4) Hypertension: States she was started on medication for this on last admission but has been out for about 1 month BP stable, will hold for now (5) Dementia of the Alzheimer's type, with early onset, with depressive mood: No current meds for this (6) Chronic back pain: continue home meds (7) Anxiety: continue home meds (8) Depression: continue home meds (9) Tobacco use disorder: 1ppd, nicotine patch (10) Acute respiratory failure with hypoxemia: Acute respiratory failure with tachypnea and hypoxia As noted above. (11) DVT prophylaxis: SCDs given likely procedure Spent 35 minutes in management of patient. Total Time Total Time Spent Total Time Spent (In Minutes): over 35 min Discharge Plan Discharge Items Patient Disposition: Home - Self-Care Reason For Visit: COPD EXACERBATION Discharge Diagnosis: COPD Condition: Good Discharge Goals: Decrease discomfort Activity: Resume your previous activity Non-emergency contact: Primary Care Provider Call non-emergency contact if: you have any medication questions Follow-up/Referrals: Teddy Ortiz MD [Primary Care Provider] - Diet: Regular Addtl Provider Instructions: Followup with PCP in 1 week. Check WBC count -labs . F/U with pulmonary in 1-2 weeks Please take Clindamycin 600 mg PO Q8 hr and Prednisone 20 mg tab daily with food until gone. Prescriptions: New prednisone 20 mg tablet 20 mg PO DAILY 10 Days Qty: 10 RF: 0 clindamycin HCl 300 mg capsule 600 mg PO Q8H 6 Days Qty: 36 RF: 0 Continued citalopram 20 mg tablet 60 mg PO HS RF: 0 One Daily Women 50 Plus 400-120 mcg-mg Tablet 1 tab PO QAM RF: 0 omeprazole 20 mg capsule,delayed release(DR/EC) 20 mg PO QAM RF: 0 lidocaine 5 % adhesive patch,medicated 1 patch TOP DAILY Qty: 15 RF: 0 cyclobenzaprine 10 mg tablet 10 mg PO TID PRN (Reason: muscle spasm) Qty: 10 RF: 0 Daliresp 500 mcg tablet 500 mcg PO DAILY RF: 0 Incruse Ellipta 62.5 mcg/actuation blister with device 1 inh inhalation DAILY RF: 0 atorvastatin 40 mg Tablet 40 mg PO HS RF: 0 ranitidine HCl 150 mg Capsule 150 mg PO HS RF: 0 albuterol sulfate [Ventolin HFA] 90 mcg/actuation Hfa Aerosol Inhaler 2 puff INHALATION QID PRN (Reason: Shortness Of Breath Or Wheezing) RF: 0 Ocuvite Adult 50 Plus 250-5-1 mg Capsule 1 cap PO HS RF: 0 fluticasone propionate 50 mcg/actuation [place],Suspension 1 spray INTRANASAL DAILY PRN (Reason: Nasal Congestion) RF: 0 Spiriva with HandiHaler 18 mcg Capsule, W/Inhalation Device 1 cap INHALATION QAM RF: 0 Symbicort 160-4.5 mcg/actuation Hfa Aerosol Inhaler 2 puff INHALATION BID RF: 0 ipratropium-albuterol 0.5 mg-3 mg(2.5 mg base)/3 mL solution for nebulization 3 ml NEB QID PRN (Reason: Shortness Of Breath Or Wheezing) Qty: 180 RF: 4 metoprolol tartrate 25 mg Tablet 25 mg PO BID Qty: 60 RF: 3 Stand-Alone Forms: [facility] Discharge Orders: Discharge Order (Routine); Ordered 11/16/18 Ordered By: Adrian Fairbanks Admission Data Admit Date/Time: 11/12/18 14:42 Attending Provider: Adrian Fairbanks Admit Provider: Angie Morocho Primary Care Provider: Teddy Ortiz Other Providers: Angie Morocho ; Werner Boyce ; Jose Alberto Willams Service: Telemetry Medical
[2018-11-18 11:59] LABS: Aspergillus Ag Index 0.05 (<0.50); Aspergillus Antigen, Serum Not Detected (Not Detected); Aspergillus Flavus Negative (Negative); Aspergillus Niger Negative (Negative); Fungitell (1-3)-B-D-Glucan <31 pg/mL; Immunoglobulin IgE 48 KU/L (<115)
== END 2018-11-16 14:33 | disposition home or self-care (01) | DRG 167 ==
LOC: ED 10:45 → 2W 14:42 → SUATTDRO 14:42 → 2W 16:59